=== PATIENT | male | born 2000 | race Caucasian/White ===

== ENCOUNTER 2024-02-12 12:38 | Inpatient (IN) ==
[2024-02-12 13:32] LABS: Basophils # (auto) 0.02 K/uL (0.00-0.20); Basophils % (auto) 0.2 %; Eosinophils # (auto) 0.02 K/uL (0.00-0.50); Eosinophils % (auto) 0.2 %; Hematocrit (blood only) 44.1 % (42.0-52.0); Hemoglobin 15.4 g/dl (14.0-18.0); Immature Granulocytes # (auto) 0.03 K/uL (0.01-0.20); Immature Granulocytes % (auto) 0.4 %; Lymphocytes # (auto) 1.32 K/uL (1.20-3.40); Lymphocytes % (auto) 15.9 %; Mean Corpuscular Hemoglobin 31.2 pg (25.0-34.0); Mean Corpuscular Hgb Conc 34.9 g/dL (32.0-36.0); Mean Corpuscular Volume 89.5 fL (80.0-100.0); Mean Platelet Volume 9.8 fL (9.4-12.4); Monocytes # (auto) 0.62 K/uL (0.11-0.59); Monocytes % (auto) 7.5 %; Neutrophils # (auto) 6.28 K/uL (1.40-6.50); Neutrophils % (auto) 75.8 %; Platelet Count 265 K/uL (130-400); RDW Coefficient of Variation 12.4 % (11.5-14.5); RDW Standard Deviation 40.6 fL (36.4-46.3); Red Blood Count 4.93 M/uL (4.70-6.10); White Blood Count 8.29 K/ul (4.8-10.8)
[2024-02-12 13:36] LABS: Appearance Urine Turbid (Clear); Bacteria Urine Automated None Seen (None Seen); Bilirubin Urine Negative (Negative); Blood Urine Negative (Negative); Cast Urine Automated 0-2 /lpf (0-2); Color Urine Yellow; Epithelial Cell Urine Auto 0-2 /hpf (0-2); Glucose Urine UA Negative (Negative); Ketones Urine Negative (Negative); Leukocyte Esterase Urine Negative (Negative); Nitrite Urine Negative (Negative); Protein Urine Negative (Negative); RBC Urine Automated 0-2 /hpf (0-2); Specific Gravity Urine 1.022 (1.000-1.030); Urobilinogen Urine Negative (Negative); WBC Urine Automated 0-5 /hpf (0-5); pH Urine 8.5 (4.5-7.5)
[2024-02-12 13:54] LABS: Acetaminophen < 3 ug/ml (10-30); Salicylate < 3.0 mg/dl (3.0-30)
[2024-02-12 13:57] LABS: Amphetamines+Metham, Urine Neg (Neg); Barbiturates, Urine Neg (Neg); Benzodiazepine, Urine Neg (Neg); Cocaine, Urine Neg (Neg); MDMA (Ecstacy), Urine Neg (Neg); Marijuana, Urine Neg (Neg); Methadone, Urine Neg (Neg); Opiate, Urine Neg (Neg); Phencyclidine, Urine Neg (Neg)
--- NOTE | 2024-02-12 13:58 | Emergency Department Note ---
Impression & Plan Suicidal ideations, Hyperglycemia ED Provider Note NAME: SAMIRA ROOT AGE: 23 SEX: M : 2000 ARRIVES VIA: Walk-In INFORMANT: Patient ED PROVIDER(S): Gabino Perez DO CHIEF COMPLAINT: SI HPI: Patient is a 23-year-old male with a past medical history of depression, anxiety who presents to the ER for suicidal ideations with a plan to hang himself. He notes suicidal thoughts started about 2 weeks ago and have been progressively worse. Does not feel safe anymore and consequently want to come in to get admitted. He denies any auditory or visual hallucinations. He mitts to feeling highs and lows over the past month which are new. He does not want to be social. He feels out of touch. He denies any headache or change in vision. No chest pain or shortness of breath. No nausea, vomiting, or diarrhea. Additional history obtained from father who notes he has noticed no pressured speech. ADDITIONAL HISTORY OBTAINED: Additional history obtained from father who notes he has noticed no pressured speech. Chronic Medical/Social Conditions Affecting Care: Per HPI PAST MEDICAL HISTORY:See Below PAST SURGICAL HISTORY:See Below FAMILY HISTORY:See Below SOCIAL HISTORY:See Below HOME MEDICATIONS:See Below ALLERGIES:See Below VITALS:See Below PHYSICAL EXAMINATION: GENERAL: Sitting up in bed, alert, well appearing, well nourished, no distress, non-toxic EYE EXAM: normal conjunctiva. PERRL and EOM's grossly intact. OROPHARYNX: no exudate, no erythema, lips, buccal mucosa, and tongue normal and mucous membranes are moist NECK: supple, no nuchal rigidity, no adenopathy, non-tender LUNGS: Clear to auscultation. Normal chest wall mechanics HEART: no murmurs, S1 normal and S2 normal ABDOMEN: abdomen soft, non-tender, normo-active bowel sounds, no masses, no rebound or guarding. UPPER EXTREMITIES: upper extremities are grossly normal. LOWER EXTREMITIES: No pitting edema. NEURO EXAM: Normal sensorium, cranial nerves II-XII grossly intact, normal speech, no gross weakness of arms, no gross weakness of legs. PSYCH: Admits to suicidal ideations with a plan to hang himself MEDICAL DECISION MAKING: Patient is a 23-year-old male who presents ER for above-stated complaint. IV was established blood work was obtained. Labs show no significant leukocytosis or anemia. BMP on LFTs bilirubin and TSH is unremarkable. UA was negative. Always a tox was negative. Alcohol was negative. COVID was negative. Case was discussed with our psychiatric lawn care worker who evaluated the patient remained referral to 3 S. [facility] S[facility] accepted the patient patient was transferred upstairs on a 201 for suicidal ideations with a plan to kill himself. Consults/Care Managements Discussions: Per MDM Triage Nursing notes reviewed. Limited review of prior medical records performed Vital Signs: reviewed and remarkable for no significant abnormalities Differential diagnosis: Mood disorder, infection, hypoglycemia, electrolyte abnormalities, cardiac sources, intracerebral event, toxicologic, trauma, neurologic, as well as other pathologies. ER treatment provided: See below Diagnostics interpreted by me include EKG and cardiac monitoring as listed below: -ECG: none -Laboratory studies:Interpreted by me as stated above in MDM and shown below. Imaging studies: Xrays: As interpreted by me:none CTs show: none Procedures:none Critical Care: None Past Med/Surg History Problem List (Updated 02/12/24 @ 18:31 by Gabino Perez DO) Hyperglycemia (Acute) Suicidal ideations (Acute) Social History Smoking Status: Never smoker Preferred Language: Maori Communication Ability: Effective Film Librarian Required: Video and No Beliefs That Will Affect Care: None Feels Safe at Home: Yes Gender Identity: Male Home Meds Home Medications Medication Instructions Recorded Confirmed cholecalciferol (vitamin D3) 1,250 50,000 unit PO WK 02/12/24 02/12/24 mcg (50,000 unit) capsule lamotrigine 25 mg tablet 25 mg PO DAILY 02/12/24 02/12/24 Results & Data (ED) Vital Signs Vital Signs - 24 hr 02/12/24 12:49 02/12/24 13:00 02/12/24 13:00 Temperature 36.5 C 36.6 C Temperature Source Temporal Artery Scan Oral Pulse Rate 82 Pulse Rate [Radial] 70 Respiratory Rate 20 18 Respiratory Effort / Characteristics Non-Labored Spontaneous Non-Labored Non-Labored Spontaneous Respiratory Depth Normal Normal Normal Respiratory Pattern Regular Blood Pressure 132/89 Blood Pressure [Left Arm] 135/73 Blood Pressure Mean 103 Blood Pressure Mean [Left Arm] 93 Pulse Oximetry 97 100 Oxygen Delivery Method Room Air Sepsis Recent Fever Within 48 Hours No Sepsis New/Unexplained Change in Mental Status No Sepsis Action Taken by Nursing No Action Required 02/12/24 15:13 02/12/24 16:32 Temperature Temperature Source Pulse Rate Pulse Rate [Radial] 77 Respiratory Rate 18 Respiratory Effort / Characteristics Respiratory Depth Respiratory Pattern Blood Pressure Blood Pressure [Left Arm] 133/82 Blood Pressure Mean Blood Pressure Mean [Left Arm] 99 Pulse Oximetry 99 Oxygen Delivery Method Room Air Sepsis Recent Fever Within 48 Hours Sepsis New/Unexplained Change in Mental Status Sepsis Action Taken by Nursing Laboratory Data 02/12/24 13:04 02/12/24 13:04 Lab Results 02/12/24 02/12/24 02/12/24 Range/Units 13:00 13:04 13:07 WBC 8.29 (4.8-10.8) K/ul RBC 4.93 (4.70-6.10) M/uL Hgb 15.4 (14.0-18.0) g/dl Hct 44.1 (42.0-52.0) % MCV 89.5 (80.0-100.0) fL MCH 31.2 (25.0-34.0) pg MCHC 34.9 (32.0-36.0) g/dL RDW Std Deviation 40.6 (36.4-46.3) fL RDW Coeff of Adryan 12.4 (11.5-14.5) % Plt Count 265 (130-400) K/uL MPV 9.8 (9.4-12.4) fL Immature Gran % (Auto) 0.4 % Neut % (Auto) 75.8 % Lymph % (Auto) 15.9 % [place] % (Auto) 7.5 % Eos % (Auto) 0.2 % Baso % (Auto) 0.2 % Neut # (Auto) 6.28 (1.40-6.50) K/uL Lymph # (Auto) 1.32 (1.20-3.40) K/uL [place] # (Auto) 0.62 H (0.11-0.59) K/uL Eos # (Auto) 0.02 (0.00-0.50) K/uL Baso # (Auto) 0.02 (0.00-0.20) K/uL Immature Gran # (Auto) 0.03 (0.01-0.20) K/uL Sodium 141 (136-145) mmol/L Potassium 4.1 (3.5-5.1) mmol/L Chloride 102 (98-107) mmol/L Carbon Dioxide 29 (21-32) mmol/L Anion Gap 10 (3-11) BUN 15 (6-23) mg/dl Creatinine 0.87 (0.6-1.4) mg/dl Est Cr Clr Drug Dosing 137.9 ml/min Est GFR ( Amer) 142.0 ml/min Est GFR (Non-Af Amer) 122.5 ml/min BUN/Creatinine Ratio 17.2 (10-20) Glucose 115 H (70-99(Fasting)) mg/dl Calcium 10.0 (8.6-10.3) mg/dl Total Bilirubin 0.5 (0.2-1.0) mg/dl AST 16 (13-39) U/L ALT 14 (7-52) U/L Alkaline Phosphatase 52 (34-104) U/L Total Protein 8.2 (6.0-8.3) gm/dl Albumin 5.2 H (3.4-5.0) gm/dl Globulin 3.0 (2.5-4.0) gm/dl Albumin/Globulin Ratio 1.7 (0.9-2) TSH 1.804 (0.300-4.500) uIu/ml Urine Color Yellow Urine Appearance Turbid A (Clear) Urine pH 8.5 H (4.5-7.5) Ur Specific [place] 1.022 (1.000-1.030) Urine Protein Negative (Negative) Urine Glucose (UA) Negative (Negative) Urine Ketones Negative (Negative) Urine Blood Negative (Negative) Urine Nitrite Negative (Negative) Urine Bilirubin Negative (Negative) Urine Urobilinogen Negative (Negative) Ur Leukocyte Esterase Negative (Negative) Urine WBC (Auto) 0-5 (0-5) /hpf Urine RBC (Auto) 0-2 (0-2) /hpf U Hyaline Cast (Auto) 0-2 (0-2) /lpf U Epithel Cells (Auto) 0-2 (0-2) /hpf Urine Bacteria (Auto) None Seen (None Seen) Salicylates < 3.0 L (3.0-30) mg/dl Urine Opiates Screen Neg (Neg) Ur Methadone, Qual Neg (Neg) Acetaminophen < 3 L (10-30) ug/ml Urine Barbiturates Neg (Neg) Ur Phencyclidine (PCP) Neg (Neg) U Amphetamin/Meth Scrn Neg (Neg) MDMA (Ecstasy) Screen Neg (Neg) U Benzodiazepines Scrn Neg (Neg) Ur Cocaine Metabolite Neg (Neg) U Marijuana (THC) Screen Neg (Neg) Ethyl Alcohol mg/dL < 10.0 (<10.0) mg/dl SARS-CoV-2, RNA, NAAT NEGATIVE (NEGATIVE) Administered Medications Olanzapine (Olanzapine 5 Mg Tablet) 5 mg PO BID PRN PRN Reason: Anxiety/Agitation Stop: 03/13/24 20:59 Last Admin: 02/12/24 17:39 Dose: 5 mg Documented By: VDS Discharge Plan Visit Data Chief Complaint: Mental Health Evaluation Stated Complaint: THOUGHTS OF SUICIDE/DON'T WANT TO HURT OTHERS ED Provider: Gabino Perez Discharge Problem: Suicidal ideations, Hyperglycemia Patient Disposition: Admitted As Inpatient Discharge Instructions Interventions: ED Discharge Assessment Last Done: 02/12/24 16:32
[2024-02-12 14:16] LABS: Albumin Globulin Ratio 1.7 (0.9-2); Albumin Level 5.2 gm/dl (3.4-5.0); BUN Creatinine Ratio 17.2 (10-20); Bilirubin,Total 0.5 mg/dl (0.2-1.0); Creatinine Clr Calc Pharmacy 137.9 ml/min; Est GFR (Non-African American) 122.5 ml/min; Potassium 4.1 mmol/L (3.5-5.1); Total Protein 8.2 gm/dl (6.0-8.3)
[2024-02-12 14:29] LABS: Thyroid Stimulating Hormone 1.804 uIu/ml (0.300-4.500)
[2024-02-12] MEDS ORDERED: MAGNESIUM HYDROXIDE SUSP 30 ML UDC PO PRN (16:45)
[2024-02-12] MEDS ORDERED: ALUMINUM/MAGNESIUM SUSP 30 ML UDC PO PRN (16:45)
[2024-02-12] MEDS ORDERED: SODIUM CHLORIDE 0.65% NA SOLN 45 ML (OCEAN) PRN (16:45)
[2024-02-12] MEDS ORDERED: BISMUTH SUBSALICYLATE LIQD 236 ML PO PRN (16:45)
[2024-02-12] MEDS ORDERED: hydrOXYzine HCl 25 MG TAB PO PRN (16:45)
[2024-02-12] MEDS: OLANZapine 5 MG TABLET PO PRN (17:39)
[2024-02-12] MEDS: haloperidoL 5 MG TAB PO PRN (19:34)
[2024-02-12] MEDS: LORazepam 1 MG TAB PO PRN (19:34)
[2024-02-12] MEDS: Patient's ALLERGY Info needs ENTERED STA (19:56)
[2024-02-12] MEDS ORDERED: OLANZapine 5 MG TABLET PO SCH (21:00)
[2024-02-12] MEDS: lamoTRIgine 25 MG TAB PO SCH (22:24)
--- NOTE | 2024-02-13 09:26 | History & Physical ---
Date of Service February 13, 2024 Impression / Recommendations Impression 23 yo man with no formal psychiatric history admitted on a 201 voluntary commitment for psychosis, sense that he may hurt someone and SI with plan of hanging himself using rope. Diagnostically consistent with unspecified psychosis with differential including schizophrenia (seems most likely given his age, gradual onset with increased negative symptoms, ideas of reference, increased yarsanism fixation, and now thought insertion to harm others) vs OCD vs MDD with psychotic features vs BPAD (less likely given no hx of monica) vs delusional disorder vs 2/2 medical cause (unlikely given negative head CT two months ago and no current neurological deficits or autonomic dysfunction, TSH normal, ?past Lyme panel). Discussed medication treatment options. Discussed risks, benefits and alternatives. He consented to continue haldol and ativan for psychosis and acute SI and ego-dystonic HI. Reviewed side effects including but not limited to: movement (TD, NMS), cardiac (QTc prolongation), and metabolic (stroke, insulin resistance) and necessity for fasting lipid and glucose labwork and AIMS done with score of 0. Overall I spent a total of 90 minutes for this admission including review of chart records, review of labwork, direct evaluation of the patient, counseling the patient, ordering medication, risk assessment, discussion with the psychiatric liason RN and documentation in the electronic health record. MNPR due to psychosis and HI (1) Unspecified psychosis not due to a substance or known physiological condition: (2) Suicidal ideations: (3) Homicidal thoughts: Plan 02/13/2024:The patient was admitted to the [facility] ([facility] mental [facility]) on q15 min checks (behavioral with suicide precautions) for safety. The patient will participate in group, recreational, and milieu therapies and will be offered additional individual and family sessions as clinically appropriate. -Continue haldol 2.5mg qAM and 5mg HS for psychosis -Ativan 1mg qAM and 2mg HS for psychosis given high acuity of current distress and symptoms -Discontinue lamictal -Fasting lipid panel and HbA1c in 1-2 days as he can better tolerate -Suicide protocol with safe tray, safe linens, safety precautions -Homicide precautions -Elopement precautions Inventory Assets Strengths: supportive family, willing for treatment Needs: safety and stabilization, increased coping skills, medication adjustment, increased outpatient support Suicide Risk Level Suicide Risk Level: High-Moderate (q15 min suicide checks) (SI with plan prior to admission and psychosis but denies SI currently and feels safe in the hospital, he feels comfortable telling staff if he feels unsafe and likes the ability to utilize the quiet room. Low threshold for 1-1 observation if SI re- emerges and/or he attempts to self-harm ) Risk Factors Assessment Male: Yes : Yes Do You Have Access To A Gun?: No Mental Health Diagnoses: Yes Substance Use Disorders: No Previous Attempt: No Family History of Suicide: No Previous Psychiatric Hospitalization: No Protective Factors Assessment Employed: No Stable Relationships: Yes Supportive Family: Yes Psychiatric History Identifying Data SAMIRA ROOT is a 23-year-old man who currently lives in [place] with his parents, has a history of depression, and was admitted on 02/12/24 17:07 on a 201 voluntary commitment for SI with plan of hanging himself and ego-dystonic HI. Chief Complaint "I feel like this is a test from God and that medication might not be able to fix it". History of Present Illness Samira presented to the emergency room with his father for worsening depression and SI with plan of hanging himself and could not identify any particular recent stressors. However, on admission to the behavioral health unit he revealed to the nurse that he was having the sense of getting a message that he needed to hurt others and due to this felt like he should kill himself before this could happen. Last evening he attempted to self-harm using an item on his sink and then agreed to utilize the quiet room and accepted medication and remained safe overnight. Today reports a significant improvement in some of his symptoms, denying current HI and SI, which he feels is due to the benefits from getting some sleep and possibly from the medication. He reports recent poor sleep, only 2-3 hours per night, for the two nights prior to admission and within the last three days developed a strong sense of needing to harm himself or others, which is a new and alarming development for him. He expresses a strong internal resistance against these thoughts and has no history of acting on them and is disturbed by the thought of hurting anyone but feels powerless at times when these thoughts seem to take over. He has been having thoughts of suicide with various plans but has thought most about hanging; he denies any rehearsal behaviors related to this. He describes a gradual decline in function with increased isolation and depression starting in 2021 and progressively worsening. In 2022, after his family moved to [place] his sense of isolation intensified, contributing to the onset of depression. He sought help through therapy, meditation, and exercise, which provided some relief. However, he was unable to continue his [employer] business and began to have an unintentional withdrawal from social interactions and a deepening interest in spirituality and self- reflection. He notes that he will sometimes spend hours a day meditating, writing and thinking about other religions and recently was going for long periods of time fasting which had significantly concerned his family. He now wonders if this period of time could be called "psychosis". Two months ago his parents took him to the ER at [facility] due to severe isolation and poor communication, which was worrying to his family. He recalls having a head CT and labwork for medical evaluation to explore potential physical health contributions to his symptoms, including chronic issues like psoriasis, seborrheic dermatitis, nasal problems, and fatigue which was non-remarkable and he was discharged from the ED. Within the last two weeks he started to develop thoughts of suicide and only within the last few days did he start to have a sense of harming others. He denies any auditory hallucinations but does have the sense that his mind is being controlled at times and confirms multipe incidents of ideas of reference over the last year including feeling that movies are dir ectly speaking to him, getting fixated on certain numbers appearing in books or online or the clock such as "11:11 and 333" and on arrival to the [facility] found a passage in a book very distressing as he felt it directly applied to him. He denies any history of monica nor hypomania except poor sleep over the two days prior to admission. Denies any history of self-harm nor eating disorder. Was started on lamictal 3 weeks ago but feels this is making his symptoms worse. Past Psychiatric History Previous Psych History: history of social anxiety in high school Current Psychiatric Diagnosis: Depression, Anxiety Outpatient Services: started seeing ALEJANDRO Jean at [facility] for psychiatric care Previous Psych Admissions: none Do You Have Access To A Gun?: No History of Previous Suicide Attempt: No Past Medication Trials: none Past Head Trauma/Neuro History History of Concussion/Seizure: No Allergies Allergy/AdvReac Type Severity Reaction Status Date / Time chloroquine Allergy Unverified 02/12/24 19:55 Home Medications Medication Instructions Recorded Confirmed Type cholecalciferol (vitamin D3) 1,250 50,000 unit PO WK 02/12/24 02/12/24 History mcg (50,000 unit) capsule lamotrigine 25 mg tablet 25 mg PO DAILY 02/12/24 02/12/24 History Family History Family History of: Depression Family Mental Health History Comment: Dad mild depression Alcohol History Hx of Alcohol Use Over the Past 12 Months: No AUDIT Total Score: 0 denies any alcohol use in last year, in high school would drink socially at times Smoking Use Have You Smoked or Used Tobacco Products in the Last 30 Days: No Smoking Status: Never smoker Substance History Hx of Prescription Med Misuse Over the Past 12 Months: No Hx of Over the Counter Med Misuse Over the Past 12 Months: No Hx of Inhalent Misuse Over the Past 12 Months: No Hx of Organic Substance Use Over the Past 12 Months: No Hx of Illegal Substances/Street Drug Use Over Past 12 Months: No Problems as a Result of Past Substance Use: None Identified Denies any use of recreational substances within the last year. About 1.5 years ago used cannabis via vaping and smoking. Tried LSD once about 2 years ago. Personal History Living Arrangements: Home Childhood: Grew up near [facility], family relocated to [place] in 2022 Highest Grade Completed: Some College (did [employer] courses) Employment Status: Unemployed Marital Status: Single Number Of Children: 0 Beliefs That Will Affect Care: None Current Legal Problems: No Hx Legal Problems: No Patient History Social History Smoking Status: Never smoker Preferred Language: Faroese Communication Ability: Effective Flight Test Engineer Required: Video and No Beliefs That Will Affect Care: None Feels Safe at Home: Yes Gender Identity: Male Review of Systems Review of Systems: All systems reviewed & are unremarkable except as noted in HPI & below (fatigue) Physical Exam Psychiatric: Orientation: alert and oriented x 3 Apperance: appropriately dressed Eye Contact: + fair eye contact Motor Behavior: no abnormal motor movements Speech: normal rate/rhythm/volume of speech Affect: + flat affect Mood: + depressed mood and + anxious mood Thought Process: + circumstantial thought process Thought Content: + ideas of reference and + thought insertion Suicidal Thoughts: + reports suicidal thoughts (intermittent) and + reports suicidal plan (none for hospital, prior to admission to hang himself) Homicidal Thoughts: denies homicidal plan; + reports homicidal thoughts (no target but having ego-dystonic fear that he may hurt or cause harm) Hallucinations: + auditory hallucinations; no visual hallucinations Cognition: recent memory grossly intact, remote memory grossly intact, attention grossly intact and language grossly intact Insight: + fair insight Judgment: + limited judgement Vital Signs (Past 24 Hours): Last Vital Signs Temp 36.0 C L 02/13/24 06:00 Pulse 78 02/13/24 06:00 Resp 16 02/13/24 06:00 BP 121/73 02/13/24 06:00 Pulse Ox 99 02/12/24 15:13 O2 Del Method Room Air 02/12/24 16:32 Exam Statement: A physical exam was performed in the ED by Dr. Perez for the purposes of medical clearance. I accept that physical as correct and adequate for the purposes of the inpatient physical exam. Results & Data ([facility]) Laboratory Results Laboratory Results - last 24 hr 02/12/24 02/12/24 02/12/24 13:00 13:04 13:07 WBC 8.29 RBC 4.93 Hgb 15.4 Hct 44.1 MCV 89.5 MCH 31.2 MCHC 34.9 RDW Std Deviation 40.6 RDW Coeff of Adryan 12.4 Plt Count 265 MPV 9.8 Immature Gran % (Auto) 0.4 Neut % (Auto) 75.8 Lymph % (Auto) 15.9 [place] % (Auto) 7.5 Eos % (Auto) 0.2 Baso % (Auto) 0.2 Neut # (Auto) 6.28 Lymph # (Auto) 1.32 [place] # (Auto) 0.62 H Eos # (Auto) 0.02 Baso # (Auto) 0.02 Immature Gran # (Auto) 0.03 Sodium 141 Potassium 4.1 Chloride 102 Carbon Dioxide 29 Anion Gap 10 BUN 15 Creatinine 0.87 Est Cr Clr Drug Dosing 137.9 Est GFR ( Amer) 142.0 Est GFR (Non-Af Amer) 122.5 BUN/Creatinine Ratio 17.2 Glucose 115 H Calcium 10.0 Total Bilirubin 0.5 AST 16 ALT 14 Alkaline Phosphatase 52 Total Protein 8.2 Albumin 5.2 H Globulin 3.0 Albumin/Globulin Ratio 1.7 TSH 1.804 Urine Color Yellow Urine Appearance Turbid A Urine pH 8.5 H Ur Specific [place] 1.022 Urine Protein Negative Urine Glucose (UA) Negative Urine Ketones Negative Urine Blood Negative Urine Nitrite Negative Urine Bilirubin Negative Urine Urobilinogen Negative Ur Leukocyte Esterase Negative Urine WBC (Auto) 0-5 Urine RBC (Auto) 0-2 U Hyaline Cast (Auto) 0-2 U Epithel Cells (Auto) 0-2 Urine Bacteria (Auto) None Seen Salicylates < 3.0 L Urine Opiates Screen Neg Ur Methadone, Qual Neg Acetaminophen < 3 L Urine Barbiturates Neg Ur Phencyclidine (PCP) Neg U Amphetamin/Meth Scrn Neg MDMA (Ecstasy) Screen Neg U Benzodiazepines Scrn Neg Ur Cocaine Metabolite Neg U Marijuana (THC) Screen Neg Ethyl Alcohol mg/dL < 10.0 SARS-CoV-2, RNA, NAAT NEGATIVE Current Inpatient Medications Current Inpatient Medications: Current Inpatient Medications Acetaminophen (Acetaminophen 325 Mg Tab) 650 mg PO Q4H PRN PRN Reason: Headache or Minor Fever Stop: 03/13/24 16:44 Al Hydrox/Mg Hydrox/Simethicone (Aluminum/Magnesium Susp 30 Ml Udc) 30 ml PO Q4H PRN PRN Reason: GI Upset Stop: 03/13/24 16:44 Bismuth Subsalicylate (Bismuth Subsalicylate Liqd 236 Ml) 15 ml PO PRN PRN PRN Reason: Loose Stool Stop: 03/13/24 16:44 Haloperidol (Haloperidol 5 Mg Tab) 5 mg PO BID PRN PRN Reason: agitation/paranoia Stop: 03/13/24 19:17 Last Admin: 02/12/24 19:34 Dose: 5 mg Hydroxyzine HCl (Hydroxyzine Hcl 25 Mg Tab) 50 mg PO HSZ PRN PRN Reason: Insomnia Stop: 03/13/24 16:44 Hydroxyzine HCl (Hydroxyzine Hcl 25 Mg Tab) 25 mg PO Q4H PRN PRN Reason: Anxiety Stop: 03/13/24 16:44 Lamotrigine (Lamotrigine 25 Mg Tab) 25 mg PO HS TAY; Protocol Stop: 03/13/24 21:59 Last Admin: 02/12/24 22:24 Dose: Not Given Lorazepam (Lorazepam 1 Mg Tab) 2 mg PO BID PRN PRN Reason: Agitation Stop: 03/13/24 19:17 Last Admin: 02/12/24 19:34 Dose: 2 mg Magnesium Hydroxide (Magnesium Hydroxide Susp 30 Ml Udc) 30 ml PO DAILY PRN PRN Reason: Constipation Stop: 03/13/24 16:44 Sodium Chloride (Sodium Chloride 0.65% Na Soln 45 Ml ([place])) 1 - 2 sprays NA PRN PRN PRN Reason: Nasal Dryness/Congestion Stop: 03/13/24 16:44
--- OUTSIDE RECORDS SUMMARY | 2024-02-13 10:28 | External Medical Summary | Continuity of Care Document ---
Author Name Unknown Organization [address] Address [address] [place] [address] DR SAMANIEGO [facility] [phone] Care Team Providers Care Second Cook And Baker Name Role Phone Néstor Miles Primary Care Physician [phone] Encounter [facility] [id number] Date(s): 11/23/23 - 11/23/[address] [place] [id number] [facility], [address] [place] [address] [phone] Encounter Diagnosis Body mass index [BMI] 21.0-21.9, adult(Discharge Diagnosis) - 11/23/23 Fatigue(Discharge Diagnosis) - 11/23/23 Perianal itch(Discharge Diagnosis) - 11/23/23 Discharge Disposition: Home or Self Care Attending Physician: MD Miles Ravishankar E Referring Physician: MD Miles Ravishankar E Allergies, Adverse Reactions, Alerts Substance Reaction Severity Status chloroquine Active Assessment and Plan Extracted from: Title:Office Visit Note Author:MD Miles Ravishan kar E Date:11/23/23 1.Perianal itch - Suspect yeast infection of gluteal fold - Lotrisone recommended for topical treatment x 5-7 days as needed - Keep area clean/dry - Avoid high friction rubbing, moistened wipes encouraged temporarily - Fiber to encouraged soft/regular BM 2.Fatigue - Reviewed records extensively with pt - Next step in evaluation is sleep study currently scheduled on Sunday but pending authorization. Encouraged pt to call and expedite review given appt is hard to reschedule if not approved in a timely manner, pt agreeable to do so. f/u pending sleep study. Time: 40mins 5- pre-visit chart review 30- visit, inclusive of history, exam, and discussion of assessment/plan 5- post-visit documentation/orders/coordination of care Immunizations Given and Recorded Vaccine Date Status Refusal Reason meningococcal conjugate vaccine 08/08/18 Given meningococcal conjugate vaccine 03/10/13 Given human papillomavirus vaccine 01/30/18 Given human papillomavirus vaccine 10/03/17 Given human papillomavirus vaccine 07/26/17 Given influenza virus vaccine, inactivated 06/30/17 Give n hepatitis A pediatric vaccine 10/13/13 Given hepatitis A pediatric vaccine 04/11/13 Given tetanus/diphtheria/pertuss, acel (Tdap) 03/10/13 G iven measles/mumps/rubella virus vaccine 01/21/13 Recor ded measles/mumps/rubella virus vaccine 12/28/05 Recor ded varicella virus vaccine 05/14/07 Recorded varicella virus vaccine 01/21/03 Recorded poliovirus vaccine, inactivated 12/28/05 Recorded poliovirus vaccine, inactivated 05/04/03 Recorded poliovirus vaccine, inactivated 02/07/02 Recorded poliovirus vaccine, inactivated 01 Recorded diphtheria/tetanus/pertuss, acel (DTaP) 12/28/05 R ecorded diphtheria/tetanus/pertuss, acel (DTaP) 04/16/02 R ecorded diphtheria/tetanus/pertuss, acel (DTaP) 02/07/02 R ecorded diphtheria/tetanus/pertuss, acel (DTaP) 01 R ecorded pneumococcal 13-valent vaccine 05/04/03 Recorded pneumococcal 13-valent vaccine 04/16/02 Recorded pneumococcal 13-valent vaccine 02/07/02 Recorded pneumococcal 13-valent vaccine 01 Recorded haemophilus b conj (PRP-OMP) vaccine 05/04/03 Rian rded haemophilus b conj (PRP-OMP) vaccine 04/16/02 Rian rded haemophilus b conj (PRP-OMP) vaccine 02/07/02 Rian rded haemophilus b conj (PRP-OMP) vaccine 01 Rian rded hepatitis B pediatric vaccine 06/12/02 Recorded hepatitis B pediatric vaccine 01/13/02 Recorded hepatitis B pediatric vaccine 01 Recorded Medications Lotrisone 1%-0.05% topical cream Start: 11/23/23 10:56:00 EST, 1 appl, topical, bid, Disp# 45 g, Refills: 0, Pharmacy: [facility]/pharmacy #[id number] Start Date: 11/23/23 Stop Date: 11/30/23 Status: Ordered mupirocin 2% topical ointment APPLY TO AFFECTED AREA 2 TO 3 TIMES A DAY Start Date: 05/28/23 Status: Ordered Mental Status 11/23/23 Barriers to Learning one year None evide nt Mandatory Health Literacy Documentation Yes Health Literacy Communication Barriers N ever Primary Language Chinese Problem List Condition Confirmation Course Effective Dates Status Health St atus Informant Right ankle pain Confirmed Active Ulna styloid fracture, closed Confirmed Active Left knee injury Confirmed Active Distal radius fracture Confirmed Active Fx clavicle Confirmed Active History of anemia Confirmed Active Seasonal allergic rhinitis Confirmed Active Seborrheic dermatitis Confirmed Active Diagnosis Diagnosis Type Effective Dates Health Status Cl inical Service Informant Body mass index [BMI] 21.0-21.9, adult Discharge Diagnosis 11/23/23 Non-Specified Fatigue Discharge Diagnosis 11/23/23 Perianal itch Discharge Diagnosis 11/23/23 Procedures Procedure Date Related Diagnosis Body Site Status Shave biopsy and cauterization of skin 1 11/07/22 Completed Circumcision Completed Umbilical Hernia Repair 2 Completed 1Crown Scalp Left Axilla 91098 Vital Signs Most recent to oldest [Reference Range]: 1 Height 184.2 cm (11/23/23 10:39 AM) Patient Weight 73.1 kg (11/23/23 10:39 AM) Body Mass Index 21.54 kg/m2 (11/23/23 10:39 AM) Temperature [36.5-37.9 DegC] 36.4 DegC *LOW* (11/23/23 10:39 AM) Heart Rate 57 bpm (11/23/23 10:39 AM) Blood Pressure 108/70mmHg (11/23/23 10:39 AM) Cuff Pulse Pressure 38 mmHg (11/23/23 10:39 AM) Social History Social History Type Response Smoking Status Never smoked cigaret magui Sex Male FCM Outpt Note * MD Jd, Néstor Fragoso: PERFORM Event Display: FCM Outpt Note Authored Date: Chief Complaint Itchiness around anus. Started about5-7 days ago. Noticeable more in the morning and after wiping and at night. History of Present Illness Samira is a 23yoM here today with itching around his anus that started 5-7 days ago. He notes it's worse in the AM and after wiping at night. He notes he woke up one day with itching in the perianal area that he didn't think much of. It's persisted ever since so thought he should get checkedout. He's noting it worst when he wakes up and after wiping. No recent diarrhea/constipation.No blood when he wipes. No recent travel. He otherwise continues to struggle with low energy/fatigue. Extensive work-up performed and unremarkable to date. He did see an ENT in [place] who recommended sleep study. This was ordered and is scheduled next week but still has not obtained insurance authorization after initial denial and resubmission. Initial denial was for "inpatient hospitalization" which I think was an error so resubmitted for sleep study itself on 11/16 and awaiting response from insurance. He feels symptoms are stagnant since May - not worse or better really. He struggles with daily fatigue/low energy that he thinks is due to poor sleep quality. He stays asleep throughout he night but doesn't feel rested after his sleep. Review of Systems 07/14pt ROS reviewed/negative except as noted in HPI. Physical Exam Vitals & Measurements T:36.4C HR:57(Monitored) BP:108/70 SpO2:98% HT:184.2cm WT:73.100kg(Dosing) WT:73.1kg BMI:21.54 PHQ2 Data(Data Documented on:11/23/2023 10:36) Emotional health assessment NEGATIVE GENERAL APPEARANCE: The patient is alert, oriented and in no acute distress. VITALS: As above. HEENT: Head is normocephalic/atraumatic. CARDIOVASCULAR: +2 radial pulses. LUNGS: Respirations even and unlabored. EXTREMITIES: No cyanosis, clubbing or edema. RECTAL: No prolapsed internal or external hemorrhoids of note. Erythematous moody-rectal region with satellite lesions noted. NEUROLOGICAL: Grossly non-focal exam. SKIN: Warm and dry without any rash. Assessment/Plan 1.Perianal itch - Suspect yeast infection of gluteal fold - Lotrisone recommended for topical treatment x 5-7 days as needed - Keep area clean/dry - Avoid high friction rubbing, moistened wipes encouraged temporarily - Fiber to encouraged soft/regular BM 2.Fatigue - Reviewed records extensively with pt - Next step in evaluation is sleep study currently scheduled on Sunday but pending authorization.Encouraged pt to call and expedite review given appt is hard to reschedule if not approved in a timely manner, pt agreeable to do so. f/u pending sleep study. Time: 40mins 5- pre-visit chart review 30- visit, inclusive of history, exam, and discussion of assessment/plan 5- post-visit documentation/orders/coordination of care Problem List/Past Medical History Ongoing Distal radius fracture Fx clavicle History of anemia Left knee injury Right ankle pain Seasonal allergic rhinitis Seborrheic dermatitis Ulna styloid fracture, closed Procedure/Surgical History Shave biopsy and cauterization of skin (11/07/2022)CircumcisionUmbilical Hernia Repair Medications betamethasone-clotrimazole topical(Lotrisone 1%-0.05% topical cream), 1 appl, topical, bid mupirocin topical(mupirocin 2% topical ointment) Allergies chloroquine Social History Smoking Status Never smoked cigarettes Alcohol - Denies Alcohol Use Employment/School Status:Student Exercise - Regular exercise Times per week:5-6 times/week Home/Environment Lives with:Father, Mother, Siblings Sexual - No Sexual Activity Self described orientation:Straight or heterosexual Substance Abuse - Denies Substance Abuse Tobacco - Denies Tobacco Use Family History Arthritis: Unknown. Diabetes: Unknown. Heart disease: MGF and Unknown. Hyperlipidemia..: Unknown and Unknown. Health Status Family Member(s) Immunizations Vaccine Date Status meningococcal conjugate vaccine 08/08/2018 Given human papillomavirus vaccine 01/30/2018 Given human papillomavirus vaccine 10/03/2017 Given human papillomavirus vaccine 07/26/2017 Given influenza virus vaccine, inactivated 06/30/2017 Given hepatitis A pediatric vaccine 10/13/2013 Given hepatitis A pediatric vaccine 04/11/2013 Given meningococcal conjugate vaccine 03/10/2013 Given tetanus/diphtheria/pertuss, acel (Tdap) 03/10/2013 Given measles/mumps/rubella virus vaccine 01/21/2013 Recorded varicella virus vaccine 05/14/2007 Recorded measles/mumps/rubella virus vaccine 12/28/2005 Recorded poliovirus vaccine, inactivated 12/28/2005 Recorded diphtheria/tetanus/pertuss, acel (DTaP) 12/28/2005 Recorded pneumococcal 13-valent vaccine 05/04/2003 Recorded haemophilus b conj (PRP-OMP) vaccine 05/04/2003 Recorded poliovirus vaccine, inactivated 05/04/2003 Recorded varicella virus vaccine 01/21/2003 Recorded hepatitis B pediatric vaccine 06/12/2002 Recorded pneumococcal 13-valent vaccine 04/16/2002 Recorded haemophilus b conj (PRP-OMP) vaccine 04/16/2002 Recorded diphtheria/tetanus/pertuss, acel (DTaP) 04/16/2002 Recorded pneumococcal 13-valent vaccine 02/07/2002 Recorded haemophilus b conj (PRP-OMP) vaccine 02/07/2002 Recorded poliovirus vaccine, inactivated 02/07/2002 Recorded diphtheria/tetanus/pertuss, acel (DTaP) 02/07/2002 Recorded hepatitis B pediatric vaccine 01/13/2002 Recorded pneumococcal 13-valent vaccine 2001 Recorded hepatitis B pediatric vaccine 2001 Recorded haemophilus b conj (PRP-OMP) vaccine 2001 Recorded poliovirus vaccine, inactivated 2001 Recorded diphtheria/tetanus/pertuss, acel (DTaP) 2001 Recorded Recommendations Health Maintenance Pending(in the next year) OverDue Adult Influenza Vaccine due03/30/23and every 1year Due Adult COVID-19 Vaccination due11/23/23Unknown Frequency Adult Social Determinants of Health Screening due11/23/23Unknown Frequency Adult Tdap/Td Vaccine due11/23/23Unknown Frequency Hepatitis C Screening due11/23/23One-time only Lipid Screening due11/23/23Unknown Frequency Satisfied(in the past 1 year) Satisfied Body Mass Index on11/23/23.Satisfied by JAM Thurston Angela Electronic Signature on File Electronically Reviewed/Signed by: Néstor Miles MD Author Signature Dt/Tm:11/23/2023 11:03 AM Department of Family Medicine [facility] Patient Care team information Care Team Personnel Name: MD Scottie, Mode Decker Position: Physician - Orthopaedic Surg Member Role: Lifetime Relationship Address: Address: [address] [place] [address] [address] [place] [address] Name: MD Miles Ravishankar E Position: Physician Member Role: Primary Care Provider Address: Address: [address] [place] [address] [place] Care Team Related Persons Name: IVETT ANISHA M Address: home [address], [place] [phone] Name: ANISHA ROOT Address: home [address] [facility], [place] [phone] Name: ANISHA ROOT Address: [place] Address: [address], [place] [phone] Name: KELYL ROOT Address: home [address] [facility], [phone] Name: DONELL ROOT Address: [place] Address: home [address] [place] [address], [place] [phone]
--- OUTSIDE RECORDS SUMMARY | 2024-02-13 10:28 | External Medical Summary | Continuity of Care Document ---
Author Name Unknown Organization [address] Address [address] [place] [address] DR SAMANIEGO [place]OCO [id number] Care Team Providers Care Materials Recycler Name Role Phone Néstor Miles Primary Care Physician [phone] Encounter [facility] [id number] Date(s): 01/18/24 - 01/18/[address] [place] [address] [facility], [address] [place] [phone] Encounter Diagnosis Need for Tdap vaccination(Discharge Diagnosis) - 01/18/24 Daytime sleepiness(Discharge Diagnosis) - 01/18/24 Sleep-disordered breathing(Discharge Diagnosis) - 01/18/24 Discharge Disposition: Home or Self Care Attending Physician: MD Miles Ravishankar E Referring Physician: MD Miles Ravishankar E Allergies, Adverse Reactions, Alerts Substance Reaction Severity Status chloroquine Active Assessment and Plan Extracted from: Title:Office Visit Note Author:MD Miles Ravishan kar E Date:01/18/24 1.Daytime sleepiness - Given inability to obtain outpatient home sleep study due to insurance will consult with sleep medicine for ongoing daytime sleepiness despite excessive hours of sleep - Sleep hygeine practices are good, well versed in thsi - No alternative medical etiology for his symptoms exists but does endorse waking up short of breath at times, unsure if he snores 2.Sleep-disordered breathing - As above 3.Need for Tdap vaccination - 10yrs from last dose, given today, VIS provided f/u PRN pending sleep consult. Time: 30mins 5- pre-visit chart review 20- visit, inclusive of history, exam, and discussion of assessment/plan 5- post-visit documentation/orders/coordination of care Immunizations Given and Recorded Vaccine Date Status Refusal Reason tetanus/diphtheria/pertuss, acel (Tdap) 01/18/24 G iven tetanus/diphtheria/pertuss, acel (Tdap) 03/10/13 G iven meningococcal conjugate vaccine 08/08/18 Given meningococcal conjugate vaccine 03/10/13 Given human papillomavirus vaccine 01/30/18 Given human papillomavirus vaccine 10/03/17 Given human papillomavirus vaccine 07/26/17 Given influenza virus vaccine, inactivated 06/30/17 Give n hepatitis A pediatric vaccine 10/13/13 Given hepatitis A pediatric vaccine 04/11/13 Given measles/mumps/rubella virus vaccine 01/21/13 Recor ded measles/mumps/rubella [...] bid, Disp# 45 g, Refills: 0, Pharmacy: [facility]/pharmacy #[id number] Start Date: 11/23/23 Stop Date: 11/30/23 Status: Ordered mupirocin 2% topical ointment APPLY TO AFFECTED AREA 2 TO 3 TIMES A DAY Start Date: 05/28/23 Status: Ordered Mental Status 01/18/24 Barriers to Learning one year None evide nt Mandatory Health Literacy Documentation Yes Health Literacy Communication Barriers N ever Primary Language Northern Irish Problem List Condition Confirmation Course Effective Dates Status Health St atus Informant Right ankle pain Confirmed Active Ulna styloid fracture, closed Confirmed Active Left knee injury Confirmed Active Distal radius fracture Confirmed Active Fx clavicle Confirmed Active History of anemia Confirmed Active Seasonal allergic rhinitis Confirmed Active Seborrheic dermatitis Confirmed Active Diagnosis Diagnosis Type Effective Dates Health Status Clinical Service Informant Sleep-disordered breathing Discharge Diagnosis 01/18/24 Need for Tdap vaccination Discharge Diagnosis 01/18/24 Daytime sleepiness Discharge Diagnosis 01/18/24 Procedures Procedure Date Related Diagnosis Body Site Status Shave biopsy and cauterization of skin 1 11/07/22 Completed Circumcision Completed Umbilical Hernia Repair 2 Completed 1Crown Scalp Left Axilla [address] Vital Signs Most recent to oldest [Reference Range]: 1 Patient Weight 74 kg (01/18/24 11:18 AM) Heart Rate 65 bpm (01/18/24 11:18 AM) Respiratory Rate 20 br/min (01/18/24 11:18 AM) Blood Pressure 102/75mmHg (01/18/24 11:18 AM) Social History Social History Type Response Smoking Status Never smoked cigaret magui Sex Male FCM Outpt Note * MD Jd, Néstor E: PERFORM Event Display: FCM Outpt Note Authored Date: Chief Complaint f/u sleep - sleeping 10 hours and still waking up tired, having some snoring History of Present Illness Samira is a 23yoM here today to f/u on ongoing fatigue/sleep issues. He is sleeping roughly 10hrs a night and is still tired all the time. At last visit we were pending sleep study but he's struggled with getting insurance coverage of this. Also having new babies join the family soon so wanted to update Tdap if needed. Last was 2012 so now past due. Review of Systems 07/14pt ROS reviewed/negative except as noted in HPI. Physical Exam Vitals & Measurements HR:65(Monitored) RR:20 BP:102/75 SpO2:98% WT:74.000kg(Dosing) WT:74kg PHQ2 Data(Data Documented on:01/18/2024 11:16) Emotional health assessment POSITIVE PHQ-9 modified for adolescents not completed GENERAL APPEARANCE: The patient is alert, oriented and in no acute distress. VITALS: As above. HEENT: Head is normocephalic/atraumatic. CARDIOVASCULAR: +2 radial pulses. LUNGS: Respirations even and unlabored. EXTREMITIES: No cyanosis, clubbing or edema. NEUROLOGICAL: Grossly non-focal exam. SKIN: Warm and dry without any rash. Assessment/Plan 1.Daytime sleepiness - Given inability to obtain outpatient home sleep study due to insurance will consult with sleep medicine for ongoing daytime sleepiness despite excessive hours of sleep - Sleep hygeine practices are good, well versed in thsi - No alternative medical etiology for his symptoms exists but does endorse waking up short of breath at times, unsure if he snores 2.Sleep-disordered breathing - As above 3.Need for Tdap vaccination - 10yrs from last dose, given today, VIS provided f/u PRN pending sleep consult. Time: 30mins 5- pre-visit chart review 20- visit, inclusive of history, exam, and discussion of assessment/plan 5- post-visit documentation/orders/coordination of care Problem List/Past Medical History Ongoing Distal radius fracture Fx clavicle History of anemia Left knee injury Right ankle pain Seasonal allergic rhinitis Seborrheic dermatitis Ulna styloid fracture, closed Procedure/Surgical History Shave biopsy and cauterization of skin| Service Date: 3CircumcisionUmbilical Hernia Repair Medications betamethasone-clotrimazole topical(Lotrisone 1%-0.05% topical cream), 1 appl, topical, bid mupirocin topical(mupirocin 2% topical ointment) tetanus/diphth/pertuss (Tdap) adult/adol(Tdap vaccine), 0.5 mL, IM, ONCE Allergies chloroquine Social History Smoking Status Never [...] due03/30/23and every 1year Due Adult COVID-19 Vaccination due01/18/24Unknown Frequency Adult Social Determinants of Health Screening due01/18/24Unknown Frequency Adult Tdap/Td Vaccine due01/18/24Unknown Frequency Depression Follow Up Plan due01/18/24Unknown Frequency Hepatitis C Screening due01/18/24One-time only Lipid Screening due01/18/24Unknown Frequency Satisfied(in the past 1 year) Satisfied Body Mass Index on11/23/23.Satisfied by JAM Thurston Angela Electronic Signature on File Electronically Reviewed/Signed by: Néstor Miles MD Author Signature Dt/Tm:01/18/2024 11:40 AM Department of Family Medicine [facility] Patient Care team information Care Team Personnel Name: MD Scottie, Mode Decker Position: Physician - Orthopaedic Surg Member Role: Lifetime Relationship Address: Address: [address] [place] [address] Name: MD Jd, Néstor Fragoso Position: Physician Member Role: Primary Care Provider Address: Address: [address] [place] [address] Care Team Related Persons Name: ANISHA ROOT Address: [facility] [place] Address: home [address] [place] [phone] Name: ANISHA ROOT Address: home [address] [place], [place] [phone] Name: ANISHA ROOT Address: home [address], [place] [phone] Name: KELLY ROOT Address: home [address] [facility] [phone] Name: DONELL ROOT Address[facility] Address: home [address] [place] [phone]"
[2024-02-13] MEDS ORDERED: haloperidoL 0.5 MG TAB PO PRN (12:27)
[2024-02-13] MEDS: ERGOCALCIFEROL 1250 MCG (50,000 UNITS) CAP PO SCH (17:09)
[2024-02-13] MEDS ORDERED: Nursing to Pharmacy Communication SCH (17:30)
[2024-02-13] MEDS: haloperidoL 5 MG TAB PO SCH (21:44)
[2024-02-13] MEDS: LORazepam 0.5 MG TAB PO PRN (21:44)
[2024-02-13] MEDS: LORazepam 1 MG TAB PO SCH (22:06)
--- NOTE | 2024-02-14 09:10 | Psychiatric Progress Note ---
Date of Service February 14, 2024 Impression / Recommendations Impression 23 yo man with no formal psychiatric history admitted on a 201 voluntary commitment for psychosis, sense that he may hurt someone and SI with plan of hanging himself using rope. Diagnostically consistent with unspecified psychosis with differential including schizophrenia (seems most likely given his age, gradual onset with increased negative symptoms, ideas of reference, increased islam fixation, and now thought insertion to harm others) vs OCD vs MDD with psychotic features vs BPAD (less likely given no hx of monica) vs delusional disorder vs 2/2 medical cause (unlikely given negative head CT two months ago and no current neurological deficits or autonomic dysfunction, TSH normal, ?past Lyme panel). 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 But having difficulty concentrating and thinking as clearly so he's interested in an alternative antipsychotic medication trial of risperidone. Discussed risks, benefits and alternatives. He consented to start risperidone tomorrow for psychosis. Reviewed side effects including but not limited to: movement (TD, NMS), cardiac (QTc prolongation), and metabolic (stroke, insulin resistance) and necessity for fasting lipid and glucose labwork and AIMS done with score of 0. Overall, I spent a total of 35 minutes on this case including meeting with the patient, reviewing the chart, nursing report, multidisciplinary team meeting, orders, and documentation. (1) Unspecified psychosis not due to a substance or known physiological condition: (2) Suicidal ideations: (3) Homicidal thoughts: Plan 02/14/2024: -Haldol 5mg po and ativan 2mg po at HS -Tomorow start risperidone 0.5mg BID -Fasting lipid panel, glucose and HbA1c in the morning 02/13/2024:[facility] ([facility] inpatient mental health unit) on q15 min checks (behavioral with suicide precautions) for safety. The patient will participate in group, recreational, and milieu therapies and will be offered additional individual and family sessions as clinically appropriate. -Continue haldol 2.5mg qAM and 5mg HS for psychosis -Ativan 1mg qAM and 2mg HS for psychosis given high acuity of current distress and symptoms -Discontinue lamictal -Fasting lipid panel and HbA1c in 1-2 days as he can better tolerate -Suicide protocol with safe tray, safe linens, safety precautions -Homicide precautions -Elopement precautions Inventory Assets Strengths: supportive family, willing for treatment Needs: safety and stabilization, increased coping skills, medication adjustment, increased outpatient support Suicide Risk Level Suicide Risk Level: High-Moderate (q15 min suicide checks) (SI with plan prior to admission and psychosis but denies SI currently and feels safe in the hospital, he feels comfortable telling staff if he feels unsafe and likes the ability to utilize the quiet room. Low threshold for 1-1 observation if SI re- emerges and/or he attempts to self-harm ) Risk Factors Assessment Male: Yes : Yes Do You Have Access To A Gun?: No Mental Health Diagnoses: Yes Substance Use Disorders: No Previous Attempt: No Family History of Suicide: No Previous Psychiatric Hospitalization: No Protective Factors Assessment Employed: No Stable Relationships: Yes Supportive Family: Yes Interval History Identifying Information SAMIRA ROOT is a 23-year-old man who currently lives in [place] with his parents, has a history of depression, and was admitted on 02/12/24 17:07 on a 201 voluntary commitment for SI with plan of hanging himself and ego-dystonic HI. Chief Complaint "None of those thoughts today". Review of Systems Sleep Information Total Hours of Sleep: 6.5 Sleep Comments: SRAVAN Hankins at 1934 Meal Information Percent Meal Consumed - Breakfast: 100 Percent Meal Consumed - Lunch: 50 Percent Meal Consumed - Dinner: 100 Subjective Subjective Patient was seen & assessed and interval progress reviewed with treatment team nursing and social work. He got prn ativan last night per his request for insomnia. Isolative to his room but was reading and playing cards. Today has participated in almost all the unit groups and been reality-based and engaging well with peers. He denies any current SI or HI and credits the medication with helping this. He is in agreement that psychosis is an accurate diagnosis at this time. He does feel like his thoughts are "mush" and it's hard to think or concentrate and continues to have fatigue even after sleeping but he notes this is consistent with the fatigue he's had over the past 1-2 years. He wonders about a medication to help his thoughts that might not be as sedating. Physical Exam Psychiatric Orientation: alert and oriented x 3 Apperance: appropriately dressed Eye Contact: + fair eye contact Motor Behavior: no abnormal motor movements Speech: normal rate/rhythm/volume of speech Affect: + flat affect Mood: + depressed mood and + anxious mood Thought Process: + circumstantial thought process Thought Content: reality based without delusions and + ideas of reference Suicidal Thoughts: + reports suicidal thoughts (intermittent, but none today) and + reports suicidal plan (none for hospital, prior to admission to hang himself) Homicidal Thoughts: denies homicidal plan; + reports homicidal thoughts (recent ego-dystonic fear that he may hurt or cause harm, none today) Hallucinations: no auditory hallucinations and no visual hallucinations Cognition: recent memory grossly intact, remote memory grossly intact, attention grossly intact and language grossly intact Insight: + fair insight Judgment: + limited judgement Vital Signs (Past 24 Hours) Last Vital Signs Temp 36.6 C 02/14/24 06:00 Pulse 53 L 02/14/24 06:18 Resp 16 02/14/24 06:00 BP 122/65 02/14/24 06:18 Pulse Ox 99 02/12/24 15:13 O2 Del Method Room Air 02/12/24 16:32 [facility] Current Inpatient Medications Current Inpatient Medications: Current Inpatient Medications Acetaminophen (Acetaminophen 325 Mg Tab) 650 mg PO Q4H PRN PRN Reason: Headache or Minor Fever Stop: 03/13/24 16:44 Al Hydrox/Mg Hydrox/Simethicone (Aluminum/Magnesium Susp 30 Ml Udc) 30 ml PO Q4H PRN PRN Reason: GI Upset Stop: 03/13/24 16:44 Benztropine Mesylate (Benztropine Mesylate 1 Mg Tab) 1 mg PO BID PRN PRN Reason: muscle stiffness Stop: 03/14/24 12:27 Bismuth Subsalicylate (Bismuth Subsalicylate Liqd 236 Ml) 15 ml PO PRN PRN PRN Reason: Loose Stool Stop: 03/13/24 16:44 Ergocalciferol (Ergocalciferol 1250 Mcg (50,000 Units) Cap) 1,250 mcg PO Ly@0900 TAY Stop: 03/18/24 08:59 Haloperidol (Haloperidol 5 Mg Tab) 5 mg PO HS TAY Stop: 03/14/24 21:59 Last Admin: 02/13/24 21:44 Dose: 5 mg Haloperidol (Haloperidol 0.5 Mg Tab) 2.5 mg PO QAM TAY Stop: 03/15/24 08:59 Haloperidol (Haloperidol 0.5 Mg Tab) 2.5 mg PO DAILY PRN PRN Reason: Agitation Stop: 03/14/24 12:26 Hydroxyzine HCl (Hydroxyzine Hcl 25 Mg Tab) 50 mg PO HSZ PRN PRN Reason: Insomnia Stop: 03/13/24 16:44 Hydroxyzine HCl (Hydroxyzine Hcl 25 Mg Tab) 25 mg PO Q4H PRN PRN Reason: Anxiety Stop: 03/13/24 16:44 Lorazepam (Lorazepam 1 Mg Tab) 2 mg PO HS TAY Stop: 03/14/24 21:59 Last Admin: 02/13/24 22:06 Dose: 2 mg Lorazepam (Lorazepam 1 Mg Tab) 1 mg PO QAM TAY Stop: 03/15/24 08:59 Lorazepam (Lorazepam 0.5 Mg Tab) 0.5 mg PO BID PRN PRN Reason: Agitation Stop: 03/14/24 12:26 Last Admin: 02/13/24 21:44 Dose: 0.5 mg Magnesium Hydroxide (Magnesium Hydroxide Susp 30 Ml Udc) 30 ml PO DAILY PRN PRN Reason: Constipation Stop: 03/13/24 16:44 Sodium Chloride (Sodium Chloride 0.65% Na Soln 45 Ml ([place])) 1 - 2 sprays NA PRN PRN PRN Reason: Nasal Dryness/Congestion Stop: 03/13/24 16:44 Mental Health & Subst Abuse Tx Therapist Name of Therapist: None Fire Management Officer Name of Fire Management Officer: None Post Discharge Appointments Primary Care Physician Name Of Family Doctor/PCP: Dr Miles
[2024-02-14] MEDS: haloperidoL 5 MG TAB PO SCH (10:19)
[2024-02-14] MEDS: LORazepam 1 MG TAB PO SCH (10:19)
[2024-02-14] MEDS: haloperidoL 0.5 MG TAB PO SCH (15:22)
[2024-02-14] MEDS ORDERED: risperiDONE 0.5 MG TABLET PO SCH (21:00)
[2024-02-14] MEDS: BENZTROPINE MESYLATE 1 MG TAB PO PRN (21:31)
[2024-02-15 08:25] LABS: Chol HDL Ratio 2.4 (0-5)
[2024-02-15 08:27] LABS: Estimated Average Glucose 100 mg/dl; Hemoglobin A1C 5.1 % (4.5-5.6)
--- NOTE | 2024-02-15 08:55 | Psychiatric Progress Note ---
Date of Service February 15, 2024 Impression / Recommendations Impression 23 yo man with no formal psychiatric history admitted on a 201 voluntary commitment for psychosis, sense that he may hurt someone and SI with plan of hanging himself using rope. Diagnostically consistent with unspecified psychosis with differential including schizophrenia (seems most likely given his age, gradual onset with increased negative symptoms, ideas of reference, increased rastafari fixation, and now thought insertion to harm others) vs OCD vs MDD with psychotic features vs BPAD (less likely given no hx of monica) vs delusional disorder vs 2/2 medical cause (unlikely given negative head CT two months ago and no current neurological deficits or autonomic dysfunction, TSH normal, ?past Lyme panel). 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 Worsened symptoms today after haldol dose last night held due to concern for acute dystonic reaction. Dystonia responded quickly to cogentin and no re-emergence of symptoms today even with prn dose of haldol due to high level of distress. Goal of transitioning to risperidone monotherapy so will increase dose given he tolerated this and co ntinues to have target symptoms of psychosis. Fasting lipid, glucose, and HbA1c reviewed and normal. Overall, I spent a total of 50 minutes on this case including meeting with the patient, reviewing the chart, nursing report, multidisciplinary team meeting, orders, and documentation. (1) Unspecified psychosis not due to a substance or known physiological condition: (2) Suicidal ideations: (3) Homicidal thoughts: Plan 02/15/2024: -Increase risperidone to 1mg BID -haldol 2.5mg BID prn for agitation/paranoia/psychosis and ativan 0.5mg BID prn for agitation -discontinue ativan HS 02/14/2024: -Haldol 5mg po and ativan 2mg po at HS -Tomorow start risperidone 0.5mg BID -Fasting lipid panel, glucose and HbA1c in the morning 02/13/2024:The patient was admitted to the [facility] ([facility] mental health unit) on q15 min checks (behavioral with suicide precautions) for safety. The patient will participate in group, recreational, and milieu therapies and will be offered additional individual and family sessions as clinically appropriate. -Continue haldol 2.5mg qAM and 5mg HS for psychosis -Ativan 1mg qAM and 2mg HS for psychosis given high acuity of current distress and symptoms -Discontinue lamictal -Fasting lipid panel and HbA1c in 1-2 days as he can better tolerate -Suicide protocol with safe tray, safe linens, safety precautions -Homicide precautions -Elopement precautions Inventory Assets Strengths: supportive family, willing for treatment Needs: safety and stabilization, increased coping skills, medication adjustment, increased outpatient support Suicide Risk Level Suicide Risk Level: High-Moderate (q15 min suicide checks) (SI with plan prior to admission and psychosis but denies SI currently and feels safe in the hospital, he feels comfortable telling staff if he feels unsafe and likes the ability to utilize the quiet room. Low threshold for 1-1 observation if SI re- emerges and/or he attempts to self-harm ) Risk Factors Assessment Male: Yes : Yes Do You Have Access To A Gun?: No Mental Health Diagnoses: Yes Substance Use Disorders: No Previous Attempt: No Family History of Suicide: No Previous Psychiatric Hospitalization: No Protective Factors Assessment Employed: No Stable Relationships: Yes Supportive Family: Yes Interval History Identifying Information SAMIRA ROOT is a 23-year-old man who currently lives in [place] with his parents, has a history of depression, and was admitted on 02/12/24 17:07 on a 201 voluntary commitment for SI with plan of hanging himself and ego-dystonic HI. Chief Complaint "I know it sounds crazy but I think I'm possessed". Review of Systems Sleep Information Total Hours of Sleep: 6.5 Sleep Comments: PRN Haldol and Ativan at 1934 Meal Information Percent Meal Consumed - Breakfast: 100 Percent Meal Consumed - Lunch: 100 Percent Meal Consumed - Dinner: 100 Subjective Subjective Patient was seen & assessed and interval progress reviewed with treatment team nursing and social work. Good visit with his father. Spoke with counselor about possible history of monica. Some muscle stiffness last night which responded well to cogentin. Evening haldol dose held due to this. More difficult day today, describes some thoughts of suicide earlier today, wh ich he told nursing and got support and accepted prn medication, which he related to having more intrusive thoughts. Tells me he worries he has been possessed and that previously, about 6 months ago, while meditating and writing a lot he had felt "like I was a Saint, like I had all the wisdom and knowledge". He notes he continues to have difficulty forming clear thoughts and that for the last few months it's been hard for him to organize his thoughts and make sure he says what he wants to. Reviewed possibility of schizophrenia and feels that many of the symptoms match his recent experiences. He describes it is hard sometimes to tell what is real because the thoughts take over and he doesn't know who to trust. Describes struggling to trust his parents recently due to this, even though he knows they love and support him. He didn't find the risperidone as helpful as the haldol. Finds prn haldol and ativan most helpful. Denies any further symptoms of EPS today. Physical Exam Psychiatric Orientation: alert and oriented x 3 Apperance: appropriately dressed Eye Contact: + fair eye contact Motor Behavior: no abnormal motor movements; n EPS and n akathisia Speech: normal rate/rhythm/volume of speech Affect: + anxious affect and + constricted affect Mood: + depressed mood and + anxious mood Thought Process: + circumstantial thought process Thought Content: + paranoid, + delusions and + ideas of reference Suicidal Thoughts: + reports suicidal thoughts (intermittent) and + reports suicidal plan (none for hospital, prior to admission to hang himself) Homicidal Thoughts: denies homicidal plan; + reports homicidal thoughts (recent ego-dystonic fear that he may hurt or cause harm, intermittent today) Hallucinations: no auditory hallucinations and no visual hallucinations Cognition: recent memory grossly intact, remote memory grossly intact, attention grossly intact and language grossly intact Insight: + fair insight Judgment: + limited judgement Vital Signs (Past 24 Hours) Last Vital Signs Temp 36.7 C 02/15/24 06:41 Pulse 118 H 02/15/24 06:41 Resp 16 02/15/24 06:41 BP 110/76 02/15/24 06:41 Pulse Ox 99 02/12/24 15:13 O2 Del Method Room Air 02/12/24 16:32 Results & Data ([facility]) Laboratory Results Laboratory Results - last 24 hr 02/15/24 07:52 Fasting Glucose 102 H Estimat Average Glucose 100 Hemoglobin A1c 5.1 Triglycerides 56 Cholesterol 117 LDL Cholesterol, Calc 58 VLDL Cholesterol, Calc 11 HDL Cholesterol 48 Cholesterol/HDL Ratio 2.4 Current Inpatient Medications Current Inpatient Medications: Current Inpatient Medications Acetaminophen (Acetaminophen 325 Mg Tab) 650 mg PO Q4H PRN PRN Reason: Headache or Minor Fever Stop: 03/13/24 16:44 Al Hydrox/Mg Hydrox/Simethicone (Aluminum/Magnesium Susp 30 Ml Udc) 30 ml PO Q4H PRN PRN Reason: GI Upset Stop: 03/13/24 16:44 Benztropine Mesylate (Benztropine Mesylate 1 Mg Tab) 1 mg PO BID PRN PRN Reason: muscle stiffness Stop: 03/14/24 12:27 Last Admin: 02/14/24 21:31 Dose: 1 mg Bismuth Subsalicylate (Bismuth Subsalicylate Liqd 236 Ml) 15 ml PO PRN PRN PRN Reason: Loose Stool Stop: 03/13/24 16:44 Ergocalciferol (Ergocalciferol 1250 Mcg (50,000 Units) Cap) 1,250 mcg PO Ly@0900 TAY Stop: 03/18/24 08:59 Haloperidol (Haloperidol 5 Mg Tab) 5 mg PO HS TAY Stop: 03/14/24 21:59 Last Admin: 02/14/24 21:35 Dose: Not Given Haloperidol (Haloperidol 0.5 Mg Tab) 2.5 mg PO DAILY PRN PRN Reason: Agitation Stop: 03/14/24 12:26 Hydroxyzine HCl (Hydroxyzine Hcl 25 Mg Tab) 50 mg PO HSZ PRN PRN Reason: Insomnia Stop: 03/13/24 16:44 Hydroxyzine HCl (Hydroxyzine Hcl 25 Mg Tab) 25 mg PO Q4H PRN PRN Reason: Anxiety Stop: 03/13/24 16:44 Lorazepam (Lorazepam 1 Mg Tab) 2 mg PO HS TAY Stop: 03/14/24 21:59 Last Admin: 02/14/24 22:34 Dose: 2 mg Lorazepam (Lorazepam 0.5 Mg Tab) 0.5 mg PO BID PRN PRN Reason: Agitation Stop: 03/14/24 12:26 Last Admin: 02/13/24 21:44 Dose: 0.5 mg Magnesium Hydroxide (Magnesium Hydroxide Susp 30 Ml Udc) 30 ml PO DAILY PRN PRN Reason: Constipation Stop: 03/13/24 16:44 Risperidone (Risperidone 0.5 Mg Tablet) 0.5 mg PO BID TAY Stop: 03/16/24 08:59 Sodium Chloride (Sodium Chloride 0.65% Na Soln 45 Ml ([place])) 1 - 2 sprays NA PRN PRN PRN Reason: Nasal Dryness/Congestion Stop: 03/13/24 16:44 Mental Health & Subst Abuse Tx Therapist Name of Therapist: None Certified Ophthalmic Technologist Name of Certified Ophthalmic Technologist: None Post Discharge Appointments Primary Care Physician Name Of Family Doctor/PCP: Dr Miles
[2024-02-15] MEDS: risperiDONE 0.5 MG TABLET PO SCH (08:58)
[2024-02-15] MEDS: haloperidoL 5 MG TAB PO PRN (12:33)
[2024-02-15] MEDS: risperiDONE 1 MG TABLET PO SCH (20:38)
[2024-02-16] MEDS: OLANZapine ZYDIS 5 MG ORALLY DIS. TAB PO STA (13:44)
--- NOTE | 2024-02-16 16:51 | Psychiatric Progress Note ---
Date of Service February 16, 2024 Impression / Recommendations Impression 23 yo man with no formal psychiatric history admitted on a 201 voluntary commitment for psychosis, sense that he may hurt someone and SI with plan of hanging himself using rope. Diagnostically consistent with unspecified psychosis with differential including schizophrenia (seems most likely given his age, gradual onset with increased negative symptoms, ideas of reference, increased sikh fixation, and now thought insertion to harm others) vs OCD vs MDD with psychotic features vs BPAD (less likely given no hx of monica) vs delusional disorder vs 2/2 medical cause (unlikely given negative head CT two months ago and no current neurological deficits or autonomic dysfunction, TSH normal, ?past Lyme panel). 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 Worsened symptoms today after haldol dose last night held due to concern for acute dystonic reaction. Dystonia responded quickly to cogentin and no re-emergence of symptoms today even with prn dose of haldol due to high level of distress. Goal of transitioning to risperidone monotherapy so will increase dose given he tolerated this and co ntinues to have target symptoms of psychosis. Fasting lipid, glucose, and HbA1c reviewed and normal. 02/16/2024 Zyprexa 5 mg was administered to the patient and he tolerated this well. (1) Unspecified psychosis not due to a substance or known physiological condition: Zyprexa 5 mg at bedtime. (2) Suicidal ideations: Zyprexa 5 mg at bedtime. (3) Homicidal thoughts: Zyprexa 5 mg at bedtime. Plan 02/16/2024 Zyprexa 5 mg BID. 02/15/2024: -Increase risperidone to 1mg BID -haldol 2.5mg BID prn for agitation/paranoia/psychosis and ativan 0.5mg BID prn for agitation -discontinue ativan HS 02/14/2024: -Haldol 5mg po and ativan 2mg po at HS -Tomorow start risperidone 0.5mg BID -Fasting lipid panel, glucose and HbA1c in the morning 02/13/2024:The patient was admitted to the [facility] ([facility]) on q15 min checks (behavioral with suicide precautions) for safety. The patient will participate in group, recreational, and milieu therapies and will be offered additional individual and family sessions as clinically appropriate. -Continue haldol 2.5mg qAM and 5mg HS for psychosis -Ativan 1mg qAM and 2mg HS for psychosis given high acuity of current distress and symptoms -Discontinue lamictal -Fasting lipid panel and HbA1c in 1-2 days as he can better tolerate -Suicide protocol with safe tray, safe linens, safety precautions -Homicide precautions -Elopement precautions Inventory Assets Strengths: supportive family, willing for treatment Needs: safety and stabilization, increased coping skills, medication adjustment, increased outpatient support Suicide Risk Level Suicide Risk Level: High-Moderate (q15 min suicide checks) (SI with plan prior to admission and psychosis but denies SI currently and feels safe in the hospital, he feels comfortable telling staff if he feels unsafe and likes the ability to utilize the quiet room. Low threshold for 1-1 observation if SI re- emerges and/or he attempts to self-harm ) Risk Factors Assessment Male: Yes : Yes Do You Have Access To A Gun?: No Mental Health Diagnoses: Yes Substance Use Disorders: No Previous Attempt: No Family History of Suicide: No Previous Psychiatric Hospitalization: No Protective Factors Assessment Employed: No Stable Relationships: Yes Supportive Family: Yes Interval History Identifying Information SAMIRA ROOT is a 23-year-old man who currently lives in [place] with his parents, has a history of depression, and was admitted on 02/12/24 17:07 on a 201 voluntary commitment for SI with plan of hanging himself and ego-dystonic HI. Chief Complaint "I feel like I want to jump out of my skin". Review of Systems Sleep Information Total Hours of Sleep: 6.5 Sleep Comments: PRN Haldol and Ativan at 1934 Meal Information Percent Meal Consumed - Breakfast: 100 Percent Meal Consumed - Lunch: 100 Percent Meal Consumed - Dinner: 100 Subjective Subjective Patient was seen & assessed and interval progress reviewed with treatment team, nursing and social work. He says that he is not doing well on the Risperidone. At one point today he started banging his head against the wall. He was given 5 mg of Zyprexa which made him sleep for a while. When he woke up he said that he was feeling a bit better. We discussed that we can continue with this medication in the evenings. The patient was agreeable to this. He continues to remain pleasant and cooperative with everyone. Physical Exam Mental Examination Appearance: Well Groomed Eye Contact: Maintains Eye Contact Motor Behavior: Unremarkable Speech: Normal Mood: Depressed and Sad Affect: Sad Thought Process: Intact Hallucinations: None Insight: Fair Judgement: Fair Psychiatric Orientation: alert and oriented x 3 Apperance: appropriately dressed Eye Contact: + fair eye contact Motor Behavior: no abnormal motor movements; n EPS and n akathisia Speech: normal rate/rhythm/volume of speech Affect: + anxious affect, + flat affect and + constricted affect Mood: + depressed mood and + anxious mood Thought Process: + circumstantial thought process Thought Content: + paranoid, reality based without delusions, + delusions, + ideas of reference and + thought insertion Suicidal Thoughts: + reports suicidal thoughts (intermittent) and + reports suicidal plan (none for hospital, prior to admission to hang himself) Homicidal Thoughts: denies homicidal plan; + reports homicidal thoughts (recent ego-dystonic fear that he may hurt or cause harm, intermittent today) Hallucinations: no auditory hallucinations and no visual hallucinations Cognition: recent memory grossly intact, remote memory grossly intact, attention grossly intact and language grossly intact Insight: + fair insight Judgment: + limited judgement Vital Signs (Past 24 Hours) Last Vital Signs Temp 36.7 C 02/16/24 06:45 Pulse 71 02/16/24 06:45 Resp 16 02/16/24 06:45 BP 121/81 02/16/24 06:45 Pulse Ox 99 02/12/24 15:13 O2 Del Method Room Air 02/12/24 16:32 Results & Data ([facility]) Current Inpatient Medications Current Inpatient Medications: Current Inpatient Medications Acetaminophen (Acetaminophen 325 Mg Tab) 650 mg PO Q4H PRN PRN Reason: Headache or Minor Fever Stop: 03/13/24 16:44 Al Hydrox/Mg Hydrox/Simethicone (Aluminum/Magnesium Susp 30 Ml Udc) 30 ml PO Q4H PRN PRN Reason: GI Upset Stop: 03/13/24 16:44 Benztropine Mesylate (Benztropine Mesylate 1 Mg Tab) 1 mg PO BID PRN PRN Reason: muscle stiffness Stop: 03/14/24 12:27 Last Admin: 02/14/24 21:31 Dose: 1 mg Bismuth Subsalicylate (Bismuth Subsalicylate Liqd 236 Ml) 15 ml PO PRN PRN PRN Reason: Loose Stool Stop: 03/13/24 16:44 Ergocalciferol (Ergocalciferol 1250 Mcg (50,000 Units) Cap) 1,250 mcg PO Ly@0900 TAY Stop: 03/18/24 08:59 Haloperidol (Haloperidol 5 Mg Tab) 2.5 mg PO DAILY PRN; Protocol PRN Reason: Agitation Stop: 03/16/24 12:29 Last Admin: 02/15/24 12:33 Dose: 2.5 mg Hydroxyzine HCl (Hydroxyzine Hcl 25 Mg Tab) 50 mg PO HSZ PRN PRN Reason: Insomnia Stop: 03/13/24 16:44 Hydroxyzine HCl (Hydroxyzine Hcl 25 Mg Tab) 25 mg PO Q4H PRN PRN Reason: Anxiety Stop: 03/13/24 16:44 Lorazepam (Lorazepam 0.5 Mg Tab) 0.5 mg PO BID PRN PRN Reason: Agitation Stop: 03/14/24 12:26 Last Admin: 02/15/24 13:53 Dose: 0.5 mg Magnesium Hydroxide (Magnesium Hydroxide Susp 30 Ml Udc) 30 ml PO DAILY PRN PRN Reason: Constipation Stop: 03/13/24 16:44 Risperidone (Risperidone 1 Mg Tablet) 1 mg PO BID TAY Stop: 03/16/24 20:59 Last Admin: 02/16/24 09:12 Dose: 1 mg Sodium Chloride (Sodium Chloride 0.65% Na Soln 45 Ml ([place])) 1 - 2 sprays NA PRN PRN PRN Reason: Nasal Dryness/Congestion Stop: 03/13/24 16:44 Mental Health & Subst Abuse Tx Therapist Name of Therapist: None Mining Machinery Assembler Name of Mining Machinery Assembler: None Post Discharge Appointments Primary Care Physician Name Of Family Doctor/PCP: Dr Miles
[2024-02-16] MEDS: ACETAMINOPHEN 325 MG TAB PO PRN (20:15)
[2024-02-16] MEDS: OLANZapine ZYDIS 5 MG ORALLY DIS. TAB PO SCH (20:17)
[2024-02-17] MEDS: ERGOCALCIFEROL 1250 MCG (50,000 UNITS) CAP PO SCH (09:35)
--- NOTE | 2024-02-17 13:59 | Psychiatric Progress Note ---
Date of Service February 17, 2024 Impression / Recommendations Impression 23 yo man with no formal psychiatric history admitted on a 201 voluntary commitment for psychosis, sense that he may hurt someone and SI with plan of hanging himself using rope. Diagnostically consistent with unspecified psychosis with differential including schizophrenia (seems most likely given his age, gradual onset with increased negative symptoms, ideas of reference, increased caodaism fixation, and now thought insertion to harm others) vs OCD vs MDD with psychotic features vs BPAD (less likely given no hx of monica) vs delusional disorder vs 2/2 medical cause (unlikely given negative head CT two months ago and no current neurological deficits or autonomic dysfunction, TSH normal, ?past Lyme panel). 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 Worsened symptoms today after haldol dose last night held due to concern for acute dystonic reaction. Dystonia responded quickly to cogentin and no re-emergence of symptoms today even with prn dose of haldol due to high level of distress. Goal of transitioning to risperidone monotherapy so will increase dose given he tolerated this and co ntinues to have target symptoms of psychosis. Fasting lipid, glucose, and HbA1c reviewed and normal. 02/16/2024 Zyprexa 5 mg was administered to the patient and he tolerated this well. 02/17 2024: His night time zyprexa was increased to 7.5 mg. (1) Unspecified psychosis not due to a substance or known physiological condition: Zyprexa 7.5 mg at bedtime. (2) Suicidal ideations: Zyprexa 7.5 mg at bedtime. (3) Homicidal thoughts: Zyprexa 7.5 mg at bedtime. Plan 02/17/2024 Zyprexa at bedtime was increased to 7.5 mg, continue 5 mg daily 02/16/2024 Zyprexa 5 mg BID. 02/15/2024: -Increase risperidone to 1mg BID -haldol 2.5mg BID prn for agitation/paranoia/psychosis and ativan 0.5mg BID prn for agitation -discontinue ativan HS 02/14/2024: -Haldol 5mg po and ativan 2mg po at HS -Tomorow start risperidone 0.5mg BID -Fasting lipid panel, glucose and HbA1c in the morning 02/13/2024:The patient was admitted to the [facility] ([facility] unit) on q15 min checks (behavioral with suicide precautions) for safety. The patient will participate in group, recreational, and milieu therapies and will be offered additional individual and family sessions as clinically appropriate. -Continue haldol 2.5mg qAM and 5mg HS for psychosis -Ativan 1mg qAM and 2mg HS for psychosis given high acuity of current distress and symptoms -Discontinue lamictal -Fasting lipid panel and HbA1c in 1-2 days as he can better tolerate -Suicide protocol with safe tray, safe linens, safety precautions -Homicide precautions -Elopement precautions Inventory Assets Strengths: supportive family, willing for treatment Needs: safety and stabilization, increased coping skills, medication adjustment, increased outpatient support Suicide Risk Level Suicide Risk Level: High-Moderate (q15 min suicide checks) (SI with plan prior to admission and psychosis but denies SI currently and feels safe in the hospital, he feels comfortable telling staff if he feels unsafe and likes the ability to utilize the quiet room. Low threshold for 1-1 observation if SI re- emerges and/or he attempts to self-harm ) Risk Factors Assessment Male: Yes : Yes Do You Have Access To A Gun?: No Mental Health Diagnoses: Yes Substance Use Disorders: No Previous Attempt: No Family History of Suicide: No Previous Psychiatric Hospitalization: No Protective Factors Assessment Employed: No Stable Relationships: Yes Supportive Family: Yes Interval History Identifying Information SAMIRA ROOT is a 23-year-old man who currently lives in [place] with his parents, has a history of depression, and was admitted on 02/12/24 17:07 on a 201 voluntary commitment for SI with plan of hanging himself and ego-dystonic HI. Chief Complaint "I don't think I am possessed today but I might later". Review of Systems Sleep Information Total Hours of Sleep: 7.25 Sleep Comments: SRAVAN Haliesha laboy Ativan at 1934 Meal Information Percent Meal Consumed - Breakfast: 100 Percent Meal Consumed - Lunch: 100 Percent Meal Consumed - Dinner: 100 Subjective Subjective Patient was seen & assessed and interval progress reviewed with the treatment team, nursing and social work. He says that he is feeling a bit better and no longer believes that he is possessed. However he says that he might feel that way again. He explained at length to me how he has been feeling and it would appear that he would benefit from therapy. He is somatically preoccupied by his breathing through his nose and has a sleep medicine appointment next week -- we will be having that re-scheduled. He does understand that he appears to be re sponding to the Zyprexa so I have increased the night time dose. Physical Exam Mental Examination Appearance: Well Groomed Eye Contact: Maintains Eye Contact Motor Behavior: Unremarkable Speech: Normal Mood: Depressed and Sad Affect: Sad Thought Process: Intact Hallucinations: None Insight: Fair Judgement: Fair Psychiatric Orientation: alert and oriented x 3 Apperance: appropriately dressed Eye Contact: + fair eye contact Motor Behavior: no abnormal motor movements; n EPS and n akathisia Speech: normal rate/rhythm/volume of speech Affect: euthymic affect and + anxious affect Mood: + anxious mood Thought Process: + circumstantial thought process Thought Content: + delusions and + ideas of reference Suicidal Thoughts: denies suicidal thoughts (intermittent) and denies suicidal plan (none for hospital, prior to admission to hang himself) Homicidal Thoughts: denies homicidal thoughts (recent ego-dystonic fear that he may hurt or cause harm, intermittent today) and denies homicidal plan Hallucinations: no auditory hallucinations and no visual hallucinations Cognition: recent memory grossly intact, remote memory grossly intact, attention grossly intact and language grossly intact Insight: + fair insight Judgment: + limited judgement Vital Signs (Past 24 Hours) Last Vital Signs Temp 36.7 C 02/17/24 06:42 Pulse 77 02/17/24 06:43 Resp 16 02/17/24 06:42 BP 113/78 02/17/24 06:43 Pulse Ox 99 02/12/24 15:13 O2 Del Method Room Air 02/12/24 16:32 Results & Data ([facility]) Current Inpatient Medications Current Inpatient Medications: Current Inpatient Medications Acetaminophen (Acetaminophen 325 Mg Tab) 650 mg PO Q4H PRN PRN Reason: Headache or Minor Fever Stop: 03/13/24 16:44 Al Hydrox/Mg Hydrox/Simethicone (Aluminum/Magnesium Susp 30 Ml Udc) 30 ml PO Q4H PRN PRN Reason: GI Upset Stop: 03/13/24 16:44 Benztropine Mesylate (Benztropine Mesylate 1 Mg Tab) 1 mg PO BID PRN PRN Reason: muscle stiffness Stop: 03/14/24 12:27 Last Admin: 02/14/24 21:31 Dose: 1 mg Bismuth Subsalicylate (Bismuth Subsalicylate Liqd 236 Ml) 15 ml PO PRN PRN PRN Reason: Loose Stool Stop: 03/13/24 16:44 Ergocalciferol (Ergocalciferol 1250 Mcg (50,000 Units) Cap) 1,250 mcg PO Ly@0900 TAY Stop: 03/18/24 08:59 Last Admin: 02/17/24 09:35 Dose: 1,250 mcg Haloperidol (Haloperidol 5 Mg Tab) 2.5 mg PO DAILY PRN; Protocol PRN Reason: Agitation Stop: 03/16/24 12:29 Last Admin: 02/16/24 21:48 Dose: 2.5 mg Hydroxyzine HCl (Hydroxyzine Hcl 25 Mg Tab) 50 mg PO HSZ PRN PRN Reason: Insomnia Stop: 03/13/24 16:44 Hydroxyzine HCl (Hydroxyzine Hcl 25 Mg Tab) 25 mg PO Q4H PRN PRN Reason: Anxiety Stop: 03/13/24 16:44 Magnesium Hydroxide (Magnesium Hydroxide Susp 30 Ml Udc) 30 ml PO DAILY PRN PRN Reason: Constipation Stop: 03/13/24 16:44 Olanzapine (Olanzapine Zydis 5 Mg Orally Dis. Tab) 7.5 mg PO HS TAY Stop: 03/18/24 21:59 Olanzapine (Olanzapine Zydis 5 Mg Orally Dis. Tab) 5 mg PO DAILY TAY Stop: 03/19/24 08:59 Sodium Chloride (Sodium Chloride 0.65% Na Soln 45 Ml ([place])) 1 - 2 sprays NA PRN PRN PRN Reason: Nasal Dryness/Congestion Stop: 03/13/24 16:44 Mental Health & Subst Abuse Tx Therapist Name of Therapist: None Occupational Health Nurse Manager Name of Occupational Health Nurse Manager: None Post Discharge Appointments Primary Care Physician Name Of Family Doctor/PCP: Dr Miles
[2024-02-17] MEDS ORDERED: haloperidoL 5 MG TAB PO PRN (14:36)
[2024-02-17] MEDS: haloperidoL 5 MG TAB PO PRN (18:14)
[2024-02-17] MEDS: BENZTROPINE MESYLATE 1 MG TAB PO PRN (18:14)
[2024-02-17] MEDS: OLANZapine ZYDIS 5 MG ORALLY DIS. TAB PO SCH (20:32)
[2024-02-17] MEDS ORDERED: OLANZapine ZYDIS 5 MG ORALLY DIS. TAB PO SCH (22:00)
[2024-02-18] MEDS: OLANZapine ZYDIS 5 MG ORALLY DIS. TAB PO SCH (07:48)
--- NOTE | 2024-02-18 16:15 | Psychiatric Progress Note ---
Date of Service February 18, 2024 Impression / Recommendations Impression 23 yo man with no formal psychiatric history admitted on a 201 voluntary commitment for psychosis, sense that he may hurt someone and SI with plan of hanging himself using rope. Diagnostically consistent with unspecified psychosis with differential including schizophrenia (seems most likely given his age, gradual onset with increased negative symptoms, ideas of reference, increased advent fixation, and now thought insertion to harm others) vs OCD vs MDD with psychotic features vs BPAD (less likely given no hx of monica) vs delusional disorder vs 2/2 medical cause (unlikely given negative head CT two months ago and no current neurological deficits or autonomic dysfunction, TSH normal, ?past Lyme panel). 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 Worsened symptoms today after haldol dose last night held due to concern for acute dystonic reaction. Dystonia responded quickly to cogentin and no re-emergence of symptoms today even with prn dose of haldol due to high level of distress. Goal of transitioning to risperidone monotherapy so will increase dose given he tolerated this and co ntinues to have target symptoms of psychosis. Fasting lipid, glucose, and HbA1c reviewed and normal. 02/16/2024 Zyprexa 5 mg was administered to the patient and he tolerated this well. 02/17 2024: His night time zyprexa was increased to 7.5 mg. 02/18/24: Patient appears to be adjusting to the medications. We discussed adding Gabapentin in the future to see if it would help with his feelings of anxiety about his breathing. (1) Unspecified psychosis not due to a substance or known physiological condition: Zyprexa 7.5 mg at bedtime. (2) Suicidal ideations: Zyprexa 7.5 mg at bedtime. (3) Homicidal thoughts: Zyprexa 7.5 mg at bedtime. Plan : Continue with current medications at this time. We will consider adding Gabapentin for his anxiety about his breathing. 02/17/2024 Zyprexa at bedtime was increased to 7.5 mg, continue 5 mg daily 02/16/2024 Zyprexa 5 mg BID. 02/15/2024: -Increase risperidone to 1mg BID -haldol 2.5mg BID prn for agitation/paranoia/psychosis and ativan 0.5mg BID prn for agitation -discontinue ativan HS 02/14/2024: -Haldol 5mg po and ativan 2mg po at HS -Tomorow start risperidone 0.5mg BID -Fasting lipid panel, glucose and HbA1c in the morning 02/13/2024:The patient was admitted to the [facility] ([facility] health unit) on q15 min checks (behavioral with suicide precautions) for safety. The patient will participate in group, recreational, and milieu therapies and will be offered additional individual and family sessions as clinically appropriate. -Continue haldol 2.5mg qAM and 5mg HS for psychosis -Ativan 1mg qAM and 2mg HS for psychosis given high acuity of current distress and symptoms -Discontinue lamictal -Fasting lipid panel and HbA1c in 1-2 days as he can better tolerate -Suicide protocol with safe tray, safe linens, safety precautions -Homicide precautions -Elopement precautions Inventory Assets Strengths: supportive family, willing for treatment Needs: safety and stabilization, increased coping skills, medication adjustment, increased outpatient support Suicide Risk Level Suicide Risk Level: High-Moderate (q15 min suicide checks) (SI with plan prior to admission and psychosis but denies SI currently and feels safe in the hospital, he feels comfortable telling staff if he feels unsafe and likes the ability to utilize the quiet room. Low threshold for 1-1 observation if SI re- emerges and/or he attempts to self-harm ) Risk Factors Assessment Male: Yes : Yes Do You Have Access To A Gun?: No Mental Health Diagnoses: Yes Substance Use Disorders: No Previous Attempt: No Family History of Suicide: No Previous Psychiatric Hospitalization: No Protective Factors Assessment Employed: No Stable Relationships: Yes Supportive Family: Yes Interval History Identifying Information SAMIRA ROOT is a 23-year-old man who currently lives in [place] with his parents, has a history of depression, and was admitted on 02/12/24 17:07 on a 201 voluntary commitment for SI with plan of hanging himself and ego-dystonic HI. Chief Complaint "I'm doing a bit better". Review of Systems Sleep Information Total Hours of Sleep: 7 Sleep Comments: PRN Haldol and Ativan at 1934 Meal Information Percent Meal Consumed - Breakfast: 100 Percent Meal Consumed - Lunch: 100 Percent Meal Consumed - Dinner: 100 Subjective Subjective Patient was seen & assessed and interval progress reviewed with treatment team, nursing and social work. He seems to be improving slowly with the combination of Zyprexa scheduled BID and PRN Haldol. He is getting Cogentin every time with Haldol and has no longer experienced any side effects as he did the first time he tried that medication. He has continued to be pleasant and cooperative with all the staff, even when he is in distress. He does continue to be somatically preoccupied with his perceived inability to feel his breath through his nose. Physical Exam Mental Examination Appearance: Well Groomed Eye Contact: Maintains Eye Contact Motor Behavior: Unremarkable Speech: Normal Mood: Euthymic Affect: Anxious Thought Process: Intact Hallucinations: None Insight: Fair Judgement: Fair Psychiatric Orientation: alert and oriented x 3 Apperance: appropriately dressed Eye Contact: good eye contact Motor Behavior: no abnormal motor movements; n EPS and n akathisia Speech: normal rate/rhythm/volume of speech Affect: + anxious affect Mood: + anxious mood; no depressed mood Thought Process: + circumstantial thought process Thought Content: + delusions, + ideas of reference and + thought insertion Suicidal Thoughts: denies suicidal thoughts (intermittent) and denies suicidal plan (none for hospital, prior to admission to hang himself) Homicidal Thoughts: denies homicidal thoughts (recent ego-dystonic fear that he may hurt or cause harm, intermittent today) and denies homicidal plan Hallucinations: no auditory hallucinations and no visual hallucinations Cognition: recent memory grossly intact, remote memory grossly intact, attention grossly intact and language grossly intact Insight: + fair insight Judgment: + limited judgement Vital Signs (Past 24 Hours) Last Vital Signs Temp 36.9 C 02/18/24 06:43 Pulse 67 02/18/24 06:44 Resp 16 02/18/24 06:43 BP 114/74 02/18/24 06:44 Pulse Ox 99 02/12/24 15:13 O2 Del Method Room Air 02/12/24 16:32 Results & Data ([facility]) Current Inpatient Medications Current Inpatient Medications: Current Inpatient Medications Acetaminophen (Acetaminophen 325 Mg Tab) 650 mg PO Q4H PRN PRN Reason: Headache or Minor Fever Stop: 03/13/24 16:44 Al Hydrox/Mg Hydrox/Simethicone (Aluminum/Magnesium Susp 30 Ml Udc) 30 ml PO Q4H PRN PRN Reason: GI Upset Stop: 03/13/24 16:44 Benztropine Mesylate (Benztropine Mesylate 1 Mg Tab) 1 mg PO QID PRN PRN Reason: muscle stiffness Stop: 03/14/24 12:27 Last Admin: 02/18/24 15:09 Dose: 1 mg Bismuth Subsalicylate (Bismuth Subsalicylate Liqd 236 Ml) 15 ml PO PRN PRN PRN Reason: Loose Stool Stop: 03/13/24 16:44 Ergocalciferol (Ergocalciferol 1250 Mcg (50,000 Units) Cap) 1,250 mcg PO Ly@0900 TAY Stop: 03/18/24 08:59 Last Admin: 02/17/24 09:35 Dose: 1,250 mcg Haloperidol (Haloperidol 5 Mg Tab) 5 mg PO QID PRN; Protocol PRN Reason: Agitation Stop: 03/18/24 14:35 Last Admin: 02/18/24 15:04 Dose: 5 mg Hydroxyzine HCl (Hydroxyzine Hcl 25 Mg Tab) 50 mg PO HSZ PRN PRN Reason: Insomnia Stop: 03/13/24 16:44 Hydroxyzine HCl (Hydroxyzine Hcl 25 Mg Tab) 25 mg PO Q4H PRN PRN Reason: Anxiety Stop: 03/13/24 16:44 Magnesium Hydroxide (Magnesium Hydroxide Susp 30 Ml Udc) 30 ml PO DAILY PRN PRN Reason: Constipation Stop: 03/13/24 16:44 Olanzapine (Olanzapine Zydis 5 Mg Orally Dis. Tab) 7.5 mg PO HS TAY Stop: 03/18/24 21:59 Last Admin: 02/17/24 20:32 Dose: 7.5 mg Olanzapine (Olanzapine Zydis 5 Mg Orally Dis. Tab) 5 mg PO DAILY TAY Stop: 03/19/24 08:59 Last Admin: 02/18/24 07:48 Dose: 5 mg Sodium Chloride (Sodium Chloride 0.65% Na Soln 45 Ml ([place])) 1 - 2 sprays NA PRN PRN PRN Reason: Nasal Dryness/Congestion Stop: 03/13/24 16:44 Mental Health & Subst Abuse Tx Therapist Name of Therapist: None Plug Grower Name of Plug Grower: None Post Discharge Appointments Primary Care Physician Name Of Family Doctor/PCP: Dr Miles
[2024-02-18] MEDS: hydrOXYzine HCl 25 MG TAB PO PRN (17:13)
[2024-02-19] MEDS: GABAPENTIN 100 MG CAP PO SCH (12:48)
--- NOTE | 2024-02-19 16:14 | Psychiatric Progress Note ---
Date of Service February 19, 2024 Impression / Recommendations Impression 23 yo man with no formal psychiatric history admitted on a 201 voluntary commitment for psychosis, sense that he may hurt someone and SI with plan of hanging himself using rope. Diagnostically consistent with unspecified psychosis with differential including schizophrenia (seems most likely given his age, gradual onset with increased negative symptoms, ideas of reference, increased yarsani fixation, and now thought insertion to harm others) vs OCD vs MDD with psychotic features vs BPAD (less likely given no hx of monica) vs delusional disorder vs 2/2 medical cause (unlikely given negative head CT two months ago and no current neurological deficits or autonomic dysfunction, TSH normal, ?past Lyme panel). 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 Worsened symptoms today after haldol dose last night held due to concern for acute dystonic reaction. Dystonia responded quickly to cogentin and no re-emergence of symptoms today even with prn dose of haldol due to high level of distress. Goal of transitioning to risperidone monotherapy so will increase dose given he tolerated this and co ntinues to have target symptoms of psychosis. Fasting lipid, glucose, and HbA1c reviewed and normal. 02/16/2024 Zyprexa 5 mg was administered to the patient and he tolerated this well. 02/17 2024: His night time zyprexa was increased to 7.5 mg. 02/18/24: Patient appears to be adjusting to the medications. We discussed adding Gabapentin in the future to see if it would help with his feelings of anxiety about his breathing. 02/19/24 Patient is intermittently responding well to the medications but also has episodes where he again feels like (1) Unspecified psychosis not due to a substance or known physiological condition: Zyprexa 7.5 mg at bedtime. (2) Suicidal ideations: Zyprexa 7.5 mg at bedtime. (3) Homicidal thoughts: Zyprexa 7.5 mg at bedtime. Plan 02/19/2024 We have added Gabapentin to the patient's regimen at his request. We will continue to monitor. We will also try changing the larger Zyprexa dose to the morning. : Continue with current medications at this time. We will consider adding Gabapentin for his anxiety about his breathing. 02/17/2024 Zyprexa at bedtime was increased to 7.5 mg, continue 5 mg daily 02/16/2024 Zyprexa 5 mg BID. 02/15/2024: -Increase risperidone to 1mg BID -haldol 2.5mg BID prn for agitation/paranoia/psychosis and ativan 0.5mg BID prn for agitation -discontinue ativan HS 02/14/2024: -Haldol 5mg po and ativan 2mg po at HS -Tomorow start risperidone 0.5mg BID -Fasting lipid panel, glucose and HbA1c in the morning 02/13/2024:The patient was admitted to the [facility] ([facility] unit) on q15 min checks (behavioral with suicide precautions) for safety. The patient will participate in group, recreational, and milieu therapies and will be offered additional individual and family sessions as clinically appropriate. -Continue haldol 2.5mg qAM and 5mg HS for psychosis -Ativan 1mg qAM and 2mg HS for psychosis given high acuity of current distress and symptoms -Discontinue lamictal -Fasting lipid panel and HbA1c in 1-2 days as he can better tolerate -Suicide protocol with safe tray, safe linens, safety precautions -Homicide precautions -Elopement precautions Inventory Assets Strengths: supportive family, willing for treatment Needs: safety and stabilization, increased coping skills, medication adjustment, increased outpatient support Suicide Risk Level Suicide Risk Level: High-Moderate (q15 min suicide checks) (SI with plan prior to admission and psychosis but denies SI currently and feels safe in the hospital, he feels comfortable telling staff if he feels unsafe and likes the ability to utilize the quiet room. Low threshold for 1-1 observation if SI re- emerges and/or he attempts to self-harm ) Risk Factors Assessment Male: Yes : Yes Do You Have Access To A Gun?: No Mental Health Diagnoses: Yes Substance Use Disorders: No Previous Attempt: No Family History of Suicide: No Previous Psychiatric Hospitalization: No Protective Factors Assessment Employed: No Stable Relationships: Yes Supportive Family: Yes Interval History Identifying Information SAMIRA ROOT is a 23-year-old man who currently lives in [place] with his parents, has a history of depression, and was admitted on 02/12/24 17:07 on a 201 voluntary commitment for SI with plan of hanging himself and ego-dystonic HI. Chief Complaint "I don't think that the medications are working for me". Review of Systems Sleep Information Total Hours of Sleep: 6.30 Sleep Comments: CAMILA Figueroa Meal Information Percent Meal Consumed - Breakfast: 100 Percent Meal Consumed - Lunch: 100 Percent Meal Consumed - Dinner: 100 Subjective Subjective Patient was seen & assessed and interval progress reviewed with treatment team, nursing and social work. He seems to be responding to the medications after he takes them but later when they seemed to wear off, he would say that he again felt possessed. He has been responding to the Haldol and Cogentin. He says that he sleeps well at night and that is the time that he can truly rest. We had spoken about trying Gabapentin for his anxiety. The patient says that he read on his online forums that Gabapentin can help for his "empty nose syndrome". Today we tried this medication to see if it would help. He was feeling quite hopeless so we discussed that there are many more medication options that he could try but also other procedures such as ECT. Physical Exam Mental Examination Appearance: Well Groomed Eye Contact: Maintains Eye Contact Motor Behavior: Unremarkable Speech: Normal Mood: Euthymic Affect: Anxious Thought Process: Intact Hallucinations: None Insight: Fair Judgement: Fair Psychiatric Orientation: alert and oriented x 3 Apperance: appropriately dressed Eye Contact: good eye contact and + fair eye contact Motor Behavior: no abnormal motor movements; n EPS and n akathisia Speech: normal rate/rhythm/volume of speech Affect: euthymic affect, + anxious affect, + flat affect and + constricted affect Mood: + anxious mood; no depressed mood Thought Process: + circumstantial thought process Thought Content: + paranoid, reality based without delusions, + delusions, + ideas of reference and + thought insertion Suicidal Thoughts: denies suicidal thoughts (intermittent) and denies suicidal plan (none for hospital, prior to admission to hang himself) Homicidal Thoughts: denies homicidal thoughts (recent ego-dystonic fear that he may hurt or cause harm, intermittent today) and denies homicidal plan Hallucinations: no auditory hallucinations and no visual hallucinations Cognition: recent memory grossly intact, remote memory grossly intact, attention grossly intact and language grossly intact Insight: + fair insight Judgment: + limited judgement Vital Signs (Past 24 Hours) Last Vital Signs Temp 36.5 C 02/19/24 06:40 Pulse 78 02/19/24 06:40 Resp 16 02/19/24 06:40 BP 134/79 02/19/24 06:40 Pulse Ox 99 02/12/24 15:13 O2 Del Method Room Air 02/12/24 16:32 Results & Data ([facility]) Current Inpatient Medications Current Inpatient Medications: Current Inpatient Medications Acetaminophen (Acetaminophen 325 Mg Tab) 650 mg PO Q4H PRN PRN Reason: Headache or Minor Fever Stop: 03/13/24 16:44 Al Hydrox/Mg Hydrox/Simethicone (Aluminum/Magnesium Susp 30 Ml Udc) 30 ml PO Q4H PRN PRN Reason: GI Upset Stop: 03/13/24 16:44 Benztropine Mesylate (Benztropine Mesylate 1 Mg Tab) 1 mg PO QID PRN PRN Reason: muscle stiffness Stop: 03/14/24 12:27 Last Admin: 02/19/24 13:16 Dose: 1 mg Bismuth Subsalicylate (Bismuth Subsalicylate Liqd 236 Ml) 15 ml PO PRN PRN PRN Reason: Loose Stool Stop: 03/13/24 16:44 Ergocalciferol (Ergocalciferol 1250 Mcg (50,000 Units) Cap) 1,250 mcg PO Ly@0900 [facility] Stop: 03/18/24 08:59 Last Admin: 02/17/24 09:35 Dose: 1,250 mcg Gabapentin (Gabapentin 100 Mg Cap) 100 mg PO TID [facility] Stop: 03/20/24 13:59 Last Admin: 02/19/24 12:48 Dose: 100 mg Haloperidol (Haloperidol 5 Mg Tab) 5 mg PO QID PRN; Protocol PRN Reason: Agitation Stop: 03/18/24 14:35 Last Admin: 02/19/24 13:16 Dose: 5 mg Hydroxyzine HCl (Hydroxyzine Hcl 25 Mg Tab) 50 mg PO HSZ PRN PRN Reason: Insomnia Stop: 03/13/24 16:44 Hydroxyzine HCl (Hydroxyzine Hcl 25 Mg Tab) 25 mg PO Q4H PRN PRN Reason: Anxiety Stop: 03/13/24 16:44 Last Admin: 02/18/24 17:13 Dose: 25 mg Magnesium Hydroxide (Magnesium Hydroxide Susp 30 Ml Udc) 30 ml PO DAILY PRN PRN Reason: Constipation Stop: 03/13/24 16:44 Olanzapine (Olanzapine Zydis 5 Mg Orally Dis. Tab) 7.5 mg PO HS TAY Stop: 03/18/24 21:59 Last Admin: 02/18/24 20:42 Dose: 7.5 mg Olanzapine (Olanzapine Zydis 5 Mg Orally Dis. Tab) 5 mg PO DAILY TAY Stop: 03/19/24 08:59 Last Admin: 02/19/24 08:46 Dose: 5 mg Sodium Chloride (Sodium Chloride 0.65% Na Soln 45 Ml ([place])) 1 - 2 sprays NA PRN PRN PRN Reason: Nasal Dryness/Congestion Stop: 03/13/24 16:44 Mental Health & Subst Abuse Tx Therapist Name of Therapist: None Manager Center Name of Manager Center: None Post Discharge Appointments Primary Care Physician Name Of Family Doctor/PCP: Dr Miles
--- NOTE | 2024-02-20 10:44 | Psychiatric Progress Note ---
Date of Service February 20, 2024 Impression / Recommendations Impression 23 yo man with no formal psychiatric history admitted on a 201 voluntary commitment for psychosis, sense that he may hurt someone and SI with plan of hanging himself using rope. Diagnostically consistent with unspecified psychosis with differential including schizophrenia (seems most likely given his age, gradual onset with increased negative symptoms, ideas of reference, increased mandaen fixation, and now thought insertion to harm others) vs OCD vs MDD with psychotic features vs BPAD (less likely given no hx of monica) vs delusional disorder vs 2/2 medical cause (unlikely given negative head CT two months ago and no current neurological deficits or autonomic dysfunction, TSH normal, ?past Lyme panel). 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 Worsened symptoms today after haldol dose last night held due to concern for acute dystonic reaction. Dystonia responded quickly to cogentin and no re-emergence of symptoms today even with prn dose of haldol due to high level of distress. Goal of transitioning to risperidone monotherapy so will increase dose given he tolerated this and co ntinues to have target symptoms of psychosis. Fasting lipid, glucose, and HbA1c reviewed and normal. 02/16/2024 Zyprexa 5 mg was administered to the patient and he tolerated this well. 02/17 2024: His night time zyprexa was increased to 7.5 mg. 02/18/24: Patient appears to be adjusting to the medications. We discussed adding Gabapentin in the future to see if it would help with his feelings of anxiety about his breathing. 02/19/24 Patient is intermittently responding well to the medications but also has episodes where he again feels like he is crawling out of his skin. 02/20/24 Patient's medications were adjusted to Scheduled Haldol. Zyprexa was decreased. Prozac was added. Gabapentin was stopped. PRN ativan was added temporarily for severe agitation. (1) Unspecified psychosis not due to a substance or known physiological condition: Zyprexa 5 mg at bedtime. Haldol 5 mg scheduled (2) Suicidal ideations: (3) Homicidal thoughts: Plan 02/20/24 We stopped Gabapentin, added Prozac, PRN ativan, and Zyprexa was decreased with the hope that he can only be on Haldol as it has seemed to be the most effective. 02/19/2024 We have added Gabapentin to the patient's regimen at his request. We will continue to monitor. We will also try changing the larger Zyprexa dose to the morning. : Continue with current medications at this time. We will consider adding Gabapentin for his anxiety about his breathing. 02/17/2024 Zyprexa at bedtime was increased to 7.5 mg, continue 5 mg daily 02/16/2024 Zyprexa 5 mg BID. 02/15/2024: -Increase risperidone to 1mg BID -haldol 2.5mg BID prn for agitation/paranoia/psychosis and ativan 0.5mg BID prn for agitation -discontinue ativan HS 02/14/2024: -Haldol 5mg po and ativan 2mg po at HS -Tomorow start risperidone 0.5mg BID -Fasting lipid panel, glucose and HbA1c in the morning 02/13/2024:The patient was admitted to the [facility] ([facility] mental [facility] unit) on q15 min checks (behavioral with suicide precautions) for safety. The patient will participate in group, recreational, and milieu therapies and will be offered additional individual and family sessions as clinically appropriate. -Continue haldol 2.5mg qAM and 5mg HS for psychosis -Ativan 1mg qAM and 2mg HS for psychosis given high acuity of current distress and symptoms -Discontinue lamictal -Fasting lipid panel and HbA1c in 1-2 days as he can better tolerate -Suicide protocol with safe tray, safe linens, safety precautions -Homicide precautions -Elopement precautions Inventory Assets Strengths: supportive family, willing for treatment Needs: safety and stabilization, increased coping skills, medication adjustment, increased outpatient support Suicide Risk Level Suicide Risk Level: High-Moderate (q15 min suicide checks) (SI with plan prior to admission and psychosis but denies SI currently and feels safe in the hospital, he feels comfortable telling staff if he feels unsafe and likes the ability to utilize the quiet room. Low threshold for 1-1 observation if SI re- emerges and/or he attempts to self-harm ) Risk Factors Assessment Male: Yes : Yes Do You Have Access To A Gun?: No Mental Health Diagnoses: Yes Substance Use Disorders: No Previous Attempt: No Family History of Suicide: No Previous Psychiatric Hospitalization: No Protective Factors Assessment Employed: No Stable Relationships: Yes Supportive Family: Yes Interval History Identifying Information SAMIRA ROOT is a 23-year-old man who currently lives in [place] with his parents, has a history of depression, and was admitted on 02/12/24 17:07 on a 201 voluntary commitment for SI with plan of hanging himself and ego-dystonic HI. Chief Complaint "I don't think the medications are working". Review of Systems Sleep Information Total Hours of Sleep: 6.5 Sleep Comments: HS Zyprexa Meal Information Percent Meal Consumed - Breakfast: 100 Percent Meal Consumed - Lunch: 100 Percent Meal Consumed - Dinner: 100 Subjective Subjective Patient was seen & assessed and interval progress reviewed with treatment team, nursing and social work. He was doing well first thing in the morning but later he regressed and started getting upset and stating that the medications weren't working and holding himself back. The Haldol seems to be helping most so I have made it a scheduled medication along with the Cogentin. I have also started Prozac 20 mg for symptoms of anxiety and intrusive thoughts. I have reduced the Zyprexa in the hopes that he can be on one anti-psychotic only. He might be a candidate for a GREGORY if it is the appropriate treatment. I also have prescribed PRN Ativan for use when his agitation gets acute and doesn't respond to other interventions. This is not intended to be an ongoing medication but only until the other medications begin to be more effective. Physical Exam Mental Examination Appearance: Well Groomed Eye Contact: Maintains Eye Contact Motor Behavior: Unremarkable Speech: Normal Mood: Euthymic Affect: Anxious Thought Process: Intact Hallucinations: None Insight: Fair Judgement: Fair Psychiatric Orientation: alert and oriented x 3 Apperance: appropriately dressed Eye Contact: good eye contact and + fair eye contact Motor Behavior: no abnormal motor movements; n EPS and n akathisia Speech: normal rate/rhythm/volume of speech Affect: euthymic affect, + anxious affect, + flat affect and + constricted affect Mood: + anxious mood; no depressed mood Thought Process: + circumstantial thought process Thought Content: + paranoid, + ideas of reference and + thought insertion Suicidal Thoughts: denies suicidal thoughts (intermittent) and denies suicidal plan (none for hospital, prior to admission to hang himself) Homicidal Thoughts: denies homicidal thoughts (recent ego-dystonic fear that he may hurt or cause harm, intermittent today) and denies homicidal plan Hallucinations: no auditory hallucinations and no visual hallucinations Cognition: recent memory grossly intact, remote memory grossly intact, attention grossly intact and language grossly intact Insight: + fair insight Judgment: + limited judgement Vital Signs (Past 24 Hours) Last Vital Signs Temp 37 C 02/20/24 06:34 Pulse 71 02/20/24 06:34 Resp 16 02/20/24 06:34 BP 123/82 02/20/24 06:34 Pulse Ox 99 02/12/24 15:13 O2 Del Method Room Air 02/12/24 16:32 Results & Data ([facility]) Current Inpatient Medications Current Inpatient Medications: Current Inpatient Medications Acetaminophen (Acetaminophen 325 Mg Tab) 650 mg PO Q4H PRN PRN Reason: Headache or Minor Fever Stop: 03/13/24 16:44 Al Hydrox/Mg Hydrox/Simethicone (Aluminum/Magnesium Susp 30 Ml Udc) 30 ml PO Q4H PRN PRN Reason: GI Upset Stop: 03/13/24 16:44 Benztropine Mesylate (Benztropine Mesylate 1 Mg Tab) 1 mg PO QID [facility] Stop: 03/21/24 12:59 Bismuth Subsalicylate (Bismuth Subsalicylate Liqd 236 Ml) 15 ml PO PRN PRN PRN Reason: Loose Stool Stop: 03/13/24 16:44 Ergocalciferol (Ergocalciferol 1250 Mcg (50,000 Units) Cap) 1,250 mcg PO Ly@0900 [facility] Stop: 03/18/24 08:59 Last Admin: 02/17/24 09:35 Dose: 1,250 mcg Fluoxetine HCl (Fluoxetine Hcl 20 Mg Cap) 20 mg PO NOW ONE Stop: 02/20/24 10:46 Fluoxetine HCl (Fluoxetine Hcl 20 Mg Cap) 20 mg PO QAM [facility] Stop: 03/22/24 08:59 Haloperidol (Haloperidol 5 Mg Tab) 5 mg PO QID [facility]; Protocol Stop: 03/21/24 12:59 Hydroxyzine HCl (Hydroxyzine Hcl 25 Mg Tab) 50 mg PO HSZ PRN PRN Reason: Insomnia Stop: 03/13/24 16:44 Hydroxyzine HCl (Hydroxyzine Hcl 25 Mg Tab) 25 mg PO Q4H PRN PRN Reason: Anxiety Stop: 03/13/24 16:44 Last Admin: 02/18/24 17:13 Dose: 25 mg Lorazepam (Lorazepam 1 Mg Tab) 1 mg PO TID PRN PRN Reason: Agitation Stop: 03/21/24 10:29 Magnesium Hydroxide (Magnesium Hydroxide Susp 30 Ml Udc) 30 ml PO DAILY PRN PRN Reason: Constipation Stop: 03/13/24 16:44 Mupirocin (Mupirocin 2% Oint 22 Gm Tube) 1 appln EXT BID [facility] Stop: 03/21/24 08:59 Olanzapine (Olanzapine Zydis 5 Mg Orally Dis. Tab) 5 mg PO HS [facility] Stop: 03/21/24 21:59 Olanzapine (Olanzapine Zydis 5 Mg Orally Dis. Tab) 2.5 mg PO DAILY [facility] Stop: 03/22/24 08:59 Sodium Chloride (Sodium Chloride 0.65% Na Soln 45 Ml ([place])) 1 - 2 sprays NA PRN PRN PRN Reason: Nasal Dryness/Congestion Stop: 03/13/24 16:44 Mental Health & Subst Abuse Tx Therapist Name of Therapist: None Concrete Mason Name of Concrete Mason: None Post Discharge Appointments Primary Care Physician Name Of Family Doctor/PCP: Dr Miles
[2024-02-20] MEDS: LORazepam 1 MG TAB PO PRN (10:49)
[2024-02-20] MEDS: MUPIROCIN 2% OINT 22 GM TUBE EXT SCH (10:51)
[2024-02-20] MEDS: FLUoxetine HCL 20 MG CAP PO ONE (12:54)
[2024-02-20] MEDS: haloperidoL 5 MG TAB PO SCH (12:54)
[2024-02-20] MEDS: BENZTROPINE MESYLATE 1 MG TAB PO SCH (12:55)
[2024-02-20] MEDS: OLANZapine ZYDIS 5 MG ORALLY DIS. TAB PO SCH (21:07)
[2024-02-21] MEDS: FLUoxetine HCL 20 MG CAP PO SCH (08:58)
[2024-02-21] MEDS: OLANZapine ZYDIS 5 MG ORALLY DIS. TAB PO SCH ×2 (08:58→20:53)
[2024-02-21] MEDS ORDERED: OLANZapine ZYDIS 5 MG ORALLY DIS. TAB PO SCH (09:00)
--- NOTE | 2024-02-21 10:34 | Psychiatric Progress Note ---
Date of Service February 21, 2024 Impression / Recommendations Impression 23 yo man with no formal psychiatric history admitted on a 201 voluntary commitment for psychosis, sense that he may hurt someone and SI with plan of hanging himself using rope. Diagnostically consistent with unspecified psychosis with differential including schizophrenia (seems most likely given his age, gradual onset with increased negative symptoms, ideas of reference, increased caodaism fixation, and now thought insertion to harm others) vs OCD vs MDD with psychotic features vs BPAD (less likely given no hx of monica) vs delusional disorder vs 2/2 medical cause (unlikely given negative head CT two months ago and no current neurological deficits or autonomic dysfunction, TSH normal, ?past Lyme panel). 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 Worsened symptoms today after haldol dose last night held due to concern for acute dystonic reaction. Dystonia responded quickly to cogentin and no re-emergence of symptoms today even with prn dose of haldol due to high level of distress. Goal of transitioning to risperidone monotherapy so will increase dose given he tolerated this and co ntinues to have target symptoms of psychosis. Fasting lipid, glucose, and HbA1c reviewed and normal. 02/16/2024 Zyprexa 5 mg was administered to the patient and he tolerated this well. 02/17 2024: His night time zyprexa was increased to 7.5 mg. 02/18/24: Patient appears to be adjusting to the medications. We discussed adding Gabapentin in the future to see if it would help with his feelings of anxiety about his breathing. 02/19/24 Patient is intermittently responding well to the medications but also has episodes where he again feels like he is crawling out of his skin. 02/20/24 Patient's medications were adjusted to Scheduled Haldol. Zyprexa was decreased. Prozac was added. Gabapentin was stopped. PRN ativan was added temporarily for severe agitation. 02/21/2024 Patient's larger dose of Zyprexa was switched to the morning because he says mornings are more difficult. The plan is to decrease the Zyprexa to only have him on Haldol. Continue the Prozac. PRN Ativan should be used sparingly. The fact that he has responded to the ativan makes me think this is more obsessional and intrusive thoughts than truce psychosis. Prozac was started for anxiety and should be titrated as quickly as safe for efficacy. (1) Unspecified psychosis not due to a substance or known physiological condition: Zyprexa 5 mg in the morning.. Haldol 5 mg scheduled (2) Suicidal ideations: (3) Homicidal thoughts: Plan 02/21/2024 Patient's larger dose of Zyprexa was switched to the morning because he says mornings are more difficult. The plan is to decrease the Zyprexa to only have him on Haldol. Continue the Prozac. PRN Ativan should be used sparingly. The fact that he has responded to the ativan makes me think this is more obsessional and intrusive thoughts than truce psychosis. Prozac was started for anxiety and should be titrated as quickly as safe for efficacy. 02/20/24 We stopped Gabapentin, added Prozac, PRN ativan, and Zyprexa was decreased with the hope that he can only be on Haldol as it has seemed to be the most effective. 02/19/2024 We have added Gabapentin to the patient's regimen at his request. We will continue to monitor. We will also try changing the larger Zyprexa dose to the morning. : Continue with current medications at this time. We will consider adding Gabapentin for his anxiety about his breathing. 02/17/2024 Zyprexa at bedtime was increased to 7.5 mg, continue 5 mg daily 02/16/2024 Zyprexa 5 mg BID. 02/15/2024: -Increase risperidone to 1mg BID -haldol 2.5mg BID prn for agitation/paranoia/psychosis and ativan 0.5mg BID prn for agitation -discontinue ativan HS 02/14/2024: -Haldol 5mg po and ativan 2mg po at HS -Tomorow start risperidone 0.5mg BID -Fasting lipid panel, glucose and HbA1c in the morning 02/13/2024:The patient was admitted to the [facility] ([facility] mental health unit) on q15 min checks (behavioral with suicide precautions) for safety. The patient will participate in group, recreational, and milieu therapies and will be offered additional individual and family sessions as clinically appropriate. -Continue haldol 2.5mg qAM and 5mg HS for psychosis -Ativan 1mg qAM and 2mg HS for psychosis given high acuity of current distress and symptoms -Discontinue lamictal -Fasting lipid panel and HbA1c in 1-2 days as he can better tolerate -Suicide protocol with safe tray, safe linens, safety precautions -Homicide precautions -Elopement precautions Inventory Assets Strengths: supportive family, willing for treatment Needs: safety and stabilization, increased coping skills, medication adjustment, in creased outpatient support Suicide Risk Level Suicide Risk Level: High-Moderate (q15 min suicide checks) (SI with plan prior to admission and psychosis but denies SI currently and feels safe in the hospital, he feels comfortable telling staff if he feels unsafe and likes the ability to utilize the quiet room. Low threshold for 1-1 observation if SI re- emerges and/or he attempts to self-harm ) Risk Factors Assessment Male: Yes : Yes Do You Have Access To A Gun?: No Mental Health Diagnoses: Yes Substance Use Disorders: No Previous Attempt: No Family History of Suicide: No Previous Psychiatric Hospitalization: No Protective Factors Assessment Employed: No Stable Relationships: Yes Supportive Family: Yes Interval History Identifying Information SAMIRA ROOT is a 23-year-old man who currently lives in [place] with his parents, has a history of depression, and was admitted on 02/12/24 17:07 on a 201 voluntary commitment for SI with plan of hanging himself and ego-dystonic HI. Chief Complaint "". Review of Systems Sleep Information Total Hours of Sleep: 7.25 Sleep Comments: HS [place] Meal Information Percent Meal Consumed - Breakfast: 0 Percent Meal Consumed - Lunch: 100 Percent Meal Consumed - Dinner: 100 Subjective Subjective Patient was seen & assessed and interval progress reviewed with treatment team, nursing and social work. He stated that he is doing better but still feels awful. When the patient is at his worst, he says that he never feels any better. However, when he actually is feeling better, subjectively and objectively he is responding well to the haldol. Yesterday I added PRN Ativan for severe agitation and anxiety. He has responded well to that which makes me suspect that this might be obsessive thoughts rather than psychosis. I have also started him on Prozac for his symptoms of anxiety. The patient has been participating in the milieu and has been holding it together. I have not witnessed any compulsions. He has hit his head against the floor or the wall in the past, but these are not consistent with compulsions (which are to relieve anxiety and are to patel off the consequences of thoughts) rather than be a way to overpower the pain that is going on in his brain. He has described it like a "Cat scratching to get out of his head." We will continue to monitor his response to the medication changes. Physical Exam Mental Examination Appearance: Well Groomed Eye Contact: Maintains Eye Contact Motor Behavior: Unremarkable Speech: Normal Mood: Euthymic Affect: Anxious Thought Process: Intact Hallucinations: None Insight: Fair Judgement: Fair Psychiatric Orientation: alert and oriented x 3 Apperance: appropriately dressed Eye Contact: good eye contact and + fair eye contact Motor Behavior: no abnormal motor movements; n EPS and n akathisia Speech: normal rate/rhythm/volume of speech Affect: euthymic affect, + anxious affect, + flat affect and + constricted affect Mood: + anxious mood; no depressed mood Thought Process: + circumstantial thought process Thought Content: + paranoid, reality based without delusions, + delusions, + ideas of reference and + thought insertion Suicidal Thoughts: denies suicidal thoughts (intermittent) and denies suicidal plan (none for hospital, prior to admission to hang himself) Homicidal Thoughts: denies homicidal thoughts (recent ego-dystonic fear that he may hurt or cause harm, intermittent today) and denies homicidal plan Hallucinations: no auditory hallucinations and no visual hallucinations Cognition: recent memory grossly intact, remote memory grossly intact, attention grossly intact and language grossly intact Insight: + fair insight Judgment: + limited judgement Vital Signs (Past 24 Hours) Last Vital Signs Temp 37.1 C 02/21/24 06:36 Pulse 76 02/21/24 06:36 Resp 16 02/21/24 06:36 BP 128/82 02/21/24 06:36 Pulse Ox 99 02/12/24 15:13 O2 Del Method Room Air 02/12/24 16:32 Results & Data ([facility]) Current Inpatient Medications Current Inpatient Medications: Current Inpatient Medications Acetaminophen (Acetaminophen 325 Mg Tab) 650 mg PO Q4H PRN PRN Reason: Headache or Minor Fever Stop: 03/13/24 16:44 Al Hydrox/Mg Hydrox/Simethicone (Aluminum/Magnesium Susp 30 Ml Udc) 30 ml PO Q4H PRN PRN Reason: GI Upset Stop: 03/13/24 16:44 Benztropine Mesylate (Benztropine Mesylate 1 Mg Tab) 1 mg PO QID [facility] Stop: 03/21/24 12:59 Last Admin: 02/21/24 08:58 Dose: 1 mg Bismuth Subsalicylate (Bismuth Subsalicylate Liqd 236 Ml) 15 ml PO PRN PRN PRN Reason: Loose Stool Stop: 03/13/24 16:44 Ergocalciferol (Ergocalciferol 1250 Mcg (50,000 Units) Cap) 1,250 mcg PO Ly@0900 [facility] Stop: 03/18/24 08:59 Last Admin: 02/17/24 09:35 Dose: 1,250 mcg Fluoxetine HCl (Fluoxetine Hcl 20 Mg Cap) 20 mg PO QAM [facility] Stop: 03/22/24 08:59 Last Admin: 02/21/24 08:58 Dose: 20 mg Haloperidol (Haloperidol 5 Mg Tab) 5 mg PO QID [facility]; Protocol Stop: 03/21/24 12:59 Last Admin: 02/21/24 08:58 Dose: 5 mg Hydroxyzine HCl (Hydroxyzine Hcl 25 Mg Tab) 50 mg PO HSZ PRN PRN Reason: Insomnia Stop: 03/13/24 16:44 Hydroxyzine HCl (Hydroxyzine Hcl 25 Mg Tab) 25 mg PO Q4H PRN PRN Reason: Anxiety Stop: 03/13/24 16:44 Last Admin: 02/18/24 17:13 Dose: 25 mg Lorazepam (Lorazepam 1 Mg Tab) 1 mg PO BID PRN PRN Reason: Agitation Stop: 03/21/24 10:29 Magnesium Hydroxide (Magnesium Hydroxide Susp 30 Ml Udc) 30 ml PO DAILY PRN PRN Reason: Constipation Stop: 03/13/24 16:44 Mupirocin (Mupirocin 2% Oint 22 Gm Tube) 1 appln EXT BID [facility] Stop: 03/21/24 08:59 Last Admin: 02/21/24 09:00 Dose: 1 appln Olanzapine (Olanzapine Zydis 5 Mg Orally Dis. Tab) 5 mg PO DAILY [facility] Stop: 03/22/24 08:59 Last Admin: 02/21/24 08:58 Dose: 5 mg Olanzapine (Olanzapine Zydis 5 Mg Orally Dis. Tab) 2.5 mg PO HS [facility] Stop: 03/22/24 21:59 Sodium Chloride (Sodium Chloride 0.65% Na Soln 45 Ml ([place])) 1 - 2 sprays NA PRN PRN PRN Reason: Nasal Dryness/Congestion Stop: 03/13/24 16:44 Mental Health & Subst Abuse Tx Therapist Name of Therapist: None Data Entry Technician Name of Data Entry Technician: None Post Discharge Appointments Primary Care Physician Name Of Family Doctor/PCP: Dr Miles
[2024-02-21] MEDS: LORazepam 1 MG TAB PO PRN (12:36)
--- NOTE | 2024-02-22 12:58 | Psychiatric Progress Note ---
Date of Service February 22, 2024 Impression / Recommendations Impression 23 yo man with no formal psychiatric history admitted on a 201 voluntary commitment for psychosis, sense that he may hurt someone and SI with plan of hanging himself using rope. Diagnostically consistent with unspecified psychosis with differential including schizophrenia (seems most likely given his age, gradual onset with increased negative symptoms, ideas of reference, increased christianity fixation, and now thought insertion to harm others) vs OCD vs MDD with psychotic features vs BPAD (less likely given no hx of monica) vs delusional disorder vs 2/2 medical cause (unlikely given negative head CT two months ago and no current neurological deficits or autonomic dysfunction, TSH normal, ?past Lyme panel). 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 Worsened symptoms today after haldol dose last night held due to concern for acute dystonic reaction. Dystonia responded quickly to cogentin and no re-emergence of symptoms today even with prn dose of haldol due to high level of distress. Goal of transitioning to risperidone monotherapy so will increase dose given he tolerated this and co ntinues to have target symptoms of psychosis. Fasting lipid, glucose, and HbA1c reviewed and normal. 02/16/2024 Zyprexa 5 mg was administered to the patient and he tolerated this well. 02/17 2024: His night time zyprexa was increased to 7.5 mg. 02/18/24: Patient appears to be adjusting to the medications. We discussed adding Gabapentin in the future to see if it would help with his feelings of anxiety about his breathing. 02/19/24 Patient is intermittently responding well to the medications but also has episodes where he again feels like he is crawling out of his skin. 02/20/24 Patient's medications were adjusted to Scheduled Haldol. Zyprexa was decreased. Prozac was added. Gabapentin was stopped. PRN ativan was added temporarily for severe agitation. 02/21/2024 Patient's larger dose of Zyprexa was switched to the morning because he says mornings are more difficult. The plan is to decrease the Zyprexa to only have him on Haldol. Continue the Prozac. PRN Ativan should be used sparingly. The fact that he has responded to the ativan makes me think this is more obsessional and intrusive thoughts than truce psychosis. Prozac was started for anxiety and should be titrated as quickly as safe for efficacy. 02/22/24 The patient continues to have good and bad times throughout the day. The patient's Prozac will be increased to 30 mg daily tomorrow. (1) Unspecified psychosis not due to a substance or known physiological condition: Zyprexa 5 mg in the morning.. Haldol 5 mg scheduled (2) Suicidal ideations: (3) Homicidal thoughts: Plan 02/22/24: Prozac was increased to 30 mg daily starting tomorrow. 02/21/2024 Patient's larger dose of Zyprexa was switched to the morning because he says mornings are more difficult. The plan is to decrease the Zyprexa to only have him on Haldol. Continue the Prozac. PRN Ativan should be used sparingly. The fact that he has responded to the ativan makes me think this is more obsessional and intrusive thoughts than truce psychosis. Prozac was started for anxiety and should be titrated as quickly as safe for efficacy. 02/20/24 We stopped Gabapentin, added Prozac, PRN ativan, and Zyprexa was decreased with the hope that he can only be on Haldol as it has seemed to be the most effective. 02/19/2024 We have added Gabapentin to the patient's regimen at his request. We will continue to monitor. We will also try changing the larger Zyprexa dose to the morning. : Continue with current medications at this time. We will consider adding Gabapentin for his anxiety about his breathing. 02/17/2024 Zyprexa at bedtime was increased to 7.5 mg, continue 5 mg daily 02/16/2024 Zyprexa 5 mg BID. 02/15/2024: -Increase risperidone to 1mg BID -haldol 2.5mg BID prn for agitation/paranoia/psychosis and ativan 0.5mg BID prn for agitation -discontinue ativan HS 02/14/2024: -Haldol 5mg po and ativan 2mg po at HS -Tomorow start risperidone 0.5mg BID -Fasting lipid panel, glucose and HbA1c in the morning 02/13/2024:The patient was [facility] on q15 min checks (behavioral with suicide precautions) for safety. The patient will participate in group, recreational, and milieu therapies and will be offered additional individual and family sessions as clinically appropriate. -Continue haldol 2.5mg qAM and 5mg HS for psychosis -Ativan 1mg qAM and 2mg HS for psychosis given high acuity of current distress and symptoms -Discontinue lamictal -Fasting lipid panel and HbA1c in 1-2 days as he can better tolerate -Suicide protocol with safe tray, safe linens, safety precautions -Homicide precautions -Elopement precautions Inventory Assets Strengths: supportive family, willing for treatment Needs: safety and stabilization, increased coping skills, medication adjustment, increased outpatient support Suicide Risk Level Suicide Risk Level: High-Moderate (q15 min suicide checks) (SI with plan prior to admission and psychosis but denies SI currently and feels safe in the hospital, he feels comfortable telling staff if he feels unsafe and likes the ability to utilize the quiet room. Low threshold for 1-1 observation if SI re- emerges and/or he attempts to self-harm ) Risk Factors Assessment Male: Yes : Yes Do You Have Access To A Gun?: No Mental Health Diagnoses: Yes Substance Use Disorders: No Previous Attempt: No Family History of Suicide: No Previous Psychiatric Hospitalization: No Protective Factors Assessment Employed: No Stable Relationships: Yes Supportive Family: Yes Interval History Identifying Information SAMIRA ROOT is a 23-year-old man who currently lives in [place] with his parents, has a history of depression, and was admitted on 02/12/24 17:07 on a 201 voluntary commitment for SI with plan of hanging himself and ego-dystonic HI. Chief Complaint "I'm doing ok but I'm feeling anxious ". Review of Systems Sleep Information Total Hours of Sleep: 8 Sleep Comments: Scheduled Haldol and Zyprexa at HS Meal Information Percent Meal Consumed - Breakfast: 100 Percent Meal Consumed - Lunch: 100 Percent Meal Consumed - Dinner: 100 Subjective Subjective Patient was seen & assessed and interval progress reviewed with treatment team, nursing and social work. The patient continues to have good and bad times during the day. When he has a good time, he is able to function well and is relaxing and interacting with the other patients and otherwise participating in the milieu. When the patient is in his bad spells, he says that he is feeling awful, says that he never feels ok, the medications aren't working, and he thinks he will never get better. It was discussed today that we might have the patient record in a journal when he is feeling better so he can look at it when he is catastrophizing to see that he does actually feel better at times. Physical Exam Mental Examination Appearance: Well Groomed Eye Contact: Maintains Eye Contact Motor Behavior: Unremarkable Speech: Normal Mood: Euthymic Affect: Anxious Thought Process: Intact Hallucinations: None Insight: Fair Judgement: Fair Psychiatric Orientation: alert and oriented x 3 Apperance: appropriately dressed Eye Contact: good eye contact and + fair eye contact Motor Behavior: no abnormal motor movements; n EPS and n akathisia Speech: normal rate/rhythm/volume of speech Affect: euthymic affect, + anxious affect, + flat affect and + constricted affect Mood: + anxious mood; no depressed mood Thought Process: + circumstantial thought process Thought Content: + paranoid, reality based without delusions, + delusions, + ideas of reference and + thought insertion Suicidal Thoughts: denies suicidal thoughts (intermittent) and denies suicidal plan (none for hospital, prior to admission to hang himself) Homicidal Thoughts: denies homicidal thoughts (recent ego-dystonic fear that he may hurt or cause harm, intermittent today) and denies homicidal plan Hallucinations: no auditory hallucinations and no visual hallucinations Cognition: recent memory grossly intact, remote memory grossly intact, attention grossly intact and language grossly intact Insight: + fair insight Judgment: + limited judgement Vital Signs (Past 24 Hours) Last Vital Signs Temp 37 C 02/22/24 06:48 Pulse 91 H 02/22/24 06:48 Resp 16 02/22/24 06:48 BP 120/81 02/22/24 06:48 Pulse Ox 99 02/12/24 15:13 O2 Del Method Room Air 02/12/24 16:32 Results & Data ([facility]) Current Inpatient Medications Current Inpatient Medications: Current Inpatient Medications Acetaminophen (Acetaminophen 325 Mg Tab) 650 mg PO Q4H PRN PRN Reason: Headache or Minor Fever Stop: 03/13/24 16:44 Al Hydrox/Mg Hydrox/Simethicone (Aluminum/Magnesium Susp 30 Ml Udc) 30 ml PO Q4H PRN PRN Reason: GI Upset Stop: 03/13/24 16:44 Benztropine Mesylate (Benztropine Mesylate 1 Mg Tab) 1 mg PO QID [facility] Stop: 03/21/24 12:59 Last Admin: 02/22/24 08:59 Dose: 1 mg Bismuth Subsalicylate (Bismuth Subsalicylate Liqd 236 Ml) 15 ml PO PRN PRN PRN Reason: Loose Stool Stop: 03/13/24 16:44 Ergocalciferol (Ergocalciferol 1250 Mcg (50,000 Units) Cap) 1,250 mcg PO Ly@0900 [facility] Stop: 03/18/24 08:59 Last Admin: 02/17/24 09:35 Dose: 1,250 mcg Fluoxetine HCl (Fluoxetine Hcl 10 Mg Cap) 30 mg PO QAM [facility] Stop: 03/24/24 08:59 Haloperidol (Haloperidol 5 Mg Tab) 5 mg PO QID [facility]; Protocol Stop: 03/21/24 12:59 Last Admin: 02/22/24 08:59 Dose: 5 mg Hydroxyzine HCl (Hydroxyzine Hcl 25 Mg Tab) 50 mg PO HSZ PRN PRN Reason: Insomnia Stop: 03/13/24 16:44 Hydroxyzine HCl (Hydroxyzine Hcl 25 Mg Tab) 25 mg PO Q4H PRN PRN Reason: Anxiety Stop: 03/13/24 16:44 Last Admin: 02/18/24 17:13 Dose: 25 mg Lorazepam (Lorazepam 1 Mg Tab) 1 mg PO BID PRN PRN Reason: Agitation Stop: 03/21/24 10:29 Last Admin: 02/21/24 12:36 Dose: 1 mg Magnesium Hydroxide (Magnesium Hydroxide Susp 30 Ml Udc) 30 ml PO DAILY PRN PRN Reason: Constipation Stop: 03/13/24 16:44 Mupirocin (Mupirocin 2% Oint 22 Gm Tube) 1 appln EXT BID [facility] Stop: 03/21/24 08:59 Last Admin: 02/22/24 09:03 Dose: Not Given Olanzapine (Olanzapine Zydis 5 Mg Orally Dis. Tab) 2.5 mg PO HS [facility] Stop: 03/22/24 21:59 Last Admin: 02/21/24 20:53 Dose: 2.5 mg Olanzapine (Olanzapine Zydis 5 Mg Orally Dis. Tab) 2.5 mg PO DAILY [facility] Stop: 03/24/24 08:59 Sodium Chloride (Sodium Chloride 0.65% Na Soln 45 Ml ([place])) 1 - 2 sprays NA PRN PRN PRN Reason: Nasal Dryness/Congestion Stop: 03/13/24 16:44 Mental Health & Subst Abuse Tx Therapist Name of Therapist: None Home Care Manager Name of Home Care Manager: None Post Discharge Appointments Primary Care Physician Name Of Family Doctor/PCP: Dr Miles
[2024-02-23] MEDS: OLANZapine ZYDIS 5 MG ORALLY DIS. TAB PO SCH (08:50)
[2024-02-23] MEDS: FLUoxetine HCL 10 MG CAP PO SCH (09:06)
--- NOTE | 2024-02-23 09:55 | Psychiatric Progress Note ---
Date of Service February 23, 2024 Impression / Recommendations Impression 23 yo man with no formal psychiatric history admitted on a 201 voluntary commitment for psychosis, sense that he may hurt someone and SI with plan of hanging himself using rope. Diagnostically consistent with unspecified psychosis with differential including schizophrenia (seems most likely given his age, gradual onset with increased negative symptoms, ideas of reference, increased mandaen fixation, and now thought insertion to harm others) vs OCD vs MDD with psychotic features vs BPAD (less likely given no hx of monica) vs delusional disorder vs 2/2 medical cause (unlikely given negative head CT two months ago and no current neurological deficits or autonomic dysfunction, TSH normal, ?past Lyme panel). 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 haldol helping somewhat, will attempt to consolidate doses. Tolerating higher dose of fluoxetine. Overall, I spent a total of 40 minutes on this case including meeting with the patient, reviewing the chart, nursing report, multidisciplinary team meeting, orders, and documentation. (1) Unspecified psychosis not due to a substance or known physiological condition: (2) Suicidal ideations: (3) Homicidal thoughts: Plan 02/23/2024: Discontinue olanzapine. Adjust haldol to 5mg qAM and 10mg HS. Adjust cogentin to BID prn. 02/22/24: Prozac was increased to 30 mg daily starting tomorrow. 02/21/2024 Patient's larger dose of Zyprexa was switched to the morning because he says mornings are more difficult. The plan is to decrease the Zyprexa to only have him on Haldol. Continue the Prozac. PRN Ativan should be used sparingly. The fact that he has responded to the ativan makes me think this is more obsessional and intrusive thoughts than truce psychosis. Prozac was started for anxiety and should be titrated as quickly as safe for efficacy. 02/20/24 We stopped Gabapentin, added Prozac, PRN ativan, and Zyprexa was decreased with the hope that he can only be on Haldol as it has seemed to be the most effective. 02/19/2024 We have added Gabapentin to the patient's regimen at his request. We will continue to monitor. We will also try changing the larger Zyprexa dose to the morning. : Continue with current medications at this time. We will consider adding Gabapentin for his anxiety about his breathing. 02/17/2024 Zyprexa at bedtime was increased to 7.5 mg, continue 5 mg daily 02/16/2024 Zyprexa 5 mg BID. 02/15/2024: -Increase risperidone to 1mg BID -haldol 2.5mg BID prn for agitation/paranoia/psychosis and ativan 0.5mg BID prn for agitation -discontinue ativan HS 02/14/2024: -Haldol 5mg po and ativan 2mg po at HS -Tomorow start risperidone 0.5mg BID -Fasting lipid panel, glucose and HbA1c in the morning 02/13/2024:The patient was admitted to the [facility] ([facility]) on q15 min checks (behavioral with suicide precautions) for safety. The patient will participate in group, recreational, and milieu therapies and will be offered additional individual and family sessions as clinically appropriate. -Continue haldol 2.5mg qAM and 5mg HS for psychosis -Ativan 1mg qAM and 2mg HS for psychosis given high acuity of current distress and symptoms -Discontinue lamictal -Fasting lipid panel and HbA1c in 1-2 days as he can better tolerate -Suicide protocol with safe tray, safe linens, safety precautions -Homicide precautions -Elopement precautions Inventory Assets Strengths: supportive family, willing for treatment Needs: safety and stabilization, increased coping skills, medication adjustment, increased outpatient support Suicide Risk Level Suicide Risk Level: High-Moderate (q15 min suicide checks) (SI with plan prior to admission and psychosis but denies SI currently and feels safe in the hospital, he feels comfortable telling staff if he feels unsafe and likes the ability to utilize the quiet room. Low threshold for 1-1 observation if SI re- emerges and/or he attempts to self-harm ) Risk Factors Assessment Male: Yes : Yes Do You Have Access To A Gun?: No Mental Health Diagnoses: Yes Substance Use Disorders: No Previous Attempt: No Family History of Suicide: No Previous Psychiatric Hospitalization: No Protective Factors Assessment Employed: No Stable Relationships: Yes Supportive Family: Yes Interval History Identifying Information SAMIRA ROOT is a 23-year-old man who currently lives in [place] with his parents, has a history of depression, and was admitted on 02/12/24 17:07 on a 201 voluntary commitment for SI with plan of hanging himself and ego-dystonic HI. Chief Complaint "This feels like a punishment from God". Review of Systems Sleep Information Total Hours of Sleep: 7 Sleep Comments: HS Haldol and Zyprexa Meal Information Percent Meal Consumed - Breakfast: 75 Percent Meal Consumed - Lunch: 100 Percent Meal Consumed - Dinner: 90 Subjective Subjective Patient was seen & assessed and interval progress reviewed with treatment team nursing and social work. No prn medication yesterday. Can get very hopeless at times when his symptoms of psychosis worsen. Mornings tend to be the most difficult. He reports experiencing fluctuating mental states, with some days feeling slightly better and others significantly worse. He mentions that olanzapine was ineffective for him, but Haldol has been moderately helpful in reducing his anxiety and delusions. He describes symptoms such as feeling like he's being punished by God as delusions and for which Haldol helps manage to some extent but not fully nor does it fully control his thought insertion at this point. He recalls a severe psychosis episode approximately 16 months ago, characterized by a sensation of omniscience and predominantly positive moods. However, in recent months, he feels his condition has deteriorated significantly, describing it as losing all his ground. He agrees that currently his mood is more of a depressive episode accompanied by psychosis and this could be contributing to his sense of hopelessness at times. Patient expresses a belief that his current state is a punishment from God and feels a profound disconnection from humanity. He also experiences physical symptoms, such as a sensation laxmi to a cat scratching his brain, which he notes the Haldol does not adequately address. Physical Exam Psychiatric Orientation: alert and oriented x 3 Apperance: appropriately dressed Eye Contact: + fair eye contact Motor Behavior: no abnormal motor movements; n EPS and n akathisia Speech: normal rate/rhythm/volume of speech Affect: + flat affect Mood: + depressed mood and + anxious mood Thought Process: + circumstantial thought process Thought Content: + paranoid, + delusions, + ideas of reference and + thought insertion Suicidal Thoughts: denies suicidal thoughts (intermittent) and denies suicidal plan (none for hospital, prior to admission to hang himself) Homicidal Thoughts: denies homicidal thoughts (recent ego-dystonic fear that he may hurt or cause harm, denies today) and denies homicidal plan Hallucinations: no auditory hallucinations and no visual hallucinations Cognition: recent memory grossly intact, remote memory grossly intact, attention grossly intact and language grossly intact Insight: + fair insight Judgment: + limited judgement Vital Signs (Past 24 Hours) Last Vital Signs Temp 37.2 C 02/23/24 06:45 Pulse 74 02/23/24 06:45 Resp 16 02/23/24 06:45 BP 117/55 L 02/23/24 06:51 Pulse Ox 96 02/23/24 06:45 O2 Del Method Room Air 02/23/24 06:45 Results & Data ([facility]) Current Inpatient Medications Current Inpatient Medications: Current Inpatient Medications Acetaminophen (Acetaminophen 325 Mg Tab) 650 mg PO Q4H PRN PRN Reason: Headache or Minor Fever Stop: 03/13/24 16:44 Al Hydrox/Mg Hydrox/Simethicone (Aluminum/Magnesium Susp 30 Ml Udc) 30 ml PO Q4H PRN PRN Reason: GI Upset Stop: 03/13/24 16:44 Benztropine Mesylate (Benztropine Mesylate 1 Mg Tab) 1 mg PO QID [facility] Stop: 03/21/24 12:59 Last Admin: 02/23/24 08:49 Dose: 1 mg Bismuth Subsalicylate (Bismuth Subsalicylate Liqd 236 Ml) 15 ml PO PRN PRN PRN Reason: Loose Stool Stop: 03/13/24 16:44 Ergocalciferol (Ergocalciferol 1250 Mcg (50,000 Units) Cap) 1,250 mcg PO Ly@0900 [facility] Stop: 03/18/24 08:59 Last Admin: 02/17/24 09:35 Dose: 1,250 mcg Fluoxetine HCl (Fluoxetine Hcl 10 Mg Cap) 30 mg PO QAM [facility] Stop: 03/24/24 08:59 Last Admin: 02/23/24 09:06 Dose: 30 mg Haloperidol (Haloperidol 5 Mg Tab) 5 mg PO QID [facility]; Protocol Stop: 03/21/24 12:59 Last Admin: 02/23/24 08:50 Dose: 5 mg Hydroxyzine HCl (Hydroxyzine Hcl 25 Mg Tab) 50 mg PO HSZ PRN PRN Reason: Insomnia Stop: 03/13/24 16:44 Hydroxyzine HCl (Hydroxyzine Hcl 25 Mg Tab) 25 mg PO Q4H PRN PRN Reason: Anxiety Stop: 03/13/24 16:44 Last Admin: 02/18/24 17:13 Dose: 25 mg Lorazepam (Lorazepam 1 Mg Tab) 1 mg PO BID PRN PRN Reason: Agitation Stop: 03/21/24 10:29 Last Admin: 02/21/24 12:36 Dose: 1 mg Magnesium Hydroxide (Magnesium Hydroxide Susp 30 Ml Udc) 30 ml PO DAILY PRN PRN Reason: Constipation Stop: 03/13/24 16:44 Mupirocin (Mupirocin 2% Oint 22 Gm Tube) 1 appln EXT BID [facility] Stop: 03/21/24 08:59 Last Admin: 02/23/24 08:53 Dose: 1 appln Olanzapine (Olanzapine Zydis 5 Mg Orally Dis. Tab) 2.5 mg PO HS [facility] Stop: 03/22/24 21:59 Last Admin: 02/22/24 20:58 Dose: 2.5 mg Olanzapine (Olanzapine Zydis 5 Mg Orally Dis. Tab) 2.5 mg PO DAILY [facility] Stop: 03/24/24 08:59 Last Admin: 02/23/24 08:50 Dose: 2.5 mg Sodium Chloride (Sodium Chloride 0.65% Na Soln 45 Ml ([place])) 1 - 2 sprays NA PRN PRN PRN Reason: Nasal Dryness/Congestion Stop: 03/13/24 16:44 Mental Health & Subst Abuse Tx Therapist Name of Therapist: None Field Producer Name of Field Producer: None Post Discharge Appointments Primary Care Physician Name Of Family Doctor/PCP: Dr Miles
[2024-02-23] MEDS: haloperidoL 5 MG TAB PO SCH (20:31)
[2024-02-24] MEDS: haloperidoL 5 MG TAB PO SCH (08:40)
--- NOTE | 2024-02-24 09:43 | Psychiatric Progress Note ---
Date of Service February 24, 2024 Impression / Recommendations Impression 23 yo man with no formal psychiatric history admitted on a 201 voluntary commitment for psychosis, sense that he may hurt someone and SI with plan of hanging himself using rope. Diagnostically consistent with unspecified psychosis with differential including schizophrenia (seems most likely given his age, gradual onset with increased negative symptoms, ideas of reference, increased congregational fixation, and now thought insertion to harm others) vs OCD vs MDD with psychotic features vs BPAD (less likely given no hx of monica) vs delusional disorder vs 2/2 medical cause (unlikely given negative head CT two months ago and no current neurological deficits or autonomic dysfunction, TSH normal, ?past Lyme panel). 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 Tolerating fluoxetine well. Spoke with his mother who provided collateral that recently he has been very focused on concerns about his nasal cartilage and they saw multiple ENT providers including a specialist in [place]. They have all observed some changes to lower mucosa due to suspected seborrheic dermatitis but all have stated his upper nasal passage is normal and healthy. Suspect fixation on nasal functioning may be aspect of obsessional component of suspected schizophrenia. Unclear what cat scratching sensation represents, will start propranolol prn as option to try in periods of distress in case this is some type of bizarre akathisia sensation. Brain consents to this and reviewed side effects including but not limited to low BP, syncope, dizziness. Overall, I spent a total of 65 minutes on this case including meeting with the patient, reviewing the chart, nursing report, multidisciplinary team meeting, orders, collateral from family and documentation. (1) Unspecified psychosis not due to a substance or known physiological condition: (2) Suicidal ideations: (3) Homicidal thoughts: Plan 02/24/2024: Addition of propranolol 10mg BID prn for akathisia 02/23/2024: Discontinue olanzapine. Adjust haldol to 5mg qAM and 10mg HS. Adjust cogentin to BID prn. 02/22/24: Prozac was increased to 30 mg daily starting tomorrow. 02/21/2024 Patient's larger dose of Zyprexa was switched to the morning because he says mornings are more difficult. The plan is to decrease the Zyprexa to only have him on Haldol. Continue the Prozac. PRN Ativan should be used sparingly. The fact that he has responded to the ativan makes me think this is more obsessional and intrusive thoughts than truce psychosis. Prozac was started for anxiety and should be titrated as quickly as safe for efficacy. 02/20/24 We stopped Gabapentin, added Prozac, PRN ativan, and Zyprexa was decreased with the hope that he can only be on Haldol as it has seemed to be the most effective. 02/19/2024 We have added Gabapentin to the patient's regimen at his request. We will continue to monitor. We will also try changing the larger Zyprexa dose to the morning. : Continue with current medications at this time. We will consider adding Gabapentin for his anxiety about his breathing. 02/17/2024 Zyprexa at bedtime was increased to 7.5 mg, continue 5 mg daily 02/16/2024 Zyprexa 5 mg BID. 02/15/2024: -Increase risperidone to 1mg BID -haldol 2.5mg BID prn for agitation/paranoia/psychosis and ativan 0.5mg BID prn for agitation -discontinue ativan HS 02/14/2024: -Haldol 5mg po and ativan 2mg po at HS -Tomorow start risperidone 0.5mg BID -Fasting lipid panel, glucose and HbA1c in the morning 02/13/2024:The patient was admitted to the [facility] ([facility]) on q15 min checks (behavioral with suicide precautions) for safety. The patient will participate in group, recreational, and milieu therapies and will be offered additional individual and family sessions as clinically appropriate. -Continue haldol 2.5mg qAM and 5mg HS for psychosis -Ativan 1mg qAM and 2mg HS for psychosis given high acuity of current distress and symptoms -Discontinue lamictal -Fasting lipid panel and HbA1c in 1-2 days as he can better tolerate -Suicide protocol with safe tray, safe linens, safety precautions -Homicide precautions -Elopement precautions Inventory Assets Strengths: supportive family, willing for treatment Needs: safety and stabilization, increased coping skills, medication adjustment, increased outpatient support Suicide Risk Level Suicide Risk Level: High-Moderate (q15 min suicide checks) (SI with plan prior to admission and psychosis but denies SI currently and feels safe in the hospital, he feels comfortable telling staff if he feels unsafe and likes the ability to utilize the quiet room. Low threshold for 1-1 observation if SI re- emerges and/or he attempts to self-harm ) Risk Factors Assessment Male: Yes : Yes Do You Have Access To A Gun?: No Mental Health Diagnoses: Yes Substance Use Disorders: No Previous Attempt: No Family History of Suicide: No Previous Psychiatric Hospitalization: No Protective Factors Assessment Employed: No Stable Relationships: Yes Supportive Family: Yes Interval History Identifying Information SAMIRA ROOT is a 23-year-old man who currently lives in [place] with his parents, has a history of depression, and was admitted on 02/12/24 17:07 on a 201 voluntary commitment for SI with plan of hanging himself and ego-dystonic HI. Chief Complaint "I feel better now than I did this morning". Review of Systems Sleep Information Total Hours of Sleep: 7.5 Sleep Comments: HS Haldol Meal Information Percent Meal Consumed - Breakfast: 100 Percent Meal Consumed - Lunch: 100 Percent Meal Consumed - Dinner: 100 Subjective Subjective Patient was seen & assessed and interval progress reviewed with treatment team nursing and social work. Still struggling this morning with sense of cat scratching in his brain. Yesterday was focused on thought that all of his issues are due to his sinus problems. He has been putting strips of makeup wipes soaked with water in his nose. Today had difficult morning with ongoing sense of cat scratching his brain, anxiety and sense that "I'm suffocating". Reviewed his belief he has empty nose syndrome with loss of cartilage that causes him to be unable to sense when he is breathing. Reviewed alternative ways of using breath to calm his anxiety that doesn't rely on sense of airflow through his nose. He feels the medications are helping in that he feels "more in control" but still struggling with constant sense of discomfort from cat scratching sense that "is always baseline there" but improves when he is actively engaged in groups or with peers. He visited with his mother which went well. Physical Exam Psychiatric Orientation: alert and oriented x 3 Apperance: appropriately dressed Eye Contact: + fair eye contact Motor Behavior: no abnormal motor movements; n EPS and n akathisia Speech: normal rate/rhythm/volume of speech Affect: + constricted affect Mood: + depressed mood and + anxious mood Thought Process: + circumstantial thought process Thought Content: + delusions, + ideas of reference and + thought insertion Suicidal Thoughts: denies suicidal thoughts (intermittent) and denies suicidal plan (none for hospital, prior to admission to hang himself) Homicidal Thoughts: denies homicidal thoughts and denies homicidal plan Hallucinations: no auditory hallucinations and no visual hallucinations Cognition: recent memory grossly intact, remote memory grossly intact, attention grossly intact and language grossly intact Insight: + fair insight Judgment: + fair judgement Vital Signs (Past 24 Hours) Last Vital Signs Temp 36.7 C 02/24/24 06:44 Pulse 63 02/24/24 06:44 Resp 16 02/24/24 06:44 BP 138/67 02/24/24 06:46 Pulse Ox 97 02/24/24 06:44 O2 Del Method Room Air 02/24/24 06:44 Results & Data ([facility]) Current Inpatient Medications Current Inpatient Medications: Current Inpatient Medications Acetaminophen (Acetaminophen 325 Mg Tab) 650 mg PO Q4H PRN PRN Reason: Headache or Minor Fever Stop: 03/13/24 16:44 Al Hydrox/Mg Hydrox/Simethicone (Aluminum/Magnesium Susp 30 Ml Udc) 30 ml PO Q4H PRN PRN Reason: GI Upset Stop: 03/13/24 16:44 Benztropine Mesylate (Benztropine Mesylate 1 Mg Tab) 1 mg PO BID PRN PRN Reason: muscle stiffness Stop: 03/24/24 09:54 Bismuth Subsalicylate (Bismuth Subsalicylate Liqd 236 Ml) 15 ml PO PRN PRN PRN Reason: Loose Stool Stop: 03/13/24 16:44 Ergocalciferol (Ergocalciferol 1250 Mcg (50,000 Units) Cap) 1,250 mcg PO Ly@0900 [facility] Stop: 03/18/24 08:59 Last Admin: 02/24/24 08:40 Dose: 1,250 mcg Fluoxetine HCl (Fluoxetine Hcl 10 Mg Cap) 30 mg PO QAM TAY Stop: 03/24/24 08:59 Last Admin: 02/24/24 08:40 Dose: 30 mg Haloperidol (Haloperidol 5 Mg Tab) 5 mg PO QAM TAY; Protocol Stop: 03/25/24 08:59 Last Admin: 02/24/24 08:40 Dose: 5 mg Haloperidol (Haloperidol 5 Mg Tab) 10 mg PO HS TAY Stop: 03/24/24 21:59 Last Admin: 02/23/24 20:31 Dose: 10 mg Hydroxyzine HCl (Hydroxyzine Hcl 25 Mg Tab) 50 mg PO HSZ PRN PRN Reason: Insomnia Stop: 03/13/24 16:44 Hydroxyzine HCl (Hydroxyzine Hcl 25 Mg Tab) 25 mg PO Q4H PRN PRN Reason: Anxiety Stop: 03/13/24 16:44 Last Admin: 02/18/24 17:13 Dose: 25 mg Lorazepam (Lorazepam 1 Mg Tab) 1 mg PO BID PRN PRN Reason: Agitation Stop: 03/21/24 10:29 Last Admin: 02/23/24 11:46 Dose: 1 mg Magnesium Hydroxide (Magnesium Hydroxide Susp 30 Ml Udc) 30 ml PO DAILY PRN PRN Reason: Constipation Stop: 03/13/24 16:44 Mupirocin (Mupirocin 2% Oint 22 Gm Tube) 1 appln EXT BID TAY Stop: 03/21/24 08:59 Last Admin: 02/24/24 08:41 Dose: 1 appln Sodium Chloride (Sodium Chloride 0.65% Na Soln 45 Ml ([place])) 1 - 2 sprays NA PRN PRN PRN Reason: Nasal Dryness/Congestion Stop: 03/13/24 16:44 Mental Health & Subst Abuse Tx Therapist Name of Therapist: None Converter Supervisor Name of Converter Supervisor: None Post Discharge Appointments Primary Care Physician Name Of Family Doctor/PCP: Dr Miles
--- NOTE | 2024-02-25 09:17 | Psychiatric Progress Note ---
Date of Service February 25, 2024 Impression / Recommendations Impression 23 yo man with no formal psychiatric history admitted on a 201 voluntary commitment for psychosis, sense that he may hurt someone and SI with plan of hanging himself using rope. Diagnostically consistent with unspecified psychosis with differential including schizophrenia (seems most likely given his age, gradual onset with increased negative symptoms, ideas of reference, increased episcopal fixation, and now thought insertion to harm others) vs OCD vs MDD with psychotic features vs BPAD (less likely given no hx of monica) vs delusional disorder vs 2/2 medical cause (unlikely given negative head CT two months ago and no current neurological deficits or autonomic dysfunction, TSH normal, ?past Lyme panel). 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 Mornings are more difficult, he consents to increasing haldol. Overall, I spent a total of 40 minutes on this case including meeting with the patient, reviewing the chart, nursing report, multidisciplinary team meeting, orders, collateral from family and documentation. (1) Unspecified psychosis not due to a substance or known physiological condition: (2) Suicidal ideations: (3) Homicidal thoughts: Plan 02/25/2024: Increase haldol 10mg BID 02/24/2024: Addition of propranolol 10mg BID prn for akathisia 02/23/2024: Discontinue olanzapine. Adjust haldol to 5mg qAM and 10mg HS. Adjust cogentin to BID prn. 02/22/24: Prozac was increased to 30 mg daily starting tomorrow. 02/21/2024 Patient's larger dose of Zyprexa was switched to the morning because he says mornings are more difficult. The plan is to decrease the Zyprexa to only have him on Haldol. Continue the Prozac. PRN Ativan should be used sparingly. The fact that he has responded to the ativan makes me think this is more obsessional and intrusive thoughts than truce psychosis. Prozac was s tarted for anxiety and should be titrated as quickly as safe for efficacy. 02/20/24 We stopped Gabapentin, added Prozac, PRN ativan, and Zyprexa was decreased with the hope that he can only be on Haldol as it has seemed to be the most effective. 02/19/2024 We have added Gabapentin to the patient's regimen at his request. We will continue to monitor. We will also try changing the larger Zyprexa dose to the morning. : Continue with current medications at this time. We will consider adding Gabapentin for his anxiety about his breathing. 02/17/2024 Zyprexa at bedtime was increased to 7.5 mg, continue 5 mg daily 02/16/2024 Zyprexa 5 mg BID. 02/15/2024: -Increase risperidone to 1mg BID -haldol 2.5mg BID prn for agitation/paranoia/psychosis and ativan 0.5mg BID prn for agitation -discontinue ativan HS 02/14/2024: -Haldol 5mg po and ativan 2mg po at HS -Tomorow start risperidone 0.5mg BID -Fasting lipid panel, glucose and HbA1c in the morning 02/13/2024:The patient was admitted to the [facility] ([facility] mental health unit) on q15 min checks (behavioral with suicide precautions) for safety. The patient will participate in group, recreational, and milieu therapies and will be offered additional individual and family sessions as clinically appropriate. -Continue haldol 2.5mg qAM and 5mg HS for psychosis -Ativan 1mg qAM and 2mg HS for psychosis given high acuity of current distress and symptoms -Discontinue lamictal -Fasting lipid panel and HbA1c in 1-2 days as he can better tolerate -Suicide protocol with safe tray, safe linens, safety precautions -Homicide precautions -Elopement precautions Inventory Assets Strengths: supportive family, willing for treatment Needs: safety and stabilization, increased coping skills, medication adjustment, increased outpatient support Suicide Risk Level Suicide Risk Level: High-Moderate (q15 min suicide checks) (SI with plan prior to admission and psychosis but denies SI currently and feels safe in the hospital, he feels comfortable telling staff if he feels unsafe and likes the ability to utilize the quiet room. Now denying SI but mood can change quickl) Risk Factors Assessment Male: Yes : Yes Do You Have Access To A Gun?: No Mental Health Diagnoses: Yes Substance Use Disorders: No Previous Attempt: No Family History of Suicide: No Previous Psychiatric Hospitalization: No Protective Factors Assessment Employed: No Stable Relationships: Yes Supportive Family: Yes Interval History Identifying Information SAMIRA ROOT is a 23-year-old man who currently lives in [place] with his parents, has a history of depression, and was admitted on 02/12/24 17:07 on a 201 voluntary commitment for SI with plan of hanging himself and ego-dystonic HI. Chief Complaint "ok it was a tough morning". Review of Systems Sleep Information Total Hours of Sleep: 6.5 Sleep Comments: HS Haldol Meal Information Percent Meal Consumed - Breakfast: 100 Percent Meal Consumed - Lunch: 100 Percent Meal Consumed - Dinner: 100 Subjective Subjective Patient was seen & assessed and interval progress reviewed with treatment team nursing and social work. Did well yesterday afternoon. This morning affect was more flat, but ate breakfast. Reported his restlessness has decreased and his appetite is improving. Reports a difficult morning but felt better after prn dose of lorazepam mid- morning. He feels mornings are most difficult because when he wakes up his nasal passage is very dry and feels there is nasal damage to his nerves which make it so he cannot sense breathing and this combination "makes it feel like I'm suffocating because I can't sense breathing". Continues to put cotton strips in his nose. Discussed my concern this could worsen his sense of being able to breath and introduce infection, he states ENT told him this is ok to do and can help retain moisture. Reports he read about doing this on a forum of others with nasal issues. He notes he also feels very tired every morning, as his sleep never feels restorative, and has a lot difficulty getting motivated to do anything. He's interested in increasing his morning haldol dose. Denies any EPS symptoms. Has not required cogentin or tried propranolol prn. Physical Exam Psychiatric Orientation: alert and oriented x 3 Apperance: appropriately dressed Eye Contact: + fair eye contact Motor Behavior: no abnormal motor movements; n EPS and n akathisia Speech: normal rate/rhythm/volume of speech Affect: + flat affect Mood: + depressed mood and + anxious mood Thought Process: + circumstantial thought process Thought Content: + preoccupation (somatic sensations with his nose), + delusions, + ideas of reference and + thought insertion Suicidal Thoughts: denies suicidal thoughts (intermittent) and denies suicidal plan (none for hospital, prior to admission to hang himself) Homicidal Thoughts: denies homicidal thoughts and denies homicidal plan Hallucinations: no auditory hallucinations and no visual hallucinations Cognition: recent memory grossly intact, remote memory grossly intact, attention grossly intact and language grossly intact Insight: + fair insight Judgment: + limited judgement Vital Signs (Past 24 Hours) Last Vital Signs Temp 36.8 C 02/25/24 06:40 Pulse 82 02/25/24 06:40 Resp 16 02/25/24 06:40 BP 113/74 02/25/24 06:40 Pulse Ox 97 02/24/24 06:44 O2 Del Method Room Air 02/24/24 06:44 Results & Data ([facility]) Current Inpatient Medications Current Inpatient Medications: Current Inpatient Medications Acetaminophen (Acetaminophen 325 Mg Tab) 650 mg PO Q4H PRN PRN Reason: Headache or Minor Fever Stop: 03/13/24 16:44 Al Hydrox/Mg Hydrox/Simethicone (Aluminum/Magnesium Susp 30 Ml Udc) 30 ml PO Q4H PRN PRN Reason: GI Upset Stop: 03/13/24 16:44 Benztropine Mesylate (Benztropine Mesylate 1 Mg Tab) 1 mg PO BID PRN PRN Reason: muscle stiffness Stop: 03/24/24 09:54 Bismuth Subsalicylate (Bismuth Subsalicylate Liqd 236 Ml) 15 ml PO PRN PRN PRN Reason: Loose Stool Stop: 03/13/24 16:44 Ergocalciferol (Ergocalciferol 1250 Mcg (50,000 Units) Cap) 1,250 mcg PO Ly@0900 [facility] Stop: 03/18/24 08:59 Last Admin: 02/24/24 08:40 Dose: 1,250 mcg Fluoxetine HCl (Fluoxetine Hcl 10 Mg Cap) 30 mg PO QAM [facility] Stop: 03/24/24 08:59 Last Admin: 02/25/24 08:54 Dose: 30 mg Haloperidol (Haloperidol 5 Mg Tab) 5 mg PO QAM [facility]; Protocol Stop: 03/25/24 08:59 Last Admin: 02/25/24 08:55 Dose: 5 mg Haloperidol (Haloperidol 5 Mg Tab) 10 mg PO HS [facility] Stop: 03/24/24 21:59 Last Admin: 02/24/24 21:09 Dose: 10 mg Hydroxyzine HCl (Hydroxyzine Hcl 25 Mg Tab) 50 mg PO HSZ PRN PRN Reason: Insomnia Stop: 03/13/24 16:44 Hydroxyzine HCl (Hydroxyzine Hcl 25 Mg Tab) 25 mg PO Q4H PRN PRN Reason: Anxiety Stop: 03/13/24 16:44 Last Admin: 02/18/24 17:13 Dose: 25 mg Lorazepam (Lorazepam 1 Mg Tab) 1 mg PO BID PRN PRN Reason: Agitation Stop: 03/21/24 10:29 Last Admin: 02/24/24 10:56 Dose: 1 mg Magnesium Hydroxide (Magnesium Hydroxide Susp 30 Ml Udc) 30 ml PO DAILY PRN PRN Reason: Constipation Stop: 03/13/24 16:44 Mupirocin (Mupirocin 2% Oint 22 Gm Tube) 1 appln EXT BID TAY Stop: 03/21/24 08:59 Last Admin: 02/25/24 08:56 Dose: Not Given Propranolol HCl (Propranolol Hcl 10 Mg Tab) 10 mg PO BID PRN PRN Reason: akathisia Stop: 03/25/24 20:59 Sodium Chloride (Sodium Chloride 0.65% Na Soln 45 Ml ([place])) 1 - 2 sprays NA PRN PRN PRN Reason: Nasal Dryness/Congestion Stop: 03/13/24 16:44 Mental Health & Subst Abuse Tx Therapist Name of Therapist: None Carbonation Equipment Tender Name of Carbonation Equipment Tender: None Post Discharge Appointments Primary Care Physician Name Of Family Doctor/PCP: Dr Miles
[2024-02-25] MEDS: SODIUM CHLORIDE 0.65% NA SOLN 45 ML (OCEAN) SCH (10:49)
[2024-02-25] MEDS ORDERED: SODIUM CHLORIDE 0.65% NA SOLN 45 ML (OCEAN) PRN (10:52)
[2024-02-25] MEDS: haloperidoL 5 MG TAB PO SCH (20:29)
--- NOTE | 2024-02-26 09:16 | Psychiatric Progress Note ---
Date of Service February 26, 2024 Impression / Recommendations Impression 23 yo man with no formal psychiatric history admitted on a 201 voluntary commitment for psychosis, sense that he may hurt someone and SI with plan of hanging himself using rope. Diagnostically consistent with unspecified psychosis with differential including schizophrenia (seems most likely given his age, gradual onset with increased negative symptoms, ideas of reference, increased restorationism fixation, and now thought insertion to harm others) vs OCD vs MDD with psychotic features vs BPAD (less likely given no hx of monica) vs delusional disorder vs 2/2 medical cause (unlikely given negative head CT two months ago and no current neurological deficits or autonomic dysfunction, TSH normal, ?past Lyme panel). 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 Increased SI today. He agrees to try propranolol in case restlessness is due to akathisia. Overall, I spent a total of 35 minutes on this case including meeting with the patient, reviewing the chart, nursing report, multidisciplinary team meeting, orders, collateral from family and documentation. (1) Unspecified psychosis not due to a substance or known physiological condition: (2) Suicidal ideations: (3) Homicidal thoughts: Plan 02/26/2024: Continue current medications and tx plan. 02/25/2024: Increase haldol 10mg BID 02/24/2024: Addition of propranolol 10mg BID prn for akathisia 02/23/2024: Discontinue olanzapine. Adjust haldol to 5mg qAM and 10mg HS. Adjust cogentin to BID prn. 02/22/24: Prozac was increased to 30 mg daily starting tomorrow. 02/21/2024 Patient's larger dose of Zyprexa was switched to the morning because he says mornings are more difficult. The plan is to decrease the Zyprexa to only have him on Haldol. Continue the Prozac. PRN Ativan should be used sparingly. The fact that he has responded to the ativan makes me think this is more obsessional and intrusive thoughts than truce psychosis. Prozac was s tarted for anxiety and should be titrated as quickly as safe for efficacy. 02/20/24 We stopped Gabapentin, added Prozac, PRN ativan, and Zyprexa was decreased with the hope that he can only be on Haldol as it has seemed to be the most effective. 02/19/2024 We have added Gabapentin to the patient's regimen at his request. We will continue to monitor. We will also try changing the larger Zyprexa dose to the morning. : Continue with current medications at this time. We will consider adding Gabapentin for his anxiety about his breathing. 02/17/2024 Zyprexa at bedtime was increased to 7.5 mg, continue 5 mg daily 02/16/2024 Zyprexa 5 mg BID. 02/15/2024: -Increase risperidone to 1mg BID -haldol 2.5mg BID prn for agitation/paranoia/psychosis and ativan 0.5mg BID prn for agitation -discontinue ativan HS 02/14/2024: -Haldol 5mg po and ativan 2mg po at HS -Tomorow start risperidone 0.5mg BID -Fasting lipid panel, glucose and HbA1c in the morning 02/13/2024:The patient was admitted to the [facility] ([facility] unit) on q15 min checks (behavioral with suicide precautions) for safety. The patient will participate in group, recreational, and milieu therapies and will be offered additional individual and family sessions as clinically appropriate. -Continue haldol 2.5mg qAM and 5mg HS for psychosis -Ativan 1mg qAM and 2mg HS for psychosis given high acuity of current distress and symptoms -Discontinue lamictal -Fasting lipid panel and HbA1c in 1-2 days as he can better tolerate -Suicide protocol with safe tray, safe linens, safety precautions -Homicide precautions -Elopement precautions Inventory Assets Strengths: supportive family, willing for treatment Needs: safety and stabilization, increased coping skills, medication adjustment, increased outpatient support Suicide Risk Level Suicide Risk Level: High-Moderate (q15 min suicide checks) (SI with plan prior to admission and psychosis but denies SI currently and feels safe in the hospital, he feels comfortable telling staff if he feels unsafe and likes the ability to utilize the quiet room. ) Risk Factors Assessment Male: Yes : Yes Do You Have Access To A Gun?: No Mental Health Diagnoses: Yes Substance Use Disorders: No Previous Attempt: No Family History of Suicide: No Previous Psychiatric Hospitalization: No Protective Factors Assessment Employed: No Stable Relationships: Yes Supportive Family: Yes Interval History Identifying Information SAMIRA ROOT is a 23-year-old man who currently lives in [place] with his parents, has a history of depression, and was admitted on 02/12/24 17:07 on a 201 voluntary commitment for SI with plan of hanging himself and ego-dystonic HI. Chief Complaint "Restless, agitated, anxious". Review of Systems Sleep Information Total Hours of Sleep: 9 Sleep Comments: HS Zyprexa Meal Information Percent Meal Consumed - Breakfast: 100 Percent Meal Consumed - Lunch: 100 Percent Meal Consumed - Dinner: 100 Subjective Subjective Patient was seen & assessed and interval progress reviewed with treatment team nursing and social work. Still requiring prn ativan at times. Did well yesterday afternoon and interacting with peers. Corry a little better this morning but still feels "restless, agitated and anxious" most of the day. He attributes this to his nose damage and sense that "I'm suffocating". Reports increased SI and self-harm thoughts today due to this. Finds ativan very helpful, used two prn doses and this has helped him feel more in control and safe. Feels ativan helps him "feel like I won't loss self- control". Continues to feel safe in the hospital, thinks he would not be able to be safe outside of the hospital. Physical Exam Psychiatric Orientation: alert and oriented x 3 Apperance: appropriately dressed Eye Contact: + fair eye contact Motor Behavior: no abnormal motor movements; n EPS and n akathisia Speech: normal rate/rhythm/volume of speech Affect: + flat affect Mood: + depressed mood and + anxious mood Thought Process: + circumstantial thought process Thought Content: + preoccupation (somatic sensations with his nose), + delusions, + ideas of reference and + thought insertion Suicidal Thoughts: denies suicidal plan (none for hospital, prior to admission to hang himself); + reports suicidal thoughts (intermittent) Homicidal Thoughts: denies homicidal thoughts and denies homicidal plan Hallucinations: no auditory hallucinations and no visual hallucinations Cognition: recent memory grossly intact, remote memory grossly intact, attention grossly intact and language grossly intact Insight: + fair insight Judgment: + limited judgement Vital Signs (Past 24 Hours) Last Vital Signs Temp 36.9 C 02/26/24 06:39 Pulse 86 02/26/24 06:39 Resp 16 02/26/24 06:39 BP 139/72 02/26/24 06:39 Pulse Ox 97 02/24/24 06:44 O2 Del Method Room Air 02/24/24 06:44 [facility] Current Inpatient Medications Current Inpatient Medications: Current Inpatient Medications Acetaminophen (Acetaminophen 325 Mg Tab) 650 mg PO Q4H PRN PRN Reason: Headache or Minor Fever Stop: 03/13/24 16:44 Al Hydrox/Mg Hydrox/Simethicone (Aluminum/Magnesium Susp 30 Ml Udc) 30 ml PO Q4H PRN PRN Reason: GI Upset Stop: 03/13/24 16:44 Benztropine Mesylate (Benztropine Mesylate 1 Mg Tab) 1 mg PO BID PRN PRN Reason: muscle stiffness Stop: 03/24/24 09:54 Bismuth Subsalicylate (Bismuth Subsalicylate Liqd 236 Ml) 15 ml PO PRN PRN PRN Reason: Loose Stool Stop: 03/13/24 16:44 Ergocalciferol (Ergocalciferol 1250 Mcg (50,000 Units) Cap) 1,250 mcg PO Ly@0900 [facility] Stop: 03/18/24 08:59 Last Admin: 02/24/24 08:40 Dose: 1,250 mcg Fluoxetine HCl (Fluoxetine Hcl 10 Mg Cap) 30 mg PO QAM [facility] Stop: 03/24/24 08:59 Last Admin: 02/26/24 09:03 Dose: 30 mg Haloperidol (Haloperidol 5 Mg Tab) 10 mg PO BID [facility] Stop: 03/26/24 20:59 Last Admin: 02/26/24 09:04 Dose: 10 mg Hydroxyzine HCl (Hydroxyzine Hcl 25 Mg Tab) 50 mg PO HSZ PRN PRN Reason: Insomnia Stop: 03/13/24 16:44 Hydroxyzine HCl (Hydroxyzine Hcl 25 Mg Tab) 25 mg PO Q4H PRN PRN Reason: Anxiety Stop: 03/13/24 16:44 Last Admin: 02/18/24 17:13 Dose: 25 mg Lorazepam (Lorazepam 1 Mg Tab) 1 mg PO BID PRN PRN Reason: Agitation Stop: 03/21/24 10:29 Last Admin: 02/26/24 09:04 Dose: 1 mg Magnesium Hydroxide (Magnesium Hydroxide Susp 30 Ml Udc) 30 ml PO DAILY PRN PRN Reason: Constipation Stop: 03/13/24 16:44 Mupirocin (Mupirocin 2% Oint 22 Gm Tube) 1 appln EXT BID [facility]AY Stop: 03/21/24 08:59 Last Admin: 02/26/24 09:05 Dose: Not Given Propranolol HCl (Propranolol Hcl 10 Mg Tab) 10 mg PO BID PRN PRN Reason: akathisia Stop: 03/25/24 20:59 Sodium Chloride (Sodium Chloride 0.65% Na Soln 45 Ml ([place])) 1 - 2 sprays NA PRN PRN PRN Reason: Nasal Dryness/Congestion Stop: 03/26/24 10:49 Mental Health & Subst Abuse Tx Therapist Name of Therapist: None Township Clerk Name of Township Clerk: None Post Discharge Appointments Primary Care Physician Name Of Family Doctor/PCP: Dr iMles
[2024-02-26] MEDS ORDERED: MUPIROCIN 2% OINT 22 GM TUBE EXT PRN (10:01)
[2024-02-26] MEDS: PROPRANOLOL HCL 10 MG TAB PO PRN (20:16)
--- NOTE | 2024-02-27 09:07 | Psychiatric Progress Note ---
Date of Service February 27, 2024 Impression / Recommendations Impression 23 yo man with no formal psychiatric history admitted on a 201 voluntary commitment for psychosis, sense that he may hurt someone and SI with plan of hanging himself using rope. Diagnostically consistent with unspecified psychosis with differential including schizophrenia (seems most likely given his age, gradual onset with increased negative symptoms, ideas of reference, increased yarsanism fixation, and now thought insertion to harm others) vs OCD vs MDD with psychotic features vs BPAD (less likely given no hx of monica) vs delusional disorder vs 2/2 medical cause (unlikely given negative head CT two months ago and no current neurological deficits or autonomic dysfunction, TSH normal, ?past Lyme panel). 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 Doesn't seem to be akathisia as he feels it was present before coming to the hospital or starting antipsychotic medication, no significant response to propranolol. Will start scheduled Klonopin in effort to reduce morning distress given he is needing prn ativan twice per day. [facility] consents to use of Klonopin for anxiety associated with delusions and psychosis. Reviewed side effects inc luding but not limited to: addictive potential, respiratory compromise, fatigue, cognitive impairment, possibility to impair driving/reaction time. Overall, I spent a total of 28 minutes on this case including meeting with the patient, reviewing the chart, nursing report, multidisciplinary team meeting, orders, collateral from family and documentation. (1) Unspecified psychosis not due to a substance or known physiological condition: (2) Suicidal ideations: (3) Homicidal thoughts: Plan 02/27/2024: Start Klonopin 0.5mg schedule. Plan to increase fluoxetine on 02/29/24 02/26/2024: Continue current medications and tx plan. 02/25/2024: Increase haldol 10mg BID 02/24/2024: Addition of propranolol 10mg BID prn for akathisia 02/23/2024: Discontinue olanzapine. Adjust haldol to 5mg qAM and 10mg HS. Adjust cogentin to BID prn. 02/22/24: Prozac was increased to 30 mg daily starting tomorrow. 02/21/2024 Patient's larger dose of Zyprexa was switched to the morning because he says mornings are more difficult. The plan is to decrease the Zyprexa to only have him on Haldol. Continue the Prozac. PRN Ativan should be used sparingly. The fact that he has responded to the ativan makes me think this is more obsessional and intrusive thoughts than truce psychosis. Prozac was started for anxiety and should be titrated as quickly as safe for efficacy. 02/20/24 We stopped Gabapentin, added Prozac, PRN ativan, and Zyprexa was decreased with the hope that he can only be on Haldol as it has seemed to be the most effective. 02/19/2024 We have added Gabapentin to the patient's regimen at his request. We will continue to monitor. We will also try changing the larger Zyprexa dose to the morning. : Continue with current medications at this time. We will consider adding Gabapentin for his anxiety about his breathing. 02/17/2024 Zyprexa at bedtime was increased to 7.5 mg, continue 5 mg daily 02/16/2024 Zyprexa 5 mg BID. 02/15/2024: -Increase risperidone to 1mg BID -haldol 2.5mg BID prn for agitation/paranoia/psychosis and ativan 0.5mg BID prn for agitation -discontinue ativan HS 02/14/2024: -Haldol 5mg po and ativan 2mg po at HS -Tomorow start risperidone 0.5mg BID -Fasting lipid panel, glucose and HbA1c in the morning 02/13/2024:The patient was admitted to the [facility] ([facility] mental health unit) on q15 min checks (behavioral with suicide precautions) for safety. The patient will participate in group, recreational, and milieu therapies and will be offered additional individual and family sessions as clinically appropriate. -Continue haldol 2.5mg qAM and 5mg HS for psychosis -Ativan 1mg qAM and 2mg HS for psychosis given high acuity of current distress and symptoms -Discontinue lamictal -Fasting lipid panel and HbA1c in 1-2 days as he can better tolerate -Suicide protocol with safe tray, safe linens, safety precautions -Homicide precautions -Elopement precautions Inventory Assets Strengths: supportive family, willing for treatment Needs: safety and stabilization, increased coping skills, medication adjustment, increased outpatient support Suicide Risk Level Suicide Risk Level: High-Moderate (q15 min suicide checks) (SI with plan prior to admission and psychosis but denies SI currently and feels safe in the hospital, he feels comfortable telling staff if he feels unsafe and likes the ability to utilize the quiet room. ) Risk Factors Assessment Male: Yes : Yes Do You Have Access To A Gun?: No Mental Health Diagnoses: Yes Substance Use Disorders: No Previous Attempt: No Family History of Suicide: No Previous Psychiatric Hospitalization: No Protective Factors Assessment Employed: No Stable Relationships: Yes Supportive Family: Yes Interval History Identifying Information SAMIRA ROOT is a 23-year-old man who currently lives in [place] with his parents, has a history of depression, and was admitted on 02/12/24 17:07 on a 201 voluntary commitment for SI with plan of hanging himself and ego-dystonic HI. Chief Complaint "pretty restless and anxious". Review of Systems Sleep Information Total Hours of Sleep: 9 Sleep Comments: HS Haldol with PRN Inderal at 2000 Meal Information Percent Meal Consumed - Breakfast: 100 Percent Meal Consumed - Lunch: 100 Percent Meal Consumed - Dinner: 100 Subjective Subjective Patient was seen & assessed and interval progress reviewed with treatment team nursing and social work. Took prn propranolol last night and found this helpful. Had a good visit with his father. Today reports feeling anxious and restless. He tried a prn dose of propranolol this morning but felt it didn't have much effect. Endorses some SI today. Physical Exam Psychiatric Orientation: alert and oriented x 3 Apperance: appropriately dressed Eye Contact: + fair eye contact Motor Behavior: no abnormal motor movements; n EPS and n akathisia Speech: normal rate/rhythm/volume of speech Affect: + flat affect Mood: + depressed mood and + anxious mood Thought Process: + circumstantial thought process Thought Content: + preoccupation (somatic sensations with his nose), + delusions, + ideas of reference and + thought insertion Suicidal Thoughts: denies suicidal plan (none for hospital, prior to admission to hang himself); + reports suicidal thoughts (intermittent) Homicidal Thoughts: denies homicidal thoughts and denies homicidal plan Hallucinations: no auditory hallucinations and no visual hallucinations Cognition: recent memory grossly intact, remote memory grossly intact, attention grossly intact and language grossly intact Insight: + fair insight Judgment: + limited judgement Vital Signs (Past 24 Hours) Last Vital Signs Temp 36.6 C 02/27/24 06:43 Pulse 84 02/27/24 06:43 Resp 16 02/27/24 06:43 BP 123/68 02/27/24 06:43 Pulse Ox 97 02/24/24 06:44 O2 Del Method Room Air 02/24/24 06:44 Results & Data ([facility]) Current Inpatient Medications Current Inpatient Medications: Current Inpatient Medications Acetaminophen (Acetaminophen 325 Mg Tab) 650 mg PO Q4H PRN PRN Reason: Headache or Minor Fever Stop: 03/13/24 16:44 Al Hydrox/Mg Hydrox/Simethicone (Aluminum/Magnesium Susp 30 Ml Udc) 30 ml PO Q4H PRN PRN Reason: GI Upset Stop: 03/13/24 16:44 Benztropine Mesylate (Benztropine Mesylate 1 Mg Tab) 1 mg PO BID PRN PRN Reason: muscle stiffness Stop: 03/24/24 09:54 Bismuth Subsalicylate (Bismuth Subsalicylate Liqd 236 Ml) 15 ml PO PRN PRN PRN Reason: Loose Stool Stop: 03/13/24 16:44 Ergocalciferol (Ergocalciferol 1250 Mcg (50,000 Units) Cap) 1,250 mcg PO Ly@0900 [facility] Stop: 03/18/24 08:59 Last Admin: 02/24/24 08:40 Dose: 1,250 mcg Fluoxetine HCl (Fluoxetine Hcl 10 Mg Cap) 30 mg PO QAM [facility] Stop: 03/24/24 08:59 Last Admin: 02/26/24 09:03 Dose: 30 mg Haloperidol (Haloperidol 5 Mg Tab) 10 mg PO BID [facility] Stop: 03/26/24 20:59 Last Admin: 02/26/24 20:48 Dose: 10 mg Hydroxyzine HCl (Hydroxyzine Hcl 25 Mg Tab) 50 mg PO HSZ PRN PRN Reason: Insomnia Stop: 03/13/24 16:44 Hydroxyzine HCl (Hydroxyzine Hcl 25 Mg Tab) 25 mg PO Q4H PRN PRN Reason: Anxiety Stop: 03/13/24 16:44 Last Admin: 02/18/24 17:13 Dose: 25 mg Lorazepam (Lorazepam 1 Mg Tab) 1 mg PO BID PRN PRN Reason: Agitation Stop: 03/21/24 10:29 Last Admin: 02/26/24 14:18 Dose: 1 mg Magnesium Hydroxide (Magnesium Hydroxide Susp 30 Ml Udc) 30 ml PO DAILY PRN PRN Reason: Constipation Stop: 03/13/24 16:44 Mupirocin (Mupirocin 2% Oint 22 Gm Tube) 1 appln EXT BID PRN PRN Reason: Nasal Dryness Stop: 03/21/24 08:59 Propranolol HCl (Propranolol Hcl 10 Mg Tab) 10 mg PO BID PRN PRN Reason: akathisia Stop: 03/25/24 20:59 Last Admin: 02/26/24 20:16 Dose: 10 mg Sodium Chloride (Sodium Chloride 0.65% Na Soln 45 Ml ([place])) 1 - 2 sprays NA PRN PRN PRN Reason: Nasal Dryness/Congestion Stop: 03/26/24 10:49 Mental Health & Subst Abuse Tx Therapist Name of Therapist: None Sectional Belt Mold Assembler Name of Sectional Belt Mold Assembler: None Post Discharge Appointments Primary Care Physician Name Of Family Doctor/PCP: Dr Miles
[2024-02-28] MEDS: clonazePAM 0.5 MG TAB PO SCH (08:34)
--- NOTE | 2024-02-28 09:13 | Psychiatric Progress Note ---
Date of Service February 28, 2024 Impression / Recommendations Impression 23 yo man with no formal psychiatric history admitted on a 201 voluntary commitment for psychosis, sense that he may hurt someone and SI with plan of hanging himself using rope. Diagnostically consistent with unspecified psychosis with differential including schizophrenia (seems most likely given his age, gradual onset with increased negative symptoms, ideas of reference, increased orthodoxy fixation, and now thought insertion to harm others) vs OCD vs MDD with psychotic features vs BPAD (less likely given no hx of monica) vs delusional disorder vs 2/2 medical cause (unlikely given negative head CT two months ago and no current neurological deficits or autonomic dysfunction, TSH normal, ?past Lyme panel). 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 Haldol optimized at still with ongoing symptoms. Poor response to prior trials of olanzapine (trialed 2x) and risperidone. Given this will add thorazine prn to see if this helps with somatic delusions and subsequent negative impact on his mood. Tolerating Klonopin but even scheduled dose not offering significant benefit for nose related symptoms. Overall, I spent a total of 40 minutes on this case including meeting with the patient, reviewing the chart, nursing report, multidisciplinary team meeting, orders, collateral from family and documentation. 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 02/27/2024: Start Klonopin 0.5mg schedule. Plan to increase fluoxetine on 02/29/24 02/26/2024: Continue current medications and tx plan. 02/25/2024: Increase haldol 10mg BID 02/24/2024: Addition of propranolol 10mg BID prn for akathisia 02/23/2024: Discontinue olanzapine. Adjust haldol to 5mg qAM and 10mg HS. Adjust cogentin to BID prn. 02/22/24: Prozac was increased to 30 mg daily starting tomorrow. 02/21/2024 Patient's larger dose of Zyprexa was switched to the morning because he says mornings are more difficult. The plan is to decrease the Zyprexa to only have him on Haldol. Continue the Prozac. PRN Ativan should be used sparingly. The fact that he has responded to the ativan makes me think this is more obsessional and intrusive thoughts than truce psychosis. Prozac was started for anxiety and should be titrated as quickly as safe for efficacy. 02/20/24 We stopped Gabapentin, added Prozac, PRN ativan, and Zyprexa was decreased with the hope that he can only be on Haldol as it has seemed to be the most effective. 02/19/2024 We have added Gabapentin to the patient's regimen at his request. We will continue to monitor. We will also try changing the larger Zyprexa dose to the morning. : Continue with current medications at this time. We will consider adding Gabapentin for his anxiety about his breathing. 02/17/2024 Zyprexa at bedtime was increased to 7.5 mg, continue 5 mg daily 02/16/2024 Zyprexa 5 mg BID. 02/15/2024: -Increase risperidone to 1mg BID -haldol 2.5mg BID prn for agitation/paranoia/psychosis and ativan 0.5mg BID prn for agitation -discontinue ativan HS 02/14/2024: -Haldol 5mg po and ativan 2mg po at HS -Tomorow start risperidone 0.5mg BID -Fasting lipid panel, glucose and HbA1c in the morning 02/13/2024:The patient was admitted to the [facility] ([facility] unit) on q15 min checks (behavioral with suicide precautions) for safety. The patient will participate in group, recreational, and milieu therapies and will be offered additional individual and family sessions as clinically appropriate. -Continue haldol 2.5mg qAM and 5mg HS for psychosis -Ativan 1mg qAM and 2mg HS for psychosis given high acuity of current distress and symptoms -Discontinue lamictal -Fasting lipid panel and HbA1c in 1-2 days as he can better tolerate -Suicide protocol with safe tray, safe linens, safety precautions -Homicide precautions -Elopement precautions Inventory Assets Strengths: supportive family, willing for treatment Needs: safety and stabilization, increased coping skills, medication adjustment, increased outpatient support Suicide Risk Level Suicide Risk Level: High-Moderate (q15 min suicide checks) (SI with plan prior to admission and psychosis but denies SI currently and feels safe in the hospital, he feels comfortable telling staff if he feels unsafe and likes the ability to utilize the quiet room. ) Risk Factors Assessment Male: Yes : Yes Do You Have Access To A Gun?: No Mental Health Diagnoses: Yes Substance Use Disorders: No Previous Attempt: No Family History of Suicide: No Previous Psychiatric Hospitalization: No Protective Factors Assessment Employed: No Stable Relationships: Yes Supportive Family: Yes Interval History Identifying Information SAMIRA ROOT is a 23-year-old man who currently lives in [place] with his parents, has a history of depression, and was admitted on 02/12/24 17:07 on a 201 voluntary commitment for SI with plan of hanging himself and ego-dystonic HI. Chief Complaint "Anxiety may not be the right word...it's suffocation". Review of Systems Sleep Information Total Hours of Sleep: 7.30 Sleep Comments: HS [place] Meal Information Percent Meal Consumed - Breakfast: 100 Percent Meal Consumed - Lunch: 100 Percent Meal Consumed - Dinner: 100 Subjective Subjective Patient was seen & assessed and interval progress reviewed with treatment team nursing and social work. No groups during the day yesterday, still with SI and very limited affect with no brightening. He did attend evening groups. Reports intense distress this morning due to sense of not "feeling air move into my nose" and describes this as suffocation. Clarifies he is not concerned that he is not getting air but distressed due to not feeling himself breath in air "like when I move into a different room or go outside and try to get a fresh breath". States he has tried flonase, afrin, seen multiple ENTs, humidifiers, allergy medications with no benefit. He does not feel this could be part of his psychosis, such as a delusion. Feels his lack of sensing his breathing is why he sleeps poorly. had to leave morning group as "thought I might explode"...asked he notes this would be "if I waited I would have left in a disorderly way" so he went to his room as he felt more overwhelmed. He is agreeable to addition of another antipsychotic to see if this will help with his symptoms due to concern for significant delusional component. Physical Exam Psychiatric Orientation: alert and oriented x 3 Apperance: appropriately dressed Eye Contact: + fair eye contact Motor Behavior: no abnormal motor movements; n EPS and n akathisia Speech: normal rate/rhythm/volume of speech Affect: + flat affect Mood: + depressed mood and + anxious mood Thought Process: + circumstantial thought process Thought Content: + preoccupation (somatic sensations with his nose) and + delusions Suicidal Thoughts: denies suicidal plan (none for hospital, prior to admission to hang himself); + reports suicidal thoughts (intermittent) Homicidal Thoughts: denies homicidal thoughts and denies homicidal plan Hallucinations: no auditory hallucinations and no visual hallucinations Cognition: recent memory grossly intact, remote memory grossly intact, attention grossly intact and language grossly intact Insight: + limited insight Judgment: + limited judgement Vital Signs (Past 24 Hours) Last Vital Signs Temp 36.3 C L 02/28/24 06:00 Pulse 76 02/28/24 06:01 Resp 16 02/28/24 06:00 BP 129/78 02/28/24 06:01 Pulse Ox 97 02/24/24 06:44 O2 Del Method Room Air 02/24/24 06:44 Results & Data ([facility]) Current Inpatient Medications Current Inpatient Medications: Current Inpatient Medications Acetaminophen (Acetaminophen 325 Mg Tab) 650 mg PO Q4H PRN PRN Reason: Headache or Minor Fever Stop: 03/13/24 16:44 Al Hydrox/Mg Hydrox/Simethicone (Aluminum/Magnesium Susp 30 Ml Udc) 30 ml PO Q4H PRN PRN Reason: GI Upset Stop: 03/13/24 16:44 Benztropine Mesylate (Benztropine Mesylate 1 Mg Tab) 1 mg PO BID PRN PRN Reason: muscle stiffness Stop: 03/24/24 09:54 Bismuth Subsalicylate (Bismuth Subsalicylate Liqd 236 Ml) 15 ml PO PRN PRN PRN Reason: Loose Stool Stop: 03/13/24 16:44 Clonazepam (Clonazepam 0.5 Mg Tab) 0.5 mg PO QAM TAY Stop: 03/29/24 08:59 Last Admin: 02/28/24 08:34 Dose: 0.5 mg Clonazepam (Clonazepam 0.5 Mg Tab) 0.25 mg PO DAILY PRN PRN Reason: agitation/anxiety Stop: 03/28/24 17:19 Ergocalciferol (Ergocalciferol 1250 Mcg (50,000 Units) Cap) 1,250 mcg PO Ly@0900 TAY Stop: 03/18/24 08:59 Last Admin: 02/24/24 08:40 Dose: 1,250 mcg Fluoxetine HCl (Fluoxetine Hcl 10 Mg Cap) 30 mg PO QAM TAY Stop: 03/24/24 08:59 Last Admin: 02/28/24 08:34 Dose: 30 mg Haloperidol (Haloperidol 5 Mg Tab) 10 mg PO BID TAY Stop: 03/26/24 20:59 Last Admin: 02/28/24 08:34 Dose: 10 mg Hydroxyzine HCl (Hydroxyzine Hcl 25 Mg Tab) 50 mg PO HSZ PRN PRN Reason: Insomnia Stop: 03/13/24 16:44 Hydroxyzine HCl (Hydroxyzine Hcl 25 Mg Tab) 25 mg PO Q4H PRN PRN Reason: Anxiety Stop: 03/13/24 16:44 Last Admin: 02/18/24 17:13 Dose: 25 mg Magnesium Hydroxide (Magnesium Hydroxide Susp 30 Ml Udc) 30 ml PO DAILY PRN PRN Reason: Constipation Stop: 03/13/24 16:44 Mupirocin (Mupirocin 2% Oint 22 Gm Tube) 1 appln EXT BID PRN PRN Reason: Nasal Dryness Stop: 03/21/24 08:59 Propranolol HCl (Propranolol Hcl 10 Mg Tab) 10 mg PO BID PRN PRN Reason: akathisia Stop: 03/25/24 20:59 Last Admin: 02/27/24 09:18 Dose: 10 mg Sodium Chloride (Sodium Chloride 0.65% Na Soln 45 Ml ([place])) 1 - 2 sprays NA PRN PRN PRN Reason: Nasal Dryness/Congestion Stop: 03/26/24 10:49 Mental Health & Subst Abuse Tx Therapist Name of Therapist: None Mva Still Operator Name of Mva Still Operator: None Post Discharge Appointments Primary Care Physician Name Of Family Doctor/PCP: Dr Miles
[2024-02-28] MEDS: clonazePAM 0.5 MG TAB PO PRN (10:39)
[2024-02-28] MEDS: chlorproMAZINE HCL 10 MG TAB PO PRN (17:05)
--- NOTE | 2024-02-29 09:14 | Psychiatric Progress Note ---
Date of Service February 29, 2024 Impression / Recommendations Impression 23 yo man with no formal psychiatric history admitted on a 201 voluntary commitment for psychosis, sense that he may hurt someone and SI with plan of hanging himself using rope. Diagnostically consistent with unspecified psychosis with differential including schizophrenia (seems most likely given his age, gradual onset with increased negative symptoms, ideas of reference, increased latter-day fixation, and now thought insertion to harm others) vs OCD vs MDD with psychotic features vs BPAD (less likely given no hx of monica) vs delusional disorder vs 2/2 medical cause (unlikely given negative head CT two months ago and no current neurological deficits or autonomic dysfunction, TSH normal, ?past Lyme panel). 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 He continues to require higher than typical doses of medication to see much benefit, suspect he may be a rapid metabolizer. Given limited benefit and no side effects from Thorazine will increase dose as prn for psychosis/and distress from somatic delusions. Will also increase Klonopin scheduled dose to help with difficulty in the mornings and continue prn as short-term aid for his distress and SI/self-harm thoughts until we can find an antipsychotic regimen that better controls his symptoms. Overall, I spent a total of 55 minutes on this case including meeting with the patient, reviewing the chart, nursing report, multidisciplinary team meeting, orders, collateral from family and documentation. (1) Unspecified psychosis not due to a substance or known physiological condition: (2) Suicidal ideations: (3) Homicidal thoughts: Plan 02/29/2024: Increase Klonopin to 1mg qAM and Klonopin prn. Increase Thorazine 50mg BID prn for somatic delusions/psychosis/agitation. 02/28/2024: Start Thorazine 10mg BID prn for somatic perseveration. 02/27/2024: Start Klonopin 0.5mg schedule. Plan to increase fluoxetine on 02/29/24 02/26/2024: Continue current medications and tx plan. 02/25/2024: Increase haldol 10mg BID 02/24/2024: Addition of propranolol 10mg BID prn for akathisia 02/23/2024: Discontinue olanzapine. Adjust haldol to 5mg qAM and 10mg HS. Adjust cogentin to BID prn. 02/22/24: Prozac was increased to 30 mg daily starting tomorrow. 02/21/2024 Patient's larger dose of Zyprexa was switched to the morning because he says mornings are more difficult. The plan is to decrease the Zyprexa to only have him on Haldol. Continue the Prozac. PRN Ativan should be used sparingly. The fact that he has responded to the ativan makes me think this is more obsessional and intrusive thoughts than truce psychosis. Prozac was started for anxiety and should be titrated as quickly as safe for efficacy. 02/20/24 We stopped Gabapentin, added Prozac, PRN ativan, and Zyprexa was decreased with the hope that he can only be on Haldol as it has seemed to be the most effective. 02/19/2024 We have added Gabapentin to the patient's regimen at his request. We will continue to monitor. We will also try changing the larger Zyprexa dose to the morning. : Continue with current medications at this time. We will consider adding Gabapentin for his anxiety about his breathing. 02/17/2024 Zyprexa at bedtime was increased to 7.5 mg, continue 5 mg daily 02/16/2024 Zyprexa 5 mg BID. 02/15/2024: -Increase risperidone to 1mg BID -haldol 2.5mg BID prn for agitation/paranoia/psychosis and ativan 0.5mg BID prn for agitation -discontinue ativan HS 02/14/2024: -Haldol 5mg po and ativan 2mg po at HS -Tomorow start risperidone 0.5mg BID -Fasting lipid panel, glucose and HbA1c in the morning 02/13/2024:The patient was admitted to the [facility] ([facility] unit) on q15 min checks (behavioral with suicide precautions) for safety. The patient will participate in group, recreational, and milieu therapies and will be offered additional individual and family sessions as clinically appropriate. -Continue haldol 2.5mg qAM and 5mg HS for psychosis -Ativan 1mg qAM and 2mg HS for psychosis given high acuity of current distress and symptoms -Discontinue lamictal -Fasting lipid panel and HbA1c in 1-2 days as he can better tolerate -Suicide protocol with safe tray, safe linens, safety precautions -Homicide precautions -Elopement precautions Inventory Assets Strengths: supportive family, willing for treatment Needs: safety and stabilization, increased coping skills, medication adjustment, increased outpatient support Suicide Risk Level Suicide Risk Level: High-Moderate (q15 min suicide checks) (SI with plan prior to admission and psychosis but denies SI currently and feels safe in the hospital, he feels comfortable telling staff if he feels unsafe and likes the ability to utilize the quiet room, using quiet room appropriately ) Risk Factors Assessment Male: Yes : Yes Do You Have Access To A Gun?: No Mental Health Diagnoses: Yes Substance Use Disorders: No Previous Attempt: No Family History of Suicide: No Previous Psychiatric Hospitalization: No Protective Factors Assessment Employed: No Stable Relationships: Yes Supportive Family: Yes Interval History Identifying Information SAMIRA ROOT is a 23-year-old man who currently lives in [place] with his parents, has a history of depression, and was admitted on 02/12/24 17:07 on a 201 voluntary commitment for SI with plan of hanging himself and ego-dystonic HI. Chief Complaint "It's a suffocating feeling". Review of Systems Sleep Information Total Hours of Sleep: 7.30 Sleep Comments: HS [place] Meal Information Percent Meal Consumed - Breakfast: 100 Percent Meal Consumed - Lunch: 100 Percent Meal Consumed - Dinner: 100 Subjective Subjective Patient was seen & assessed and interval progress reviewed with treatment team nursing and social work. Restless last evening, in and out of groups. This morning struggling with ongoing anxiety related to concerns about his nose. Told RN he felt an urge to self-harm by hitting his head and appropriately asked for support and was given use of the quiet room which he found somewhat helpful. Continues to have SI but states "can't do anything here". Feels very hopeless as his nose symptoms occupy all his thoughts stating "I just need something to mask it so it's not present all the time". Shows me that his nostrils open when his fingers are placed in his nares, feels this is due to loss of cartilage. Discussed that this was a normal physiological ability of the nares (to stretch outward with fingers inserted) but he feels this is abnormal and evidence of a problem. He does acknowledge it is possible his symptoms are from his brain rather than an issue with his nose but struggles to reality-test this. Feels his hopelessness about his nose is highest now because for years he has tried dietary changes, exercising, meditating, working more in an effort to fix it with no success and following his appointment with the ENT specialist for empty nose syndrome, who told him he did not have empty nose syndrome, he now feels hopeless anything will ever help. Discussed that many psychiatric medications we can still try and he expressed some hopefulness about this. He would like to try higher dose of Klonopin and higher dose of Thorazine prn to see if this helps. Physical Exam Psychiatric Orientation: alert and oriented x 3 Apperance: appropriately dressed Eye Contact: + fair eye contact Motor Behavior: no abnormal motor movements; n EPS and n akathisia Speech: normal rate/rhythm/volume of speech Affect: + flat affect Mood: + depressed mood and + anxious mood Thought Process: + circumstantial thought process Thought Content: + preoccupation (somatic sensations with his nose), + delusions and + hopelessness Suicidal Thoughts: denies suicidal plan (none for hospital, prior to admission to hang himself); + reports suicidal thoughts (increased today) Homicidal Thoughts: denies homicidal thoughts and denies homicidal plan Hallucinations: + tactile hallucinations (possibly due to nasal issues?); no auditory hallucinations and no visual hallucinations Cognition: recent memory grossly intact, remote memory grossly intact, attention grossly intact and language grossly intact Insight: + limited insight Judgment: + limited judgement Vital Signs (Past 24 Hours) Last Vital Signs Temp 37.0 C 02/29/24 06:00 Pulse 71 02/29/24 06:40 Resp 18 02/29/24 06:00 BP 124/78 02/29/24 06:40 Pulse Ox 97 02/24/24 06:44 O2 Del Method Room Air 02/24/24 06:44 Results & Data ([facility]) Current Inpatient Medications Current Inpatient Medications: Current Inpatient Medications Acetaminophen (Acetaminophen 325 Mg Tab) 650 mg PO Q4H PRN PRN Reason: Headache or Minor Fever Stop: 03/13/24 16:44 Al Hydrox/Mg Hydrox/Simethicone (Aluminum/Magnesium Susp 30 Ml Udc) 30 ml PO Q4H PRN PRN Reason: GI Upset Stop: 03/13/24 16:44 Benztropine Mesylate (Benztropine Mesylate 1 Mg Tab) 1 mg PO BID PRN PRN Reason: muscle stiffness Stop: 03/24/24 09:54 Bismuth Subsalicylate (Bismuth Subsalicylate Liqd 236 Ml) 15 ml PO PRN PRN PRN Reason: Loose Stool Stop: 03/13/24 16:44 Chlorpromazine HCl (Chlorpromazine Hcl 10 Mg Tab) 10 mg PO BID PRN PRN Reason: somatic preseveration Stop: 03/29/24 11:53 Last Admin: 02/28/24 17:05 Dose: 10 mg Clonazepam (Clonazepam 0.5 Mg Tab) 0.5 mg PO QAM [facility] Stop: 03/29/24 08:59 Last Admin: 02/29/24 09:02 Dose: 0.5 mg Clonazepam (Clonazepam 0.5 Mg Tab) 0.25 mg PO BID PRN PRN Reason: agitation/anxiety Stop: 03/28/24 17:19 Ergocalciferol (Ergocalciferol 1250 Mcg (50,000 Units) Cap) 1,250 mcg PO Ly@0900 [facility] Stop: 03/18/24 08:59 Last Admin: 02/24/24 08:40 Dose: 1,250 mcg Fluoxetine HCl (Fluoxetine Hcl 10 Mg Cap) 30 mg PO QAM TAY Stop: 03/24/24 08:59 Last Admin: 02/29/24 09:02 Dose: 30 mg Haloperidol (Haloperidol 5 Mg Tab) 10 mg PO BID [facility] Stop: 03/26/24 20:59 Last Admin: 02/29/24 09:02 Dose: 10 mg Magnesium Hydroxide (Magnesium Hydroxide Susp 30 Ml Udc) 30 ml PO DAILY PRN PRN Reason: Constipation Stop: 03/13/24 16:44 Mupirocin (Mupirocin 2% Oint 22 Gm Tube) 1 appln EXT BID PRN PRN Reason: Nasal Dryness Stop: 03/21/24 08:59 Propranolol HCl (Propranolol Hcl 10 Mg Tab) 10 mg PO BID PRN PRN Reason: akathisia Stop: 03/25/24 20:59 Last Admin: 02/27/24 09:18 Dose: 10 mg Sodium Chloride (Sodium Chloride 0.65% Na Soln 45 Ml ([place])) 1 - 2 sprays NA PRN PRN PRN Reason: Nasal Dryness/Congestion Stop: 03/26/24 10:49 Mental Health & Subst Abuse Tx Therapist Name of Therapist: None Right Of Way Clearer Name of Right Of Way Clearer: None Post Discharge Appointments Primary Care Physician Name Of Family Doctor/PCP: Dr Miles
[2024-02-29] MEDS: clonazePAM 0.5 MG TAB PO PRN (10:37)
[2024-02-29] MEDS: chlorproMAZINE HCL 10 MG TAB PO STA (11:20)
[2024-02-29] MEDS ORDERED: clonazePAM 1 MG TAB PO PRN (11:27)
[2024-02-29] MEDS: chlorproMAZINE HCL 25 MG TAB PO PRN (17:07)
[2024-03-01] MEDS: clonazePAM 1 MG TAB PO SCH (09:17)
[2024-03-01] MEDS: SODIUM CHLORIDE 0.65% NA SOLN 45 ML (OCEAN) SCH (13:13)
[2024-03-01] MEDS: CETIRIZINE HCL 10 MG TABLET PO SCH (13:13)
--- NOTE | 2024-03-01 14:52 | Psychiatric Progress Note ---
Date of Service March 01, 2024 Impression / Recommendations Impression 23 yo man with no formal psychiatric history admitted on a 201 voluntary commitment for psychosis, sense that he may hurt someone and SI with plan of hanging himself using rope. Diagnostically consistent with unspecified psychosis with differential including schizophrenia (seems most likely given his age, gradual onset with increased negative symptoms, ideas of reference, increased rastafari fixation, and now thought insertion to harm others) vs OCD vs MDD with psychotic features vs BPAD (less likely given no hx of monica) vs delusional disorder vs 2/2 medical cause (unlikely given negative head CT two months ago and no current neurological deficits or autonomic dysfunction, TSH normal, ?past Lyme panel). 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 Will address nasal inflammation and hydration in effort to alleviate stimulus. Pt appears sedated and c/o EPS will lower AP dose and move benzodiazepine to night and start short acting benzo PRN. History clarified and appears patient presented with depressive symptoms prior to excess spirituality and hyperfixation. Overall, I spent a total of 60 minutes with this case including review of chart records, nursing report, review of lab work, direct evaluation of the patient at bedside, counseling the patient, and documentation in the electronic health record. (1) Unspecified psychosis not due to a substance or known physiological condition: (2) Suicidal ideations: (3) Homicidal thoughts: Plan 03/01/24: Start daily cetirizine. Schedule nasal saline 4 times daily. Will work with social work to plan for outpatient sleep study. Concern for excess sedation on Klonopin and will reduce dose to 0.5 mg and scheduled at bedtime. Concern for ongoing EPS from haloperidol and Thorazine and will decrease haloperidol to to 5 mg twice daily. Discontinue as needed Klonopin and start lorazepam 1 mg twice daily as needed for anxiety. 02/29/2024: Increase Klonopin to 1mg qAM and Klonopin prn. Increase Thorazine 50mg BID prn for somatic delusions/psychosis/agitation. 02/28/2024: Start Thorazine 10mg BID prn for somatic perseveration. 02/27/2024: Start Klonopin 0.5mg schedule. Plan to increase fluoxetine on 02/29/24 02/26/2024: Continue current medications and tx plan. 02/25/2024: Increase haldol 10mg BID 02/24/2024: Addition of propranolol 10mg BID prn for akathisia 02/23/2024: Discontinue olanzapine. Adjust haldol to 5mg qAM and 10mg HS. Adjust cogentin to BID prn. 02/22/24: Prozac was increased to 30 mg daily starting tomorrow. 02/21/2024 Patient's larger dose of Zyprexa was switched to the morning because he says mornings are more difficult. The plan is to decrease the Zyprexa to only have him on Haldol. Continue the Prozac. PRN Ativan should be used sparingly. The fact that he has responded to the ativan makes me think this is more obsessional and intrusive thoughts than truce psychosis. Prozac was s tarted for anxiety and should be titrated as quickly as safe for efficacy. 02/20/24 We stopped Gabapentin, added Prozac, PRN ativan, and Zyprexa was decreased with the hope that he can only be on Haldol as it has seemed to be the most effective. 02/19/2024 We have added Gabapentin to the patient's regimen at his request. We will continue to monitor. We will also try changing the larger Zyprexa dose to the morning. : Continue with current medications at this time. We will consider adding Gabapentin for his anxiety about his breathing. 02/17/2024 Zyprexa at bedtime was increased to 7.5 mg, continue 5 mg daily 02/16/2024 Zyprexa 5 mg BID. 02/15/2024: -Increase risperidone to 1mg BID -haldol 2.5mg BID prn for agitation/paranoia/psychosis and ativan 0.5mg BID prn for agitation -discontinue ativan HS 02/14/2024: -Haldol 5mg po and ativan 2mg po at HS -Tomorow start risperidone 0.5mg BID -Fasting lipid panel, glucose and HbA1c in the morning 02/13/2024:The patient was admitted to the [facility] ([facility] mental health unit) on q15 min checks (behavioral with suicide precautions) for safety. The patient will participate in group, recreational, and milieu therapies and will be offered additional individual and family sessions as clinically appropriate. -Continue haldol 2.5mg qAM and 5mg HS for psychosis -Ativan 1mg qAM and 2mg HS for psychosis given high acuity of current distress and symptoms -Discontinue lamictal -Fasting lipid panel and HbA1c in 1-2 days as he can better tolerate -Suicide protocol with safe tray, safe linens, safety precautions -Homicide precautions -Elopement precautions Inventory Assets Strengths: supportive family, willing for treatment Needs: safety and stabilization, increased coping skills, medication adjustment, increased outpatient support Suicide Risk Level Suicide Risk Level: High-Moderate (q15 min suicide checks) (SI with plan prior to admission and psychosis but denies SI currently and feels safe in the hospital, he feels comfortable telling staff if he feels unsafe and likes the ability to utilize the quiet room, using quiet room appropriately ) Risk Factors Assessment Male: Yes : Yes Do You Have Access To A Gun?: No Mental Health Diagnoses: Yes Substance Use Disorders: No Previous Attempt: No Family History of Suicide: No Previous Psychiatric Hospitalization: No Protective Factors Assessment Employed: No Stable Relationships: Yes Supportive Family: Yes Interval History Identifying Information SAMIRA ROOT is a 23-year-old man who currently lives in [place] with his parents, has a history of depression, and was admitted on 02/12/24 17:07 on a 201 voluntary commitment for SI with plan of hanging himself and ego-dystonic HI. Chief Complaint "[]". Review of Systems Sleep Information Total Hours of Sleep: 10 Sleep Comments: HS Haldol Meal Information Percent Meal Consumed - Breakfast: 100 Percent Meal Consumed - Lunch: 100 Percent Meal Consumed - Dinner: 100 Subjective Subjective Patient was seen & assessed and interval progress reviewed with treatment team nursing and social work Patient complains of not being able to feel air through his nose and is constantly thinking about whether he is able to breathe. Complains of increased anxiety related to this. This has gotten worse over time and he feels overwhelmed to the point where he is he has thought about hurting himself or ending his life to eliminate anxiety. Reports over the past few years has had low sex drive excess nonrestorative sleep and increased anxiety. When he thinks about his breathing he notices at times his heart rate increases his chest tightens and he has racing thoughts. In the past has cut his wrist once to relieve anxiety. Superficial and did not require further care. He additionally complains of negative self derogatory thoughts. Reports in 2018 he was dealing with persistent nasal infections. 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 In 2022 after months of isolation and worsening mood he shut down his company and started to become more spiritual. He reports a family history of depression in his father's siblings and father's side of the family; he reports they are not taking medications. He denies a history of substance or alcohol dependence in his family. He reports past follow-up with an ENT doctor and they did not provide further recommendations. He reports recent onset of restlessness and pacing since his medications were started. He denies hearing voices or seeing visions. Complains of muscle twitching which is new. Reports he wanted to get a sleep study in the past but was unable to due to insurance problems. He denies snoring at night. He denies focusing on other parts of his body as a stimulus for anxiety. Physical Exam Mental Examination Appearance: Well Groomed Eye Contact: Maintains Eye Contact Motor Behavior: Unremarkable Speech: Normal Mood: Euthymic Affect: Anxious Thought Process: Intact Hallucinations: None Insight: Poor Judgement: Poor Vital Signs (Past 24 Hours) Last Vital Signs Temp 37 C 03/01/24 06:34 Pulse 99 H 03/01/24 06:35 Resp 16 03/01/24 06:34 BP 124/64 03/01/24 06:35 Pulse Ox 97 02/24/24 06:44 O2 Del Method Room Air 02/24/24 06:44 Results & Data ([facility]) Current Inpatient Medications Current Inpatient Medications: Current Inpatient Medications Acetaminophen (Acetaminophen 325 Mg Tab) 650 mg PO Q4H PRN PRN Reason: Headache or Minor Fever Stop: 03/13/24 16:44 Al Hydrox/Mg Hydrox/Simethicone (Aluminum/Magnesium Susp 30 Ml Udc) 30 ml PO Q4H PRN PRN Reason: GI Upset Stop: 03/13/24 16:44 Benztropine Mesylate (Benztropine Mesylate 1 Mg Tab) 1 mg PO BID PRN PRN Reason: muscle stiffness Stop: 03/24/24 09:54 Bismuth Subsalicylate (Bismuth Subsalicylate Liqd 236 Ml) 15 ml PO PRN PRN PRN Reason: Loose Stool Stop: 03/13/24 16:44 Cetirizine HCl (Cetirizine Hcl 10 Mg Tablet) 10 mg PO QAM [facility] Stop: 03/31/24 12:44 Last Admin: 03/01/24 13:13 Dose: 10 mg Chlorpromazine HCl (Chlorpromazine Hcl 25 Mg Tab) 50 mg PO BID PRN PRN Reason: Agitation Stop: 03/30/24 11:29 Last Admin: 02/29/24 17:07 Dose: 50 mg Clonazepam (Clonazepam 0.5 Mg Tab) 0.5 mg PO HSZ [facility] Stop: 03/31/24 21:59 Ergocalciferol (Ergocalciferol 1250 Mcg (50,000 Units) Cap) 1,250 mcg PO Ly@0900 [facility] Stop: 03/18/24 08:59 Last Admin: 02/24/24 08:40 Dose: 1,250 mcg Fluoxetine HCl (Fluoxetine Hcl 10 Mg Cap) 30 mg PO QAM [facility] Stop: 03/24/24 08:59 Last Admin: 03/01/24 09:13 Dose: 30 mg Haloperidol (Haloperidol 5 Mg Tab) 5 mg PO BID [facility] Stop: 03/31/24 20:59 Lorazepam (Lorazepam 1 Mg Tab) 1 mg PO BID PRN PRN Reason: Anxiety Stop: 03/31/24 12:36 Magnesium Hydroxide (Magnesium Hydroxide Susp 30 Ml Udc) 30 ml PO DAILY PRN PRN Reason: Constipation Stop: 03/13/24 16:44 Mupirocin (Mupirocin 2% Oint 22 Gm Tube) 1 appln EXT BID PRN PRN Reason: Nasal Dryness Stop: 03/21/24 08:59 Propranolol HCl (Propranolol Hcl 10 Mg Tab) 10 mg PO BID PRN PRN Reason: akathisia Stop: 03/25/24 20:59 Last Admin: 02/27/24 09:18 Dose: 10 mg Sodium Chloride (Sodium Chloride 0.65% Na Soln 45 Ml ([place])) 1 - 2 sprays NA QID [facility] Stop: 03/31/24 12:59 Last Admin: 03/01/24 13:13 Dose: 1 sprays Mental Health & Subst Abuse Tx Therapist Name of Therapist: None Bread Jockey Name of Bread Jockey: None Post Discharge Appointments Primary Care Physician Name Of Family Doctor/PCP: Dr Miles
[2024-03-01] MEDS: BENZTROPINE MESYLATE 1 MG TAB PO PRN (17:21)
[2024-03-01] MEDS: LORazepam 1 MG TAB PO PRN (17:21)
[2024-03-01] MEDS: clonazePAM 0.5 MG TAB PO SCH (21:30)
[2024-03-01] MEDS: haloperidoL 5 MG TAB PO SCH (21:30)
--- NOTE | 2024-03-02 15:17 | Psychiatric Progress Note ---
Date of Service March 02, 2024 Impression / Recommendations Impression 23 yo man with no formal psychiatric history admitted on a 201 voluntary commitment for psychosis, sense that he may hurt someone and SI with plan of hanging himself using rope. Diagnostically consistent with unspecified psychosis with differential including schizophrenia (seems most likely given his age, gradual onset with increased negative symptoms, ideas of reference, increased orthodox fixation, and now thought insertion to harm others) vs OCD vs MDD with psychotic features vs BPAD (less likely given no hx of monica) vs delusional disorder vs 2/2 medical cause (unlikely given negative head CT two months ago and no current neurological deficits or autonomic dysfunction, TSH normal, ?past Lyme panel). 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 Differential includes schizophrenia, psychosis due to medical condition, obsessive-compulsive disorder, depression. Given recent history of cognitive decline, new onset psychosis, and history of severe seborrheic dermatitis may benefit from MRI to rule out nonpsychiatric causes. Patient continues to feel sedated during the day and will discontinue nightly Klonopin and replaced with Ativan 1 mg at bedtime. Overall, I spent a total of 75 minutes with this case including review of chart records, nursing report, gathering collateral, direct evaluation of the patient at bedside, counseling the patient, and documentation in the electronic health record. (1) Unspecified psychosis not due to a substance or known physiological condition: (2) Suicidal ideations: (3) Homicidal thoughts: Plan 03/02/24: MRI w/wo contrast to rule out nonpsychiatric causes. Patient continues to feel sedated during the day and will discontinue nightly Clonazepam and re place with Lorazepam 1mg HS. Lorazepam PRN dec to 0.5mg BID PRN. 03/01/24: Start daily cetirizine. Schedule nasal saline 4 times daily. Will work with social work to plan for outpatient sleep study. Concern for excess sedation on Klonopin and will reduce dose to 0.5 mg and scheduled at bedtime. Concern for ongoing EPS from haloperidol and Thorazine and will decrease haloperidol to to 5 mg twice daily. Discontinue as needed Klonopin and start lorazepam 1 mg twice daily as needed for anxiety. 02/29/2024: Increase Klonopin to 1mg qAM and Klonopin prn. Increase Thorazine 50mg BID prn for somatic delusions/psychosis/agitation. 02/28/2024: Start Thorazine 10mg BID prn for somatic perseveration. 02/27/2024: Start Klonopin 0.5mg schedule. Plan to increase fluoxetine on 02/29/24 02/26/2024: Continue current medications and tx plan. 02/25/2024: Increase haldol 10mg BID 02/24/2024: Addition of propranolol 10mg BID prn for akathisia 02/23/2024: Discontinue olanzapine. Adjust haldol to 5mg qAM and 10mg HS. Adjust cogentin to BID prn. 02/22/24: Prozac was increased to 30 mg daily starting tomorrow. 02/21/2024 Patient's larger dose of Zyprexa was switched to the morning because he says mornings are more difficult. The plan is to decrease the Zyprexa to only have him on Haldol. Continue the Prozac. PRN Ativan should be used sparingly. The fact that he has responded to the ativan makes me think this is more obsessional and intrusive thoughts than truce psychosis. Prozac was started for anxiety and should be titrated as quickly as safe for efficacy. 02/20/24 We stopped Gabapentin, added Prozac, PRN ativan, and Zyprexa was decreased with the hope that he can only be on Haldol as it has seemed to be the most effective. 02/19/2024 We have added Gabapentin to the patient's regimen at his request. We will continue to monitor. We will also try changing the larger Zyprexa dose to the morning. : Continue with current medications at this time. We will consider adding Gabapentin for his anxiety about his breathing. 02/17/2024 Zyprexa at bedtime was increased to 7.5 mg, continue 5 mg daily 02/16/2024 Zyprexa 5 mg BID. 02/15/2024: -Increase risperidone to 1mg BID -haldol 2.5mg BID prn for agitation/paranoia/psychosis and ativan 0.5mg BID prn for agitation -discontinue ativan HS 02/14/2024: -Haldol 5mg po and ativan 2mg po at HS -Tomorow start risperidone 0.5mg BID -Fasting lipid panel, glucose and HbA1c in the morning 02/13/2024:The patient was admitted to the [facility] ([facility] mental health unit) on q15 min checks (behavioral with suicide precautions) for safety. The patient will participate in group, recreational, and milieu therapies and will be offered additional individual and family sessions as clinically appropriate. -Continue haldol 2.5mg qAM and 5mg HS for psychosis -Ativan 1mg qAM and 2mg HS for psychosis given high acuity of current distress and symptoms -Discontinue lamictal -Fasting lipid panel and HbA1c in 1-2 days as he can better tolerate -Suicide protocol with safe tray, safe linens, safety precautions -Homicide precautions -Elopement precautions Inventory Assets Strengths: supportive family, willing for treatment Needs: safety and stabilization, increased coping skills, medication adjustment, increased outpatient support Suicide Risk Level Suicide Risk Level: High-Moderate (q15 min suicide checks) (SI with plan prior to admission and psychosis but denies SI currently and feels safe in the hospital, he feels comfortable telling staff if he feels unsafe and likes the ability to utilize the quiet room, using quiet room appropriately ) Risk Factors Assessment Male: Yes : Yes Do You Have Access To A Gun?: No Mental Health Diagnoses: Yes Substance Use Disorders: No Previous Attempt: No Family History of Suicide: No Previous Psychiatric Hospitalization: No Protective Factors Assessment Employed: No Stable Relationships: Yes Supportive Family: Yes Interval History Identifying Information SAMIRA PANTOJA is a 23-year-old man who currently lives in [place] with his parents, has a history of depression, and was admitted on 02/12/24 17:07 on a 201 voluntary commitment for SI with plan of hanging himself and ego-dystonic HI. Chief Complaint "[]". Review of Systems Sleep Information Total Hours of Sleep: 6.5 Sleep Comments: HS Haldol Meal Information Percent Meal Consumed - Breakfast: 100 Percent Meal Consumed - Lunch: 100 Percent Meal Consumed - Dinner: 100 Subjective Subjective Patient was seen & assessed and interval progress reviewed with treatment team nursing and social work Patient complains of internal anxiety about whether he is breathing. Reports sleeping well. Interested in getting a sleep study. After introduction of nasal saline and antihistamine feels there is no change in nasal symptoms. Reports having anxiety about cartilage around his nose. Feels "suffocation". When trying to distract himself from the thoughts about his nose has difficulty. Feels his twitching symptoms are better. Complains of ongoing internal restlessness. Reports in 2019 initially having some memory issues and cognitive decline and isolating. Completed 1 year of community college was doing well in school however quit early to focus on his business. He feels safer now than he did on admission. He reports initially having a control over his body "internal force" that pushed him towards harming others and himself. Endorses this has improved since starting treatment. Discusses how he has gotten into spirituality trying to find the "truth above other people" he was doing this to cope with his depression and enjoyed the feeling of being enlightened. He felt that he was on a "Divine" course. Reports this all began 2 to 3 years ago. Danielle Pantoja [phone] Currently out of town to help with sick grandchild. Initially pt distressed, now more calm. In high school, serboheric dermatitis on head. Rashs in various parts of his body. In high school was [employer] society, athlete. Started noticing inc fatigue, woke up tired. 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 Pt noticed worsening energy to keep up with business. "Brain fog." Nervous habit of picking his nose. "Don't have energy because I can't feel myself breathing." Low T. No evidence of autoimmune. Went to ENT; c/o thickened mucus bc of past damage. ENT recommended sleep study, pending for Nov 2023. Samira stopped communicating as much with family Aug 2023. Started to not eat, cognitive decline. Went to a specialist about his nose, diagnosed sebboheric dermatitis in his nose. Took Samira to a crisis center for evaluation. Initially ok but later pt had thoughts of wanting to harm mother and told her with concern. Went to crisis center and told them he has had thoughts of killing himself and had various plans he considered. Got on Lamotrigine for mood stabilization by psychiatrist. Father side history of depression; unknown medications; no known history of psychosis. No MRI. No past rn perinatal. Physical Exam Mental Examination Appearance: Well Groomed Eye Contact: Maintains Eye Contact Motor Behavior: Unremarkable Speech: Normal Mood: Euthymic Affect: Anxious Thought Process: Intact Hallucinations: None Insight: Poor Judgement: Poor Vital Signs (Past 24 Hours) Last Vital Signs Temp 37 C 03/02/24 06:32 Pulse 72 03/02/24 06:33 Resp 16 03/02/24 06:32 BP 107/65 03/02/24 06:33 Pulse Ox 97 02/24/24 06:44 O2 Del Method Room Air 02/24/24 06:44 Results & Data ([facility]) Current Inpatient Medications Current Inpatient Medications: Current Inpatient Medications Acetaminophen (Acetaminophen 325 Mg Tab) 650 mg PO Q4H PRN PRN Reason: Headache or Minor Fever Stop: 03/13/24 16:44 Al Hydrox/Mg Hydrox/Simethicone (Aluminum/Magnesium Susp 30 Ml Udc) 30 ml PO Q4H PRN PRN Reason: GI Upset Stop: 03/13/24 16:44 Benztropine Mesylate (Benztropine Mesylate 1 Mg Tab) 1 mg PO BID PRN PRN Reason: muscle stiffness Stop: 03/24/24 09:54 Last Admin: 03/01/24 17:21 Dose: 1 mg Bismuth Subsalicylate (Bismuth Subsalicylate Liqd 236 Ml) 15 ml PO PRN PRN PRN Reason: Loose Stool Stop: 03/13/24 16:44 Cetirizine HCl (Cetirizine Hcl 10 Mg Tablet) 10 mg PO QAM [facility] Stop: 03/31/24 12:44 Last Admin: 03/02/24 09:32 Dose: 10 mg Chlorpromazine HCl (Chlorpromazine Hcl 25 Mg Tab) 50 mg PO BID PRN PRN Reason: Agitation Stop: 03/30/24 11:29 Last Admin: 02/29/24 17:07 Dose: 50 mg Ergocalciferol (Ergocalciferol 1250 Mcg (50,000 Units) Cap) 1,250 mcg PO Ly@0900 [facility] Stop: 03/18/24 08:59 Last Admin: 03/02/24 09:32 Dose: 1,250 mcg Fluoxetine HCl (Fluoxetine Hcl 10 Mg Cap) 30 mg PO QAM [facility] Stop: 03/24/24 08:59 Last Admin: 03/02/24 09:33 Dose: 30 mg Haloperidol (Haloperidol 5 Mg Tab) 5 mg PO BID [facility] Stop: 03/31/24 20:59 Last Admin: 03/02/24 09:33 Dose: 5 mg Lorazepam (Lorazepam 1 Mg Tab) 1 mg PO HS [facility] Stop: 04/01/24 21:59 Lorazepam (Lorazepam 0.5 Mg Tab) 0.5 mg PO BID PRN PRN Reason: Anxiety Stop: 03/31/24 12:36 Magnesium Hydroxide (Magnesium Hydroxide Susp 30 Ml Udc) 30 ml PO DAILY PRN PRN Reason: Constipation Stop: 03/13/24 16:44 Mupirocin (Mupirocin 2% Oint 22 Gm Tube) 1 appln EXT BID PRN PRN Reason: Nasal Dryness Stop: 03/21/24 08:59 Propranolol HCl (Propranolol Hcl 10 Mg Tab) 10 mg PO BID PRN PRN Reason: akathisia Stop: 03/25/24 20:59 Last Admin: 02/27/24 09:18 Dose: 10 mg Sodium Chloride (Sodium Chloride 0.65% Na Soln 45 Ml ([place])) 1 - 2 sprays NA QID [facility] Stop: 03/31/24 12:59 Last Admin: 03/02/24 14:20 Dose: 2 sprays Mental Health & Subst Abuse Tx Therapist Name of Therapist: None Talent Associate Name of Talent Associate: None Post Discharge Appointments Primary Care Physician Name Of Family Doctor/PCP: Dr Miles
[2024-03-02] MEDS: GADOBUTROL 65ML VIAL IV ONE (16:43)
--- NOTE | 2024-03-02 17:39 | Magnetic Resonance Report ---
MR brain wo/w con CLINICAL HISTORY: New onset psychosis, cognitive decline TECHNIQUE: Multiplanar and multisequence MR images of the brain were obtained prior to and following administration of gadolinium contrast. Comparison: None available at the time of this dictation. FINDINGS: No abnormal restricted diffusion is identified. The white matter is unremarkable. The ventricular sys tem is normal in appearance. No mass or abnormal enhancement is seen. There is no mass effect or midl ine shift. There is no evidence of acute intraparenchymal hemorrhage. No extra axial fluid collection s are seen. The corpus callosum, pituitary gland, and cerebellar tonsils appear grossly unremarkable. Flow voids of the major intracranial arterial vessels are identified. Sinus mucosal thickening is see n most prominent in the IMPRESSION: No acute abnormalities. ACT 112: Negative or not required by law. Electronically signed by: Jimmy Bright M.D. 03/02/2024 5:37 PM
[2024-03-02] MEDS: LORazepam 1 MG TAB PO SCH (21:05)
[2024-03-03] MEDS: LORazepam 0.5 MG TAB PO PRN (09:16)
--- NOTE | 2024-03-03 11:52 | Psychiatric Progress Note ---
Date of Service March 03, 2024 Impression / Recommendations Impression 23 yo man with no formal psychiatric history admitted on a 201 voluntary commitment for psychosis, sense that he may hurt someone and SI with plan of hanging himself using rope. Diagnostically consistent with unspecified psychosis with differential including schizophrenia (seems most likely given his age, gradual onset with increased negative symptoms, ideas of reference, increased taoism fixation, and now thought insertion to harm others) vs OCD vs MDD with psychotic features vs BPAD (less likely given no hx of monica) vs delusional disorder vs 2/2 medical cause (unlikely given negative head CT two months ago and no current neurological deficits or autonomic dysfunction, TSH normal, ?past Lyme panel). 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 Given pt complaint of inner restlessness; concern for akathisia despite being present on admission; will separate haldol doses throughout the day. Overall, I spent a total of 45 minutes with this case including review of chart records, nursing report, reviewing diagnostic reports, direct evaluation of the patient at bedside, counseling the patient, and documentation in the electronic health record. (1) Unspecified psychosis not due to a substance or known physiological condition: (2) Suicidal ideations: (3) Homicidal thoughts: Plan 03/03/24: Haldol 2.5mg QDBB, 2.5mg QDBL, 5mg HS 03/02/24: MRI w/wo contrast to rule out nonpsychiatric causes. Patient continues to feel sedated during the day and will discontinue nightly Clonazepam and replace with Lorazepam 1mg HS. Lorazepam PRN dec to 0.5mg BID PRN. 03/01/24: Start daily cetirizine. Schedule nasal saline 4 times daily. Will work with social work to plan for outpatient sleep study. Concern for excess sedation on Klonopin and will reduce dose to 0.5 mg and scheduled at bedtime. Concern for ongoing EPS from haloperidol and Thorazine and will decrease haloperidol to to 5 mg twice daily. Discontinue as needed Klonopin and start lorazepam 1 mg twice daily as needed for anxiety. 02/29/2024: Increase Klonopin to 1mg qAM and Klonopin prn. Increase Thorazine 50mg BID prn for somatic delusions/psychosis/agitation. 02/28/2024: Start Thorazine 10mg BID prn for somatic perseveration. 02/27/2024: Start Klonopin 0.5mg schedule. Plan to increase fluoxetine on 02/29/24 02/26/2024: Continue current medications and tx plan. 02/25/2024: Increase haldol 10mg BID 02/24/2024: Addition of propranolol 10mg BID prn for akathisia 02/23/2024: Discontinue olanzapine. Adjust haldol to 5mg qAM and 10mg HS. Adjust cogentin to BID prn. 02/22/24: Prozac was increased to 30 mg daily starting tomorrow. 02/21/2024 Patient's larger dose of Zyprexa was switched to the morning because he says mornings are more difficult. The plan is to decrease the Zyprexa to only have him on Haldol. Continue the Prozac. PRN Ativan should be used sparingly. The fact that he has responded to the ativan makes me think this is more obsessional and intrusive thoughts than truce psychosis. Prozac was started for anxiety and should be titrated as quickly as safe for efficacy. 02/20/24 We stopped Gabapentin, added Prozac, PRN ativan, and Zyprexa was decreased with the hope that he can only be on Haldol as it has seemed to be the most effective. 02/19/2024 We have added Gabapentin to the patient's regimen at his request. We will continue to monitor. We will also try changing the larger Zyprexa dose to the morning. : Continue with current medications at this time. We will consider adding Gabapentin for his anxiety about his breathing. 02/17/2024 Zyprexa at bedtime was increased to 7.5 mg, continue 5 mg daily 02/16/2024 Zyprexa 5 mg BID. 02/15/2024: -Increase risperidone to 1mg BID -haldol 2.5mg BID prn for agitation/paranoia/psychosis and ativan 0.5mg BID prn for agitation -discontinue ativan HS 02/14/2024: -Haldol 5mg po and ativan 2mg po at HS -Tomorow start risperidone 0.5mg BID -Fasting lipid panel, glucose and HbA1c in the morning 02/13/2024:The patient was admitted to the [facility] ([facility] mental health unit) on q15 min checks (behavioral with suicide precautions) for safety. The patient will participate in group, recreational, and milieu therapies and will be offered additional individual and family sessions as clinically appropriate. -Continue haldol 2.5mg qAM and 5mg HS for psychosis -Ativan 1mg qAM and 2mg HS for psychosis given high acuity of current distress and symptoms -Discontinue lamictal -Fasting lipid panel and HbA1c in 1-2 days as he can better tolerate -Suicide protocol with safe tray, safe linens, safety precautions -Homicide precautions -Elopement precautions Inventory Assets Strengths: supportive family, willing for treatment Needs: safety and stabilization, increased coping skills, medication adjustment, increased outpatient support Suicide Risk Level Suicide Risk Level: High-Moderate (q15 min suicide checks) (SI with plan prior to admission and psychosis but denies SI currently and feels safe in the hospital, he feels comfortable telling staff if he feels unsafe and likes the ability to utilize the quiet room, using quiet room appropriately ) Risk Factors Assessment Male: Yes : Yes Do You Have Access To A Gun?: No Mental Health Diagnoses: Yes Substance Use Disorders: No Previous Attempt: No Family History of Suicide: No Previous Psychiatric Hospitalization: No Protective Factors Assessment Employed: No Stable Relationships: Yes Supportive Family: Yes Interval History Identifying Information SAMIRA ROOT is a 23-year-old man who currently lives in [place] with his parents, has a history of depression, and was admitted on 02/12/24 17:07 on a 201 voluntary commitment for SI with plan of hanging himself and ego-dystonic HI. Chief Complaint "[]". Review of Systems Sleep Information Total Hours of Sleep: 8.25 Sleep Comments: HS Haldol Meal Information Percent Meal Consumed - Breakfast: 100 Percent Meal Consumed - Lunch: 100 Percent Meal Consumed - Dinner: 100 Subjective Subjective Patient was seen & assessed and interval progress reviewed with treatment team nursing and social work Overnight no acute events. As needed Ativan effective. Patient complains of inner restlessness that was present prior to hospitalization. Details this as a physical symptom and not related to anxious ruminations. Complains of numbness in his nose, difficulty feeling airflow, describes it as "low level suffocation". Complains of lack of smell and loss and taste. Otherwise slept well. Does not feel he is possessed or anyone is controlling his behaviors. Denies muscle twitching. Reports not having any compulsions or obsessions and during his teen years. Notes in the past few years he has tried to be more tidy and that provide some relief. He denies suicidal ideation. Physical Exam Mental Examination Appearance: Well Groomed Eye Contact: Maintains Eye Contact Motor Behavior: Unremarkable Speech: Normal Mood: Euthymic Affect: Anxious Thought Process: Intact Hallucinations: None Insight: Poor Judgement: Poor Vital Signs (Past 24 Hours) Last Vital Signs Temp 37.1 C 03/03/24 06:32 Pulse 94 H 03/03/24 06:33 Resp 16 03/03/24 06:32 BP 101/61 03/03/24 06:33 Pulse Ox 97 02/24/24 06:44 O2 Del Method Room Air 02/24/24 06:44 Results & Data ([facility]) Diagnostic Findings 03/02/24 Brain MRI wo/w contrast: No acute findings except for mild maxillary sinusitis. Current Inpatient Medications Current Inpatient Medications: Current Inpatient Medications Acetaminophen (Acetaminophen 325 Mg Tab) 650 mg PO Q4H PRN PRN Reason: Headache or Minor Fever Stop: 03/13/24 16:44 Al Hydrox/Mg Hydrox/Simethicone (Aluminum/Magnesium Susp 30 Ml Udc) 30 ml PO Q4H PRN PRN Reason: GI Upset Stop: 03/13/24 16:44 Benztropine Mesylate (Benztropine Mesylate 1 Mg Tab) 1 mg PO BID PRN PRN Reason: muscle stiffness Stop: 03/24/24 09:54 Last Admin: 03/01/24 17:21 Dose: 1 mg Bismuth Subsalicylate (Bismuth Subsalicylate Liqd 236 Ml) 15 ml PO PRN PRN PRN Reason: Loose Stool Stop: 03/13/24 16:44 Cetirizine HCl (Cetirizine Hcl 10 Mg Tablet) 10 mg PO QAM TAY Stop: 03/31/24 12:44 Last Admin: 03/03/24 09:16 Dose: 10 mg Chlorpromazine HCl (Chlorpromazine Hcl 25 Mg Tab) 50 mg PO BID PRN PRN Reason: Agitation Stop: 03/30/24 11:29 Last Admin: 02/29/24 17:07 Dose: 50 mg Ergocalciferol (Ergocalciferol 1250 Mcg (50,000 Units) Cap) 1,250 mcg PO Ly@0900 [facility] Stop: 03/18/24 08:59 Last Admin: 03/02/24 09:32 Dose: 1,250 mcg Fluoxetine HCl (Fluoxetine Hcl 10 Mg Cap) 30 mg PO QAM [facility] Stop: 03/24/24 08:59 Last Admin: 03/03/24 09:16 Dose: 30 mg Haloperidol (Haloperidol 5 Mg Tab) 5 mg PO BID [facility] Stop: 03/31/24 20:59 Last Admin: 03/03/24 09:16 Dose: 5 mg Lorazepam (Lorazepam 1 Mg Tab) 1 mg PO HS [facility] Stop: 04/01/24 21:59 Last Admin: 03/02/24 21:05 Dose: 1 mg Lorazepam (Lorazepam 0.5 Mg Tab) 0.5 mg PO BID PRN PRN Reason: Anxiety Stop: 03/31/24 12:36 Last Admin: 03/03/24 09:16 Dose: 0.5 mg Magnesium Hydroxide (Magnesium Hydroxide Susp 30 Ml Udc) 30 ml PO DAILY PRN PRN Reason: Constipation Stop: 03/13/24 16:44 Mupirocin (Mupirocin 2% Oint 22 Gm Tube) 1 appln EXT BID PRN PRN Reason: Nasal Dryness Stop: 03/21/24 08:59 Propranolol HCl (Propranolol Hcl 10 Mg Tab) 10 mg PO BID PRN PRN Reason: akathisia Stop: 03/25/24 20:59 Last Admin: 02/27/24 09:18 Dose: 10 mg Sodium Chloride (Sodium Chloride 0.65% Na Soln 45 Ml ([place])) 1 - 2 sprays NA QID [facility] Stop: 03/31/24 12:59 Last Admin: 03/03/24 09:15 Dose: 1 sprays Mental Health & Subst Abuse Tx Therapist Name of Therapist: None Philosophy Specialist Name of Philosophy Specialist: None Post Discharge Appointments Primary Care Physician Name Of Family Doctor/PCP: Dr Miles
[2024-03-03] MEDS: haloperidoL 5 MG TAB PO SCH (21:08)
[2024-03-04] MEDS: haloperidoL 5 MG TAB PO SCH ×2 (08:27→11:14)
[2024-03-04] MEDS: LORazepam 1 MG TAB PO PRN (11:15)
--- NOTE | 2024-03-04 12:31 | Psychiatric Progress Note ---
Date of Service March 04, 2024 Impression / Recommendations Impression 23 yo man with no formal psychiatric history admitted on a 201 voluntary commitment for psychosis, sense that he may hurt someone and SI with plan of hanging himself using rope. Diagnostically consistent with unspecified psychosis with differential including schizophrenia (seems most likely given his age, gradual onset with increased negative symptoms, ideas of reference, increased faith fixation, and now thought insertion to harm others) vs OCD vs MDD with psychotic features vs BPAD (less likely given no hx of monica) vs delusional disorder vs 2/2 medical cause (unlikely given negative head CT two months ago and no current neurological deficits or autonomic dysfunction, TSH normal, ?past Lyme panel). 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 Clarified obsessive compulsive symptoms with standardized scale and appears to show improvement since hospitalization. Pt concern for low libido including lack of nocturnal erections concerning for negative symptoms of Schizophrenia however will continue to clarify. On exam, appears to have moderate to severe dermatitis of his scalp and will initiate treatment. Overall, I spent a total of 70 minutes with this case including review of chart records, nursing report, administering psychiatric questionnaire/scale, direct evaluation of the patient at bedside, counseling the patient, and documentation in the electronic health record. (1) Unspecified psychosis not due to a substance or known physiological condition: (2) Suicidal ideations: (3) Homicidal thoughts: Plan 03/04/24: Increase lorazepam PRN to 1mg BID. Ketoconazole 2% shampoo applied 2x weekly for 4 weeks. Hydrocortisone 1% cream applied daily to scalp for 2 weeks. 03/03/24: Haldol 2.5mg QDBB, 2.5mg QDBL, 5mg HS 03/02/24: Brain MRI w/wo contrast to rule out nonpsychiatric causes. Patient continues to feel sedated during the day and will discontinue nightly Clonazepam and replace with Lorazepam 1mg HS. Lorazepam PRN dec to 0.5mg BID PRN. 03/01/24: Start daily cetirizine. Schedule nasal saline 4 times daily. Will work with social work to plan for outpatient sleep study. Concern for excess sedation on Klonopin and will reduce dose to 0.5 mg and scheduled at bedtime. Concern for ongoing EPS from haloperidol and Thorazine and will decrease teodora operidol to to 5 mg twice daily. Discontinue as needed Klonopin and start lorazepam 1 mg twice daily as needed for anxiety. 02/29/2024: Increase Klonopin to 1mg qAM and Klonopin prn. Increase Thorazine 50mg BID prn for somatic delusions/psychosis/agitation. 02/28/2024: Start Thorazine 10mg BID prn for somatic perseveration. 02/27/2024: Start Klonopin 0.5mg schedule. Plan to increase fluoxetine on 02/29/24 02/26/2024: Continue current medications and tx plan. 02/25/2024: Increase haldol 10mg BID 02/24/2024: Addition of propranolol 10mg BID prn for akathisia 02/23/2024: Discontinue olanzapine. Adjust haldol to 5mg qAM and 10mg HS. Adjust cogentin to BID prn. 02/22/24: Prozac was increased to 30 mg daily starting tomorrow. 02/21/2024 Patient's larger dose of Zyprexa was switched to the morning because he says mornings are more difficult. The plan is to decrease the Zyprexa to only have him on Haldol. Continue the Prozac. PRN Ativan should be used sparingly. The fact that he has responded to the ativan makes me think this is more obsessional and intrusive thoughts than truce psychosis. Prozac was started for anxiety and should be titrated as quickly as safe for efficacy. 02/20/24 We stopped Gabapentin, added Prozac, PRN ativan, and Zyprexa was decreased with the hope that he can only be on Haldol as it has seemed to be the most effective. 02/19/2024 We have added Gabapentin to the patient's regimen at his request. We will continue to monitor. We will also try changing the larger Zyprexa dose to the morning. : Continue with current medications at this time. We will consider adding Gabapentin for his anxiety about his breathing. 02/17/2024 Zyprexa at bedtime was increased to 7.5 mg, continue 5 mg daily 02/16/2024 Zyprexa 5 mg BID. 02/15/2024: -Increase risperidone to 1mg BID -haldol 2.5mg BID prn for agitation/paranoia/psychosis and ativan 0.5mg BID prn for agitation -discontinue ativan HS 02/14/2024: -Haldol 5mg po and ativan 2mg po at HS -Tomorow start risperidone 0.5mg BID -Fasting lipid panel, glucose and HbA1c in the morning 02/13/2024:The patient was admitted to the [facility] ([facility] health unit) on q15 min checks (behavioral with suicide precautions) for safety. The patient will participate in group, recreational, and milieu therapies and will be offered additional individual and family sessions as clinically appropriate. -Continue haldol 2.5mg qAM and 5mg HS for psychosis -Ativan 1mg qAM and 2mg HS for psychosis given high acuity of current distress and symptoms -Discontinue lamictal -Fasting lipid panel and HbA1c in 1-2 days as he can better tolerate -Suicide protocol with safe tray, safe linens, safety precautions -Homicide precautions -Elopement precautions Inventory Assets Strengths: supportive family, willing for treatment Needs: safety and stabilization, increased coping skills, medication adjustment, increased outpatient support Suicide Risk Level Suicide Risk Level: High-Moderate (q15 min suicide checks) (SI with plan prior to admission and psychosis but denies SI currently and feels safe in the hospital, he feels comfortable telling staff if he feels unsafe and likes the ability to utilize the quiet room, using quiet room appropriately ) Risk Factors Assessment Male: Yes : Yes Do You Have Access To A Gun?: No (n/a) Mental Health Diagnoses: Yes Substance Use Disorders: No Previous Attempt: No Family History of Suicide: No Previous Psychiatric Hospitalization: No Protective Factors Assessment Employed: No Stable Relationships: Yes Supportive Family: Yes Interval History Identifying Information SAMIRA ROOT is a 23-year-old man who currently lives in [place] with his parents, has a history of depression, and was admitted on 02/12/24 17:07 on a 201 voluntary commitment for SI with plan of hanging himself and ego-dystonic HI. Chief Complaint "[]". Review of Systems Sleep Information Total Hours of Sleep: 8.75 Sleep Comments: HS Haldol Meal Information Percent Meal Consumed - Breakfast: 100 Percent Meal Consumed - Lunch: 100 Percent Meal Consumed - Dinner: 100 Subjective Subjective Patient was seen & assessed and interval progress reviewed with treatment team nursing and social work Overnight no acute events. Patient said that he slept well but still does not feel rested. He denies having any nightly awakenings. Complains of continued inner restlessness that has improved with movement and activity. He reports still being focused on his nose. He reports having a poor libido for the past 2-1/2 years including the lack of nocturnal or morning erections. He reports seeing an ENT in the past who was confirmed he has had repeated bouts of nasal infections. Denies that a doctor has confirmed any damage to his nasal cartilage however he feels strongly that there is damage. Completed the [place] obsessive compulsive scale (Y-BOCS) with the patient: Target symptoms include aggressive obsessions of fear that he might harm himself, that he might harm others, that he will act on unwanted impulses, and that he will be responsible for something terrible happening. Include faith obsessions that he might go against the words of God and excess concern with morality. Include miscellaneous obsessions with the need to repeat words and lyrics and obsessions with sky numbers and symmetrical numbers. Include somatic obsessions with concern for nasal patency nasal numbness and nasal airflow; excess concern about his nose. Include compulsion to rub his nose. Reports most of these obsessions have improved or absent now however currently struggles with obsessions about fear that he might harm himself, that he might go against the word of God, concern about his nose and potential problems with compulsion to rub his nose. He presents a total score of 22 and reports multiple indicators have improved over the past month. Placed in chart for future review. Physical Exam Mental Examination Appearance: Well Groomed Eye Contact: Maintains Eye Contact Motor Behavior: Restless Speech: Normal Mood: Euthymic Affect: Anxious Thought Process: Intact Hallucinations: None Insight: Fair Judgement: Poor (to limited) Vital Signs (Past 24 Hours) Last Vital Signs Temp 36.9 C 03/04/24 06:26 Pulse 87 03/04/24 06:27 Resp 16 03/04/24 06:26 BP 113/70 03/04/24 06:27 Pulse Ox 97 02/24/24 06:44 O2 Del Method Room Air 02/24/24 06:44 Skin dermatitis and scaling present on scalp Results & Data ([facility] [[email or web address] Current Inpatient Medications Current Inpatient Medications: Current Inpatient Medications Acetaminophen (Acetaminophen 325 Mg Tab) 650 mg PO Q4H PRN PRN Reason: Headache or Minor Fever Stop: 03/13/24 16:44 Al Hydrox/Mg Hydrox/Simethicone (Aluminum/Magnesium Susp 30 Ml Udc) 30 ml PO Q4H PRN PRN Reason: GI Upset Stop: 03/13/24 16:44 Benztropine Mesylate (Benztropine Mesylate 1 Mg Tab) 1 mg PO BID PRN PRN Reason: muscle stiffness Stop: 03/24/24 09:54 Last Admin: 03/01/24 17:21 Dose: 1 mg Bismuth Subsalicylate (Bismuth Subsalicylate Liqd 236 Ml) 15 ml PO PRN PRN PRN Reason: Loose Stool Stop: 03/13/24 16:44 Cetirizine HCl (Cetirizine Hcl 10 Mg Tablet) 10 mg PO QAM [facility] Stop: 03/31/24 12:44 Last Admin: 03/04/24 08:28 Dose: 10 mg Chlorpromazine HCl (Chlorpromazine Hcl 25 Mg Tab) 50 mg PO BID PRN PRN Reason: Agitation Stop: 03/30/24 11:29 Last Admin: 02/29/24 17:07 Dose: 50 mg Ergocalciferol (Ergocalciferol 1250 Mcg (50,000 Units) Cap) 1,250 mcg PO Ly@0900 [facility] Stop: 03/18/24 08:59 Last Admin: 03/02/24 09:32 Dose: 1,250 mcg Fluoxetine HCl (Fluoxetine Hcl 10 Mg Cap) 30 mg PO QAM [facility] Stop: 03/24/24 08:59 Last Admin: 03/04/24 08:28 Dose: 30 mg Haloperidol (Haloperidol 5 Mg Tab) 2.5 mg PO DAILYBB [facility] Stop: 04/03/24 07:59 Last Admin: 03/04/24 08:27 Dose: 2.5 mg Haloperidol (Haloperidol 5 Mg Tab) 2.5 mg PO DAILYBL [facility] Stop: 04/03/24 11:59 Last Admin: 03/04/24 11:14 Dose: 2.5 mg Haloperidol (Haloperidol 5 Mg Tab) 5 mg PO HS [facility] Stop: 04/02/24 21:59 Last Admin: 03/03/24 21:08 Dose: 5 mg Lorazepam (Lorazepam 1 Mg Tab) 1 mg PO HS TAY Stop: 04/01/24 21:59 Last Admin: 03/03/24 21:08 Dose: 1 mg Lorazepam (Lorazepam 1 Mg Tab) 1 mg PO BID PRN PRN Reason: Anxiety Stop: 03/31/24 12:36 Last Admin: 03/04/24 11:15 Dose: 1 mg Magnesium Hydroxide (Magnesium Hydroxide Susp 30 Ml Udc) 30 ml PO DAILY PRN PRN Reason: Constipation Stop: 03/13/24 16:44 Mupirocin (Mupirocin 2% Oint 22 Gm Tube) 1 appln EXT BID PRN PRN Reason: Nasal Dryness Stop: 03/21/24 08:59 Propranolol HCl (Propranolol Hcl 10 Mg Tab) 10 mg PO BID PRN PRN Reason: akathisia Stop: 03/25/24 20:59 Last Admin: 02/27/24 09:18 Dose: 10 mg Sodium Chloride (Sodium Chloride 0.65% Na Soln 45 Ml ([place])) 1 - 2 sprays NA QID TAY Stop: 03/31/24 12:59 Last Admin: 03/04/24 08:28 Dose: 1 sprays Mental Health & Subst Abuse Tx Psychiatrist Time of Appointment with Psychiatrist: n/a Therapist Name of Therapist: Alis Rankin Time of Therapist Appointment: n/a Power Plant Assistant Name of Power Plant Assistant: n/a Time of Appointment with Power Plant Assistant: n/a Post Discharge Appointments Primary Care Physician Name Of Family Doctor/PCP: Dr. Miles Time of Appointment with PCP: n/a
[2024-03-04] MEDS: KETOCONAZOLE 2% CR 15 GM TUBE EXT SCH (13:39)
[2024-03-04] MEDS: HYDROCORTISONE 1% CRM 30 GM TUBE EXT SCH (13:39)
[2024-03-04] MEDS ORDERED: Nursing to Pharmacy Communication SCH (14:00)
[2024-03-04] MEDS: KETOCONAZOLE 2% SHAMPOO 120 ML BTL EXT SCH (14:28)
--- NOTE | 2024-03-05 11:02 | Psychiatric Progress Note ---
Date of Service March 05, 2024 Impression / Recommendations Impression 23 yo man with no formal psychiatric history admitted on a 201 voluntary commitment for psychosis, sense that he may hurt someone and SI with plan of hanging himself using rope. Diagnostically consistent with unspecified psychosis with differential including schizophrenia (seems most likely given his age, gradual onset with increased negative symptoms, ideas of reference, increased spiritism fixation, and now thought insertion to harm others) vs OCD vs MDD with psychotic features vs BPAD (less likely given no hx of monica) vs delusional disorder vs 2/2 medical cause (unlikely given negative head CT two months ago and no current neurological deficits or autonomic dysfunction, TSH normal, ?past Lyme panel). 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 Given ongoing inner restlessness and concern for akathisia will reduce Haldol to 2.5 mg in the morning and 5 mg at night; will monitor for recurrence of psychosis/obsessions. Given low energy complaints will draw labs for vitamin D and B12. Given sexual dysfunction and possible contribution by antipsychotic medications we will draw labs for prolactin. Overall, I spent a total of 60 minutes with this case including review of chart records, nursing report, administering psychiatric questionnaire/scale, direct evaluation of the patient at bedside, counseling the patient, and documentation in the electronic health record. (1) Unspecified psychosis not due to a substance or known physiological condition: (2) Suicidal ideations: intermittent (3) Homicidal thoughts: resolved Plan 03/05/24: Decrease Haldol to 2.5mg QAM, 5mg HS. Labs for prolactin, vitamin D, vitamin B12. 03/04/24: Increase lorazepam PRN to 1mg BID. Ketoconazole 2% shampoo applied 2x weekly for 4 weeks. Hydrocortisone 1% cream applied daily to scalp for 2 weeks. 03/03/24: Haldol 2.5mg QDBB, 2.5mg QDBL, 5mg HS 03/02/24: Brain MRI w/wo contrast to rule out nonpsychiatric causes. Patient continues to feel sedated during the day and will discontinue nightly Clonazepam and replace with Lorazepam 1mg HS. Lorazepam PRN dec to 0.5mg BID PRN. 03/01/24: Start daily cetirizine. Schedule nasal saline 4 times daily. Will work with social work to plan for outpatient sleep study. Concern for excess sedation on Klonopin and will reduce dose to 0.5 mg and scheduled at bedtime. Concern for ongoing EPS from haloperidol and Thorazine and will decrease haloperidol to to 5 mg twice daily. Discontinue as needed Klonopin and start lorazepam 1 mg twice daily as needed for anxiety. 02/29/2024: Increase Klonopin to 1mg qAM and Klonopin prn. Increase Thorazine 50mg BID prn for somatic delusions/psychosis/agitation. 02/28/2024: Start Thorazine 10mg BID prn for somatic perseveration. 02/27/2024: Start Klonopin 0.5mg schedule. Plan to increase fluoxetine on 02/29/24 02/26/2024: Continue current medications and tx plan. 02/25/2024: Increase haldol 10mg BID 02/24/2024: Addition of propranolol 10mg BID prn for akathisia 02/23/2024: Discontinue olanzapine. Adjust haldol to 5mg qAM and 10mg HS. Adjust cogentin to BID prn. 02/22/24: Prozac was increased to 30 mg daily starting tomorrow. 02/21/2024 Patient's larger dose of Zyprexa was switched to the morning because he says mornings are more difficult. The plan is to decrease the Zyprexa to only have him on Haldol. Continue the Prozac. PRN Ativan should be used sparingly. The fact that he has responded to the ativan makes me think this is more obsessional and intrusive thoughts than truce psychosis. Prozac was started for anxiety and should be titrated as quickly as safe for efficacy. 02/20/24 We stopped Gabapentin, added Prozac, PRN ativan, and Zyprexa was decreased with the hope that he can only be on Haldol as it has seemed to be the most effective. 02/19/2024 We have added Gabapentin to the patient's regimen at his request. We will continue to monitor. We will also try changing the larger Zyprexa dose to the morning. : Continue with current medications at this time. We will consider adding Gabapentin for his anxiety about his breathing. 02/17/2024 Zyprexa at bedtime was increased to 7.5 mg, continue 5 mg daily 02/16/2024 Zyprexa 5 mg BID. 02/15/2024: -Increase risperidone to 1mg BID -haldol 2.5mg BID prn for agitation/paranoia/psychosis and ativan 0.5mg BID prn for agitation -discontinue ativan HS 02/14/2024: -Haldol 5mg po and ativan 2mg po at HS -Tomorow start risperidone 0.5mg BID -Fasting lipid panel, glucose and HbA1c in the morning 02/13/2024:The patient was admitted to the [facility] ([facility] unit) on q15 min checks (behavioral with suicide precautions) for safety. The patient will participate in group, recreational, and milieu therapies and will be offered additional individual and family sessions as clinically appropriate. -Continue haldol 2.5mg qAM and 5mg HS for psychosis -Ativan 1mg qAM and 2mg HS for psychosis given high acuity of current distress and symptoms -Discontinue lamictal -Fasting lipid panel and HbA1c in 1-2 days as he can better tolerate -Suicide protocol with safe tray, safe linens, safety precautions -Homicide precautions -Elopement precautions Inventory Assets Strengths: supportive family, willing for treatment Needs: safety and stabilization, increased coping skills, medication adjustment, increased outpatient support Suicide Risk Level Suicide Risk Level: High-Moderate (q15 min suicide checks) (SI with plan prior t o admission and psychosis but denies SI currently and feels safe in the hospital, he feels comfortable telling staff if he feels unsafe and likes the ability to utilize the quiet room, using quiet room appropriately ) Risk Factors Assessment Male: Yes : Yes Do You Have Access To A Gun?: No (n/a) Mental Health Diagnoses: Yes Substance Use Disorders: No Previous Attempt: No Family History of Suicide: No Previous Psychiatric Hospitalization: No Protective Factors Assessment Employed: No Stable Relationships: Yes Supportive Family: Yes Interval History Identifying Information SAMIRA ROOT is a 23-year-old man who currently lives in [place] with his parents, has a history of depression, and was admitted on 02/12/24 17:07 on a 201 voluntary commitment for SI with plan of hanging himself and ego-dystonic HI. Chief Complaint "[]". Review of Systems Sleep Information Total Hours of Sleep: 6.5 Sleep Comments: CAMILA Cam Meal Information Percent Meal Consumed - Breakfast: 100 Percent Meal Consumed - Lunch: 100 Percent Meal Consumed - Dinner: 100 Subjective Subjective Patient was seen & assessed and interval progress reviewed with treatment team nursing and social work Overnight no acute events. Her brother visited and it went well. Has been attending groups. The patient reports sleeping through the night but not feeling rested; this has been a chronic issue. He reports not using the shampoo because he is worried about flaking; advised he could use a comb and encouraged to initiate treatment. Complains of inner restlessness that has been present even prior to admission; reports lorazepam is effective however he is feeling sleepy through the day and complains of low energy. Complains of suicidal ideation this morning due to low energy and overall frustration about resolving his problem. Continues to ruminate and touch his nose. Today we explored his childhood and youth. He reports growing up as the youngest of 3. He denies any physical sexual or verbal abuse growing up. Had a stable childhood. He was involved in multiple romantic relationships from the age of [age] with intact sexual interest and ability to achieve an erection and ability to achieve orgasm. Reports during this time had no problems with sexual contact with his partners. Reports from 20 to 21 years of age he started to notice a gradual decline in his sexual desire and later physical symptoms of sexual dysfunction. Reports that this is the same time he started to complain of low mood and was isolating. Complains of current lack of sexual desire; is not able to achieve nocturnal or morning erections. He feels safe in his surroundings. Physical Exam Mental Examination Appearance: Well Groomed Eye Contact: Maintains Eye Contact Motor Behavior: Restless Speech: Normal Mood: Euthymic Affect: Anxious Thought Process: Intact Hallucinations: None Insight: Fair Judgement: Poor (to limited) Vital Signs (Past 24 Hours) Last Vital Signs Temp 36.9 C 03/05/24 06:33 Pulse 93 H 03/05/24 06:33 Resp 16 03/05/24 06:33 BP 119/69 03/05/24 06:33 Pulse Ox 97 02/24/24 06:44 O2 Del Method Room Air 02/24/24 06:44 Results & Data ([facility]) Current Inpatient Medications Current Inpatient Medications: Current Inpatient Medications Acetaminophen (Acetaminophen 325 Mg Tab) 650 mg PO Q4H PRN PRN Reason: Headache or Minor Fever Stop: 03/13/24 16:44 Al Hydrox/Mg Hydrox/Simethicone (Aluminum/Magnesium Susp 30 Ml Udc) 30 ml PO Q4H PRN PRN Reason: GI Upset Stop: 03/13/24 16:44 Benztropine Mesylate (Benztropine Mesylate 1 Mg Tab) 1 mg PO BID PRN PRN Reason: muscle stiffness Stop: 03/24/24 09:54 Last Admin: 03/01/24 17:21 Dose: 1 mg Bismuth Subsalicylate (Bismuth Subsalicylate Liqd 236 Ml) 15 ml PO PRN PRN PRN Reason: Loose Stool Stop: 03/13/24 16:44 Cetirizine HCl (Cetirizine Hcl 10 Mg Tablet) 10 mg PO QAM TAY Stop: 03/31/24 12:44 Last Admin: 03/05/24 09:09 Dose: 10 mg Chlorpromazine HCl (Chlorpromazine Hcl 25 Mg Tab) 50 mg PO BID PRN PRN Reason: Agitation Stop: 03/30/24 11:29 Last Admin: 02/29/24 17:07 Dose: 50 mg Ergocalciferol (Ergocalciferol 1250 Mcg (50,000 Units) Cap) 1,250 mcg PO Ly@0900 TAY Stop: 03/18/24 08:59 Last Admin: 03/02/24 09:32 Dose: 1,250 mcg Fluoxetine HCl (Fluoxetine Hcl 10 Mg Cap) 30 mg PO QAM TAY Stop: 03/24/24 08:59 Last Admin: 03/05/24 09:10 Dose: 30 mg Haloperidol (Haloperidol 5 Mg Tab) 2.5 mg PO DAILYBB TAY Stop: 04/03/24 07:59 Last Admin: 03/05/24 09:09 Dose: 2.5 mg Haloperidol (Haloperidol 5 Mg Tab) 5 mg PO HS TAY Stop: 04/02/24 21:59 Last Admin: 03/04/24 20:38 Dose: 5 mg Hydrocortisone (Hydrocortisone 1% Crm 30 Gm Tube) 1 appln EXT DAILY TAY Stop: 03/18/24 12:59 Last Admin: 03/05/24 09:12 Dose: 1 appln Ketoconazole (Ketoconazole 2% Shampoo 120 Ml Btl) 1 appln EXT TuFr@0900 [facility] Stop: 04/03/24 14:14 Last Admin: 03/04/24 14:28 Dose: Not Given Lorazepam (Lorazepam 1 Mg Tab) 1 mg PO HS [facility] Stop: 04/01/24 21:59 Last Admin: 03/04/24 20:38 Dose: 1 mg Lorazepam (Lorazepam 1 Mg Tab) 1 mg PO BID PRN PRN Reason: Anxiety Stop: 03/31/24 12:36 Last Admin: 03/04/24 17:00 Dose: 1 mg Magnesium Hydroxide (Magnesium Hydroxide Susp 30 Ml Udc) 30 ml PO DAILY PRN PRN Reason: Constipation Stop: 03/13/24 16:44 Mupirocin (Mupirocin 2% Oint 22 Gm Tube) 1 appln EXT BID PRN PRN Reason: Nasal Dryness Stop: 03/21/24 08:59 Propranolol HCl (Propranolol Hcl 10 Mg Tab) 10 mg PO BID PRN PRN Reason: akathisia Stop: 03/25/24 20:59 Last Admin: 02/27/24 09:18 Dose: 10 mg Sodium Chloride (Sodium Chloride 0.65% Na Soln 45 Ml ([place])) 1 - 2 sprays NA QID [facility] Stop: 03/31/24 12:59 Last Admin: 03/05/24 09:11 Dose: 1 sprays Mental Health & Subst Abuse Tx Psychiatrist Time of Appointment with Psychiatrist: n/a Therapist Name of Therapist: Alis Rankin Time of Therapist Appointment: n/a Furniture Mover Driver Name of Furniture Mover Driver: n/a Time of Appointment with Furniture Mover Driver: n/a Post Discharge Appointments Primary Care Physician Name Of Family Doctor/PCP: Dr. Miles Time of Appointment with PCP: n/a
[2024-03-06 08:07] LABS: Prolactin 59.55 ng/ml
[2024-03-06] MEDS ORDERED: haloperidoL 0.5 MG TAB PO ONE (10:00)
[2024-03-06] MEDS: haloperidoL 5 MG TAB PO ONE (10:50)
[2024-03-06] MEDS: BENZTROPINE MESYLATE 0.5 MG TAB PO SCH (10:50)
--- NOTE | 2024-03-06 10:50 | Psychiatric Progress Note ---
Date of Service March 06, 2024 Impression / Recommendations Impression 23 yo man with no formal psychiatric history admitted on a 201 voluntary commitment for psychosis, sense that he may hurt someone and SI with plan of hanging himself using rope. Diagnostically consistent with unspecified psychosis with differential including schizophrenia (seems most likely given his age, gradual onset with increased negative symptoms, ideas of reference, increased taoism fixation, and now thought insertion to harm others) vs OCD vs MDD with psychotic features vs BPAD (less likely given no hx of monica) vs delusional disorder vs 2/2 medical cause (unlikely given negative head CT two months ago and no current neurological deficits or autonomic dysfunction, TSH normal, ?past Lyme panel). 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 Plan to provide additional as needed dosing of Haldol upon discharge for potential recurrence of symptoms. Reviewed treatments for akathisia. Will start Cogentin 0.5 twice daily for side effects. Patient is future oriented and involved in aftercare planning. Plan for family meeting prior to discharge. Social work to send referral first episode psychosis program. Patient to follow up with PCP regarding sleep study. Educated patient about long-acting injectable options for antipsychotics. Labs reviewed: Prolactin of 59.5 and elevated; unclear whether elevated prior to initation of AP. Vit B12 and Vit D within normal limits. May benefit from initiation of adjunct abilify, PDE inhibitor, or switch AP on an outpatient basis to improve sexual function. Overall, I spent a total of 50 minutes with this case including review of chart records, nursing report, review of lab work, direct evaluation of the patient at bedside, counseling the patient, and documentation in the electronic health record. (1) Unspecified psychosis not due to a substance or known physiological condition: (2) Suicidal ideations: intermittent (3) Homicidal thoughts: resolved Plan 03/06/24: Increase Haldol back to 5mg BID. Benztropine 0.5mg BID scheduled. Aftercare planning. 03/05/24: Decrease Haldol to 2.5mg QAM, 5mg HS for akathisia concerns. Labs for prolactin, vitamin D, vitamin B12. 03/04/24: Increase lorazepam PRN to 1mg BID. Ketoconazole 2% shampoo applied 2x weekly for 4 weeks. Hydrocortisone 1% cream applied daily to scalp for 2 weeks. 03/03/24: Haldol 2.5mg QDBB, 2.5mg QDBL, 5mg HS 03/02/24: Brain MRI w/wo contrast to rule out nonpsychiatric causes. Patient continues to feel sedated during the day and will discontinue nightly Clonazepam and replace with Lorazepam 1mg HS. Lorazepam PRN dec to 0.5mg BID PRN. 03/01/24: Start daily cetirizine. Schedule nasal saline 4 times daily. Will work with social work to plan for outpatient sleep study. Concern for excess sedation on Klonopin and will reduce dose to 0.5 mg and scheduled at bedtime. Concern for ongoing EPS from haloperidol and Thorazine and will decrease haloperidol to to 5 mg twice daily. Discontinue as needed Klonopin and start lorazepam 1 mg twice daily as needed for anxiety. 02/29/2024: Increase Klonopin to 1mg qAM and Klonopin prn. Increase Thorazine 50mg BID prn for somatic delusions/psychosis/agitation. 02/28/2024: Start Thorazine 10mg BID prn for somatic perseveration. 02/27/2024: Start Klonopin 0.5mg schedule. Plan to increase fluoxetine on 02/29/24 02/26/2024: Continue current medications and tx plan. 02/25/2024: Increase haldol 10mg BID 02/24/2024: Addition of propranolol 10mg BID prn for akathisia 02/23/2024: Discontinue olanzapine. Adjust haldol to 5mg qAM and 10mg HS. Adjust cogentin to BID prn. 02/22/24: Prozac was increased to 30 mg daily starting tomorrow. 02/21/2024 Patient's larger dose of Zyprexa was switched to the morning because he says mornings are more difficult. The plan is to decrease the Zyprexa to only have him on Haldol. Continue the Prozac. PRN Ativan should be used sparingly. The fact that he has responded to the ativan makes me think this is more obsessional and intrusive thoughts than truce psychosis. Prozac was started for anxiety and should be titrated as quickly as safe for efficacy. 02/20/24 We stopped Gabapentin, added Prozac, PRN ativan, and Zyprexa was decreased with the hope that he can only be on Haldol as it has seemed to be the most effective. 02/19/2024 We have added Gabapentin to the patient's regimen at his request. We will continue to monitor. We will also try changing the larger Zyprexa dose to the morning. : Continue with current medications at this time. We will consider adding Gabapentin for his anxiety about his breathing. 02/17/2024 Zyprexa at bedtime was increased to 7.5 mg, continue 5 mg daily 02/16/2024 Zyprexa 5 mg BID. 02/15/2024: -Increase risperidone to 1mg BID -haldol 2.5mg BID prn for agitation/paranoia/psychosis and ativan 0.5mg BID prn for agitation -discontinue ativan HS 02/14/2024: -Haldol 5mg po and ativan 2mg po at HS -Tomorow start risperidone 0.5mg BID -Fasting lipid panel, glucose and HbA1c in the morning 02/13/2024:The patient was admitted to the [facility] ([facility] mental health unit) on q15 min checks (behavioral with suicide precautions) for safety. The patient will participate in group, recreational, and milieu therapies and will be offered additional individual and family sessions as clinically appropriate. -Continue haldol 2.5mg qAM and 5mg HS for psychosis -Ativan 1mg qAM and 2mg HS for psychosis given high acuity of current distress and symptoms -Discontinue lamictal -Fasting lipid panel and HbA1c in 1-2 days as he can better tolerate -Suicide protocol with safe tray, safe linens, safety precautions -Homicide precautions -Elopement precautions Inventory Assets Strengths: supportive family, willing for treatment Needs: safety and stabilization, increased coping skills, medication adjustment, increased outpatient support Suicide Risk Level Suicide Risk Level: High-Moderate (q15 min suicide checks) (SI with plan prior to admission and psychosis but denies SI currently and feels safe in the hospital, he feels comfortable telling staff if he feels unsafe and likes the ability to utilize the quiet room, using quiet room appropriately ) Risk Factors Assessment Male: Yes : Yes Do You Have Access To A Gun?: No (n/a) Mental Health Diagnoses: Yes Substance Use Disorders: No Previous Attempt: No Family History of Suicide: No Previous Psychiatric Hospitalization: No Protective Factors Assessment Employed: No Stable Relationships: Yes Supportive Family: Yes Interval History Identifying Information SAMIRA ROOT is a 23-year-old man who currently lives in [place] with his parents, has a history of depression, and was admitted on 02/12/24 17:07 on a 201 voluntary commitment for SI with plan of hanging himself and ego-dystonic HI. Chief Complaint "[]". Review of Systems Sleep Information Total Hours of Sleep: 6.5 Sleep Comments: HS Haldol Meal Information Percent Meal Consumed - Breakfast: 100 Percent Meal Consumed - Lunch: 100 Percent Meal Consumed - Dinner: 100 Subjective Subjective Patient was seen & assessed and interval progress reviewed with treatment team nursing and social work Overnight no acute events. He showered and used his ketoconazole shampoo. Attending groups. The patient reports sleeping through the night but not feeling rested and this has been a chronic problem. Wants to get a sleep study. Reports itching on his head has improved with hydrocortisone cream. Reports having "thought insertion" with thoughts of harming himself. He describes this as a "fear of bad things happening". Continues to have inner restlessness and taking Ativan however complains of sedation. Feels it may be due to to pre-existing sleep issues as this has been a chronic problem. Reports propranolol was given for h is inner restlessness and was ineffective. We discussed going back up on his Haldol to 5 mg twice daily and he is agreeable. We discussed the use of as needed Haldol at home if he decompensates. He is agreeable to a family meeting prior to discharge. He spoke with his mother and has plans to live with the family in [place]. He denies suicidal and homicidal ideation at this time. When discussing potential triggers for anxiety at home he reports there is nothing physical triggering him and it is more mental. Introduced the idea of transitioning to a long-acting injectable and he appears amenable. Physical Exam Mental Examination Appearance: Well Groomed Eye Contact: Maintains Eye Contact Motor Behavior: Restless Speech: Normal Mood: Euthymic Affect: Anxious Thought Process: Intact Hallucinations: None Insight: Fair Judgement: Fair (to limited) Vital Signs (Past 24 Hours) Last Vital Signs Temp 36.8 C 03/06/24 06:31 Pulse 73 03/06/24 06:32 Resp 16 03/06/24 06:31 BP 108/73 03/06/24 06:32 Pulse Ox 97 02/24/24 06:44 O2 Del Method Room Air 02/24/24 06:44 Results & Data ([facility]) Laboratory Results Laboratory Results - last 24 hr 03/06/24 07:09 Vitamin B12 484 25-OH Vitamin D Total 44.6 Prolactin 59.55 Diagnostic Findings 03/06/24: Prolactin 59.55 (H) 03/06/24: Vit D 44.6 (normal), Vit B12 484 (normal) Current Inpatient Medications Current Inpatient Medications: Current Inpatient Medications Acetaminophen (Acetaminophen 325 Mg Tab) 650 mg PO Q4H PRN PRN Reason: Headache or Minor Fever Stop: 03/13/24 16:44 Al Hydrox/Mg Hydrox/Simethicone (Aluminum/Magnesium Susp 30 Ml Udc) 30 ml PO Q4H PRN PRN Reason: GI Upset Stop: 03/13/24 16:44 Benztropine Mesylate (Benztropine Mesylate 1 Mg Tab) 1 mg PO BID PRN PRN Reason: muscle stiffness Stop: 03/24/24 09:54 Last Admin: 03/01/24 17:21 Dose: 1 mg Benztropine Mesylate (Benztropine Mesylate 0.5 Mg Tab) 0.5 mg PO BID [facility] Stop: 04/05/24 10:14 Bismuth Subsalicylate (Bismuth Subsalicylate Liqd 236 Ml) 15 ml PO PRN PRN PRN Reason: Loose Stool Stop: 03/13/24 16:44 Cetirizine HCl (Cetirizine Hcl 10 Mg Tablet) 10 mg PO QAM [facility] Stop: 03/31/24 12:44 Last Admin: 03/06/24 08:30 Dose: 10 mg Chlorpromazine HCl (Chlorpromazine Hcl 25 Mg Tab) 50 mg PO BID PRN PRN Reason: Agitation Stop: 03/30/24 11:29 Last Admin: 02/29/24 17:07 Dose: 50 mg Ergocalciferol (Ergocalciferol 1250 Mcg (50,000 Units) Cap) 1,250 mcg PO Ly@0900 [facility] Stop: 03/18/24 08:59 Last Admin: 03/02/24 09:32 Dose: 1,250 mcg Fluoxetine HCl (Fluoxetine Hcl 10 Mg Cap) 30 mg PO QAM [facility] Stop: 03/24/24 08:59 Last Admin: 03/06/24 08:30 Dose: 30 mg Haloperidol (Haloperidol 5 Mg Tab) 5 mg PO HS [facility] Stop: 04/02/24 21:59 Last Admin: 03/05/24 20:52 Dose: 5 mg Haloperidol (Haloperidol 5 Mg Tab) 5 mg PO DAILY [facility] Stop: 04/06/24 08:59 Hydrocortisone (Hydrocortisone 1% Crm 30 Gm Tube) 1 appln EXT DAILY [facility] Stop: 03/18/24 12:59 Last Admin: 03/06/24 08:36 Dose: 1 appln Ketoconazole (Ketoconazole 2% Shampoo 120 Ml Btl) 1 appln EXT TuFr@0900 [facility] Stop: 04/03/24 14:14 Last Admin: 03/05/24 13:53 Dose: 1 appln Lorazepam (Lorazepam 1 Mg Tab) 1 mg PO [facility] Stop: 04/01/24 21:59 Last Admin: 03/05/24 20:52 Dose: 1 mg Lorazepam (Lorazepam 1 Mg Tab) 1 mg PO BID PRN PRN Reason: Anxiety Stop: 03/31/24 12:36 Last Admin: 03/05/24 16:17 Dose: 1 mg Magnesium Hydroxide (Magnesium Hydroxide Susp 30 Ml Udc) 30 ml PO DAILY PRN PRN Reason: Constipation Stop: 03/13/24 16:44 Mupirocin (Mupirocin 2% Oint 22 Gm Tube) 1 appln EXT BID PRN PRN Reason: Nasal Dryness Stop: 03/21/24 08:59 Propranolol HCl (Propranolol Hcl 10 Mg Tab) 10 mg PO BID PRN PRN Reason: akathisia Stop: 03/25/24 20:59 Last Admin: 02/27/24 09:18 Dose: 10 mg Sodium Chloride (Sodium Chloride 0.65% Na Soln 45 Ml (Mora)) 1 - 2 sprays NA QID [facility] Stop: 03/31/24 12:59 Last Admin: 03/06/24 08:36 Dose: 2 sprays Mental Health & Subst Abuse Tx Psychiatrist Time of Appointment with Psychiatrist: n/a Therapist Name of Therapist: [facility] Time of Therapist Appointment: n/a Refrigeration Plant Operator Name of Refrigeration Plant Operator: n/a Time of Appointment with Refrigeration Plant Operator: n/a Post Discharge Appointments Primary Care Physician Name Of Family Doctor/PCP: Dr. Miles Time of Appointment with PCP: n/a
[2024-03-07] MEDS: haloperidoL 5 MG TAB PO SCH (08:22)
--- NOTE | 2024-03-07 10:47 | Psychiatric Progress Note ---
Date of Service March 07, 2024 Impression / Recommendations Impression 23 yo man with no formal psychiatric history admitted on a 201 voluntary commitment for psychosis, sense that he may hurt someone and SI with plan of hanging himself using rope. Diagnostically consistent with unspecified psychosis with differential including schizophrenia (seems most likely given his age, gradual onset with increased negative symptoms, ideas of reference, increased rastafari fixation, and now thought insertion to harm others) vs OCD vs MDD with psychotic features vs BPAD (less likely given no hx of monica) vs delusional disorder vs 2/2 medical cause (unlikely given negative head CT two months ago and no current neurological deficits or autonomic dysfunction, TSH normal, ?past Lyme panel). Today: Patient's thought content improved when back on Haldol 5 mg twice daily. Scheduled Cogentin effective for akathisia. Working on coping strategies. No evidence of command hallucinations, body control, auditory or visual hallucinations. Obsessions have significantly improved since admission. Working with social work and family for aftercare planning. Overall, I spent a total of 35 minutes with this case including review of chart records, nursing report, direct evaluation of the patient at bedside, counseling the patient, and documentation in the electronic health record. 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 03/06/24: Increase Haldol back to 5mg BID. Benztropine 0.5mg BID scheduled. Aftercare planning. 03/05/24: Decrease Haldol to 2.5mg QAM, 5mg HS for akathisia concerns. Labs for prolactin, vitamin D, vitamin B12. 03/04/24: Increase lorazepam PRN to 1mg BID. Ketoconazole 2% shampoo applied 2x weekly for 4 weeks. Hydrocortisone 1% cream applied daily to scalp for 2 weeks. 03/03/24: Haldol 2.5mg QDBB, 2.5mg QDBL, 5mg HS 03/02/24: Brain MRI w/wo contrast to rule out nonpsychiatric causes. Patient continues to feel sedated during the day and will discontinue nightly Clonazepam and replace with Lorazepam 1mg HS. Lorazepam PRN dec to 0.5mg BID PRN. 03/01/24: Start daily cetirizine. Schedule nasal saline 4 times daily. Will work with social work to plan for outpatient sleep study. Concern for excess sedation on Klonopin and will reduce dose to 0.5 mg and scheduled at bedtime. Concern for ongoing EPS from haloperidol and Thorazine and will decrease haloperidol to to 5 mg twice daily. Discontinue as needed Klonopin and start lorazepam 1 mg twice daily as needed for anxiety. 02/29/2024: Increase Klonopin to 1mg qAM and Klonopin prn. Increase Thorazine 50mg BID prn for somatic delusions/psychosis/agitation. 02/28/2024: Start Thorazine 10mg BID prn for somatic perseveration. 02/27/2024: Start Klonopin 0.5mg schedule. Plan to increase fluoxetine on 02/29/24 02/26/2024: Continue current medications and tx plan. 02/25/2024: Increase haldol 10mg BID 02/24/2024: Addition of propranolol 10mg BID prn for akathisia 02/23/2024: Discontinue olanzapine. Adjust haldol to 5mg qAM and 10mg HS. Adjust cogentin to BID prn. 02/22/24: Prozac was increased to 30 mg daily starting tomorrow. 02/21/2024 Patient's larger dose of Zyprexa was switched to the morning because he says mornings are more difficult. The plan is to decrease the Zyprexa to only have him on Haldol. Continue the Prozac. PRN Ativan should be used sparingly. The fact that he has responded to the ativan makes me think this is more obsessional and intrusive thoughts than truce psychosis. Prozac was started for anxiety and should be titrated as quickly as safe for efficacy. 02/20/24 We stopped Gabapentin, added Prozac, PRN ativan, and Zyprexa was decreased with the hope that he can only be on Haldol as it has seemed to be the most effective. 02/19/2024 We have added Gabapentin to the patient's regimen at his request. We will continue to monitor. We will also try changing the larger Zyprexa dose to the morning. : Continue with current medications at this time. We will consider adding Gabapentin for his anxiety about his breathing. 02/17/2024 Zyprexa at bedtime was increased to 7.5 mg, continue 5 mg daily 02/16/2024 Zyprexa 5 mg BID. 02/15/2024: -Increase risperidone to 1mg BID -haldol 2.5mg BID prn for agitation/paranoia/psychosis and ativan 0.5mg BID prn for agitation -discontinue ativan HS 02/14/2024: -Haldol 5mg po and ativan 2mg po at HS -Tomorow start risperidone 0.5mg BID -Fasting lipid panel, glucose and HbA1c in the morning 02/13/2024:The patient was admitted to the [facility] on q15 min checks (behavioral with suicide precautions) for safety. The patient will participate in group, recreational, and milieu therapies and will be offered additional individual and family sessions as clinically appropriate. -Continue haldol 2.5mg qAM and 5mg HS for psychosis -Ativan 1mg qAM and 2mg HS for psychosis given high acuity of current distress and symptoms -Discontinue lamictal -Fasting lipid panel and HbA1c in 1-2 days as he can better tolerate -Suicide protocol with safe tray, safe linens, safety precautions -Homicide precautions -Elopement precautions Inventory Assets Strengths: supportive family, willing for treatment Needs: safety and stabilization, increased coping skills, medication adjustment, increased outpatient support Suicide Risk Level Suicide Risk Level: Moderate (q15 min suicide checks) (has been denying SI on interview, able to distract self from thoughts, stable behavior on the unit) Risk Factors Assessment Male: Yes : Yes Do You Have Access To A Gun?: No (n/a) Mental Health Diagnoses: Yes Substance Use Disorders: No Previous Attempt: No Family History of Suicide: No Previous Psychiatric Hospitalization: No Protective Factors Assessment Employed: No Stable Relationships: Yes Supportive Family: Yes Interval History Identifying Information SAMIRA ROOT is a 23-year-old man who currently lives in [place] with his parents, has a history of depression, and was admitted on 02/12/24 17:07 on a 201 voluntary commitment for SI with plan of hanging himself and ego-dystonic HI. Chief Complaint "[]". Review of Systems Sleep Information Total Hours of Sleep: 6.5 Sleep Comments: HS Haldol Meal Information Percent Meal Consumed - Breakfast: 100 Percent Meal Consumed - Lunch: 100 Percent Meal Consumed - Dinner: 100 Subjective Subjective Patient was seen & assessed and interval progress reviewed with treatment team nursing and social work Overnight no acute events. Attending groups. Reports sleeping through the night but still feels tired and this has been a chronic problem. Reports inner restlessness and pacing has improved with the initiation of benztropine. Denies having intrusive thoughts like he did yesterday after increase of Haldol back to 5 mg twice daily. He feels safe in his surroundings. Complains of intermittent suicidal ideation related to frustrations about his mental health and situation. He denies any command hallucinations or body control. Reports music is an effective distraction from his thoughts. Looking forward to spending time with family. He denies current suicidal ideation and denies current homicidal ideation. No further concerns presented. Physical Exam Mental Examination Appearance: Well Groomed Eye Contact: Maintains Eye Contact Motor Behavior: Restless Speech: Normal Mood: Euthymic Affect: Anxious Thought Process: Intact Hallucinations: None Insight: Fair Judgement: Fair (to limited) Vital Signs (Past 24 Hours) Last Vital Signs Temp 37 C 03/07/24 06:35 Pulse 80 03/07/24 06:35 Resp 16 03/07/24 06:35 BP 96/57 L 03/07/24 06:35 Pulse Ox 97 02/24/24 06:44 O2 Del Method Room Air 02/24/24 06:44 Results & Data ([facility]) Current Inpatient Medications Current Inpatient Medications: Current Inpatient Medications Acetaminophen (Acetaminophen 325 Mg Tab) 650 mg PO Q4H PRN PRN Reason: Headache or Minor Fever Stop: 03/13/24 16:44 Al Hydrox/Mg Hydrox/Simethicone (Aluminum/Magnesium Susp 30 Ml Udc) 30 ml PO Q4H PRN PRN Reason: GI Upset Stop: 03/13/24 16:44 Benztropine Mesylate (Benztropine Mesylate 1 Mg Tab) 1 mg PO BID PRN PRN Reason: muscle stiffness Stop: 03/24/24 09:54 Last Admin: 03/01/24 17:21 Dose: 1 mg Benztropine Mesylate (Benztropine Mesylate 0.5 Mg Tab) 0.5 mg PO BID TAY Stop: 04/05/24 10:14 Last Admin: 03/07/24 08:22 Dose: 0.5 mg Bismuth Subsalicylate (Bismuth Subsalicylate Liqd 236 Ml) 15 ml PO PRN PRN PRN Reason: Loose Stool Stop: 03/13/24 16:44 Cetirizine HCl (Cetirizine Hcl 10 Mg Tablet) 10 mg PO QAM [facility] Stop: 03/31/24 12:44 Last Admin: 03/07/24 08:22 Dose: 10 mg Chlorpromazine HCl (Chlorpromazine Hcl 25 Mg Tab) 50 mg PO BID PRN PRN Reason: Agitation Stop: 03/30/24 11:29 Last Admin: 02/29/24 17:07 Dose: 50 mg Ergocalciferol (Ergocalciferol 1250 Mcg (50,000 Units) Cap) 1,250 mcg PO Ly@0900 [facility] Stop: 03/18/24 08:59 Last Admin: 03/02/24 09:32 Dose: 1,250 mcg Fluoxetine HCl (Fluoxetine Hcl 10 Mg Cap) 30 mg PO QAM [facility] Stop: 03/24/24 08:59 Last Admin: 03/07/24 08:22 Dose: 30 mg Haloperidol (Haloperidol 5 Mg Tab) 5 mg PO [facility] Stop: 04/02/24 21:59 Last Admin: 03/06/24 20:53 Dose: 5 mg Haloperidol (Haloperidol 5 Mg Tab) 5 mg PO DAILY TAY Stop: 04/06/24 08:59 Last Admin: 03/07/24 08:22 Dose: 5 mg Hydrocortisone (Hydrocortisone 1% Crm 30 Gm Tube) 1 appln EXT DAILY [facility] Stop: 03/18/24 12:59 Last Admin: 03/07/24 08:23 Dose: 1 appln Ketoconazole (Ketoconazole 2% Shampoo 120 Ml Btl) 1 appln EXT TuFr@0900 [facility] Stop: 04/03/24 14:14 Last Admin: 03/07/24 08:24 Dose: Not Given Lorazepam (Lorazepam 1 Mg Tab) 1 mg PO HS [facility] Stop: 04/01/24 21:59 Last Admin: 03/06/24 20:55 Dose: 1 mg Lorazepam (Lorazepam 1 Mg Tab) 1 mg PO BID PRN PRN Reason: Anxiety Stop: 03/31/24 12:36 Last Admin: 03/07/24 09:44 Dose: 1 mg Magnesium Hydroxide (Magnesium Hydroxide Susp 30 Ml Udc) 30 ml PO DAILY PRN PRN Reason: Constipation Stop: 03/13/24 16:44 Mupirocin (Mupirocin 2% Oint 22 Gm Tube) 1 appln EXT BID PRN PRN Reason: Nasal Dryness Stop: 03/21/24 08:59 Propranolol HCl (Propranolol Hcl 10 Mg Tab) 10 mg PO BID PRN PRN Reason: akathisia Stop: 03/25/24 20:59 Last Admin: 02/27/24 09:18 Dose: 10 mg Sodium Chloride (Sodium Chloride 0.65% Na Soln 45 Ml ([place])) 1 - 2 sprays NA QID TAY Stop: 03/31/24 12:59 Last Admin: 03/07/24 08:23 Dose: 2 sprays Mental Health & Subst Abuse Tx Psychiatrist [facility] Time of Appointment with Psychiatrist: n/a Psychiatric Appointment Comment: [address] [address] Therapist Name of Therapist: [facility] Therapist's Time of Therapist Appointment: n/a Therapy Appointment Comment: [address] [address] Salesperson Furs Name of Salesperson Furs: [email or web address] [facility] [employer] Phone Number for Salesperson Furs: [phone] Time of Appointment with Salesperson Furs: n/a Case Management Appointment Comment: [address] [address] Post Discharge Appointments Primary Care Physician Name Of Family Doctor/PCP: ROBERT - Dr. Miles (will see Dr. Dickinson) Primary Care Date of Future Appointment with PCP: 03/13/24 Time of Appointment with PCP: 11:05 AM Provider Appointment Comment: [address], [place] [id number] Specialist Name of Specialist: [facility] Phone Number for Specialist: [phone] Time of Appointment with Specialist: Please ask PCP for a referral.
[2024-03-07] MEDS ORDERED: KETOCONAZOLE 2% SHAMPOO 120 ML BTL EXT SCH (14:00)
[2024-03-07] MEDS: LORazepam 0.5 MG TAB PO SCH (21:10)
--- NOTE | 2024-03-08 09:46 | Psychiatric Progress Note ---
Date of Service March 08, 2024 Impression / Recommendations Impression 23 yo man with no formal psychiatric history admitted on a 201 voluntary commitment for psychosis, sense that he may hurt someone and SI with plan of hanging himself using rope. Diagnostically consistent with unspecified psychosis with differential including schizophrenia (seems most likely given his age, gradual onset with increased negative symptoms, ideas of reference, increased congregational fixation, and now thought insertion to harm others) vs OCD vs MDD with psychotic features vs BPAD (less likely given no hx of monica) vs delusional disorder vs 2/2 medical cause (unlikely given negative head CT two months ago and no current neurological deficits or autonomic dysfunction, TSH normal). 03/08/2024: Ongoing somatic distress/sense of discomfort and unease in his body. Given symptoms started prior to hospitalization unlikely that they are due to akathisia. But in case they are will trial mirtazapine to see if this helps given cogentin is not effective for akathisia and can increase risk of TD and worsen sedation. Discontinue Zytrec as he finds no benefit and can worsen fatigue and cognitive blunting. Ongoing intermittent SI. He consents to increase of fluoxetine to further target anxiety and OCD component to likely schizophrenia. Overall, I spent a total of 55 minutes with this case including review of chart records, nursing report, direct evaluation of the patient at bedside, counseling the patient, and documentation in the electronic health record. (1) Schizophreniform disorder: (2) Obsessive-compulsive and related disorder due to another medical condition: (3) Depression: (4) Suicidal ideations: intermittent (5) Elevated prolactin level: (6) Sexual dysfunction: Plan 03/08/2024: Discontinue scheduled Cogentin (prn for acute dystonic reaction), discontinue zytrec. Start mirtazapine 7.5mg HS, increase fluoxetine to 40mg qd 03/07/24: Continue current medications and treatment plan. 03/06/24: Increase Haldol back to 5mg BID. Benztropine 0.5mg BID scheduled. Aftercare planning. 03/05/24: Decrease Haldol to 2.5mg QAM, 5mg HS for akathisia concerns. Labs for prolactin, vitamin D, vitamin B12. 03/04/24: Increase lorazepam PRN to 1mg BID. Ketoconazole 2% shampoo applied 2x weekly for 4 weeks. Hydrocortisone 1% cream applied daily to scalp for 2 weeks. 03/03/24: Haldol 2.5mg QDBB, 2.5mg QDBL, 5mg HS 03/02/24: Brain MRI w/wo contrast to rule out nonpsychiatric causes. Patient continues to feel sedated during the day and will discontinue nightly Clonazepam and replace with Lorazepam 1mg HS. Lorazepam PRN dec to 0.5mg BID PRN. 03/01/24: Start daily cetirizine. Schedule nasal saline 4 times daily. Will work with social work to plan for outpatient sleep study. Concern for excess sedation on Klonopin and will reduce dose to 0.5 mg and scheduled at bedtime. Concern for ongoing EPS from haloperidol and Thorazine and will decrease haloperidol to to 5 mg twice daily. Discontinue as needed Klonopin and start lorazepam 1 mg twice daily as needed for anxiety. 02/29/2024: Increase Klonopin to 1mg qAM and Klonopin prn. Increase Thorazine 50mg BID prn for somatic delusions/psychosis/agitation. 02/28/2024: Start Thorazine 10mg BID prn for somatic perseveration. 02/27/2024: Start Klonopin 0.5mg schedule. Plan to increase fluoxetine on 02/29/24 02/26/2024: Continue current medications and tx plan. 02/25/2024: Increase haldol 10mg BID 02/24/2024: Addition of propranolol 10mg BID prn for akathisia 02/23/2024: Discontinue olanzapine. Adjust haldol to 5mg qAM and 10mg HS. Adjust cogentin to BID prn. 02/22/24: Prozac was increased to 30 mg daily starting tomorrow. 02/21/2024 Patient's larger dose of Zyprexa was switched to the morning because he says mornings are more difficult. The plan is to decrease the Zyprexa to only have him on Haldol. Continue the Prozac. PRN Ativan should be used sparingly. The fact that he has responded to the ativan makes me think this is more obsessional and intrusive thoughts than truce psychosis. Prozac was started for anxiety and should be titrated as quickly as safe for efficacy. 02/20/24 We stopped Gabapentin, added Prozac, PRN ativan, and Zyprexa was decreased with the hope that he can only be on Haldol as it has seemed to be the most effective. 02/19/2024 We have added Gabapentin to the patient's regimen at his request. We will continue to monitor. We will also try changing the larger Zyprexa dose to the morning. : Continue with current medications at this time. We will consider adding Gabapentin for his anxiety about his breathing. 02/17/2024 Zyprexa at bedtime was increased to 7.5 mg, continue 5 mg daily 02/16/2024 Zyprexa 5 mg BID. 02/15/2024: -Increase risperidone to 1mg BID -haldol 2.5mg BID prn for agitation/paranoia/psychosis and ativan 0.5mg BID prn for agitation -discontinue ativan HS 02/14/2024: -Haldol 5mg po and ativan 2mg po at HS -Tomorow start risperidone 0.5mg BID -Fasting lipid panel, glucose and HbA1c in the morning 02/13/2024:The patient was admitted to the [facility] ([facility]) on q15 min checks (behavioral with suicide precautions) for safety. The patient will participate in group, recreational, and milieu therapies and will be offered additional individual and family sessions as clinically appropriate. -Continue haldol 2.5mg qAM and 5mg HS for psychosis -Ativan 1mg qAM and 2mg HS for psychosis given high acuity of current distress and symptoms -Discontinue lamictal -Fasting lipid panel and HbA1c in 1-2 days as he can better tolerate -Suicide protocol with safe tray, safe linens, safety precautions -Homicide precautions -Elopement precautions Inventory Assets Strengths: supportive family, willing for treatment Needs: safety and stabilization, increased coping skills, medication adjustment, increased outpatient support Suicide Risk Level Suicide Risk Level: Moderate (q15 min suicide checks) (intermittent SI but typically able to distract self from thoughts, stable behavior on the unit, denies current SI, feels safe in the hospital) Risk Factors Assessment Male: Yes : Yes Do You Have Access To A Gun?: No (n/a) Mental Health Diagnoses: Yes Substance Use Disorders: No Previous Attempt: No Family History of Suicide: No Previous Psychiatric Hospitalization: No Protective Factors Assessment Employed: No Stable Relationships: Yes Supportive Family: Yes Interval History Identifying Information SAMIRA ROOT is a 23-year-old man who currently lives in [place] with his parents, has a history of depression, and was admitted on 02/12/24 17:07 on a 201 voluntary commitment for SI with plan of hanging himself and ego-dystonic HI. Chief Complaint "I'm alright, trying to manage my anxiety". Review of Systems Sleep Information Total Hours of Sleep: 7 Sleep Comments: HS Haldol Meal Information Percent Meal Consumed - Breakfast: 100 Percent Meal Consumed - Lunch: 100 Percent Meal Consumed - Dinner: 100 Subjective Subjective Patient was seen & assessed and interval progress reviewed with treatment team nursing and social work. Continues to report anxiety which he describes in a variety of ways including cat scratching and restlessness and sense of suffocation. These symptoms were present prior to admission and prior to any antipsychotic or psychiatric medication trials. He feels the symptoms originate in his nose due to cartilage or nerve damage there but then impact his whole body with sense of restlessness/suffocation/anxiety. He worries this "may be my new reality". He doesn't feel Zytrec helped. Finds ativan helpful but doesn't like that it makes him tired. No SI today but experienced it yesterday. No plan but feels it comes into his mind when he's alone and not distracted. He is agreeable to further medication adjustments. Physical Exam Psychiatric Orientation: alert and oriented x 3 Apperance: appropriately dressed Eye Contact: + fair eye contact Motor Behavior: no abnormal motor movements; n EPS Speech: normal rate/rhythm/volume of speech Affect: + flat affect Mood: + depressed mood and + anxious mood Thought Process: goal directed thought process Thought Content: + preoccupation (somatic sensations with his nose) and + hopelessness Suicidal Thoughts: denies suicidal plan; + reports suicidal thoughts (intermittent, none today) Homicidal Thoughts: denies homicidal thoughts and denies homicidal plan Hallucinations: no auditory hallucinations and no visual hallucinations Cognition: recent memory grossly intact, remote memory grossly intact, attention grossly intact and language grossly intact Insight: + limited insight Judgment: + fair judgement Vital Signs (Past 24 Hours) Last Vital Signs Temp 36.7 C 03/08/24 06:30 Pulse 73 03/08/24 06:32 Resp 16 03/08/24 06:30 BP 101/56 L 03/08/24 06:32 Pulse Ox 96 03/08/24 06:30 O2 Del Method Room Air 03/08/24 06:30 Results & Data ([facility]) Current Inpatient Medications Current Inpatient Medications: Current Inpatient Medications Acetaminophen (Acetaminophen 325 Mg Tab) 650 mg PO Q4H PRN PRN Reason: Headache or Minor Fever Stop: 03/13/24 16:44 Al Hydrox/Mg Hydrox/Simethicone (Aluminum/Magnesium Susp 30 Ml Udc) 30 ml PO Q4H PRN PRN Reason: GI Upset Stop: 03/13/24 16:44 Benztropine Mesylate (Benztropine Mesylate 1 Mg Tab) 1 mg PO BID PRN PRN Reason: muscle stiffness Stop: 03/24/24 09:54 Last Admin: 03/01/24 17:21 Dose: 1 mg Benztropine Mesylate (Benztropine Mesylate 0.5 Mg Tab) 0.5 mg PO BID [facility] Stop: 04/05/24 10:14 Last Admin: 03/08/24 08:42 Dose: 0.5 mg Bismuth Subsalicylate (Bismuth Subsalicylate Liqd 236 Ml) 15 ml PO PRN PRN PRN Reason: Loose Stool Stop: 03/13/24 16:44 Cetirizine HCl (Cetirizine Hcl 10 Mg Tablet) 10 mg PO QAM [facility] Stop: 03/31/24 12:44 Last Admin: 03/08/24 08:42 Dose: 10 mg Chlorpromazine HCl (Chlorpromazine Hcl 25 Mg Tab) 50 mg PO BID PRN PRN Reason: Agitation Stop: 03/30/24 11:29 Last Admin: 02/29/24 17:07 Dose: 50 mg Ergocalciferol (Ergocalciferol 1250 Mcg (50,000 Units) Cap) 1,250 mcg PO Ly@0900 [facility] Stop: 03/18/24 08:59 Last Admin: 03/02/24 09:32 Dose: 1,250 mcg Fluoxetine HCl (Fluoxetine Hcl 10 Mg Cap) 30 mg PO QAM [facility] Stop: 03/24/24 08:59 Last Admin: 03/08/24 08:42 Dose: 30 mg Haloperidol (Haloperidol 5 Mg Tab) 5 mg PO HS TAY Stop: 04/02/24 21:59 Last Admin: 03/07/24 21:10 Dose: 5 mg Haloperidol (Haloperidol 5 Mg Tab) 5 mg PO DAILY TAY Stop: 04/06/24 08:59 Last Admin: 03/08/24 08:43 Dose: 5 mg Hydrocortisone (Hydrocortisone 1% Crm 30 Gm Tube) 1 appln EXT DAILY TAY Stop: 03/18/24 12:59 Last Admin: 03/08/24 08:43 Dose: 1 appln Ketoconazole (Ketoconazole 2% Shampoo 120 Ml Btl) 1 appln EXT TuFr@0900 TAY Stop: 04/03/24 14:14 Last Admin: 03/08/24 08:44 Dose: 1 appln Lorazepam (Lorazepam 0.5 Mg Tab) 0.5 mg PO BID PRN PRN Reason: Anxiety Stop: 03/31/24 12:36 Lorazepam (Lorazepam 0.5 Mg Tab) 0.5 mg PO HS TAY Stop: 04/06/24 21:59 Last Admin: 03/07/24 21:10 Dose: 0.5 mg Magnesium Hydroxide (Magnesium Hydroxide Susp 30 Ml Udc) 30 ml PO DAILY PRN PRN Reason: Constipation Stop: 03/13/24 16:44 Mupirocin (Mupirocin 2% Oint 22 Gm Tube) 1 appln EXT BID PRN PRN Reason: Nasal Dryness Stop: 03/21/24 08:59 Propranolol HCl (Propranolol Hcl 10 Mg Tab) 10 mg PO BID PRN PRN Reason: akathisia Stop: 03/25/24 20:59 Last Admin: 02/27/24 09:18 Dose: 10 mg Sodium Chloride (Sodium Chloride 0.65% Na Soln 45 Ml (Boyd)) 1 - 2 sprays NA QID TAY Stop: 03/31/24 12:59 Last Admin: 03/08/24 08:45 Dose: Not Given Mental Health & Subst Abuse Tx [facility]iat[facility] Time of Appointment with Psychiatrist: n/a Psychiatric Appointment Comment: [address] [facility] [id number] Therapist Name of Therapist: Barbara [facility] Therapist's Time of Therapist Appointment: n/a Therapy Appointment Comment: [address] [place] [address] Wireless Technician Name of Wireless Technician: Barbara Calderon - [facility] Phone Number for Wireless Technician: [phone] Time of Appointment with Wireless Technician: n/a Case Management Appointment Comment: [address] [place] [address] Post Discharge Appointments Primary Care Physician Name Of Family Doctor/PCP: ROBERT - Dr. Miles (will see Dr. Dickinson) Primary Care Date of Future Appointment with PCP: 03/13/24 Time of Appointment with PCP: 11:05 AM Provider Appointment Comment: [address], [place] [address] Specialist Name of Specialist: [facility] Phone Number for Specialist: [phone] Time of Appointment with Specialist: Please ask PCP for a referral.
[2024-03-08] MEDS: LORazepam 0.5 MG TAB PO PRN (12:00)
[2024-03-08] MEDS: MIRTAZAPINE TAB 15 MG TAB PO SCH (21:15)
[2024-03-08] MEDS ORDERED: MIRTAZAPINE TAB 15 MG TAB PO SCH (22:00)
[2024-03-09] MEDS: FLUoxetine HCL 20 MG CAP PO SCH (08:49)
--- NOTE | 2024-03-09 08:50 | Psychiatric Progress Note ---
Date of Service March 09, 2024 Impression / Recommendations Impression 23 yo man with no formal psychiatric history admitted on a 201 voluntary commitment for psychosis, sense that he may hurt someone and SI with plan of hanging himself using rope. Diagnostically consistent with unspecified psychosis with differential including schizophrenia (seems most likely given his age, gradual onset with increased negative symptoms, ideas of reference, increased cheondoism fixation, and now thought insertion to harm others) vs OCD vs MDD with psychotic features vs BPAD (less likely given no hx of monica) vs delusional disorder vs 2/2 medical cause (unlikely given negative head CT two months ago and no current neurological deficits or autonomic dysfunction, TSH normal). A: Less focused on somatic sensations/delusions. Mood improving. Still with chronic fatigue and lack of restful sleep. Still with periods of anxiety but less this morning than in the past. He consents to discontinuation of lorazepam at HS in attempt to reduce fatigue and allow for prn use to be more effective. Tolerating initiation of mirtazapine and seems to have lessened some of his morning anxiety/discomfort. Overall, I spent a total of 25 minutes with this case including review of chart records, nursing report, direct evaluation of the patient at bedside, counseling the patient, and documentation in the electronic health record. 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 03/08/2024: Discontinue scheduled Cogentin (prn for acute dystonic reaction), discontinue zytrec. Start mirtazapine 7.5mg HS, increase fluoxetine to 40mg qd 03/07/24: Continue current medications and treatment plan. 03/06/24: Increase Haldol back to 5mg BID. Benztropine 0.5mg BID scheduled. Aftercare planning. 03/05/24: Decrease Haldol to 2.5mg QAM, 5mg HS for akathisia concerns. Labs for prolactin, vitamin D, vitamin B12. 03/04/24: Increase lorazepam PRN to 1mg BID. Ketoconazole 2% shampoo applied 2x weekly for 4 weeks. Hydrocortisone 1% cream applied daily to scalp for 2 weeks. 03/03/24: Haldol 2.5mg QDBB, 2.5mg QDBL, 5mg HS 03/02/24: Brain MRI w/wo contrast to rule out nonpsychiatric causes. Patient continues to feel sedated during the day and will discontinue nightly Clonazepam and replace with Lorazepam 1mg HS. Lorazepam PRN dec to 0.5mg BID PRN. 03/01/24: Start daily cetirizine. Schedule nasal saline 4 times daily. Will work with social work to plan for outpatient sleep study. Concern for excess sedation on Klonopin and will reduce dose to 0.5 mg and scheduled at bedtime. Concern for ongoing EPS from haloperidol and Thorazine and will decrease teodora operidol to to 5 mg twice daily. Discontinue as needed Klonopin and start lorazepam 1 mg twice daily as needed for anxiety. 02/29/2024: Increase Klonopin to 1mg qAM and Klonopin prn. Increase Thorazine 50mg BID prn for somatic delusions/psychosis/agitation. 02/28/2024: Start Thorazine 10mg BID prn for somatic perseveration. 02/27/2024: Start Klonopin 0.5mg schedule. Plan to increase fluoxetine on 02/29/24 02/26/2024: Continue current medications and tx plan. 02/25/2024: Increase haldol 10mg BID 02/24/2024: Addition of propranolol 10mg BID prn for akathisia 02/23/2024: Discontinue olanzapine. Adjust haldol to 5mg qAM and 10mg HS. Adjust cogentin to BID prn. 02/22/24: Prozac was increased to 30 mg daily starting tomorrow. 02/21/2024 Patient's larger dose of Zyprexa was switched to the morning because he says mornings are more difficult. The plan is to decrease the Zyprexa to only have him on Haldol. Continue the Prozac. PRN Ativan should be used sparingly. The fact that he has responded to the ativan makes me think this is more obsessional and intrusive thoughts than truce psychosis. Prozac was started for anxiety and should be titrated as quickly as safe for efficacy. 02/20/24 We stopped Gabapentin, added Prozac, PRN ativan, and Zyprexa was decreased with the hope that he can only be on Haldol as it has seemed to be the most effective. 02/19/2024 We have added Gabapentin to the patient's regimen at his request. We will continue to monitor. We will also try changing the larger Zyprexa dose to the morning. : Continue with current medications at this time. We will consider adding Gabapentin for his anxiety about his breathing. 02/17/2024 Zyprexa at bedtime was increased to 7.5 mg, continue 5 mg daily 02/16/2024 Zyprexa 5 mg BID. 02/15/2024: -Increase risperidone to 1mg BID -haldol 2.5mg BID prn for agitation/paranoia/psychosis and ativan 0.5mg BID prn for agitation -discontinue ativan HS 02/14/2024: -Haldol 5mg po and ativan 2mg po at HS -Tomorow start risperidone 0.5mg BID -Fasting lipid panel, glucose and HbA1c in the morning 02/13/2024:The patient was admitted to the [facility] ([facility] unit) on q15 min checks (behavioral with suicide precautions) for safety. The patient will participate in group, recreational, and milieu therapies and will be offered additional individual and family sessions as clinically appropriate. -Continue haldol 2.5mg qAM and 5mg HS for psychosis -Ativan 1mg qAM and 2mg HS for psychosis given high acuity of current distress and symptoms -Discontinue lamictal -Fasting lipid panel and HbA1c in 1-2 days as he can better tolerate -Suicide protocol with safe tray, safe linens, safety precautions -Homicide precautions -Elopement precautions Inventory Assets Strengths: supportive family, willing for treatment Needs: safety and stabilization, increased coping skills, medication adjustment, increased outpatient support Suicide Risk Level Suicide Risk Level: Moderate (q15 min suicide checks) (intermittent SI but typically able to distract self from thoughts, stable behavior on the unit, denies current SI, feels safe in the hospital) Risk Factors Assessment Male: Yes : Yes Do You Have Access To A Gun?: No (n/a) Mental Health Diagnoses: Yes Substance Use Disorders: No Previous Attempt: No Family History of Suicide: No Previous Psychiatric Hospitalization: No Protective Factors Assessment Employed: No Stable Relationships: Yes Supportive Family: Yes Interval History Identifying Information SAMIRA ROOT is a 23-year-old man who currently lives in [place] with his parents, has a history of depression, and was admitted on 02/12/24 17:07 on a 201 voluntary commitment for SI with plan of hanging himself and ego-dystonic HI. Chief Complaint "Waking up exhausted, not the best". Review of Systems Sleep Information Total Hours of Sleep: 7 Sleep Comments: Required HS Haldol, Ativan and Remeron Meal Information Percent Meal Consumed - Breakfast: 100 Percent Meal Consumed - Lunch: 75 Percent Meal Consumed - Dinner: 100 Subjective Subjective Patient was seen & assessed and interval progress reviewed with treatment team nursing and social work. Got a prn ativan dose and later prn Thorazine dose for anxiety/delusions. He remained out of his room all evening and watched a movie with peers. Reported his mood as "unsure" last evening. He thinks the Thorazine yesterday "might have been helpful" and "didn't make me as tired as the ativan". Feels his mood is "alright". No SI today or yesterday afternoon. Still wakes feeling tired which has been the case for many years. He is agreeable to stopping the ativan at HS to see if this helps reduce any daytime fatigue. Physical Exam Psychiatric Orientation: alert and oriented x 3 Apperance: appropriately dressed Eye Contact: + fair eye contact Motor Behavior: no abnormal motor movements; n EPS Speech: normal rate/rhythm/volume of speech Affect: + flat affect Mood: + depressed mood and + anxious mood Thought Process: goal directed thought process Thought Content: reality based without delusions Suicidal Thoughts: denies suicidal thoughts and denies suicidal plan Homicidal Thoughts: denies homicidal thoughts and denies homicidal plan Hallucinations: no auditory hallucinations and no visual hallucinations Cognition: recent memory grossly intact, remote memory grossly intact, attention grossly intact and language grossly intact Insight: + limited insight Judgment: + fair judgement Vital Signs (Past 24 Hours) Last Vital Signs Temp 36.7 C 03/09/24 06:36 Pulse 66 03/09/24 06:36 Resp 16 03/09/24 06:36 BP 102/48 L 03/09/24 06:41 Pulse Ox 99 03/09/24 06:36 O2 Del Method Room Air 03/09/24 06:36 Results & Data ([facility]) Current Inpatient Medications Current Inpatient Medications: Current Inpatient Medications Acetaminophen (Acetaminophen 325 Mg Tab) 650 mg PO Q4H PRN PRN Reason: Headache or Minor Fever Stop: 03/13/24 16:44 Al Hydrox/Mg Hydrox/Simethicone (Aluminum/Magnesium Susp 30 Ml Udc) 30 ml PO Q4H PRN PRN Reason: GI Upset Stop: 03/13/24 16:44 Benztropine Mesylate (Benztropine Mesylate 1 Mg Tab) 1 mg PO BID PRN PRN Reason: muscle stiffness Stop: 03/24/24 09:54 Last Admin: 03/01/24 17:21 Dose: 1 mg Bismuth Subsalicylate (Bismuth Subsalicylate Liqd 236 Ml) 15 ml PO PRN PRN PRN Reason: Loose Stool Stop: 03/13/24 16:44 Chlorpromazine HCl (Chlorpromazine Hcl 25 Mg Tab) 50 mg PO BID PRN PRN Reason: Agitation Stop: 03/30/24 11:29 Last Admin: 03/08/24 16:14 Dose: 50 mg Ergocalciferol (Ergocalciferol 1250 Mcg (50,000 Units) Cap) 1,250 mcg PO Ly@0900 [facility] Stop: 03/18/24 08:59 Last Admin: 03/02/24 09:32 Dose: 1,250 mcg Fluoxetine HCl (Fluoxetine Hcl 20 Mg Cap) 40 mg PO QAM [facility] Stop: 04/08/24 08:59 Haloperidol (Haloperidol 5 Mg Tab) 5 mg PO HS [facility] Stop: 04/02/24 21:59 Last Admin: 03/08/24 21:15 Dose: 5 mg Haloperidol (Haloperidol 5 Mg Tab) 5 mg PO DAILY [facility] Stop: 04/06/24 08:59 Last Admin: 03/08/24 08:43 Dose: 5 mg Hydrocortisone (Hydrocortisone 1% Crm 30 Gm Tube) 1 appln EXT DAILY [facility] Stop: 03/18/24 12:59 Last Admin: 03/08/24 08:43 Dose: 1 appln Ketoconazole (Ketoconazole 2% Shampoo 120 Ml Btl) 1 appln EXT TuFr@0900 [facility] Stop: 04/03/24 14:14 Last Admin: 03/08/24 08:44 Dose: 1 appln Lorazepam (Lorazepam 0.5 Mg Tab) 0.5 mg PO BID PRN PRN Reason: Anxiety Stop: 03/31/24 12:36 Last Admin: 03/08/24 12:00 Dose: 0.5 mg Lorazepam (Lorazepam 0.5 Mg Tab) 0.5 mg PO HS [facility]AY Stop: 04/06/24 21:59 Last Admin: 03/08/24 21:15 Dose: 0.5 mg Magnesium Hydroxide (Magnesium Hydroxide Susp 30 Ml Udc) 30 ml PO DAILY PRN PRN Reason: Constipation Stop: 03/13/24 16:44 Mirtazapine (Mirtazapine Tab 15 Mg Tab) 7.5 mg PO HS [facility]AY Stop: 04/07/24 21:59 Last Admin: 03/08/24 21:15 Dose: 7.5 mg Mupirocin (Mupirocin 2% Oint 22 Gm Tube) 1 appln EXT BID PRN PRN Reason: Nasal Dryness Stop: 03/21/24 08:59 Propranolol HCl (Propranolol Hcl 10 Mg Tab) 10 mg PO BID PRN PRN Reason: akathisia Stop: 03/25/24 20:59 Last Admin: 02/27/24 09:18 Dose: 10 mg Sodium Chloride (Sodium Chloride 0.65% Na Soln 45 Ml ([place])) 1 - 2 sprays NA QID [facility] Stop: 03/31/24 12:59 Last Admin: 03/08/24 21:21 Dose: Not Given Mental Health & Subst Abuse Tx Psychiatrist Name of Psychiatrist: [facility] Psychiatrist's Time of Appointment with Psychiatrist: n/a Psychiatric Appointment Comment: [address] [facility] [id number] Therapist Name of Therapist: [facility] Therapist's Time of Therapist Appointment: n/a Therapy Appointment Comment: [address] [facility] [id number] Premium Note Interest Calculator Clerk Name of Premium Note Interest Calculator Clerk: [facility] Phone Number for Premium Note Interest Calculator Clerk: [phone] Time of Appointment with Premium Note Interest Calculator Clerk: n/a Case Management Appointment Comment: [address] [facility] [address] Post Discharge Appointments Primary Care Physician Name Of Family Doctor/PCP: ROBERT - Dr. Miles (will see Dr. Dickinson) Primary Care Date of Future Appointment with PCP: 03/13/24 Time of Appointment with PCP: 11:05 AM Provider Appointment Comment: [address], [place] [address] Specialist Name of Specialist: [facility] Phone Number for Specialist: [phone] Time of Appointment with Specialist: Please ask PCP for a referral.
--- NOTE | 2024-03-10 09:04 | Psychiatric Progress Note ---
Date of Service March 10, 2024 Impression / Recommendations Impression 23 yo man with no formal psychiatric history admitted on a 201 voluntary commitment for psychosis, sense that he may hurt someone and SI with plan of hanging himself using rope. Diagnostically consistent with unspecified psychosis with differential including schizophrenia (seems most likely given his age, gradual onset with increased negative symptoms, ideas of reference, increased anabaptism fixation, and now thought insertion to harm others) vs OCD vs MDD with psychotic features vs BPAD (less likely given no hx of monica) vs delusional disorder vs 2/2 medical cause (unlikely given negative head CT two months ago and no current neurological deficits or autonomic dysfunction, TSH normal). A: Less sedated this morning after discontinuing HS ativan. Still with somatic delusions but tolerating distress better today. PRN thorazine seems to be helpful for this. Tolerating his medications. Ongoing safety planning and disposition planning, working on getting outpatient psychiatry and first episode psychosis appointments. Overall, I spent a total of 25 minutes with this case including review of chart records, nursing report, direct evaluation of the patient at bedside, counseling the patient, and documentation in the electronic health record. 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 03/09/2024: Discontinue ativan 0.5mg HS. 03/08/2024: Discontinue scheduled Cogentin (prn for acute dystonic reaction), discontinue zytrec. Start mirtazapine 7.5mg HS, increase fluoxetine to 40mg qd 03/07/24: Continue current medications and treatment plan. 03/06/24: Increase Haldol back to 5mg BID. Benztropine 0.5mg BID scheduled. Aftercare planning. 03/05/24: Decrease Haldol to 2.5mg QAM, 5mg HS for akathisia concerns. Labs for prolactin, vitamin D, vitamin B12. 03/04/24: Increase lorazepam PRN to 1mg BID. Ketoconazole 2% shampoo applied 2x weekly for 4 weeks. Hydrocortisone 1% cream applied daily to scalp for 2 weeks. 03/03/24: Haldol 2.5mg QDBB, 2.5mg QDBL, 5mg HS 03/02/24: Brain MRI w/wo contrast to rule out nonpsychiatric causes. Patient continues to feel sedated during the day and will discontinue nightly Clonazepam and replace with Lorazepam 1mg HS. Lorazepam PRN dec to 0.5mg BID PRN. 03/01/24: Start daily cetirizine. Schedule nasal saline 4 times daily. Will work with social work to plan for outpatient sleep study. Concern for excess sedation on Klonopin and will reduce dose to 0.5 mg and scheduled at bedtime. Concern for ongoing EPS from haloperidol and Thorazine and will decrease haloperidol to to 5 mg twice daily. Discontinue as needed Klonopin and start lorazepam 1 mg twice daily as needed for anxiety. 02/29/2024: Increase Klonopin to 1mg qAM and Klonopin prn. Increase Thorazine 50mg BID prn for somatic delusions/psychosis/agitation. 02/28/2024: Start Thorazine 10mg BID prn for somatic perseveration. 02/27/2024: Start Klonopin 0.5mg schedule. Plan to increase fluoxetine on 02/29/24 02/26/2024: Continue current medications and tx plan. 02/25/2024: Increase haldol 10mg BID 02/24/2024: Addition of propranolol 10mg BID prn for akathisia 02/23/2024: Discontinue olanzapine. Adjust haldol to 5mg qAM and 10mg HS. Adjust cogentin to BID prn. 02/22/24: Prozac was increased to 30 mg daily starting tomorrow. 02/21/2024 Patient's larger dose of Zyprexa was switched to the morning because he says mornings are more difficult. The plan is to decrease the Zyprexa to only have him on Haldol. Continue the Prozac. PRN Ativan should be used sparingly. The fact that he has responded to the ativan makes me think this is more obsessional and intrusive thoughts than truce psychosis. Prozac was started for anxiety and should be titrated as quickly as safe for efficacy. 02/20/24 We stopped Gabapentin, added Prozac, PRN ativan, and Zyprexa was decreased with the hope that he can only be on Haldol as it has seemed to be the most effective. 02/19/2024 We have added Gabapentin to the patient's regimen at his request. We will continue to monitor. We will also try changing the larger Zyprexa dose to the morning. : Continue with current medications at this time. We will consider adding Gabapentin for his anxiety about his breathing. 02/17/2024 Zyprexa at bedtime was increased to 7.5 mg, continue 5 mg daily 02/16/2024 Zyprexa 5 mg BID. 02/15/2024: -Increase risperidone to 1mg BID -haldol 2.5mg BID prn for agitation/paranoia/psychosis and ativan 0.5mg BID prn for agitation -discontinue ativan HS 02/14/2024: -Haldol 5mg po and ativan 2mg po at HS -Tomorow start risperidone 0.5mg BID -Fasting lipid panel, glucose and HbA1c in the morning 02/13/2024:The patient was admitted to the [facility] ([facility] mental health unit) on q15 min checks (behavioral with suicide precautions) for safety. The patient will participate in group, recreational, and milieu therapies and will be offered additional individual and family sessions as clinically appropriate. -Continue haldol 2.5mg qAM and 5mg HS for psychosis -Ativan 1mg qAM and 2mg HS for psychosis given high acuity of current distress and symptoms -Discontinue lamictal -Fasting lipid panel and HbA1c in 1-2 days as he can better tolerate -Suicide protocol with safe tray, safe linens, safety precautions -Homicide precautions -Elopement precautions Inventory Assets Strengths: supportive family, willing for treatment Needs: safety and stabilization, increased coping skills, medication adjustment, increased outpatient support Suicide Risk Level Suicide Risk Level: Moderate (q15 min suicide checks) (intermittent SI but typ ically able to distract self from thoughts, stable behavior on the unit, denies current SI, feels safe in the hospital) Risk Factors Assessment Male: Yes : Yes Do You Have Access To A Gun?: No (n/a) Mental Health Diagnoses: Yes Substance Use Disorders: No Previous Attempt: No Family History of Suicide: No Previous Psychiatric Hospitalization: No Protective Factors Assessment Employed: No Stable Relationships: Yes Supportive Family: Yes Interval History Identifying Information SAMIRA ROOT is a 23-year-old man who currently lives in [place] with his parents, has a history of depression, and was admitted on 02/12/24 17:07 on a 201 voluntary commitment for SI with plan of hanging himself and ego-dystonic HI. Chief Complaint "I'm alright". Review of Systems Sleep Information Total Hours of Sleep: 7 Sleep Comments: HS Haldol and Remeron Meal Information Percent Meal Consumed - Breakfast: 75 Percent Meal Consumed - Lunch: 100 Percent Meal Consumed - Dinner: 50 Subjective Subjective Patient was seen & assessed and interval progress reviewed with treatment team nursing and social work. Isolative to his room at times but other times interacting with peers and attending groups. Reports some increased difficulty falling asleep last night without ativan but did sleep well overall. Woke up a little earlier but still with sense of fatigue, non restorative sleep. Denies any medication side effects. Took prn Thorazine today for sense of anxiety/unease/restlessness/suffocation and felt that this helped and doesn't make him as tired as the prn ativan. No SI today. Feels that when he sits cross- legged and leans forward this helps with sense of nasal breathing/suffocation/anxiety/unease/restlessness so has been doing this some today. Discussed option to try yoga and meditation to help with some of these symptoms as well. Physical Exam Psychiatric Orientation: alert and oriented x 3 Apperance: appropriately dressed Eye Contact: + fair eye contact Motor Behavior: no abnormal motor movements; n EPS Speech: normal rate/rhythm/volume of speech Affect: + flat affect Mood: + depressed mood (but more future-oriented, thinking about returning home) and + anxious mood Thought Process: goal directed thought process Thought Content: reality based without delusions Suicidal Thoughts: denies suicidal thoughts and denies suicidal plan Homicidal Thoughts: denies homicidal thoughts and denies homicidal plan Hallucinations: no auditory hallucinations and no visual hallucinations Cognition: recent memory grossly intact, remote memory grossly intact, attention grossly intact and language grossly intact Insight: + limited insight Judgment: + fair judgement Vital Signs (Past 24 Hours) Last Vital Signs Temp 36.9 C 03/10/24 06:51 Pulse 68 03/10/24 06:51 Resp 16 03/10/24 06:51 BP 110/66 03/10/24 06:52 Pulse Ox 96 03/10/24 06:51 O2 Del Method Room Air 03/10/24 06:51 Results & Data ([facility]) Current Inpatient Medications Current Inpatient Medications: Current Inpatient Medications Acetaminophen (Acetaminophen 325 Mg Tab) 650 mg PO Q4H PRN PRN Reason: Headache or Minor Fever Stop: 03/13/24 16:44 Al Hydrox/Mg Hydrox/Simethicone (Aluminum/Magnesium Susp 30 Ml Udc) 30 ml PO Q4H PRN PRN Reason: GI Upset Stop: 03/13/24 16:44 Benztropine Mesylate (Benztropine Mesylate 1 Mg Tab) 1 mg PO BID PRN PRN Reason: muscle stiffness Stop: 03/24/24 09:54 Last Admin: 03/01/24 17:21 Dose: 1 mg Bismuth Subsalicylate (Bismuth Subsalicylate Liqd 236 Ml) 15 ml PO PRN PRN PRN Reason: Loose Stool Stop: 03/13/24 16:44 Chlorpromazine HCl (Chlorpromazine Hcl 25 Mg Tab) 50 mg PO BID PRN PRN Reason: Agitation Stop: 03/30/24 11:29 Last Admin: 03/08/24 16:14 Dose: 50 mg Ergocalciferol (Ergocalciferol 1250 Mcg (50,000 Units) Cap) 1,250 mcg PO Ly@0900 TAY Stop: 03/18/24 08:59 Last Admin: 03/09/24 08:48 Dose: 1,250 mcg Fluoxetine HCl (Fluoxetine Hcl 20 Mg Cap) 40 mg PO QAM TAY Stop: 04/08/24 08:59 Last Admin: 03/10/24 08:50 Dose: 40 mg Haloperidol (Haloperidol 5 Mg Tab) 5 mg PO HS TAY Stop: 04/02/24 21:59 Last Admin: 03/09/24 22:04 Dose: 5 mg Haloperidol (Haloperidol 5 Mg Tab) 5 mg PO DAILY TAY Stop: 04/06/24 08:59 Last Admin: 03/10/24 08:50 Dose: 5 mg Hydrocortisone (Hydrocortisone 1% Crm 30 Gm Tube) 1 appln EXT DAILY TAY Stop: 03/18/24 12:59 Last Admin: 03/10/24 08:51 Dose: 1 appln Ketoconazole (Ketoconazole 2% Shampoo 120 Ml Btl) 1 appln EXT TuFr@0900 TAY Stop: 04/03/24 14:14 Last Admin: 03/08/24 08:44 Dose: 1 appln Lorazepam (Lorazepam 0.5 Mg Tab) 0.5 mg PO BID PRN PRN Reason: Anxiety Stop: 03/31/24 12:36 Last Admin: 03/09/24 17:16 Dose: 0.5 mg Magnesium Hydroxide (Magnesium Hydroxide Susp 30 Ml Udc) 30 ml PO DAILY PRN PRN Reason: Constipation Stop: 03/13/24 16:44 Mirtazapine (Mirtazapine Tab 15 Mg Tab) 7.5 mg PO HS TYA Stop: 04/07/24 21:59 Last Admin: 03/09/24 22:04 Dose: 7.5 mg Mupirocin (Mupirocin 2% Oint 22 Gm Tube) 1 appln EXT BID PRN PRN Reason: Nasal Dryness Stop: 03/21/24 08:59 Propranolol HCl (Propranolol Hcl 10 Mg Tab) 10 mg PO BID PRN PRN Reason: akathisia Stop: 03/25/24 20:59 Last Admin: 02/27/24 09:18 Dose: 10 mg Sodium Chloride (Sodium Chloride 0.65% Na Soln 45 Ml ([place])) 1 - 2 sprays NA QID TAY Stop: 03/31/24 12:59 Last Admin: 03/10/24 08:51 Dose: 2 sprays Mental Health & Subst Abuse Tx [facility]iat[facility] Time of Appointment with Psychiatrist: n/a Psychiatric Appointment Comment: [address] [facility] [id number] [facility]rap[facility] Time of Therapist Appointment: n/a Therapy Appointment Comment: [address] [facility] [id number] Manager [employer] Name of Manager [employer]: Barbara Calderon - [facility] Phone Number for Manager [employer]: [phone] Time of Appointment with Manager [employer]: n/a Case Management Appointment Comment: [address] [facility] [address] Post Discharge Appointments Primary Care Physician Name Of Family Doctor/PCP: ROBERT - Dr. Miles (will see Dr. Dickinson) Primary Care Date of Future Appointment with PCP: 03/13/24 Time of Appointment with PCP: 11:05 AM Provider Appointment Comment: [address], [place] [address] Specialist Name of Specialist: [facility] Phone Number for Specialist: [phone] Time of Appointment with Specialist: Please ask PCP for a referral.
--- NOTE | 2024-03-11 09:12 | Psychiatric Progress Note ---
Date of Service March 11, 2024 Impression / Recommendations Impression 23 yo man with no formal psychiatric history admitted on a 201 voluntary commitment for psychosis, sense that he may hurt someone and SI with plan of hanging himself using rope. Diagnostically consistent with unspecified psychosis with differential including schizophrenia (seems most likely given his age, gradual onset with increased negative symptoms, ideas of reference, increased anglican fixation, and now thought insertion to harm others) vs OCD vs MDD with psychotic features vs BPAD (less likely given no hx of monica) vs delusional disorder vs 2/2 medical cause (unlikely given negative head CT two months ago and no current neurological deficits or autonomic dysfunction, TSH normal). A: Significant worsening of delusions today and reporting ego-dystonic HI which he had not experienced in a few weeks. Unclear if this is due to anxiety about discussions of discharge vs disruptive behavior of a peer on the unit yesterday demonstrating what a loss of control of emotions/behavioral dysregulation could look like vs worsening psychosis from haldol dose reduction last week. He found little to no benefit from ativan prn, thorazine prn and Cogentin prn today. No evidence for akathisia. Given previous positive response to haldol will increase HS dose. Will also increase ativan prn as previously this brought him relief. Prior brief trial of risperidone offered no benefit, olanzapine up to 10mg with no benefit. Suspect he may be more rapid metabolizer given he seems to require [id number] doses of haldol. Overall, I spent a total of 50 minutes with this case including review of chart records, nursing report, direct evaluation of the patient at bedside, counseling the patient, and documentation in the electronic health record. 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 03/09/2024: Discontinue ativan 0.5mg HS. 03/08/2024: Discontinue scheduled Cogentin (prn for acute dystonic reaction), discontinue zytrec. Start mirtazapine 7.5mg HS, increase fluoxetine to 40mg qd 03/07/24: Continue current medications and treatment plan. 03/06/24: Increase Haldol back to 5mg BID. Benztropine 0.5mg BID scheduled. Aftercare planning. 03/05/24: Decrease Haldol to 2.5mg QAM, 5mg HS for akathisia concerns. Labs for prolactin, vitamin D, vitamin B12. 03/04/24: Increase lorazepam PRN to 1mg BID. Ketoconazole 2% shampoo applied 2x weekly for 4 weeks. Hydrocortisone 1% cream applied daily to scalp for 2 weeks. 03/03/24: Haldol 2.5mg QDBB, 2.5mg QDBL, 5mg HS 03/02/24: Brain MRI w/wo contrast to rule out nonpsychiatric causes. Patient continues to feel sedated during the day and will discontinue nightly Clonazepam and replace with Lorazepam 1mg HS. Lorazepam PRN dec to 0.5mg BID PRN. 03/01/24: Start daily cetirizine. Schedule nasal saline 4 times daily. Will work with social work to plan for outpatient sleep study. Concern for excess sedation on Klonopin and will reduce dose to 0.5 mg and scheduled at bedtime. Concern for ongoing EPS from haloperidol and Thorazine and will decrease haloperidol to to 5 mg twice daily. Discontinue as needed Klonopin and start l orazepam 1 mg twice daily as needed for anxiety. 02/29/2024: Increase Klonopin to 1mg qAM and Klonopin prn. Increase Thorazine 50mg BID prn for somatic delusions/psychosis/agitation. 02/28/2024: Start Thorazine 10mg BID prn for somatic perseveration. 02/27/2024: Start Klonopin 0.5mg schedule. Plan to increase fluoxetine on 02/29/24 02/26/2024: Continue current medications and tx plan. 02/25/2024: Increase haldol 10mg BID 02/24/2024: Addition of propranolol 10mg BID prn for akathisia 02/23/2024: Discontinue olanzapine. Adjust haldol to 5mg qAM and 10mg HS. Adjust cogentin to BID prn. 02/22/24: Prozac was increased to 30 mg daily starting tomorrow. 02/21/2024 Patient's larger dose of Zyprexa was switched to the morning because he says mornings are more difficult. The plan is to decrease the Zyprexa to only have him on Haldol. Continue the Prozac. PRN Ativan should be used sparingly. The fact that he has responded to the ativan makes me think this is more obsessional and intrusive thoughts than truce psychosis. Prozac was started for anxiety and should be titrated as quickly as safe for efficacy. 02/20/24 We stopped Gabapentin, added Prozac, PRN ativan, and Zyprexa was decr eased with the hope that he can only be on Haldol as it has seemed to be the most effective. 02/19/2024 We have added Gabapentin to the patient's regimen at his request. We will continue to monitor. We will also try changing the larger Zyprexa dose to the morning. : Continue with current medications at this time. We will consider adding Gabapentin for his anxiety about his breathing. 02/17/2024 Zyprexa at bedtime was increased to 7.5 mg, continue 5 mg daily 02/16/2024 Zyprexa 5 mg BID. 02/15/2024: -Increase risperidone to 1mg BID -haldol 2.5mg BID prn for agitation/paranoia/psychosis and ativan 0.5mg BID prn for agitation -discontinue ativan HS 02/14/2024: -Haldol 5mg po and ativan 2mg po at HS -Tomorow start risperidone 0.5mg BID -Fasting lipid panel, glucose and HbA1c in the morning 02/13/2024:The patient was admitted to the [facility] ([facility] unit) on q15 min checks (behavioral with suicide precautions) for safety. The patient will participate in group, recreational, and milieu therapies and will be offered additional individual and family sessions as clinically appropriate. -Continue haldol 2.5mg qAM and 5mg HS for psychosis -Ativan 1mg qAM and 2mg HS for psychosis given high acuity of current distress and symptoms -Discontinue lamictal -Fasting lipid panel and HbA1c in 1-2 days as he can better tolerate -Suicide protocol with safe tray, safe linens, safety precautions -Homicide precautions -Elopement precautions Inventory Assets Strengths: supportive family, willing for treatment Needs: safety and stabilization, increased coping skills, medication adjustment, increased outpatient support Suicide Risk Level Suicide Risk Level: Moderate (q15 min suicide checks) (intermittent SI but typically able to distract self from thoughts, stable behavior on the unit, denies current SI, feels safe in the hospital) Risk Factors Assessment Male: Yes : Yes Do You Have Access To A Gun?: No (n/a) Mental Health Diagnoses: Yes Substance Use Disorders: No Previous Attempt: No Family History of Suicide: No Previous Psychiatric Hospitalization: No Protective Factors Assessment Employed: No Stable Relationships: Yes Supportive Family: Yes Interval History Identifying Information SAMIRA ROOT is a 23-year-old man who currently lives in [place] with his parents, has a history of depression, and was admitted on 02/12/24 17:07 on a 201 voluntary commitment for SI with plan of hanging himself and ego-dystonic HI. Chief Complaint "I feel like I'm possessed". Review of Systems Sleep Information Total Hours of Sleep: 6.75 Sleep Comments: HS Tutu and Reena Meal Information Percent Meal Consumed - Breakfast: 75 Percent Meal Consumed - Lunch: 90 Percent Meal Consumed - Dinner: 100 Subjective Subjective Patient was seen & assessed and interval progress reviewed with treatment team nursing and social work. Increased distress yesterday after a peer had a behavioral dysregulation episode. Stated "I feel like I need to be restrained". He noted this was due to feeling continued restlessness/unease and worrying about losing control. He was offered a weighted blanket and found it very helpful. Today he was doing "ok" in the morning but by mid-day requested to use the quiet room due to concerns about "losing control". Throughout the afternoon remained in the quiet room. Multiple prns given without any relief. He tells me he feels he is possessed and is concerned "I'm going to hurt people". He thinks discussions about discharge may have lead to some of these concerns as he thinks about what it would be like to be outside of the hospital. He continues to find the weighted blanket somewhat helpful. Appears to be responding to some internal stimuli vs thought blocking, he denies hearing any voices nor thought insertion. Physical Exam Psychiatric Orientation: alert and oriented x 3 Apperance: appropriately dressed Eye Contact: + fair eye contact Motor Behavior: + psychomotor agitation; n EPS Speech: normal rate/rhythm/volume of speech Affect: + flat affect Mood: + depressed mood and + anxious mood Thought Process: + thought blocking and + perseveration Thought Content: + delusions (possession) Suicidal Thoughts: denies suicidal plan; + reports suicidal thoughts Homicidal Thoughts: denies homicidal plan; + reports homicidal thoughts (ego- dystonic, fears of "losing control and hurting people") Hallucinations: no auditory hallucinations and no visual hallucinations Cognition: recent memory grossly intact, remote memory grossly intact, attention grossly intact and language grossly intact Insight: + limited insight Judgment: + limited judgement Vital Signs (Past 24 Hours) Last Vital Signs Temp 36.8 C 03/11/24 06:00 Pulse 97 H 03/11/24 06:33 Resp 18 03/11/24 06:00 BP 116/72 03/11/24 06:33 Pulse Ox 96 03/10/24 06:51 O2 Del Method Room Air 03/10/24 06:51 Results & Data ([facility]) Current Inpatient Medications Current Inpatient Medications: Current Inpatient Medications Acetaminophen (Acetaminophen 325 Mg Tab) 650 mg PO Q4H PRN PRN Reason: Headache or Minor Fever Stop: 03/13/24 16:44 Al Hydrox/Mg Hydrox/Simethicone (Aluminum/Magnesium Susp 30 Ml Udc) 30 ml PO Q4H PRN PRN Reason: GI Upset Stop: 03/13/24 16:44 Benztropine Mesylate (Benztropine Mesylate 1 Mg Tab) 1 mg PO BID PRN PRN Reason: muscle stiffness Stop: 03/24/24 09:54 Last Admin: 03/01/24 17:21 Dose: 1 mg Bismuth Subsalicylate (Bismuth Subsalicylate Liqd 236 Ml) 15 ml PO PRN PRN PRN Reason: Loose Stool Stop: 03/13/24 16:44 Chlorpromazine HCl (Chlorpromazine Hcl 25 Mg Tab) 50 mg PO BID PRN PRN Reason: Agitation Stop: 03/30/24 11:29 Last Admin: 03/10/24 15:29 Dose: 50 mg Ergocalciferol (Ergocalciferol 1250 Mcg (50,000 Units) Cap) 1,250 mcg PO Ly@0900 [facility] Stop: 03/18/24 08:59 Last Admin: 03/09/24 08:48 Dose: 1,250 mcg Fluoxetine HCl (Fluoxetine Hcl 20 Mg Cap) 40 mg PO QAM [facility] Stop: 04/08/24 08:59 Last Admin: 03/10/24 08:50 Dose: 40 mg Haloperidol (Haloperidol 5 Mg Tab) 5 mg PO HS [facility] Stop: 04/02/24 21:59 Last Admin: 03/10/24 21:15 Dose: 5 mg Haloperidol (Haloperidol 5 Mg Tab) 5 mg PO DAILY TAY Stop: 04/06/24 08:59 Last Admin: 03/10/24 08:50 Dose: 5 mg Hydrocortisone (Hydrocortisone 1% Crm 30 Gm Tube) 1 appln EXT DAILY [facility] Stop: 03/18/24 12:59 Last Admin: 03/10/24 08:51 Dose: 1 appln Ketoconazole (Ketoconazole 2% Shampoo 120 Ml Btl) 1 appln EXT TuFr@0900 [facility] Stop: 04/03/24 14:14 Last Admin: 03/08/24 08:44 Dose: 1 appln Lorazepam (Lorazepam 0.5 Mg Tab) 0.5 mg PO BID PRN PRN Reason: Anxiety Stop: 03/31/24 12:36 Last Admin: 03/09/24 17:16 Dose: 0.5 mg Magnesium Hydroxide (Magnesium Hydroxide Susp 30 Ml Udc) 30 ml PO DAILY PRN PRN Reason: Constipation Stop: 03/13/24 16:44 Mirtazapine (Mirtazapine Tab 15 Mg Tab) 7.5 mg PO [facility] Stop: 04/07/24 21:59 Last Admin: 03/10/24 21:14 Dose: 7.5 mg Mupirocin (Mupirocin 2% Oint 22 Gm Tube) 1 appln EXT BID PRN PRN Reason: Nasal Dryness Stop: 03/21/24 08:59 Propranolol HCl (Propranolol Hcl 10 Mg Tab) 10 mg PO BID PRN PRN Reason: akathisia Stop: 03/25/24 20:59 Last Admin: 03/10/24 17:41 Dose: 10 mg Sodium Chloride (Sodium Chloride 0.65% Na Soln 45 Ml (Farrell)) 1 - 2 sprays NA QID [facility] Stop: 03/31/24 12:59 Last Admin: 03/10/24 21:17 Dose: 1 sprays Mental Health & Subst Abuse Tx Psychiatrist Name of Psychiatrist: Barbara [facility] - [facility] Psychiatrist's Date Of Appointment With Psychiatric Provider: 03/13/24 Time of Appointment with Psychiatrist: 3:00pm Psychiatric Appointment Comment: [address] [facility] [id number] (intake evaluation for [facility]) Therapist Name of Therapist: [facility] Therapist's Time of Therapist Appointment: n/a Therapy Appointment Comment: [address] [id number] Reservations Sales Supervisor Name of Reservations Sales Supervisor: [facility] - [facility] Phone Number for Reservations Sales Supervisor: [phone] Time of Appointment with Reservations Sales Supervisor: n/a Case Management Appointment Comment: [address] [facility] [id number] Post Discharge Appointments Primary Care Physician Name Of Family Doctor/PCP: ROBERT - Dr. Miles (will see Dr. Dickinson) Primary Care Date of Future Appointment with PCP: 03/13/24 Time of Appointment with PCP: 11:05 AM Provider Appointment Comment: [address], [place] [address] Specialist Name of Specialist: [facility] Phone Number for Specialist: [phone] Time of Appointment with Specialist: Please ask PCP for a referral.
[2024-03-11] MEDS: LORazepam 1 MG TAB PO ONE (15:33)
[2024-03-11] MEDS: haloperidoL 5 MG TAB PO SCH (21:21)
[2024-03-12] MEDS: LORazepam 1 MG TAB PO PRN (13:42)
--- NOTE | 2024-03-12 16:10 | Psychiatric Progress Note ---
Date of Service March 12, 2024 Impression / Recommendations Impression 23 yo man with no formal psychiatric history admitted on a 201 voluntary commitment for psychosis, sense that he may hurt someone and SI with plan of hanging himself using rope. Diagnostically consistent with unspecified psychosis with differential including schizophrenia (seems most likely given his age, gradual onset with increased negative symptoms, ideas of reference, increased rastafari fixation, and now thought insertion to harm others) vs OCD vs MDD with psychotic features vs BPAD (less likely given no hx of monica) vs delusional disorder vs 2/2 medical cause (unlikely given negative head CT two months ago and no current neurological deficits or autonomic dysfunction, TSH normal). A: Ongoing significant psychosis. Unclear if worsening is due to his fear of being outside of the hospital due to paranoia/delusions of persecution or due to fear of losing control or due to worsening from reduced haldol dose last week. Regardless it seems the haldol is not providing enough benefit at this time and family meeting helped to show that delusions and symptoms of psychosis continue to persist even if he is not speaking about them at times. He consents to re- trial of olanzapine tonight at higher dose in case some of flattened affect and increased cognitive blunting is from haldol side effects, felt to be unlikely but his anxiety and psychosis may respond better to a more sedating antipsychotic. Previously responded without benefit to low dose olanzapine so he consents to trial of higher dose. Benefits of attempting to provide him with some subjective relief outweigh potential risks at this point. Reviewed side effects including but not limited to sedation, increased appetite, metabolic, movement, cardiac. Overall, I spent a total of 120 minutes with this case including review of chart records, nursing report, direct evaluation of the patient at bedside, counseling the patient, participation in 50 minute family meeting and documentation in the electronic health record. 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 Start olanzapine 20mg HS. 03/11/2024: Increase haldol to 5mg qAM and 10mg HS 03/10/2024: Continue current medications and tx plan. 03/09/2024: Discontinue ativan 0.5mg HS. 03/08/2024: Discontinue scheduled Cogentin (prn for acute dystonic reaction), discontinue zytrec. Start mirtazapine 7.5mg HS, increase fluoxetine to 40mg qd 03/07/24: Continue current medications and treatment plan. 03/06/24: Increase Haldol back to 5mg BID. Benztropine 0.5mg BID scheduled. Aftercare planning. 03/05/24: Decrease Haldol to 2.5mg QAM, 5mg HS for akathisia concerns. Labs for prolactin, vitamin D, vitamin B12. 03/04/24: Increase lorazepam PRN to 1mg BID. Ketoconazole 2% shampoo applied 2x weekly for 4 weeks. Hydrocortisone 1% cream applied daily to scalp for 2 weeks. 03/03/24: Haldol 2.5mg QDBB, 2.5mg QDBL, 5mg HS 03/02/24: Brain MRI w/wo contrast to rule out nonpsychiatric causes. Patient continues to feel sedated during the day and will discontinue nightly Clonazepam and replace with Lorazepam 1mg HS. Lorazepam PRN dec to 0.5mg BID PRN. 03/01/24: Start daily cetirizine. Schedule nasal saline 4 times daily. Will work with social work to plan for outpatient sleep study. Concern for excess sedation on Klonopin and will reduce dose to 0.5 mg and scheduled at bedtime. Concern for ongoing EPS from haloperidol and Thorazine and will decrease haloperidol to to 5 mg twice daily. Discontinue as needed Klonopin and start lorazepam 1 mg twice daily as needed for anxiety. 02/29/2024: Increase Klonopin to 1mg qAM and Klonopin prn. Increase Thorazine 50mg BID prn for somatic delusions/psychosis/agitation. 02/28/2024: Start Thorazine 10mg BID prn for somatic perseveration. 02/27/2024: Start Klonopin 0.5mg schedule. Plan to increase fluoxetine on 02/29/24 02/26/2024: Continue current medications and tx plan. 02/25/2024: Increase haldol 10mg BID 02/24/2024: Addition of propranolol 10mg BID prn for akathisia 02/23/2024: Discontinue olanzapine. Adjust haldol to 5mg qAM and 10mg HS. Adjust cogentin to BID prn. 02/22/24: Prozac was increased to 30 mg daily starting tomorrow. 02/21/2024 Patient's larger dose of Zyprexa was switched to the morning because he says mornings are more difficult. The plan is to decrease the Zyprexa to only have him on Haldol. Continue the Prozac. PRN Ativan should be used sparingly. The fact that he has responded to the ativan makes me think this is more obsessional and intrusive thoughts than truce psychosis. Prozac was started for anxiety and should be titrated as quickly as safe for efficacy. 02/20/24 We stopped Gabapentin, added Prozac, PRN ativan, and Zyprexa was decreased with the hope that he can only be on Haldol as it has seemed to be the most effective. 02/19/2024 We have added Gabapentin to the patient's regimen at his request. We will continue to monitor. We will also try changing the larger Zyprexa dose to the morning. : Continue with current medications at this time. We will consider adding Gabapentin for his anxiety about his breathing. 02/17/2024 Zyprexa at bedtime was increased to 7.5 mg, continue 5 mg daily 02/16/2024 Zyprexa 5 mg BID. 02/15/2024: -Increase risperidone to 1mg BID -haldol 2.5mg BID prn for agitation/paranoia/psychosis and ativan 0.5mg BID prn for agitation -discontinue ativan HS 02/14/2024: -Haldol 5mg po and ativan 2mg po at HS -Tomorow start risperidone 0.5mg BID -Fasting lipid panel, glucose and HbA1c in the morning 02/13/2024:The patient was admitted to the [facility] ([facility] unit) on q15 min checks (behavioral with suicide precautions) for safety. The patient will participate in group, recreational, and milieu therapies and will be offered additional individual and family sessions as clinically appropriate. -Continue haldol 2.5mg qAM and 5mg HS for psychosis -Ativan 1mg qAM and 2mg HS for psychosis given high acuity of current distress and symptoms -Discontinue lamictal -Fasting lipid panel and HbA1c in 1-2 days as he can better tolerate -Suicide protocol with safe tray, safe linens, safety precautions -Homicide precautions -Elopement precautions Inventory Assets Strengths: supportive family, willing for treatment Needs: safety and stabilization, increased coping skills, medication adjustment, increased outpatient support Suicide Risk Level Suicide Risk Level: High-Moderate (q15 min suicide checks) (increased psychosis with intermittent SI, able to alert staff when desires additional support, feels safe in the hospital) Risk Factors Assessment Male: Yes : Yes Do You Have Access To A Gun?: No (n/a) Mental Health Diagnoses: Yes Substance Use Disorders: No Previous Attempt: No Family History of Suicide: No Previous Psychiatric Hospitalization: No Protective Factors Assessment Employed: No Stable Relationships: Yes Supportive Family: Yes Interval History Identifying Information SAMIRA ROOT is a 23-year-old man who currently lives in [place] with his parents, has a history of depression, and was admitted on 02/12/24 17:07 on a 201 voluntary commitment for SI with plan of hanging himself and ego-dystonic HI. Chief Complaint "I don't know if my thoughts about the medication being too high were right". Review of Systems Sleep Information Total Hours of Sleep: 6 Sleep Comments: HS Haldol and Remeron Meal Information Percent Meal Consumed - Breakfast: 100 Percent Meal Consumed - Lunch: 100 Percent Meal Consumed - Dinner: 100 Subjective Subjective Patient was seen & assessed and interval progress reviewed with treatment team nursing and social work. Mid-morning reported his mood as "alright". Denied thoughts of self-harm or concern for loss of control. States when he has loss of control thoughts he worries he could hurt others but has never thought of who or even what he would do. Denies ever thinking he would shoot anyone or harm them physically. Rather seems much of his loss of control is concern he would demonstrate signs of anger by yelling and then wouldn't be able to stop himself from getting more angry. He felt higher dose of ativan was helpful. Then joined for family meeting at which point Samira reported ongoing sense of losing himself and difficulty speaking at times and finding his thoughts and worried if maybe this was due to the medication and that the dose should be reduced. During this time demonstrated symptoms of psychosis including moving his eyes about, seemed to be possibly experiencing internal stimuli. After the meeting he told his mother he feels he is possessed and worries he may loose control and hurt others or himself and felt like he was being pushed out of the hospital. Provided reassurance that we do not want him to leave until he is ready. He does not feel ready for discharge. Reviewed options to try a different antipsychotic medication which he would like to do. Physical Exam Psychiatric Orientation: alert and oriented x 3 Apperance: appropriately dressed Eye Contact: + fair eye contact (eyes darting when anxious) Motor Behavior: no abnormal motor movements; n EPS Speech: normal rate/rhythm/volume of speech Affect: + flat affect Mood: + depressed mood and + anxious mood Thought Process: + thought blocking and + perseveration Thought Content: + delusions (possession) Suicidal Thoughts: denies suicidal plan; + reports suicidal thoughts Homicidal Thoughts: denies homicidal plan; + reports homicidal thoughts (ego- dystonic, fears of "losing control and hurting people") Hallucinations: no auditory hallucinations and no visual hallucinations Cognition: recent memory grossly intact, remote memory grossly intact, attention grossly intact and language grossly intact Insight: + limited insight Judgment: + limited judgement Vital Signs (Past 24 Hours) Last Vital Signs Temp 36.4 C L 03/12/24 06:00 Pulse 106 H 03/12/24 06:21 Resp 16 03/12/24 06:00 BP 109/58 L 03/12/24 06:21 Pulse Ox 96 03/10/24 06:51 O2 Del Method Room Air 03/10/24 06:51 Results & Data ([facility]) Current Inpatient Medications Current Inpatient Medications: Current Inpatient Medications Acetaminophen (Acetaminophen 325 Mg Tab) 650 mg PO Q4H PRN PRN Reason: Headache or Minor Fever Stop: 03/13/24 16:44 Al Hydrox/Mg Hydrox/Simethicone (Aluminum/Magnesium Susp 30 Ml Udc) 30 ml PO Q4H PRN PRN Reason: GI Upset Stop: 03/13/24 16:44 Benztropine Mesylate (Benztropine Mesylate 1 Mg Tab) 1 mg PO BID PRN PRN Reason: muscle stiffness Stop: 03/24/24 09:54 Last Admin: 03/11/24 14:46 Dose: 1 mg Bismuth Subsalicylate (Bismuth Subsalicylate Liqd 236 Ml) 15 ml PO PRN PRN PRN Reason: Loose Stool Stop: 03/13/24 16:44 Ergocalciferol (Ergocalciferol 1250 Mcg (50,000 Units) Cap) 1,250 mcg PO Ly@0900 [facility] Stop: 03/18/24 08:59 Last Admin: 03/09/24 08:48 Dose: 1,250 mcg Fluoxetine HCl (Fluoxetine Hcl 20 Mg Cap) 40 mg PO QAM [facility] Stop: 04/08/24 08:59 Last Admin: 03/12/24 08:12 Dose: 40 mg Haloperidol (Haloperidol 5 Mg Tab) 5 mg PO DAILY [facility] Stop: 04/06/24 08:59 Last Admin: 03/12/24 08:12 Dose: 5 mg Haloperidol (Haloperidol 5 Mg Tab) 10 mg PO HS [facility] Stop: 04/10/24 21:59 Last Admin: 03/11/24 21:21 Dose: 10 mg Hydrocortisone (Hydrocortisone 1% Crm 30 Gm Tube) 1 appln EXT DAILY [facility] Stop: 03/18/24 12:59 Last Admin: 03/12/24 08:13 Dose: Not Given Ketoconazole (Ketoconazole 2% Shampoo 120 Ml Btl) 1 appln EXT TuFr@0900 [facility] Stop: 04/03/24 14:14 Last Admin: 03/11/24 09:18 Dose: Not Given Lorazepam (Lorazepam 1 Mg Tab) 1 mg PO BID PRN PRN Reason: Anxiety Stop: 03/31/24 12:36 Last Admin: 03/12/24 13:42 Dose: 1 mg Magnesium Hydroxide (Magnesium Hydroxide Susp 30 Ml Udc) 30 ml PO DAILY PRN PRN Reason: Constipation Stop: 03/13/24 16:44 Mupirocin (Mupirocin 2% Oint 22 Gm Tube) 1 appln EXT BID PRN PRN Reason: Nasal Dryness Stop: 03/21/24 08:59 Propranolol HCl (Propranolol Hcl 10 Mg Tab) 10 mg PO BID PRN PRN Reason: akathisia Stop: 03/25/24 20:59 Last Admin: 03/10/24 17:41 Dose: 10 mg Sodium Chloride (Sodium Chloride 0.65% Na Soln 45 Ml ([place])) 1 - 2 sprays NA QID TAY Stop: 03/31/24 12:59 Last Admin: 03/12/24 14:30 Dose: Not Given Mental Health & Subst Abuse Tx Psychiatrist Name of Psychiatrist: Barbara Calderon - [facility] Psychiatrist's Date Of Appointment With Psychiatric Provider: 03/20/24 Time of Appointment with Psychiatrist: 2:00 PM Psychiatric Appointment Comment: [address] [facility] [id number] (intake evaluation for FEP) Therapist Name of Therapist: Barbara Calderon - FEP Therapist's Time of Therapist Appointment: n/a Therapy Appointment Comment: [address] [facility] [id number] Commercial Title Examiner Name of Commercial Title Examiner: Barbara Calderon - KIRSTEN Phone Number for Commercial Title Examiner: [phone] Time of Appointment with Commercial Title Examiner: n/a Case Management Appointment Comment: [address] [facility] [id number] Post Discharge Appointments Primary Care Physician Name Of Family Doctor/PCP: ALEJANDRO [facility] Date of Future Appointment with PCP: 03/21/24 Time of Appointment with PCP: 10:45 AM arrival Provider Appointment Comment: [address], [place] [address] Specialist Name of Specialist: [facility] Phone Number for Specialist: [phone] Time of Appointment with Specialist: Please ask PCP for a referral.
[2024-03-12] MEDS: OLANZapine 20 MG TABLET PO SCH (21:25)
--- NOTE | 2024-03-13 08:40 | Psychiatric Progress Note ---
Date of Service March 13, 2024 Impression / Recommendations Impression 23 yo man with no formal psychiatric history admitted on a 201 voluntary commitment for psychosis, sense that he may hurt someone and SI with plan of hanging himself using rope. Diagnostically consistent with unspecified psychosis with differential including schizophrenia (seems most likely given his age, gradual onset with increased negative symptoms, ideas of reference, increased islam fixation, and now thought insertion to harm others) vs OCD vs MDD with psychotic features vs BPAD (less likely given no hx of monica) vs delusional disorder vs 2/2 medical cause (unlikely given negative head CT two months ago and no current neurological deficits or autonomic dysfunction, TSH normal). A: Some lessening of psychosis today, overall less anxious and distressed, seems to be less internally preoccupied. Tolerating olanzapine so far. He consents to addition of morning dose and will have olanzapine prn available. He understands this is over the FDA recommended maximum dose of 20mg however there are studies and clinical evidence suggesting that some individuals benefit from higher doses of olanzapine (up to 40mg per day) and this tends to be very well tolerated. Overall, I spent a total of 30 minutes with this case including review of chart records, nursing report, direct evaluation of the patient at bedside, counseling the patient, orders, and documentation in the electronic health record. 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 Olanzapine 2.5mg BID prn for agitation. 03/12/2024: Discontinue haldol. Start olanzapine 20mg HS. 03/11/2024: Increase haldol to 5mg qAM and 10mg HS 03/10/2024: Continue current medications and tx plan. 03/09/2024: Discontinue ativan 0.5mg HS. 03/08/2024: Discontinue scheduled Cogentin (prn for acute dystonic reaction), discontinue zytrec. Start mirtazapine 7.5mg HS, increase fluoxetine to 40mg qd 03/07/24: Continue current medications and treatment plan. 03/06/24: Increase Haldol back to 5mg BID. Benztropine 0.5mg BID scheduled. Aftercare planning. 03/05/24: Decrease Haldol to 2.5mg QAM, 5mg HS for akathisia concerns. Labs for prolactin, vitamin D, vitamin B12. 03/04/24: Increase lorazepam PRN to 1mg BID. Ketoconazole 2% shampoo applied 2x weekly for 4 weeks. Hydrocortisone 1% cream applied daily to scalp for 2 weeks. 03/03/24: Haldol 2.5mg QDBB, 2.5mg QDBL, 5mg HS 03/02/24: Brain MRI w/wo contrast to rule out nonpsychiatric causes. Patient continues to feel sedated during the day and will discontinue nightly Clonazepam and replace with Lorazepam 1mg HS. Lorazepam PRN dec to 0.5mg BID PRN. 03/01/24: Start daily cetirizine. Schedule nasal saline 4 times daily. Will work with social work to plan for outpatient sleep study. Concern for excess sedation on Klonopin and will reduce dose to 0.5 mg and scheduled at bedtime. Concern for ongoing EPS from haloperidol and Thorazine and will decrease haloperidol to to 5 mg twice daily. Discontinue as needed Klonopin and start lorazepam 1 mg twice daily as needed for anxiety. 02/29/2024: Increase Klonopin to 1mg qAM and Klonopin prn. Increase Thorazine 50mg BID prn for somatic delusions/psychosis/agitation. 02/28/2024: Start Thorazine 10mg BID prn for somatic perseveration. 02/27/2024: Start Klonopin 0.5mg schedule. Plan to increase fluoxetine on 02/29/24 02/26/2024: Continue current medications and tx plan. 02/25/2024: Increase haldol 10mg BID 02/24/2024: Addition of propranolol 10mg BID prn for akathisia 02/23/2024: Discontinue olanzapine. Adjust haldol to 5mg qAM and 10mg HS. Adjust cogentin to BID prn. 02/22/24: Prozac was increased to 30 mg daily starting tomorrow. 02/21/2024 Patient's larger dose of Zyprexa was switched to the morning because he says mornings are more difficult. The plan is to decrease the Zyprexa to only have him on Haldol. Continue the Prozac. PRN Ativan should be used sparingly. The fact that he has responded to the ativan makes me think this is more obsessional and intrusive thoughts than truce psychosis. Prozac was started for anxiety and should be titrated as quickly as safe for efficacy. 02/20/24 We stopped Gabapentin, added Prozac, PRN ativan, and Zyprexa was dec reased with the hope that he can only be on Haldol as it has seemed to be the most effective. 02/19/2024 We have added Gabapentin to the patient's regimen at his request. We will continue to monitor. We will also try changing the larger Zyprexa dose to the morning. : Continue with current medications at this time. We will consider adding Gabapentin for his anxiety about his breathing. 02/17/2024 Zyprexa at bedtime was increased to 7.5 mg, continue 5 mg daily 02/16/2024 Zyprexa 5 mg BID. 02/15/2024: -Increase risperidone to 1mg BID -haldol 2.5mg BID prn for agitation/paranoia/psychosis and ativan 0.5mg BID prn for agitation -discontinue ativan HS 02/14/2024: -Haldol 5mg po and ativan 2mg po at HS -Tomorow start risperidone 0.5mg BID -Fasting lipid panel, glucose and HbA1c in the morning 02/13/2024:The patient was admitted to the [facility] ([facility] unit) on q15 min checks (behavioral with suicide precautions) for safety. The patient will participate in group, recreational, and milieu therapies and will be offered additional individual and family sessions as clinically appropriate. -Continue haldol 2.5mg qAM and 5mg HS for psychosis -Ativan 1mg qAM and 2mg HS for psychosis given high acuity of current distress and symptoms -Discontinue lamictal -Fasting lipid panel and HbA1c in 1-2 days as he can better tolerate -Suicide protocol with safe tray, safe linens, safety precautions -Homicide precautions -Elopement precautions Inventory Assets Strengths: supportive family, willing for treatment Needs: safety and stabilization, increased coping skills, medication adjustment, increased outpatient support Suicide Risk Level Suicide Risk Level: High-Moderate (q15 min suicide checks) (increased psychosis with intermittent SI, able to alert staff when desires additional support, feels safe in the hospital) Risk Factors Assessment Male: Yes : Yes Do You Have Access To A Gun?: No (n/a) Mental Health Diagnoses: Yes Substance Use Disorders: No Previous Attempt: No Family History of Suicide: No Previous Psychiatric Hospitalization: No Protective Factors Assessment Employed: No Stable Relationships: Yes Supportive Family: Yes Interval History Identifying Information SAMIRA ROOT is a 23-year-old man who currently lives in [place] with his parents, has a history of depression, and was admitted on 02/12/24 17:07 on a 201 voluntary commitment for SI with plan of hanging himself and ego-dystonic HI. Chief Complaint "I'm alright". Review of Systems Sleep Information Total Hours of Sleep: 7.5 Sleep Comments: HS Haldol and Remeron Meal Information Percent Meal Consumed - Breakfast: 100 Percent Meal Consumed - Lunch: 100 Percent Meal Consumed - Dinner: 100 Subjective Subjective Patient was seen & assessed and interval progress reviewed with treatment team nursing and social work. More isolative last evening but did attend community group. Took olanzapine at HS. Today reports he feels "alright". Thinks his inner sense of unease and restlessness is "a little less than normal". He thinks he feels a little better than he did on the haldol. Still has sense of "a little bit of possession". Denies any medication side effects, he would like to try adding a morning dose of olanzapine. Physical Exam Psychiatric Orientation: alert and oriented x 3 Apperance: appropriately dressed Eye Contact: + fair eye contact (eyes darting when anxious) Motor Behavior: no abnormal motor movements; n EPS Speech: normal rate/rhythm/volume of speech Affect: + flat affect Mood: + depressed mood and + anxious mood (little less today) Thought Process: + concrete thought process Thought Content: + delusions (possession) Suicidal Thoughts: denies suicidal plan; + reports suicidal thoughts (intermittent) Homicidal Thoughts: denies homicidal thoughts and denies homicidal plan Hallucinations: no auditory hallucinations and no visual hallucinations Cognition: recent memory grossly intact, remote memory grossly intact, attention grossly intact and language grossly intact Insight: + limited insight Judgment: + limited judgement Vital Signs (Past 24 Hours) Last Vital Signs Temp 35.8 C L 03/13/24 06:00 Pulse 101 H 03/13/24 06:09 Resp 16 03/13/24 06:00 BP 129/70 03/13/24 06:09 Pulse Ox 96 03/10/24 06:51 O2 Del Method Room Air 03/10/24 06:51 Results & Data ([facility]) Current Inpatient Medications Current Inpatient Medications: Current Inpatient Medications Acetaminophen (Acetaminophen 325 Mg Tab) 650 mg PO Q4H PRN PRN Reason: Headache or Minor Fever Stop: 03/13/24 16:44 Al Hydrox/Mg Hydrox/Simethicone (Aluminum/Magnesium Susp 30 Ml Udc) 30 ml PO Q4H PRN PRN Reason: GI Upset Stop: 03/13/24 16:44 Benztropine Mesylate (Benztropine Mesylate 1 Mg Tab) 1 mg PO BID PRN PRN Reason: muscle stiffness Stop: 03/24/24 09:54 Last Admin: 03/11/24 14:46 Dose: 1 mg Bismuth Subsalicylate (Bismuth Subsalicylate Liqd 236 Ml) 15 ml PO PRN PRN PRN Reason: Loose Stool Stop: 03/13/24 16:44 Ergocalciferol (Ergocalciferol 1250 Mcg (50,000 Units) Cap) 1,250 mcg PO Ly@0900 [facility] Stop: 03/18/24 08:59 Last Admin: 03/09/24 08:48 Dose: 1,250 mcg Fluoxetine HCl (Fluoxetine Hcl 20 Mg Cap) 40 mg PO QAM [facility] Stop: 04/08/24 08:59 Last Admin: 03/12/24 08:12 Dose: 40 mg Hydrocortisone (Hydrocortisone 1% Crm 30 Gm Tube) 1 appln EXT DAILY [facility] Stop: 03/18/24 12:59 Last Admin: 03/12/24 08:13 Dose: Not Given Ketoconazole (Ketoconazole 2% Shampoo 120 Ml Btl) 1 appln EXT TuFr@0900 [facility] Stop: 04/03/24 14:14 Last Admin: 03/11/24 09:18 Dose: Not Given Lorazepam (Lorazepam 1 Mg Tab) 1 mg PO BID PRN PRN Reason: Anxiety Stop: 03/31/24 12:36 Last Admin: 03/12/24 13:42 Dose: 1 mg Magnesium Hydroxide (Magnesium Hydroxide Susp 30 Ml Udc) 30 ml PO DAILY PRN PRN Reason: Constipation Stop: 03/13/24 16:44 Mupirocin (Mupirocin 2% Oint 22 Gm Tube) 1 appln EXT BID PRN PRN Reason: Nasal Dryness Stop: 03/21/24 08:59 Olanzapine (Olanzapine 20 Mg Tablet) 20 mg PO HS TAY Stop: 04/11/24 21:59 Last Admin: 03/12/24 21:25 Dose: 20 mg Propranolol HCl (Propranolol Hcl 10 Mg Tab) 10 mg PO BID PRN PRN Reason: akathisia Stop: 03/25/24 20:59 Last Admin: 03/10/24 17:41 Dose: 10 mg Sodium Chloride (Sodium Chloride 0.65% Na Soln 45 Ml ([place])) 1 - 2 sprays NA QID TAY Stop: 03/31/24 12:59 Last Admin: 03/12/24 21:27 Dose: Not Given Mental Health & Subst Abuse Tx Psychiatrist Name of Psychiatrist: [facility] Psych[facility]rist's Date Of Appointment With Psychiatric Provider: 03/20/24 Time of Appointment with Psychiatrist: 2:00 PM Psychiatric Appointment Comment: [address] [facility] [id number] (intake evaluation for [facility]) Therapist Name of Therapist: [facility] The[facility]ist's Time of Therapist Appointment: n/a Therapy Appointment Comment: [address] [facility] [id number] Instructional Manager Name of Instructional Manager: [facility] Phone Number for Instructional Manager: [phone] Time of Appointment with Instructional Manager: n/a Case Management Appointment Comment: [address] [facility] [id number] Post Discharge Appointments Primary Care Physician Name Of Family Doctor/PCP: [facility] Date of Future Appointment with PCP: 03/21/24 Time of Appointment with PCP: 10:45 AM arrival Provider Appointment Comment: [address], [place] [address] Specialist Name of Specialist: [facility] Phone Number for Specialist: [phone] Time of Appointment with Specialist: Please ask PCP for a referral.
[2024-03-13] MEDS ORDERED: OLANZAPINE 2.5 MG TAB PO PRN (10:45)
[2024-03-13] MEDS: OLANZapine 5 MG TABLET PO SCH (11:10)
[2024-03-13] MEDS ORDERED: BISMUTH SUBSALICYLATE LIQD 236 ML PO PRN (17:06)
[2024-03-13] MEDS ORDERED: ACETAMINOPHEN 325 MG TAB PO PRN (17:06)
[2024-03-13] MEDS ORDERED: ALUMINUM/MAGNESIUM SUSP 30 ML UDC PO PRN (17:06)
[2024-03-13] MEDS ORDERED: MAGNESIUM HYDROXIDE SUSP 30 ML UDC PO PRN (17:06)
--- NOTE | 2024-03-14 08:57 | Psychiatric Progress Note ---
Date of Service March 14, 2024 Impression / Recommendations Impression 23 yo man with no formal psychiatric history admitted on a 201 voluntary commitment for psychosis, sense that he may hurt someone and SI with plan of hanging himself using rope. Diagnostically consistent with unspecified psychosis with differential including schizophrenia (seems most likely given his age, gradual onset with increased negative symptoms, ideas of reference, increased christianity fixation, and now thought insertion to harm others) vs OCD vs MDD with psychotic features vs BPAD (less likely given no hx of monica) vs delusional disorder vs 2/2 medical cause (unlikely given negative head CT two months ago and no current neurological deficits or autonomic dysfunction, TSH normal). A: Less anxiety and no prominent symptoms of psychosis today, still very flat and tired. Seems to be tolerating olanzapine so far, and less psychosis than in previous days. He was offered option to go outside today and declined which suggests there is likely still ongoing distress about his fears of "loss of control" and possible possession internally but he's not speaking about them today as he does when symptoms become more intense. Overall, I spent a total of 25 minutes with this case including review of chart records, nursing report, direct evaluation of the patient at bedside, counseling the patient, orders, and documentation in the electronic health record. (1) Schizophreniform disorder: (2) Obsessive-compulsive and related disorder due to another medical condition: (3) Depression: (4) Suicidal ideations: (5) Elevated prolactin level: (6) Sexual dysfunction: Plan 03/14/2024: Continue current medications and tx plan. 03/13/2024: Add olanzapine 5mg qAM and 20mg HS. Olanzapine 2.5mg BID prn for agitation. 03/12/2024: Discontinue haldol. Start olanzapine 20mg HS. 03/11/2024: Increase haldol to 5mg qAM and 10mg HS 03/10/2024: Continue current medications and tx plan. 03/09/2024: Discontinue ativan 0.5mg HS. 03/08/2024: Discontinue scheduled Cogentin (prn for acute dystonic reaction), discontinue zytrec. Start mirtazapine 7.5mg HS, increase fluoxetine to 40mg qd 03/07/24: Continue current medications and treatment plan. 03/06/24: Increase Haldol back to 5mg BID. Benztropine 0.5mg BID scheduled. Aftercare planning. 03/05/24: Decrease Haldol to 2.5mg QAM, 5mg HS for akathisia concerns. Labs for prolactin, vitamin D, vitamin B12. 03/04/24: Increase lorazepam PRN to 1mg BID. Ketoconazole 2% shampoo applied 2x weekly for 4 weeks. Hydrocortisone 1% cream applied daily to scalp for 2 weeks. 03/03/24: Haldol 2.5mg QDBB, 2.5mg QDBL, 5mg HS 03/02/24: Brain MRI w/wo contrast to rule out nonpsychiatric causes. Patient continues to feel sedated during the day and will discontinue nightly Clonazepam and replace with Lorazepam 1mg HS. Lorazepam PRN dec to 0.5mg BID PRN. 03/01/24: Start daily cetirizine. Schedule nasal saline 4 times daily. Will work with social work to plan for outpatient sleep study. Concern for excess sedation on Klonopin and will reduce dose to 0.5 mg and scheduled at bedtime. Concern for ongoing EPS from haloperidol and Thorazine and will decrease haloperidol to to 5 mg twice daily. Discontinue as needed Klonopin and start lorazepam 1 mg twice daily as needed for anxiety. 02/29/2024: Increase Klonopin to 1mg qAM and Klonopin prn. Increase Thorazine 50mg BID prn for somatic delusions/psychosis/agitation. 02/28/2024: Start Thorazine 10mg BID prn for somatic perseveration. 02/27/2024: Start Klonopin 0.5mg schedule. Plan to increase fluoxetine on 02/29/24 02/26/2024: Continue current medications and tx plan. 02/25/2024: Increase haldol 10mg BID 02/24/2024: Addition of propranolol 10mg BID prn for akathisia 02/23/2024: Discontinue olanzapine. Adjust haldol to 5mg qAM and 10mg HS. Adjust cogentin to BID prn. 02/22/24: Prozac was increased to 30 mg daily starting tomorrow. 02/21/2024 Patient's larger dose of Zyprexa was switched to the morning because he says mornings are more difficult. The plan is to decrease the Zyprexa to only have him on Haldol. Continue the Prozac. PRN Ativan should be used sparingly. The fact that he has responded to the ativan makes me think this is more obsessional and intrusive thoughts than truce psychosis. Prozac was started for anxiety and should be titrated as quickly as safe for efficacy. 02/20/24 We stopped Gabapentin, added Prozac, PRN ativan, and Zyprexa was decreased with the hope that he can only be on Haldol as it has seemed to be the most effective. 02/19/2024 We have added Gabapentin to the patient's regimen at his request. We will continue to monitor. We will also try changing the larger Zyprexa dose to the morning. : Continue with current medications at this time. We will consider adding Gabapentin for his anxiety about his breathing. 02/17/2024 Zyprexa at bedtime was increased to 7.5 mg, continue 5 mg daily 02/16/2024 Zyprexa 5 mg BID. 02/15/2024: -Increase risperidone to 1mg BID -haldol 2.5mg BID prn for agitation/paranoia/psychosis and ativan 0.5mg BID prn for agitation -discontinue ativan HS 02/14/2024: -Haldol 5mg po and ativan 2mg po at HS -Tomorow start risperidone 0.5mg BID -Fasting lipid panel, glucose and HbA1c in the morning 02/13/2024:The patient was admitted to the [facility] ([facility]) on q15 min checks (behavioral with suicide precautions) for safety. The patient will participate in group, recreational, and milieu therapies and will be offered additional individual and family sessions as clinically appropriate. -Continue haldol 2.5mg qAM and 5mg HS for psychosis -Ativan 1mg qAM and 2mg HS for psychosis given high acuity of current distress and symptoms -Discontinue lamictal -Fasting lipid panel and HbA1c in 1-2 days as he can better tolerate -Suicide protocol with safe tray, safe linens, safety precautions -Homicide precautions -Elopement precautions Inventory Assets Strengths: supportive family, willing for treatment Needs: safety and stabilization, increased coping skills, medication adjustment, increased outpatient support Suicide Risk Level Suicide Risk Level: High-Moderate (q15 min suicide checks) (increased psychosis with intermittent SI, able to alert staff when desires additional support, feels safe in the hospital) Risk Factors Assessment Male: Yes : Yes Do You Have Access To A Gun?: No (n/a) Mental Health Diagnoses: Yes Substance Use Disorders: No Previous Attempt: No Family History of Suicide: No Previous Psychiatric Hospitalization: No Protective Factors Assessment Employed: No Stable Relationships: Yes Supportive Family: Yes Interval History Identifying Information SAMIRA ROOT is a 23-year-old man who currently lives in [place] with his parents, has a history of depression, and was admitted on 02/12/24 17:07 on a 201 voluntary commitment for SI with plan of hanging himself and ego-dystonic HI. Chief Complaint "Alright". Review of Systems Sleep Information Total Hours of Sleep: 6.5 Sleep Comments: Meal Information Percent Meal Consumed - Breakfast: 100 Percent Meal Consumed - Lunch: 80 Percent Meal Consumed - Dinner: 75 Subjective Subjective Patient was seen & assessed and interval progress reviewed with treatment team nursing and social work. Remained out of his room most of the day and attended groups but still with blunted affect. His dad visited last evening and they played chess. Today reports ongoing fatigue but doesn't feel this is due to olanzapine but rather "my sleep is never restorative". Thinks the olanzapine is helping noting "I have less of that unease". Feels that today is "better than yesterday". Physical Exam Psychiatric Orientation: alert and oriented x 3 Apperance: appropriately dressed Eye Contact: + fair eye contact Motor Behavior: no abnormal motor movements; n EPS Speech: normal rate/rhythm/volume of speech Affect: + flat affect Mood: + depressed mood and + anxious mood ( less today) Thought Process: + concrete thought process Thought Content: reality based without delusions Suicidal Thoughts: denies suicidal plan; + reports suicidal thoughts (intermittent) Homicidal Thoughts: denies homicidal thoughts and denies homicidal plan Hallucinations: no auditory hallucinations and no visual hallucinations Cognition: recent memory grossly intact, remote memory grossly intact, attention grossly intact and language grossly intact Insight: + limited insight Judgment: + limited judgement Vital Signs (Past 24 Hours) Last Vital Signs Temp 36.9 C 03/14/24 06:39 Pulse 75 03/14/24 06:40 Resp 16 03/14/24 06:39 BP 128/82 03/14/24 06:40 Pulse Ox 96 03/10/24 06:51 O2 Del Method Room Air 03/10/24 06:51 Results & Data ([facility]) Current Inpatient Medications Current Inpatient Medications: Current Inpatient Medications Acetaminophen (Acetaminophen 325 Mg Tab) 650 mg PO Q4H PRN PRN Reason: Headache or Minor Fever Stop: 04/12/24 17:05 Al Hydrox/Mg Hydrox/Simethicone (Aluminum/Magnesium Susp 30 Ml Udc) 30 ml PO Q4H PRN PRN Reason: GI Upset Stop: 04/12/24 17:05 Benztropine Mesylate (Benztropine Mesylate 1 Mg Tab) 1 mg PO BID PRN PRN Reason: muscle stiffness Stop: 03/24/24 09:54 Last Admin: 03/11/24 14:46 Dose: 1 mg Bismuth Subsalicylate (Bismuth Subsalicylate Liqd 236 Ml) 15 ml PO PRN PRN PRN Reason: Loose Stool Stop: 04/12/24 17:05 Ergocalciferol (Ergocalciferol 1250 Mcg (50,000 Units) Cap) 1,250 mcg PO Ly@0900 [facility] Stop: 03/18/24 08:59 Last Admin: 03/09/24 08:48 Dose: 1,250 mcg Fluoxetine HCl (Fluoxetine Hcl 20 Mg Cap) 40 mg PO QAM [facility] Stop: 04/08/24 08:59 Last Admin: 03/13/24 09:11 Dose: 40 mg Hydrocortisone (Hydrocortisone 1% Crm 30 Gm Tube) 1 appln EXT DAILY [facility] Stop: 03/18/24 12:59 Last Admin: 03/13/24 09:13 Dose: Not Given Ketoconazole (Ketoconazole 2% Shampoo 120 Ml Btl) 1 appln EXT TuFr@0900 [facility] Stop: 04/03/24 14:14 Last Admin: 03/11/24 09:18 Dose: Not Given Lorazepam (Lorazepam 1 Mg Tab) 1 mg PO BID PRN PRN Reason: Anxiety Stop: 03/31/24 12:36 Last Admin: 03/12/24 13:42 Dose: 1 mg Magnesium Hydroxide (Magnesium Hydroxide Susp 30 Ml Udc) 30 ml PO DAILY PRN PRN Reason: Constipation Stop: 04/12/24 17:05 Mupirocin (Mupirocin 2% Oint 22 Gm Tube) 1 appln EXT BID PRN PRN Reason: Nasal Dryness Stop: 03/21/24 08:59 Olanzapine (Olanzapine 20 Mg Tablet) 20 mg PO HS TAY Stop: 04/11/24 21:59 Last Admin: 03/13/24 21:39 Dose: 20 mg Olanzapine (Olanzapine 5 Mg Tablet) 5 mg PO QAM TAY Stop: 04/12/24 10:59 Last Admin: 03/13/24 11:10 Dose: 5 mg Olanzapine (Olanzapine 2.5 Mg Tab) 2.5 mg PO BID PRN PRN Reason: Agitation/Psychosis Stop: 04/12/24 20:59 Propranolol HCl (Propranolol Hcl 10 Mg Tab) 10 mg PO BID PRN PRN Reason: akathisia Stop: 03/25/24 20:59 Last Admin: 03/10/24 17:41 Dose: 10 mg Sodium Chloride (Sodium Chloride 0.65% Na Soln 45 Ml (Cochise)) 1 - 2 sprays NA QID TAY Stop: 03/31/24 12:59 Last Admin: 03/13/24 21:39 Dose: Not Given Mental Health & Subst Abuse Tx Psychiatrist Name of Psychiatrist: Barbara [facility] - [facility] Psychiatrist's Date Of Appointment With Psychiatric Provider: 03/20/24 Time of Appointment with Psychiatrist: 2:00 PM Psychiatric Appointment Comment: [address] [address] (intake evaluation for [facility]) Therapist Name of Therapist: [facility] Therapist's Time of Therapist Appointment: n/a Therapy Appointment Comment: [address] [facility] [id number] Statistical Developer Name of Statistical Developer: [facility] - [facility] Phone Number for Statistical Developer: [phone] Time of Appointment with Statistical Developer: n/a Case Management Appointment Comment: [address] [address] Post Discharge Appointments Primary Care Physician Name Of Family Doctor/PCP: [facility] Date of Future Appointment with PCP: 03/21/24 Time of Appointment with PCP: 10:45 AM arrival Provider Appointment Comment: [address], [place] [address] Specialist Name of Specialist: [facility] Phone Number for Specialist: [phone] Time of Appointment with Specialist: Please ask PCP for a referral.
[2024-03-15] MEDS ORDERED: SODIUM CHLORIDE 0.65% NA SOLN 45 ML (OCEAN) PRN (11:20)
[2024-03-15] MEDS ORDERED: HYDROCORTISONE 1% CRM 30 GM TUBE EXT PRN (12:28)
[2024-03-15] MEDS: GABAPENTIN 100 MG CAP PO PRN (13:00)
--- NOTE | 2024-03-15 15:00 | Psychiatric Progress Note ---
Date of Service March 15, 2024 Impression / Recommendations Impression 23 yo man with no formal psychiatric history admitted on a 201 voluntary commitment for psychosis, sense that he may hurt someone and SI with plan of hanging himself using rope. Diagnostically consistent with unspecified psychosis with differential including schizophrenia (seems most likely given his age, gradual onset with increased negative symptoms, ideas of reference, increased shinto fixation, and now thought insertion to harm others) vs OCD vs MDD with psychotic features vs BPAD (less likely given no hx of monica) vs delusional disorder vs 2/2 medical cause (unlikely given negative head CT two months ago and no current neurological deficits or autonomic dysfunction, TSH normal). A: Patient presents a stable mental status and previous ego-dystonic thoughts and obsessions appear to be in remission. He is tolerating the medications well. He expressed interest in trying a neuropathic agent to relieve anxiety related to his nose. Does not want to continue treatment for scalp and would like to address it on an outpatient basis. Overall, I spent a total of 35 minutes with this case including review of chart records, nursing report, direct evaluation of the patient at bedside, counseling the patient, orders, and documentation in the electronic health record. 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 Start gabapentin 100 mg twice daily as needed for anxiety. Daily hydrocortisone as needed. Discontinue ketoconazole shampoo. Continue other medications and treatment plan. 03/14/2024: Continue current medications and tx plan. 03/13/2024: Add olanzapine 5mg qAM and 20mg HS. Olanzapine 2.5mg BID prn for agitation. 03/12/2024: Discontinue haldol. Start olanzapine 20mg HS. 03/11/2024: Increase haldol to 5mg qAM and 10mg HS 03/10/2024: Continue current medications and tx plan. 03/09/2024: Discontinue ativan 0.5mg HS. 03/08/2024: Discontinue scheduled Cogentin (prn for acute dystonic reaction), discontinue zytrec. Start mirtazapine 7.5mg HS, increase fluoxetine to 40mg qd 03/07/24: Continue current medications and treatment plan. 03/06/24: Increase Haldol back to 5mg BID. Benztropine 0.5mg BID scheduled. Afterc are planning. 03/05/24: Decrease Haldol to 2.5mg QAM, 5mg HS for akathisia concerns. Labs for prolactin, vitamin D, vitamin B12. 03/04/24: Increase lorazepam PRN to 1mg BID. Ketoconazole 2% shampoo applied 2x weekly for 4 weeks. Hydrocortisone 1% cream applied daily to scalp for 2 weeks. 03/03/24: Haldol 2.5mg QDBB, 2.5mg QDBL, 5mg HS 03/02/24: Brain MRI w/wo contrast to rule out nonpsychiatric causes. Patient continues to feel sedated during the day and will discontinue nightly Clonazepam and replace with Lorazepam 1mg HS. Lorazepam PRN dec to 0.5mg BID PRN. 03/01/24: Start daily cetirizine. Schedule nasal saline 4 times daily. Will work with social work to plan for outpatient sleep study. Concern for excess sedation on Klonopin and will reduce dose to 0.5 mg and scheduled at bedtime. Concern for ongoing EPS from haloperidol and Thorazine and will decrease haloperidol to to 5 mg twice daily. Discontinue as needed Klonopin and start lorazepam 1 mg twice daily as needed for anxiety. 02/29/2024: Increase Klonopin to 1mg qAM and Klonopin prn. Increase Thorazine 50mg BID prn for somatic delusions/psychosis/agitation. 02/28/2024: Start Thorazine 10mg BID prn for somatic perseveration. 02/27/2024: Start Klonopin 0.5mg schedule. Plan to increase fluoxetine on 02/29/24 02/26/2024: Continue current medications and tx plan. 02/25/2024: Increase haldol 10mg BID 02/24/2024: Addition of propranolol 10mg BID prn for akathisia 02/23/2024: Discontinue olanzapine. Adjust haldol to 5mg qAM and 10mg HS. Adjust cogentin to BID prn. 02/22/24: Prozac was increased to 30 mg daily starting tomorrow. 02/21/2024 Patient's larger dose of Zyprexa was switched to the morning because he says mornings are more difficult. The plan is to decrease the Zyprexa to only have him on Haldol. Continue the Prozac. PRN Ativan should be used sparingly. The fact that he has responded to the ativan makes me think this is more obsessional and intrusive thoughts than truce psychosis. Prozac was star schuyler for anxiety and should be titrated as quickly as safe for efficacy. 02/20/24 We stopped Gabapentin, added Prozac, PRN ativan, and Zyprexa was decreased with the hope that he can only be on Haldol as it has seemed to be the most effective. 02/19/2024 We have added Gabapentin to the patient's regimen at his request. We will continue to monitor. We will also try changing the larger Zyprexa dose to the morning. : Continue with current medications at this time. We will consider adding Gabapentin for his anxiety about his breathing. 02/17/2024 Zyprexa at bedtime was increased to 7.5 mg, continue 5 mg daily 02/16/2024 Zyprexa 5 mg BID. 02/15/2024: -Increase risperidone to 1mg BID -haldol 2.5mg BID prn for agitation/paranoia/psychosis and ativan 0.5mg BID prn for agitation -discontinue ativan HS 02/14/2024: -Haldol 5mg po and ativan 2mg po at HS -Tomorow start risperidone 0.5mg BID -Fasting lipid panel, glucose and HbA1c in the morning 02/13/2024:The patient was admitted to the [facility] on q15 min checks (behavioral with suicide precautions) for safety. The patient will participate in group, recreational, and milieu therapies and will be offered additional individual and family sessions as clinically appropriate. -Continue haldol 2.5mg qAM and 5mg HS for psychosis -Ativan 1mg qAM and 2mg HS for psychosis given high acuity of current distress and symptoms -Discontinue lamictal -Fasting lipid panel and HbA1c in 1-2 days as he can better tolerate -Suicide protocol with safe tray, safe linens, safety precautions -Homicide precautions -Elopement precautions Inventory Assets Strengths: supportive family, willing for treatment Needs: safety and stabilization, increased coping skills, medication adjustment, increased outpatient support Suicide Risk Level Suicide Risk Level: High-Moderate (q15 min suicide checks) (increased psychosis with intermittent SI, able to alert staff when desires additional support, feels safe in the hospital) Risk Factors Assessment Male: Yes : Yes Do You Have Access To A Gun?: No (n/a) Mental Health Diagnoses: Yes Substance Use Disorders: No Previous Attempt: No Family History of Suicide: No Previous Psychiatric Hospitalization: No Protective Factors Assessment Employed: No Stable Relationships: Yes Supportive Family: Yes Interval History Identifying Information SAMIRA ROOT is a 23-year-old man who currently lives in [place] with his parents, has a history of depression, and was admitted on 02/12/24 17:07 on a 201 voluntary commitment for SI with plan of hanging himself and ego-dystonic HI. Chief Complaint "[]". Review of Systems Sleep Information Total Hours of Sleep: 10.25 Meal Information Percent Meal Consumed - Breakfast: 100 Percent Meal Consumed - Lunch: 100 Percent Meal Consumed - Dinner: 100 Subjective Subjective Patient was seen & assessed and interval progress reviewed with nursing and social work Overnight no acute events. Patient presents a bright and reactive affect. He reports this week being anxious about discharge and reported an increase in feeling "possessed". He f elt the loss of control with thoughts of harming others though he did not want to. Reported an increase in suicidal thoughts and had fears that he would be unstable at home. Reports that after switching to Zyprexa these thoughts improved and he currently denies suicidal ideation. Upon discharge has plans to live with mother in [place]. Reports a decrease in inner restlessness and pacing on Zyprexa. Has not required Ativan recently. Reports ongoing feelings of not feeling rested however did sleep well last night. Currently does not want to continue further treatment for his scalp and asking to change to as needed basis. Denies feeling sleepy through the day. Feels safe in his surroundings. Continues to ruminate about his nose; ruminations unchanged since admission. Physical Exam Mental Examination Appearance: Well Groomed Eye Contact: Maintains Eye Contact Motor Behavior: Unremarkable Speech: Normal Mood: Euthymic Affect: Appropriate and Constricted Thought Process: Intact Hallucinations: None Insight: Fair Judgement: Fair (to limited) Vital Signs (Past 24 Hours) Last Vital Signs Temp 37 C 03/15/24 06:32 Pulse 116 H 03/15/24 06:33 Resp 16 03/15/24 06:32 BP 136/88 03/15/24 06:33 Pulse Ox 96 03/10/24 06:51 O2 Del Method Room Air 03/10/24 06:51 Results & Data ([facility]) Current Inpatient Medications Current Inpatient Medications: Current Inpatient Medications Acetaminophen (Acetaminophen 325 Mg Tab) 650 mg PO Q4H PRN PRN Reason: Headache or Minor Fever Stop: 04/12/24 17:05 Al Hydrox/Mg Hydrox/Simethicone (Aluminum/Magnesium Susp 30 Ml Udc) 30 ml PO Q4H PRN PRN Reason: GI Upset Stop: 04/12/24 17:05 Benztropine Mesylate (Benztropine Mesylate 1 Mg Tab) 1 mg PO BID PRN PRN Reason: muscle stiffness Stop: 03/24/24 09:54 Last Admin: 03/11/24 14:46 Dose: 1 mg Bismuth Subsalicylate (Bismuth Subsalicylate Liqd 236 Ml) 15 ml PO PRN PRN PRN Reason: Loose Stool Stop: 04/12/24 17:05 Ergocalciferol (Ergocalciferol 1250 Mcg (50,000 Units) Cap) 1,250 mcg PO Ly@0900 [facility] Stop: 03/18/24 08:59 Last Admin: 03/09/24 08:48 Dose: 1,250 mcg Fluoxetine HCl (Fluoxetine Hcl 20 Mg Cap) 40 mg PO QAM [facility] Stop: 04/08/24 08:59 Last Admin: 03/15/24 08:54 Dose: 40 mg Gabapentin (Gabapentin 100 Mg Cap) 100 mg PO BID PRN PRN Reason: Anxiety Stop: 04/14/24 20:59 Last Admin: 03/15/24 13:00 Dose: 100 mg Hydrocortisone (Hydrocortisone 1% Crm 30 Gm Tube) 1 appln EXT DAILY PRN PRN Reason: scalp inflammation Stop: 03/18/24 12:59 Lorazepam (Lorazepam 1 Mg Tab) 1 mg PO BID PRN PRN Reason: Anxiety Stop: 03/31/24 12:36 Last Admin: 03/12/24 13:42 Dose: 1 mg Magnesium Hydroxide (Magnesium Hydroxide Susp 30 Ml Udc) 30 ml PO DAILY PRN PRN Reason: Constipation Stop: 04/12/24 17:05 Mupirocin (Mupirocin 2% Oint 22 Gm Tube) 1 appln EXT BID PRN PRN Reason: Nasal Dryness Stop: 03/21/24 08:59 Olanzapine (Olanzapine 20 Mg Tablet) 20 mg PO HS TAY Stop: 04/11/24 21:59 Last Admin: 03/14/24 21:14 Dose: 20 mg Olanzapine (Olanzapine 5 Mg Tablet) 5 mg PO QAM TAY Stop: 04/12/24 10:59 Last Admin: 03/15/24 08:54 Dose: 5 mg Olanzapine (Olanzapine 2.5 Mg Tab) 2.5 mg PO BID PRN PRN Reason: Agitation/Psychosis Stop: 04/12/24 20:59 Sodium Chloride (Sodium Chloride 0.65% Na Soln 45 Ml ([place])) 1 - 2 sprays NA QID PRN PRN Reason: Nasal Congestion Stop: 03/31/24 12:59 Mental Health & Subst Abuse Tx Psychiatrist Name of Psychiatrist: [facility] Psych[facility]rist's Date Of Appointment With Psychiatric Provider: 03/20/24 Time of Appointment with Psychiatrist: 2:00 PM Psychiatric Appointment Comment: [address] [facility] [id number] (intake evaluation for [facility]) Therapist Name of Therapist: [facility] Therapist's Time of Therapist Appointment: n/a Therapy Appointment Comment: [address] [facility] [id number] Loan Inspector Name of Loan Inspector: [facility] Phone Number for Loan Inspector: [phone] Time of Appointment with Loan Inspector: n/a Case Management Appointment Comment: [address] [facility] [address] Post Discharge Appointments Primary Care Physician Name Of Family Doctor/PCP: ALEJANDRO [facility] Date of Future Appointment with PCP: 03/21/24 Time of Appointment with PCP: 10:45 AM arrival Provider Appointment Comment: [address], [place] [address] Specialist Name of Specialist: [facility] Phone Number for Specialist: [phone] Time of Appointment with Specialist: Please ask PCP for a referral.
--- NOTE | 2024-03-16 13:20 | Psychiatric Progress Note ---
Date of Service March 16, 2024 Impression / Recommendations Impression 23 yo man with no formal psychiatric history admitted on a 201 voluntary commitment for psychosis, sense that he may hurt someone and SI with plan of hanging himself using rope. Diagnostically consistent with unspecified psychosis with differential including schizophrenia (seems most likely given his age, gradual onset with increased negative symptoms, ideas of reference, increased voodoo fixation, and now thought insertion to harm others) vs OCD vs MDD with psychotic features vs BPAD (less likely given no hx of monica) vs delusional disorder vs 2/2 medical cause (unlikely given negative head CT two months ago and no current neurological deficits or autonomic dysfunction, TSH normal). A: Patient presents stable thought process. No endorsement of psychotic symptoms, suicidal ideation, or homicidal ideation. He presents anticipatory anxiety about discharge and was counseled. Overall, I spent a total of 35 minutes with this case including review of chart records, nursing report, direct evaluation of the patient at bedside, counseling the patient, orders, and documentation in the electronic health record. 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 03/15/2024: Nasal saline switch to as needed. Start gabapentin 100 mg twice daily as needed for anxiety. Daily hydrocortisone as needed. Discontinue ketoconazole shampoo. Continue other medications and treatment plan. 03/14/2024: Continue current medications and tx plan. 03/13/2024: Add olanzapine 5mg qAM and 20mg HS. Olanzapine 2.5mg BID prn for agitation. 03/12/2024: Discontinue haldol. Start olanzapine 20mg HS. 03/11/2024: Increase haldol to 5mg qAM and 10mg HS 03/10/2024: Continue current medications and tx plan. 03/09/2024: Discontinue ativan 0.5mg HS. 03/08/2024: Discontinue scheduled Cogentin (prn for acute dystonic reaction), discontinue zytrec. Start mirtazapine 7.5mg HS, increase fluoxetine to 40mg qd 03/07/24: Continue current medications and treatment plan. 03/06/24: Increase Haldol back to 5mg BID. Benztropine 0.5mg BID scheduled. Aftercare planning. 03/05/24: Decrease Haldol to 2.5mg QAM, 5mg HS for akathisia concerns. Labs for prolactin, vitamin D, vitamin B12. 03/04/24: Increase lorazepam PRN to 1mg BID. Ketoconazole 2% shampoo applied 2x weekly for 4 weeks. Hydrocortisone 1% cream applied daily to scalp for 2 weeks. 03/03/24: Haldol 2.5mg QDBB, 2.5mg QDBL, 5mg HS 03/02/24: Brain MRI w/wo contrast to rule out nonpsychiatric causes. Patient continues to feel sedated during the day and will discontinue nightly Clonazepam and replace with Lorazepam 1mg HS. Lorazepam PRN dec to 0.5mg BID PRN. 03/01/24: Start daily cetirizine. Schedule nasal saline 4 times daily. Will work with social work to plan for outpatient sleep study. Concern for excess sedation on Klonopin and will reduce dose to 0.5 mg and scheduled at bedtime. Concern for ongoing EPS from haloperidol and Thorazine and will decrease haloperidol to to 5 mg twice daily. Discontinue as needed Klonopin and start lorazepam 1 mg twice daily as needed for anxiety. 02/29/2024: Increase Klonopin to 1mg qAM and Klonopin prn. Increase Thorazine 50mg BID prn for somatic delusions/psychosis/agitation. 02/28/2024: Start Thorazine 10mg BID prn for somatic perseveration. 02/27/2024: Start Klonopin 0.5mg schedule. Plan to increase fluoxetine on 02/29/24 02/26/2024: Continue current medications and tx plan. 02/25/2024: Increase haldol 10mg BID 02/24/2024: Addition of propranolol 10mg BID prn for akathisia 02/23/2024: Discontinue olanzapine. Adjust haldol to 5mg qAM and 10mg HS. Adjust cogentin to BID prn. 02/22/24: Prozac was increased to 30 mg daily starting tomorrow. 02/21/2024 Patient's larger dose of Zyprexa was switched to the morning because he says mornings are more difficult. The plan is to decrease the Zyprexa to only have him on Haldol. Continue the Prozac. PRN Ativan should be used sparingly. The fact that he has responded to the ativan makes me think this is more obsessional and intrusive thoughts than truce psychosis. Prozac was started for anxiety and should be titrated as quickly as safe for efficacy. 02/20/24 We stopped Gabapentin, added Prozac, PRN ativan, and Zyprexa was decreased with the hope that he can only be on Haldol as it has seemed to be the most effective. 02/19/2024 We have added Gabapentin to the patient's regimen at his request. We will continue to monitor. We will also try changing the larger Zyprexa dose to the morning. : Continue with current medications at this time. We will consider add ing Gabapentin for his anxiety about his breathing. 02/17/2024 Zyprexa at bedtime was increased to 7.5 mg, continue 5 mg daily 02/16/2024 Zyprexa 5 mg BID. 02/15/2024: -Increase risperidone to 1mg BID -haldol 2.5mg BID prn for agitation/paranoia/psychosis and ativan 0.5mg BID prn for agitation -discontinue ativan HS 02/14/2024: -Haldol 5mg po and ativan 2mg po at HS -Tomorow start risperidone 0.5mg BID -Fasting lipid panel, glucose and HbA1c in the morning 02/13/2024:The patient was admitted to the [facility] ([facility]) on q15 min checks (behavioral with suicide precautions) for safety. The patient will participate in group, recreational, and milieu therapies and will be offered additional individual and family sessions as clinically appropriate. -Continue haldol 2.5mg qAM and 5mg HS for psychosis -Ativan 1mg qAM and 2mg HS for psychosis given high acuity of current distress and symptoms -Discontinue lamictal -Fasting lipid panel and HbA1c in 1-2 days as he can better tolerate -Suicide protocol with safe tray, safe linens, safety precautions -Homicide precautions -Elopement precautions Inventory Assets Strengths: supportive family, willing for treatment Needs: safety and stabilization, increased coping skills, medication adjustment, increased outpatient support Suicide Risk Level Suicide Risk Level: High-Moderate (q15 min suicide checks) (increased psychosis with intermittent SI, able to alert staff when desires additional support, feels safe in the hospital) Risk Factors Assessment Male: Yes : Yes Do You Have Access To A Gun?: No (n/a) Mental Health Diagnoses: Yes Substance Use Disorders: No Previous Attempt: No Family History of Suicide: No Previous Psychiatric Hospitalization: No Protective Factors Assessment Employed: No Stable Relationships: Yes Supportive Family: Yes Interval History Identifying Information SAMIRA ROOT is a 23-year-old man who currently lives in [place] with his parents, has a history of depression, and was admitted on 02/12/24 17:07 on a 201 voluntary commitment for SI with plan of hanging himself and ego-dystonic HI. Chief Complaint "[]". Review of Systems Sleep Information Total Hours of Sleep: 7.25 Meal Information Percent Meal Consumed - Breakfast: 100 Percent Meal Consumed - Lunch: 100 Percent Meal Consumed - Dinner: 100 Subjective Subjective Patient was seen & assessed and interval progress reviewed with nursing and social work Overnight no acute events. Patient reports not feeling rested and this has been a chronic issue. Pending outpatient sleep study. Reports having a good day yesterday and this morning. Has been in touch with his mother. Denies having intrusive thoughts or body control. Denies suicidal ideation. Denies fear of potentially bad things happening. We discussed potential anxieties about discharge and barriers. Discussed his vitamin D status. Reports gabapentin was not effective. No other concerns presented. Physical Exam Mental Examination Appearance: Well Groomed Eye Contact: Maintains Eye Contact Motor Behavior: Unremarkable Speech: Normal Mood: Euthymic Affect: Appropriate and Constricted Thought Process: Intact Hallucinations: None Insight: Fair Judgement: Fair (to limited) Vital Signs (Past 24 Hours) Last Vital Signs Temp 36.8 C 03/16/24 06:34 Pulse 83 03/16/24 06:35 Resp 16 03/16/24 06:34 BP 126/82 03/16/24 06:35 Pulse Ox 96 03/10/24 06:51 O2 Del Method Room Air 03/10/24 06:51 Results & Data ([facility]) Current Inpatient Medications Current Inpatient Medications: Current Inpatient Medications Acetaminophen (Acetaminophen 325 Mg Tab) 650 mg PO Q4H PRN PRN Reason: Headache or Minor Fever Stop: 04/12/24 17:05 Al Hydrox/Mg Hydrox/Simethicone (Aluminum/Magnesium Susp 30 Ml Udc) 30 ml PO Q4H PRN PRN Reason: GI Upset Stop: 04/12/24 17:05 Benztropine Mesylate (Benztropine Mesylate 1 Mg Tab) 1 mg PO BID PRN PRN Reason: muscle stiffness Stop: 03/24/24 09:54 Last Admin: 03/11/24 14:46 Dose: 1 mg Bismuth Subsalicylate (Bismuth Subsalicylate Liqd 236 Ml) 15 ml PO PRN PRN PRN Reason: Loose Stool Stop: 04/12/24 17:05 Ergocalciferol (Ergocalciferol 1250 Mcg (50,000 Units) Cap) 1,250 mcg PO S u@0900 TAY Stop: 03/18/24 08:59 Last Admin: 03/16/24 09:05 Dose: 1,250 mcg Fluoxetine HCl (Fluoxetine Hcl 20 Mg Cap) 40 mg PO QAM TAY Stop: 04/08/24 08:59 Last Admin: 03/16/24 09:06 Dose: 40 mg Gabapentin (Gabapentin 100 Mg Cap) 100 mg PO BID PRN PRN Reason: Anxiety Stop: 04/14/24 20:59 Last Admin: 03/15/24 13:00 Dose: 100 mg Hydrocortisone (Hydrocortisone 1% Crm 30 Gm Tube) 1 appln EXT DAILY PRN PRN Reason: scalp inflammation Stop: 03/18/24 12:59 Lorazepam (Lorazepam 1 Mg Tab) 1 mg PO BID PRN PRN Reason: Anxiety Stop: 03/31/24 12:36 Last Admin: 03/12/24 13:42 Dose: 1 mg Magnesium Hydroxide (Magnesium Hydroxide Susp 30 Ml Udc) 30 ml PO DAILY PRN PRN Reason: Constipation Stop: 04/12/24 17:05 Mupirocin (Mupirocin 2% Oint 22 Gm Tube) 1 appln EXT BID PRN PRN Reason: Nasal Dryness Stop: 03/21/24 08:59 Olanzapine (Olanzapine 20 Mg Tablet) 20 mg PO HS TAY Stop: 04/11/24 21:59 Last Admin: 03/15/24 21:09 Dose: 20 mg Olanzapine (Olanzapine 5 Mg Tablet) 5 mg PO QAM [facility] Stop: 04/12/24 10:59 Last Admin: 03/16/24 09:06 Dose: 5 mg Olanzapine (Olanzapine 2.5 Mg Tab) 2.5 mg PO BID PRN PRN Reason: Agitation/Psychosis Stop: 04/12/24 20:59 Sodium Chloride (Sodium Chloride 0.65% Na Soln 45 Ml ([place])) 1 - 2 sprays NA QID PRN PRN Reason: Nasal Congestion Stop: 03/31/24 12:59 Mental Health & Subst Abuse Tx Psychiatrist Name of Psychiatrist: [facility] Psychiatrist's Date Of Appointment With Psychiatric Provider: 03/20/24 Time of Appointment with Psychiatrist: 2:00 PM Psychiatric Appointment Comment: [address] [facility] [id number] (intake evaluation for [facility]) Therapist Name of Therapist: [facility] Therapist's Time of Therapist Appointment: n/a Therapy Appointment Comment: [address] [facility] [address] Machine Shop Repair Technician Name of Machine Shop Repair Technician: [facility] Phone Number for Machine Shop Repair Technician: [phone] Time of Appointment with Machine Shop Repair Technician: n/a Case Management Appointment Comment: [address] [facility] [id number] Post Discharge Appointments Primary Care Physician Name Of Family Doctor/PCP: ALEJANDRO [facility] Date of Future Appointment with PCP: 03/21/24 Time of Appointment with PCP: 10:45 AM arrival Provider Appointment Comment: [address], [place] [address] Specialist Name of Specialist: [facility] Phone Number for Specialist: [phone] Time of Appointment with Specialist: Please ask PCP for a referral.
--- NOTE | 2024-03-17 18:37 | Psychiatric Progress Note ---
Date of Service March 17, 2024 Impression / Recommendations Impression 23 yo man with no formal psychiatric history admitted on a 201 voluntary commitment for psychosis, sense that he may hurt someone and SI with plan of hanging himself using rope. Diagnostically consistent with unspecified psychosis with differential including schizophrenia (seems most likely given his age, gradual onset with increased negative symptoms, ideas of reference, increased tenriism fixation, and now thought insertion to harm others) vs OCD vs MDD with psychotic features vs BPAD (less likely given no hx of monica) vs delusional disorder vs 2/2 medical cause (unlikely given negative head CT two months ago and no current neurological deficits or autonomic dysfunction, TSH normal). A: Samira presents stable behavior and mood. Continues to have sleep complaints and recommended outpatient sleep evaluation. He presents anticipatory anxiety about discharge and fear of symptom recurrence and was counseled. Planning for discharge for outpatient intake and to return home with his mother. Overall, I spent a total of 35 minutes with this case including review of chart records, nursing report, direct evaluation of the patient at bedside, counseling the patient, orders, and documentation in the electronic health record. 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 03/16/2024: Continue current medications and treatment plan. 03/15/2024: Nasal saline switch to as needed. Start gabapentin 100 mg twice daily as needed for anxiety. Daily hydrocortisone as needed. Discontinue ketoconazole shampoo. Continue other medications and treatment plan. 03/14/2024: Continue current medications and tx plan. 03/13/2024: Add olanzapine 5mg qAM and 20mg HS. Olanzapine 2.5mg BID prn for agitation. 03/12/2024: Discontinue haldol. Start olanzapine 20mg HS. 03/11/2024: Increase haldol to 5mg qAM and 10mg HS 03/10/2024: Continue current medications and tx plan. 03/09/2024: Discontinue ativan 0.5mg HS. 03/08/2024: Discontinue scheduled Cogentin (prn for acute dystonic reaction), discontinue zytrec. Start mirtazapine 7.5mg HS, increase fluoxetine to 40mg qd 03/07/24: Continue current medications and treatment plan. 03/06/24: Increase Haldol back to 5mg BID. Benztropine 0.5mg BID scheduled. Aftercare planning. 03/05/24: Decrease Haldol to 2.5mg QAM, 5mg HS for akathisia concerns. Labs for prolactin, vitamin D, vitamin B12. 03/04/24: Increase lorazepam PRN to 1mg BID. Ketoconazole 2% shampoo applied 2x weekly for 4 weeks. Hydrocortisone 1% cream applied daily to scalp for 2 weeks. 03/03/24: Haldol 2.5mg QDBB, 2.5mg QDBL, 5mg HS 03/02/24: Brain MRI w/wo contrast to rule out nonpsychiatric causes. Patient continues to feel sedated during the day and will discontinue nightly Clonazepam and replace with Lorazepam 1mg HS. Lorazepam PRN dec to 0.5mg BID PRN. 03/01/24: Start daily cetirizine. Schedule nasal saline 4 times daily. Will work with social work to plan for outpatient sleep study. Concern for excess rian tion on Klonopin and will reduce dose to 0.5 mg and scheduled at bedtime. Concern for ongoing EPS from haloperidol and Thorazine and will decrease haloperidol to to 5 mg twice daily. Discontinue as needed Klonopin and start lorazepam 1 mg twice daily as needed for anxiety. 02/29/2024: Increase Klonopin to 1mg qAM and Klonopin prn. Increase Thorazine 50mg BID prn for somatic delusions/psychosis/agitation. 02/28/2024: Start Thorazine 10mg BID prn for somatic perseveration. 02/27/2024: Start Klonopin 0.5mg schedule. Plan to increase fluoxetine on 02/29/24 02/26/2024: Continue current medications and tx plan. 02/25/2024: Increase haldol 10mg BID 02/24/2024: Addition of propranolol 10mg BID prn for akathisia 02/23/2024: Discontinue olanzapine. Adjust haldol to 5mg qAM and 10mg HS. Adjust cogentin to BID prn. 02/22/24: Prozac was increased to 30 mg daily starting tomorrow. 02/21/2024 Patient's larger dose of Zyprexa was switched to the morning because he says mornings are more difficult. The plan is to decrease the Zyprexa to only have him on Haldol. Continue the Prozac. PRN Ativan should be used sparingly. The fact that he has responded to the ativan makes me think this is more obsessional and intrusive thoughts than truce psychosis. Prozac was started for anxiety and should be titrated as quickly as safe for efficacy. 02/20/24 We stopped Gabapentin, added Prozac, PRN ativan, and Zyprexa was decreased with the hope that he can only be on Haldol as it has seemed to be the most effective. 02/19/2024 We have added Gabapentin to the patient's regimen at his request. We will continue to monitor. We will also try changing the larger Zyprexa dose to the morning. : Continue with current medications at this time. We will consider adding Gabapentin for his anxiety about his breathing. 02/17/2024 Zyprexa at bedtime was increased to 7.5 mg, continue 5 mg daily 02/16/2024 Zyprexa 5 mg BID. 02/15/2024: -Increase risperidone to 1mg BID -haldol 2.5mg BID prn for agitation/paranoia/psychosis and ativan 0.5mg BID prn for agitation -discontinue ativan HS 02/14/2024: -Haldol 5mg po and ativan 2mg po at HS -Tomorow start risperidone 0.5mg BID -Fasting lipid panel, glucose and HbA1c in the morning 02/13/2024:The patient was admitted to the [facility] ([facility] mental health unit) on q15 min checks (behavioral with suicide precautions) for safety. The patient will participate in group, recreational, and milieu therapies and will be offered additional individual and family sessions as clinically appropriate. -Continue haldol 2.5mg qAM and 5mg HS for psychosis -Ativan 1mg qAM and 2mg HS for psychosis given high acuity of current distress and symptoms -Discontinue lamictal -Fasting lipid panel and HbA1c in 1-2 days as he can better tolerate -Suicide protocol with safe tray, safe linens, safety precautions -Homicide precautions -Elopement precautions Inventory Assets Strengths: supportive family, willing for treatment Needs: safety and stabilization, increased coping skills, medication adjustment, increased outpatient support Suicide Risk Level Suicide Risk Level: High-Moderate (q15 min suicide checks) (increased psychosis with intermittent SI, able to alert staff when desires additional support, feels safe in the hospital) Risk Factors Assessment Male: Yes : Yes Do You Have Access To A Gun?: No (n/a) Mental Health Diagnoses: Yes Substance Use Disorders: No Previous Attempt: No Family History of Suicide: No Previous Psychiatric Hospitalization: No Protective Factors Assessment Employed: No Stable Relationships: Yes Supportive Family: Yes Interval History Identifying Information SAMIRA ROOT is a 23-year-old man who currently lives in [place] with his parents, has a history of depression, and was admitted on 02/12/24 17:07 on a 201 voluntary commitment for SI with plan of hanging himself and ego-dystonic HI. Chief Complaint Intrusive thoughts Review of Systems Sleep Information Total Hours of Sleep: 9.25 Meal Information Percent Meal Consumed - Breakfast: 110 Percent Meal Consumed - Lunch: 100 Percent Meal Consumed - Dinner: 100 Subjective Subjective Patient was seen & assessed and interval progress reviewed with treatment team nursing and social work Overnight no acute events. He slept through the night however still feels tir ed. Anxious about discharge; worried how interactions with family and peers may go. Presents fear that he may do something to his family or to himself. Reassured. Denies having intrusive thoughts today. Worried about finding a job and what he will do at home. Counseled and encouraged to work on self-care. Denies SI and HI. Denies AVH. Physical Exam Mental Examination Appearance: Well Groomed Eye Contact: Maintains Eye Contact Motor Behavior: Unremarkable Speech: Normal Mood: Euthymic Affect: Appropriate and Constricted Thought Process: Intact Hallucinations: None Insight: Fair Judgement: Fair (to limited) Vital Signs (Past 24 Hours) Last Vital Signs Temp 37.1 C 03/17/24 06:43 Pulse 82 03/17/24 06:44 Resp 16 03/17/24 06:43 BP 134/81 03/17/24 06:44 Pulse Ox 96 03/10/24 06:51 O2 Del Method Room Air 03/10/24 06:51 Results & Data ([facility]) Current Inpatient Medications Current Inpatient Medications: Current Inpatient Medications Acetaminophen (Acetaminophen 325 Mg Tab) 650 mg PO Q4H PRN PRN Reason: Headache or Minor Fever Stop: 04/12/24 17:05 Al Hydrox/Mg Hydrox/Simethicone (Aluminum/Magnesium Susp 30 Ml Udc) 30 ml PO Q4H PRN PRN Reason: GI Upset Stop: 04/12/24 17:05 Benztropine Mesylate (Benztropine Mesylate 1 Mg Tab) 1 mg PO BID PRN PRN Reason: muscle stiffness Stop: 03/24/24 09:54 Last Admin: 03/11/24 14:46 Dose: 1 mg Bismuth Subsalicylate (Bismuth Subsalicylate Liqd 236 Ml) 15 ml PO PRN PRN PRN Reason: Loose Stool Stop: 04/12/24 17:05 Ergocalciferol (Ergocalciferol 1250 Mcg (50,000 Units) Cap) 1,250 mcg PO Ly@0900 TAY Stop: 03/18/24 08:59 Last Admin: 03/16/24 09:05 Dose: 1,250 mcg Fluoxetine HCl (Fluoxetine Hcl 20 Mg Cap) 40 mg PO QAM TAY Stop: 04/08/24 08:59 Last Admin: 03/17/24 08:34 Dose: 40 mg Gabapentin (Gabapentin 100 Mg Cap) 100 mg PO BID PRN PRN Reason: Anxiety Stop: 04/14/24 20:59 Last Admin: 03/15/24 13:00 Dose: 100 mg Hydrocortisone (Hydrocortisone 1% Crm 30 Gm Tube) 1 appln EXT DAILY PRN PRN Reason: scalp inflammation Stop: 03/18/24 12:59 Lorazepam (Lorazepam 1 Mg Tab) 1 mg PO BID PRN PRN Reason: Anxiety Stop: 03/31/24 12:36 Last Admin: 03/12/24 13:42 Dose: 1 mg Magnesium Hydroxide (Magnesium Hydroxide Susp 30 Ml Udc) 30 ml PO DAILY PRN PRN Reason: Constipation Stop: 04/12/24 17:05 Mupirocin (Mupirocin 2% Oint 22 Gm Tube) 1 appln EXT BID PRN PRN Reason: Nasal Dryness Stop: 03/21/24 08:59 Olanzapine (Olanzapine 20 Mg Tablet) 20 mg PO HS TAY Stop: 04/11/24 21:59 Last Admin: 03/16/24 21:17 Dose: 20 mg Olanzapine (Olanzapine 5 Mg Tablet) 5 mg PO QAM TAY Stop: 04/12/24 10:59 Last Admin: 03/17/24 08:34 Dose: 5 mg Olanzapine (Olanzapine 2.5 Mg Tab) 2.5 mg PO BID PRN PRN Reason: Agitation/Psychosis Stop: 04/12/24 20:59 Sodium Chloride (Sodium Chloride 0.65% Na Soln 45 Ml ([place])) 1 - 2 sprays NA QID PRN PRN Reason: Nasal Congestion Stop: 03/31/24 12:59 Mental Health & Subst Abuse Tx Psychiatrist Name of Psychiatrist: [facility] Psychiatrist's Date Of Appointment With Psychiatric Provider: 03/20/24 Time of Appointment with Psychiatrist: 2:00 PM Psychiatric Appointment Comment: [address] [facility] [id number] (intake evaluation for FEP) Therapist Name of Therapist: [facility] Therapist's Time of Therapist Appointment: n/a Therapy Appointment Comment: [address] [facility] [address] Clinical Pharmacologist Name of Clinical Pharmacologist: [facility] Phone Number for Clinical Pharmacologist: [phone] Time of Appointment with Clinical Pharmacologist: n/a Case Management Appointment Comment: [address] [facility] [id number] Post Discharge Appointments Primary Care Physician Name Of Family Doctor/PCP: ALEJANDRO [facility] Date of Future Appointment with PCP: 03/21/24 Time of Appointment with PCP: 10:45 AM arrival Provider Appointment Comment: [address], [place] [address] Specialist Name of Specialist: [facility] Phone Number for Specialist: [phone] Time of Appointment with Specialist: Please ask PCP for a referral.
--- NOTE | 2024-03-18 12:51 | Psychiatric Progress Note ---
Date of Service March 18, 2024 Impression / Recommendations Impression 23 yo man with no formal psychiatric history admitted on a 201 voluntary commitment for psychosis, sense that he may hurt someone and SI with plan of hanging himself using rope. Diagnostically consistent with unspecified psychosis with differential including schizophrenia (seems most likely given his age, gradual onset with increased negative symptoms, ideas of reference, increased shinto fixation, and now thought insertion to harm others) vs OCD vs MDD with psychotic features vs BPAD (less likely given no hx of monica) vs delusional disorder vs 2/2 medical cause (unlikely given negative head CT two months ago and no current neurological deficits or autonomic dysfunction, TSH normal). A: Patient presents a more bright and reactive mental state. He presents some anticipatory anxiety about discharge. Denies having intrusive thoughts, body control wanting to harm others or himself, auditory or visual hallucinations. Counseled on discharge planning and what to expect. Overall, I spent a total of 35 minutes with this case including review of chart records, nursing report, direct evaluation of the patient at bedside, counseling the patient, orders, and documentation in the electronic health record. (1) Schizophreniform disorder: (2) Obsessive-compulsive and related disorder due to another medical condition: (3) Depression: (4) Suicidal ideations: (5) Elevated prolactin level: (6) Sexual dysfunction: Plan 03/18/2024: Continue medications. MNPR no longer needed and patient may have roommate. 03/17/2024: Continue medications and treatment plan. 03/16/2024: Continue current medications and treatment plan. 03/15/2024: Nasal saline switch to as needed. Start gabapentin 100 mg twice daily as needed for anxiety. Daily hydrocortisone as needed. Discontinue ketoconazole shampoo. Continue other medications and treatment plan. 03/14/2024: Continue current medications and tx plan. 03/13/2024: Add olanzapine 5mg qAM and 20mg HS. Olanzapine 2.5mg BID prn for agitation. 03/12/2024: Discontinue haldol. Start olanzapine 20mg HS. 03/11/2024: Increase haldol to 5mg qAM and 10mg HS 03/10/2024: Continue current medications and tx plan. 03/09/2024: Discontinue ativan 0.5mg HS. 03/08/2024: Discontinue scheduled Cogentin (prn for acute dystonic reaction), discontinue zytrec. Start mirtazapine 7.5mg HS, increase fluoxetine to 40mg qd 03/07/24: Continue current medications and treatment plan. 03/06/24: Increase Haldol back to 5mg BID. Benztropine 0.5mg BID scheduled. Aftercare planning. 03/05/24: Decrease Haldol to 2.5mg QAM, 5mg HS for akathisia concerns. Labs for prolactin, vitamin D, vitamin B12. 03/04/24: Increase lorazepam PRN to 1mg BID. Ketoconazole 2% shampoo applied 2x weekly for 4 weeks. Hydrocortisone 1% cream applied daily to scalp for 2 weeks. 03/03/24: Haldol 2.5mg QDBB, 2.5mg QDBL, 5mg HS 03/02/24: Brain MRI w/wo contrast to rule out nonpsychiatric causes. Patient continues to feel sedated during the day and will discontinue nightly Clonazepam and replace with Lorazepam 1mg HS. Lorazepam PRN dec to 0.5mg BID PRN. 03/01/24: Start daily cetirizine. Schedule nasal saline 4 times daily. Will work with social work to plan for outpatient sleep study. Concern for excess sedation on Klonopin and will reduce dose to 0.5 mg and scheduled at bedtime. Concern for ongoing EPS from haloperidol and Thorazine and will decrease haloperidol to to 5 mg twice daily. Discontinue as needed Klonopin and start lorazepam 1 mg twice daily as needed for anxiety. 02/29/2024: Increase Klonopin to 1mg qAM and Klonopin prn. Increase Thorazine 50mg BID prn for somatic delusions/psychosis/agitation. 02/28/2024: Start Thorazine 10mg BID prn for somatic perseveration. 02/27/2024: Start Klonopin 0.5mg schedule. Plan to increase fluoxetine on 02/29/24 02/26/2024: Continue current medications and tx plan. 02/25/2024: Increase haldol 10mg BID 02/24/2024: Addition of propranolol 10mg BID prn for akathisia 02/23/2024: Discontinue olanzapine. Adjust haldol to 5mg qAM and 10mg HS. Adjust cogentin to BID prn. 02/22/24: Prozac was increased to 30 mg daily starting tomorrow. 02/21/2024 Patient's larger dose of Zyprexa was switched to the morning because he says mornings are more difficult. The plan is to decrease the Zyprexa to only have him on Haldol. Continue the Prozac. PRN Ativan should be used sparingly. The fact that he has responded to the ativan makes me think this is more obsessional and intrusive thoughts than truce psychosis. Prozac was started for anxiety and should be titrated as quickly as safe for efficacy. 02/20/24 We stopped Gabapentin, added Prozac, PRN ativan, and Zyprexa was decreased with the hope that he can only be on Haldol as it has seemed to be the most effective. 02/19/2024 We have added Gabapentin to the patient's regimen at his request. We will continue to monitor. We will also try changing the larger Zyprexa dose to the morning. : Continue with current medications at this time. We will consider adding Gabapentin for his anxiety about his breathing. 02/17/2024 Zyprexa at bedtime was increased to 7.5 mg, continue 5 mg daily 02/16/2024 Zyprexa 5 mg BID. 02/15/2024: -Increase risperidone to 1mg BID -haldol 2.5mg BID prn for agitation/paranoia/psychosis and ativan 0.5mg BID prn for agitation -discontinue ativan HS 02/14/2024: -Haldol 5mg po and ativan 2mg po at HS -Tomorow start risperidone 0.5mg BID -Fasting lipid panel, glucose and HbA1c in the morning 02/13/2024:The patient was admitted to the [facility] ([facility]) on q15 min checks (behavioral with suicide precautions) for safety. The patient will participate in group, recreational, and milieu therapies and will be offered additional individual and family sessions as clinically appropriate. -Continue haldol 2.5mg qAM and 5mg HS for psychosis -Ativan 1mg qAM and 2mg HS for psychosis given high acuity of current distress and symptoms -Discontinue lamictal -Fasting lipid panel and HbA1c in 1-2 days as he can better tolerate -Suicide protocol with safe tray, safe linens, safety precautions -Homicide precautions -Elopement precautions Inventory Assets Strengths: supportive family, willing for treatment Needs: safety and stabilization, increased coping skills, medication adjustment, increased outpatient support Suicide Risk Level Suicide Risk Level: Moderate (q15 min suicide checks) (increased psychosis with intermittent SI, able to alert staff when desires additional support, feels safe in the hospital) Risk Factors Assessment Male: Yes : Yes Do You Have Access To A Gun?: No (n/a) Mental Health Diagnoses: Yes Substance Use Disorders: No Previous Attempt: No Family History of Suicide: No Previous Psychiatric Hospitalization: No Protective Factors Assessment Employed: No Stable Relationships: Yes Supportive Family: Yes Interval History Identifying Information SAMIRA ROOT is a 23-year-old man who currently lives in [place] with his parents, has a history of depression, and was admitted on 02/12/24 17:07 on a 201 voluntary commitment for SI with plan of hanging himself and ego-dystonic HI. Chief Complaint Intrusive thoughts, psychosis Review of Systems Sleep Information Total Hours of Sleep: 7.75 Meal Information Percent Meal Consumed - Breakfast: 100 Percent Meal Consumed - Lunch: 100 Percent Meal Consumed - Dinner: 100 Subjective Subjective Patient was seen & assessed and interval progress reviewed with nursing and social work Nursing reported patient has been smiling and is more reactive. On interview patient reports anxiety about discharge and what the situation may be like at home. No specific worries. Denies SI and HI. Denies having fears of harming self or others. We discuss strategies to deal with anxiety including distractions such as completing chores, going on a hike or a walk, talking to family. Encouraged patient to engage in self-care activities that he can do spontaneously if distressed. Reports having good rapport with family and can talk to parents freely. No other concerns reported. Physical Exam Mental Examination Appearance: Well Groomed Eye Contact: Maintains Eye Contact Motor Behavior: Unremarkable Speech: Normal Mood: Euthymic Affect: Appropriate and Constricted Thought Process: Intact Hallucinations: None Insight: Fair Judgement: Fair (to limited) Vital Signs (Past 24 Hours) Last Vital Signs Temp 37 C 03/18/24 06:41 Pulse 87 03/18/24 06:42 Resp 16 03/18/24 06:41 BP 130/80 03/18/24 06:42 Pulse Ox 96 03/10/24 06:51 O2 Del Method Room Air 03/10/24 06:51 Results & Data ([facility]) Current Inpatient Medications Current Inpatient Medications: Current Inpatient Medications Acetaminophen (Acetaminophen 325 Mg Tab) 650 mg PO Q4H PRN PRN Reason: Headache or Minor Fever Stop: 04/12/24 17:05 Al Hydrox/Mg Hydrox/Simethicone (Aluminum/Magnesium Susp 30 Ml Udc) 30 ml PO Q4H PRN PRN Reason: GI Upset Stop: 04/12/24 17:05 Benztropine Mesylate (Benztropine Mesylate 1 Mg Tab) 1 mg PO BID PRN PRN Reason: muscle stiffness Stop: 03/24/24 09:54 Last Admin: 03/11/24 14:46 Dose: 1 mg Bismuth Subsalicylate (Bismuth Subsalicylate Liqd 236 Ml) 15 ml PO PRN PRN PRN Reason: Loose Stool Stop: 04/12/24 17:05 Fluoxetine HCl (Fluoxetine Hcl 20 Mg Cap) 40 mg PO QAM TAY Stop: 04/08/24 08:59 Last Admin: 03/18/24 08:52 Dose: 40 mg Gabapentin (Gabapentin 100 Mg Cap) 100 mg PO BID PRN PRN Reason: Anxiety Stop: 04/14/24 20:59 Last Admin: 03/15/24 13:00 Dose: 100 mg Hydrocortisone (Hydrocortisone 1% Crm 30 Gm Tube) 1 appln EXT DAILY PRN PRN Reason: scalp inflammation Stop: 03/18/24 12:59 Lorazepam (Lorazepam 1 Mg Tab) 1 mg PO BID PRN PRN Reason: Anxiety Stop: 03/31/24 12:36 Last Admin: 03/12/24 13:42 Dose: 1 mg Magnesium Hydroxide (Magnesium Hydroxide Susp 30 Ml Udc) 30 ml PO DAILY PRN PRN Reason: Constipation Stop: 04/12/24 17:05 Mupirocin (Mupirocin 2% Oint 22 Gm Tube) 1 appln EXT BID PRN PRN Reason: Nasal Dryness Stop: 03/21/24 08:59 Olanzapine (Olanzapine 20 Mg Tablet) 20 mg PO HS TAY Stop: 04/11/24 21:59 Last Admin: 03/17/24 21:21 Dose: 20 mg Olanzapine (Olanzapine 5 Mg Tablet) 5 mg PO QAM TAY Stop: 04/12/24 10:59 Last Admin: 03/18/24 08:53 Dose: 5 mg Olanzapine (Olanzapine 2.5 Mg Tab) 2.5 mg PO BID PRN PRN Reason: Agitation/Psychosis Stop: 04/12/24 20:59 Sodium Chloride (Sodium Chloride 0.65% Na Soln 45 Ml ([place])) 1 - 2 sprays NA QID PRN PRN Reason: Nasal Congestion Stop: 03/31/24 12:59 Mental Health & Subst Abuse Tx Psychiatrist Name of Psychiatrist: [facility] Psychiatrist's Date Of Appointment With Psychiatric Provider: 03/20/24 Time of Appointment with Psychiatrist: 2:00 PM Psychiatric Appointment Comment: [address] [address] (intake evaluation for FEP) Therapist Name of Therapist: [facility] Therapist's Time of Therapist Appointment: n/a Therapy Appointment Comment: [address] [address] Earth Moving Machine Operator Name of Earth Moving Machine Operator: [facility] Phone Number for Earth Moving Machine Operator: [phone] Time of Appointment with Earth Moving Machine Operator: n/a Case Management Appointment Comment: [address] [facility] [address] Post Discharge Appointments Primary Care Physician Name Of Family Doctor/PCP: ALEJANDRO [facility] Date of Future Appointment with PCP: 03/21/24 Time of Appointment with PCP: 10:45 AM arrival Provider Appointment Comment: [address], [place] [address] Specialist Name of Specialist: [facility] Phone Number for Specialist: [phone] Time of Appointment with Specialist: Please ask PCP for a referral.
--- NOTE | 2024-03-18 13:21 | Communication Note ---
Date of Service: March 18, 2024 Called Mother (ANISHA ROOT -[phone]): Updated about care plan, recent progress, discharge expectations. Mother and pt will stay in [place] for 1 night before going to [place]. Mother worried home in [place] is loud and "chaotic" because of babies there. Provided recommendation to be close to mother for support and ear plugs at night. Updated about appointments.
--- NOTE | 2024-03-19 15:23 | Psychiatric Progress Note ---
Date of Service March 19, 2024 Impression / Recommendations Impression 23 yo man with no formal psychiatric history admitted on a 201 voluntary commitment for psychosis, sense that he may hurt someone and SI with plan of hanging himself using rope. Diagnostically consistent with unspecified psychosis with differential including schizophrenia (seems most likely given his age, gradual onset with increased negative symptoms, ideas of reference, increased methodist fixation, and now thought insertion to harm others) vs OCD vs MDD with psychotic features vs BPAD (less likely given no hx of monica) vs delusional disorder vs 2/2 medical cause (unlikely given negative head CT two months ago and no current neurological deficits or autonomic dysfunction, TSH normal). A: Patient's behavior is stable with no signs of recurrence of psychosis. He presents anticipatory anxiety about discharge and was counseled. He was educated about his conditions and need for long-term adherence to medications. Plan to discharge for tomorrow. Overall, I spent a total of 35 minutes with this case including review of chart records, nursing report, direct evaluation of the patient at bedside, counseling the patient, orders, and documentation in the electronic health record. 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 03/18/2024: Continue medications. MNPR no longer needed and patient may have roommate. 03/17/2024: Continue medications and treatment plan. 03/16/2024: Continue current medications and treatment plan. 03/15/2024: Nasal saline switch to as needed. Start gabapentin 100 mg twice daily as needed for anxiety. Daily hydrocortisone as needed. Discontinue ketoconazole shampoo. Continue other medications and treatment plan. 03/14/2024: Continue current medications and tx plan. 03/13/2024: Add olanzapine 5mg qAM and 20mg HS. Olanzapine 2.5mg BID prn for agitation. 03/12/2024: Discontinue haldol. Start olanzapine 20mg HS. 03/11/2024: Increase haldol to 5mg qAM and 10mg HS 03/10/2024: Continue current medications and tx plan. 03/09/2024: Discontinue ativan 0.5mg HS. 03/08/2024: Discontinue scheduled Cogentin (prn for acute dystonic reaction), discontinue zytrec. Start mirtazapine 7.5mg HS, increase fluoxetine to 40mg qd 03/07/24: Continue current medications and treatment plan. 03/06/24: Increase Haldol back to 5mg BID. Benztropine 0.5mg BID scheduled. Aftercare planning. 03/05/24: Decrease Haldol to 2.5mg QAM, 5mg HS for akathisia concerns. Labs for prolactin, vitamin D, vitamin B12. 03/04/24: Increase lorazepam PRN to 1mg BID. Ketoconazole 2% shampoo applied 2x weekly for 4 weeks. Hydrocortisone 1% cream applied daily to scalp for 2 weeks. 03/03/24: Haldol 2.5mg QDBB, 2.5mg QDBL, 5mg HS 03/02/24: Brain MRI w/wo contrast to rule out nonpsychiatric causes. Patient continues to feel sedated during the day and will discontinue nightly Clonazepam and replace with Lorazepam 1mg HS. Lorazepam PRN dec to 0.5mg BID PRN. 03/01/24: Start daily cetirizine. Schedule nasal saline 4 times daily. Will work with social work to plan for outpatient sleep study. Concern for excess sedation on Klonopin and will reduce dose to 0.5 mg and scheduled at bedtime. Concern for ongoing EPS from haloperidol and Thorazine and will decrease haloperidol to to 5 mg twice daily. Discontinue as needed Klonopin and start lorazepam 1 mg twice daily as needed for anxiety. 02/29/2024: Increase Klonopin to 1mg qAM and Klonopin prn. Increase Thorazine 50mg BID prn for somatic delusions/psychosis/agitation. 02/28/2024: Start Thorazine 10mg BID prn for somatic perseveration. 02/27/2024: Start Klonopin 0.5mg schedule. Plan to increase fluoxetine on 02/29/24 02/26/2024: Continue current medications and tx plan. 02/25/2024: Increase haldol 10mg BID 02/24/2024: Addition of propranolol 10mg BID prn for akathisia 02/23/2024: Discontinue olanzapine. Adjust haldol to 5mg qAM and 10mg HS. Adjust cogentin to BID prn. 02/22/24: Prozac was increased to 30 mg daily starting tomorrow. 02/21/2024 Patient's larger dose of Zyprexa was switched to the morning because he says mornings are more difficult. The plan is to decrease the Zyprexa to only have him on Haldol. Continue the Prozac. PRN Ativan should be used sparingly. The fact that he has responded to the ativan makes me think this is more obsessional and intrusive thoughts than truce psychosis. Prozac was started for anxiety and should be titrated as quickly as safe for efficacy. 02/20/24 We stopped Gabapentin, added Prozac, PRN ativan, and Zyprexa was decreased with the hope that he can only be on Haldol as it has seemed to be the most effective. 02/19/2024 We have added Gabapentin to the patient's regimen at his request. We will continue to monitor. We will also try changing the larger Zyprexa dose to the morning. : Continue with current medications at this time. We will consider adding Gabapentin for his anxiety about his breathing. 02/17/2024 Zyprexa at bedtime was increased to 7.5 mg, continue 5 mg daily 02/16/2024 Zyprexa 5 mg BID. 02/15/2024: -Increase risperidone to 1mg BID -haldol 2.5mg BID prn for agitation/paranoia/psychosis and ativan 0.5mg BID prn for agitation -discontinue ativan HS 02/14/2024: -Haldol 5mg po and ativan 2mg po at HS -Tomorow start risperidone 0.5mg BID -Fasting lipid panel, glucose and HbA1c in the morning 02/13/2024:The patient was admitted to the [facility] ([facility] unit) on q15 min checks (behavioral with suicide precautions) for safety. The patient will participate in group, recreational, and milieu therapies and will be offered additional individual and family sessions as clinically appropriate. -Continue haldol 2.5mg qAM and 5mg HS for psychosis -Ativan 1mg qAM and 2mg HS for psychosis given high acuity of current distress and symptoms -Discontinue lamictal -Fasting lipid panel and HbA1c in 1-2 days as he can better tolerate -Suicide protocol with safe tray, safe linens, safety precautions -Homicide precautions -Elopement precautions Inventory Assets Strengths: supportive family, willing for treatment Needs: safety and stabilization, increased coping skills, medication adjustment, increased outpatient support Suicide Risk Level Suicide Risk Level: Moderate (q15 min suicide checks) (increased psychosis with intermittent SI, able to alert staff when desires additional support, feels safe in the hospital) Risk Factors Assessment Male: Yes : Yes Do You Have Access To A Gun?: No (n/a) Mental Health Diagnoses: Yes Substance Use Disorders: No Previous Attempt: No Family History of Suicide: No Previous Psychiatric Hospitalization: No Protective Factors Assessment Employed: No Stable Relationships: Yes Supportive Family: Yes Interval History Identifying Information SAMIRA ROOT is a 23-year-old man who currently lives in [place] with his parents, has a history of depression, and was admitted on 02/12/24 17:07 on a 201 voluntary commitment for SI with plan of hanging himself and ego-dystonic HI. Chief Complaint Anxiety, psychosis Review of Systems Sleep Information Total Hours of Sleep: 7 Meal Information Percent Meal Consumed - Breakfast: 100 Percent Meal Consumed - Lunch: 100 Percent Meal Consumed - Dinner: 100 Subjective Subjective Patient was seen & assessed and interval progress reviewed with treatment team nursing and social work Nursing reports patient presents a bright and reactive affect. Patient appears hopeful about the future. He reports anxiety about what to tell family once he goes home and what his plan for the day will be. He was counseled on preparing a schedule for himself to keep him structured and oriented. He denies suicidal and homicidal ideation. He denies having intrusive thoughts of harm to others or fear that he may harm others. He asked questions about potential medication reduction and need to be medication adherent in the long-term and was educated about his conditions and treatment. No further concerns reported. Updated him of the disposition plan. Physical Exam Mental Examination Appearance: Well Groomed Eye Contact: Maintains Eye Contact Motor Behavior: Unremarkable Speech: Normal Mood: Euthymic Affect: Appropriate and Constricted Thought Process: Intact Hallucinations: None Insight: Fair Judgement: Fair (to limited) Vital Signs (Past 24 Hours) Last Vital Signs Temp 36.9 C 03/19/24 06:43 Pulse 76 03/19/24 06:44 Resp 16 03/19/24 06:43 BP 119/79 03/19/24 06:44 Pulse Ox 96 03/10/24 06:51 O2 Del Method Room Air 03/10/24 06:51 Results & Data ([facility]) Current Inpatient Medications Current Inpatient Medications: Current Inpatient Medications Acetaminophen (Acetaminophen 325 Mg Tab) 650 mg PO Q4H PRN PRN Reason: Headache or Minor Fever Stop: 04/12/24 17:05 Al Hydrox/Mg Hydrox/Simethicone (Aluminum/Magnesium Susp 30 Ml Udc) 30 ml PO Q4H PRN PRN Reason: GI Upset Stop: 04/12/24 17:05 Benztropine Mesylate (Benztropine Mesylate 1 Mg Tab) 1 mg PO BID PRN PRN Reason: muscle stiffness Stop: 03/24/24 09:54 Last Admin: 03/11/24 14:46 Dose: 1 mg Bismuth Subsalicylate (Bismuth Subsalicylate Liqd 236 Ml) 15 ml PO PRN PRN PRN Reason: Loose Stool Stop: 04/12/24 17:05 Fluoxetine HCl (Fluoxetine Hcl 20 Mg Cap) 40 mg PO QAM TAY Stop: 04/08/24 08:59 Last Admin: 03/19/24 10:06 Dose: 40 mg Gabapentin (Gabapentin 100 Mg Cap) 100 mg PO BID PRN PRN Reason: Anxiety Stop: 04/14/24 20:59 Last Admin: 03/15/24 13:00 Dose: 100 mg Lorazepam (Lorazepam 1 Mg Tab) 1 mg PO BID PRN PRN Reason: Anxiety Stop: 03/31/24 12:36 Last Admin: 03/12/24 13:42 Dose: 1 mg Magnesium Hydroxide (Magnesium Hydroxide Susp 30 Ml Udc) 30 ml PO DAILY PRN PRN Reason: Constipation Stop: 04/12/24 17:05 Mupirocin (Mupirocin 2% Oint 22 Gm Tube) 1 appln EXT BID PRN PRN Reason: Nasal Dryness Stop: 03/21/24 08:59 Olanzapine (Olanzapine 20 Mg Tablet) 20 mg PO HS TAY Stop: 04/11/24 21:59 Last Admin: 03/18/24 20:48 Dose: 20 mg Olanzapine (Olanzapine 5 Mg Tablet) 5 mg PO QAM TAY Stop: 04/12/24 10:59 Last Admin: 03/19/24 10:06 Dose: 5 mg Olanzapine (Olanzapine 2.5 Mg Tab) 2.5 mg PO BID PRN PRN Reason: Agitation/Psychosis Stop: 04/12/24 20:59 Sodium Chloride (Sodium Chloride 0.65% Na Soln 45 Ml ([place])) 1 - 2 sprays NA QID PRN PRN Reason: Nasal Congestion Stop: 03/31/24 12:59 Mental Health & Subst Abuse Tx Psychiatrist [facility] of Psychiatrist: [facility] Psych[facility]rist's Date Of Appointment With Psychiatric Provider: 03/20/24 Time of Appointment with Psychiatrist: 2:00 PM Psychiatric Appointment Comment: [address] [facility] [id number] (intake evaluation for [facility]) Therapist Name of Therapist: [facility] Therapist's Time of Therapist Appointment: n/a Therapy Appointment Comment: [address] [place] [id number] Stranner Name of Stranner: [facility] Phone Number for Stranner: [phone] Time of Appointment with Stranner: n/a Case Management Appointment Comment: [address] [facility] [id number] Post Discharge Appointments Primary Care Physician Name Of Family Doctor/PCP: [facility] Date of Future Appointment with PCP: 03/21/24 Time of Appointment with PCP: 10:45 AM arrival Provider Appointment Comment: [address], [place] [address] Specialist Name of Specialist: [facility] Phone Number for Specialist: [phone] Time of Appointment with Specialist: Please ask PCP for a referral.
--- NOTE | 2024-03-20 09:26 | Discharge Summary ---
Date of Service March 20, 2024 History of Present Illness Mikhail presented to the emergency room with his father for worsening depression and SI with plan of hanging himself and could not identify any particular recent stressors. However, on admission to the behavioral health unit he revealed to the nurse that he was having the sense of getting a message that he needed to hurt others and due to this felt like he should kill himself before this could happen. Last evening he attempted to self-harm using an item on his sink and then agreed to utilize the quiet room and accepted medication and remained safe overnight. Today reports a significant improvement in some of his symptoms, denying current HI and SI, which he feels is due to the benefits from getting some sleep and possibly from the medication. He reports recent poor sleep, only 2-3 hours per night, for the two nights prior to admission and within the last three days developed a strong sense of needing to harm himself or others, which is a new and alarming development for him. He expresses a strong internal resistance against these thoughts and has no history of acting on them and is disturbed by the thought of hurting anyone but feels powerless at times when these thoughts seem to take over. He has been having thoughts of suicide with various plans but has thought most about hanging; he denies any rehearsal behaviors related to this. He describes a gradual decline in function with increased isolation and depression starting in 2021 and progressively worsening. In 2022, after his family moved to [place] his sense of isolation intensified, contributing to the onset of depression. He sought help through therapy, meditation, and exercise, which provided some relief. However, he was unable to continue his [employer] business and began to have an unintentional withdrawal from social interactions and a deepening interest in spirituality and self- reflection. He notes that he will sometimes spend hours a day meditating, writing and thinking about other religions and recently was going for long periods of time fasting which had significantly concerned his family. He now wonders if this period of time could be called "psychosis". Two months ago his parents took him to the ER at [facility] due to severe isolation and poor communication, which was worrying to his family. He recalls having a head CT and labwork for medical evaluation to explore potential physical health contributions to his symptoms, including chronic issues like psoriasis, seborrheic dermatitis, nasal problems, and fatigue which was non-remarkable and he was discharged from the ED. Within the last two weeks he started to develop thoughts of suicide and only within the last few days did he start to have a sense of harming others. He denies any auditory hallucinations but does have the sense that his mind is being controlled at times and confirms multipe incidents of ideas of reference over the last year including feeling that movies are directly speaking to him, getting fixated on certain numbers appearing in books or online or the clock such as "11:11 and 333" and on arrival to the [facility] found a passage in a book very distressing as he felt it directly applied to him. He denies any history of monica nor hypomania except poor sleep over the two days prior to admission. Denies any history of self-harm nor eating disorder. Was started on lamictal 3 weeks ago but feels this is making his symptoms worse. Physical Exam Mental Examination Appearance: Well Groomed Eye Contact: Maintains Eye Contact Motor Behavior: Unremarkable Speech: Normal Mood: Euthymic Affect: Appropriate and Constricted Thought Process: Intact Hallucinations: None Insight: Fair Judgement: Fair (to limited) Vital Signs (Past 24 Hours) Last Vital Signs Temp 36.9 C 03/20/24 06:35 Pulse 82 03/20/24 06:35 Resp 16 03/20/24 06:35 BP 120/77 03/20/24 06:35 Pulse Ox 96 03/10/24 06:51 O2 Del Method Room Air 03/10/24 06:51 Principal Diagnosis Schizophreniform Disorder (OCD traits) Psychiatric Data See daily stay summary. In short, safety was maintained and the patient was cooperative with care. Medication changes included initiating Fluoxetine 40mg daily and Olanzapine 5mg QAM and 20mg HS and they tolerated this well. Initially patient was tried on multiple 2nd gen antipsychotics including risperidone and failed to improve promptly. Was then transitioned to Haloperidol, initially effective however patient was experiencing akathisia and dose reduction occurred and pt decompensated close to expected discharge. AP was changed to Olanzapine and he tolerated this well with resolution of most compulsions, intrusive thoughts. A family session was held and safety plan was completed prior to discharge. Pt to f/u PCP and sleep medicine. Day of Discharge Assessment Today the patient voices readiness for discharge. They note improvement in mood and deny thoughts to harm self or others. Thoughts remain organized and they are improved from admission. There is no evidence of psychosis. They agree to take mediations as prescribed and keep follow-up appointments. They are stable for discharge to outpatient level of care. Transition of Care Transition Of Care Record: was reviewed with the patient Advance Directives Advance Directives Information Provided: No Advance Directives: No Mental Health Advance Directive: No Advance Directives on File: No Living Will: No Power of Sales Team Manager: No Advance Directives Reason:: Declines as Mental Health Visit. Suicide Risk Level Suicide Risk Level: Low (q15 min observation checks) Risk Factors Assessment Male: Yes : Yes Do You Have Access To A Gun?: No (n/a) Mental Health Diagnoses: Yes Substance Use Disorders: No Previous Attempt: No Family History of Suicide: No Previous Psychiatric Hospitalization: No Protective Factors Assessment Employed: No Stable Relationships: Yes Supportive Family: Yes Discharge Data Lab Results 02/12/24 02/12/24 02/12/24 13:00 13:04 13:07 WBC 8.29 RBC 4.93 Hgb 15.4 Hct 44.1 MCV 89.5 MCH 31.2 MCHC 34.9 RDW Std Deviation 40.6 RDW Coeff of Adryan 12.4 Plt Count 265 MPV 9.8 Immature Gran % (Auto) 0.4 Neut % (Auto) 75.8 Lymph % (Auto) 15.9 Mccone % (Auto) 7.5 Eos % (Auto) 0.2 Baso % (Auto) 0.2 Neut # (Auto) 6.28 Lymph # (Auto) 1.32 Mccone # (Auto) 0.62 H Eos # (Auto) 0.02 Baso # (Auto) 0.02 Immature Gran # (Auto) 0.03 Sodium 141 Potassium 4.1 Chloride 102 Carbon Dioxide 29 Anion Gap 10 BUN 15 Creatinine 0.87 Est Cr Clr Drug Dosing 137.9 Est GFR ( Amer) 142.0 Est GFR (Non-Af Amer) 122.5 BUN/Creatinine Ratio 17.2 Glucose 115 H Fasting Glucose Estimat Average Glucose Hemoglobin A1c Calcium 10.0 Total Bilirubin 0.5 AST 16 ALT 14 Alkaline Phosphatase 52 Total Protein 8.2 Albumin 5.2 H Globulin 3.0 Albumin/Globulin Ratio 1.7 Triglycerides Cholesterol LDL Cholesterol, Calc VLDL Cholesterol, Calc HDL Cholesterol Cholesterol/HDL Ratio Vitamin B12 25-OH Vitamin D Total TSH 1.804 Prolactin Urine Color Yellow Urine Appearance Turbid A Urine pH 8.5 H Ur Specific Dazey 1.022 Urine Protein Negative Urine Glucose (UA) Negative Urine Ketones Negative Urine Blood Negative Urine Nitrite Negative Urine Bilirubin Negative Urine Urobilinogen Negative Ur Leukocyte Esterase Negative Urine WBC (Auto) 0-5 Urine RBC (Auto) 0-2 U Hyaline Cast (Auto) 0-2 U Epithel Cells (Auto) 0-2 Urine Bacteria (Auto) None Seen Salicylates < 3.0 L Urine Opiates Screen Neg Ur Methadone, Qual Neg Acetaminophen < 3 L Urine Barbiturates Neg Ur Phencyclidine (PCP) Neg U Amphetamin/Meth Scrn Neg MDMA (Ecstasy) Screen Neg U Benzodiazepines Scrn Neg Ur Cocaine Metabolite Neg U Marijuana (THC) Screen Neg Ethyl Alcohol mg/dL < 10.0 SARS-CoV-2, RNA, NAAT NEGATIVE 02/15/24 03/06/24 07:52 07:09 WBC RBC Hgb Hct MCV MCH MCHC RDW Std Deviation RDW Coeff of Adryan Plt Count MPV Immature Gran % (Auto) Neut % (Auto) Lymph % (Auto) Mccone % (Auto) Eos % (Auto) Baso % (Auto) Neut # (Auto) Lymph # (Auto) Mccone # (Auto) Eos # (Auto) Baso # (Auto) Immature Gran # (Auto) Sodium Potassium Chloride Carbon Dioxide Anion Gap BUN Creatinine Est Cr Clr Drug Dosing Est GFR ( Amer) Est GFR (Non-Af Amer) BUN/Creatinine Ratio Glucose Fasting Glucose 102 H Estimat Average Glucose 100 Hemoglobin A1c 5.1 Calcium Total Bilirubin AST ALT Alkaline Phosphatase Total Protein Albumin Globulin Albumin/Globulin Ratio Triglycerides 56 Cholesterol 117 LDL Cholesterol, Calc 58 VLDL Cholesterol, Calc 11 HDL Cholesterol 48 Cholesterol/HDL Ratio 2.4 Vitamin B12 484 25-OH Vitamin D Total 44.6 TSH Prolactin 59.55 Urine Color Urine Appearance Urine pH Ur Specific Dazey Urine Protein Urine Glucose (UA) Urine Ketones Urine Blood Urine Nitrite Urine Bilirubin Urine Urobilinogen Ur Leukocyte Esterase Urine WBC (Auto) Urine RBC (Auto) U Hyaline Cast (Auto) U Epithel Cells (Auto) Urine Bacteria (Auto) Salicylates Urine Opiates Screen Ur Methadone, Qual Acetaminophen Urine Barbiturates Ur Phencyclidine (PCP) U Amphetamin/Meth Scrn MDMA (Ecstasy) Screen U Benzodiazepines Scrn Ur Cocaine Metabolite U Marijuana (THC) Screen Ethyl Alcohol mg/dL SARS-CoV-2, RNA, NAAT Hospital Course (1) Schizophreniform disorder: (2) 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 03/18/2024: Continue medications. MNPR no longer needed and patient may have roommate. 03/17/2024: Continue medications and treatment plan. 03/16/2024: Continue current medications and treatment plan. 03/15/2024: Nasal saline switch to as needed. Start gabapentin 100 mg twice daily as needed for anxiety. Daily hydrocortisone as needed. Discontinue ketoconazole shampoo. Continue other medications and treatment plan. 03/14/2024: Continue current medications and tx plan. 03/13/2024: Add olanzapine 5mg qAM and 20mg HS. Olanzapine 2.5mg BID prn for agitation. 03/12/2024: Discontinue haldol. Start olanzapine 20mg HS. 03/11/2024: Increase haldol to 5mg qAM and 10mg HS 03/10/2024: Continue current medications and tx plan. 03/09/2024: Discontinue ativan 0.5mg HS. 03/08/2024: Discontinue scheduled Cogentin (prn for acute dystonic reaction), discontinue zytrec. Start mirtazapine 7.5mg HS, increase fluoxetine to 40mg qd 03/07/24: Continue current medications and treatment plan. 03/06/24: Increase Haldol back to 5mg BID. Benztropine 0.5mg BID scheduled. Aftercare planning. 03/05/24: Decrease Haldol to 2.5mg QAM, 5mg HS for akathisia concerns. Labs for prolactin, vitamin D, vitamin B12. 03/04/24: Increase lorazepam PRN to 1mg BID. Ketoconazole 2% shampoo applied 2x weekly for 4 weeks. Hydrocortisone 1% cream applied daily to scalp for 2 weeks. 03/03/24: Haldol 2.5mg QDBB, 2.5mg QDBL, 5mg HS 03/02/24: Brain MRI w/wo contrast to rule out nonpsychiatric causes. Patient continues to feel sedated during the day and will discontinue nightly Clonazepam and replace with Lorazepam 1mg HS. Lorazepam PRN dec to 0.5mg BID PRN. 03/01/24: Start daily cetirizine. Schedule nasal saline 4 times daily. Will work with social work to plan for outpatient sleep study. Concern for excess sedation on Klonopin and will reduce dose to 0.5 mg and scheduled at bedtime. Concern for ongoing EPS from haloperidol and Thorazine and will decrease haloperidol to to 5 mg twice daily. Discontinue as needed Klonopin and start lo razepam 1 mg twice daily as needed for anxiety. 02/29/2024: Increase Klonopin to 1mg qAM and Klonopin prn. Increase Thorazine 50mg BID prn for somatic delusions/psychosis/agitation. 02/28/2024: Start Thorazine 10mg BID prn for somatic perseveration. 02/27/2024: Start Klonopin 0.5mg schedule. Plan to increase fluoxetine on 02/29/24 02/26/2024: Continue current medications and tx plan. 02/25/2024: Increase haldol 10mg BID 02/24/2024: Addition of propranolol 10mg BID prn for akathisia 02/23/2024: Discontinue olanzapine. Adjust haldol to 5mg qAM and 10mg HS. Adjust cogentin to BID prn. 02/22/24: Prozac was increased to 30 mg daily starting tomorrow. 02/21/2024 Patient's larger dose of Zyprexa was switched to the morning because he says mornings are more difficult. The plan is to decrease the Zyprexa to only have him on Haldol. Continue the Prozac. PRN Ativan should be used sparingly. The fact that he has responded to the ativan makes me think this is more obsessional and intrusive thoughts than truce psychosis. Prozac was started for anxiety and should be titrated as quickly as safe for efficacy. 02/20/24 We stopped Gabapentin, added Prozac, PRN ativan, and Zyprexa was decre ased with the hope that he can only be on Haldol as it has seemed to be the most effective. 02/19/2024 We have added Gabapentin to the patient's regimen at his request. We will continue to monitor. We will also try changing the larger Zyprexa dose to the morning. : Continue with current medications at this time. We will consider adding Gabapentin for his anxiety about his breathing. 02/17/2024 Zyprexa at bedtime was increased to 7.5 mg, continue 5 mg daily 02/16/2024 Zyprexa 5 mg BID. 02/15/2024: -Increase risperidone to 1mg BID -haldol 2.5mg BID prn for agitation/paranoia/psychosis and ativan 0.5mg BID prn for agitation -discontinue ativan HS 02/14/2024: -Haldol 5mg po and ativan 2mg po at HS -Tomorow start risperidone 0.5mg BID -Fasting lipid panel, glucose and HbA1c in the morning 02/13/2024:The patient was admitted to the [facility] ([facility] unit) on q15 min checks (behavioral with suicide precautions) for safety. The patient will participate in group, recreational, and milieu therapies and will be offered additional individual and family sessions as clinically appropriate. -Continue haldol 2.5mg qAM and 5mg HS for psychosis -Ativan 1mg qAM and 2mg HS for psychosis given high acuity of current distress and symptoms -Discontinue lamictal -Fasting lipid panel and HbA1c in 1-2 days as he can better tolerate -Suicide protocol with safe tray, safe linens, safety precautions -Homicide precautions -Elopement precautions Mental Health & Subst Abuse Tx Psychiatrist Name of Psychiatrist: Barbara Mathews FEP Psychiatrist's Date Of Appointment With Psychiatric Provider: 03/20/24 Time of Appointment with Psychiatrist: 2:00 PM Psychiatric Appointment Comment: [address] [facility] [id number] (intake evaluation for FEP) Therapist Name of Therapist: Barbara CURTIS Therapist's Time of Therapist Appointment: n/a Therapy Appointment Comment: [address] [facility] [id number] Fire Pot Operator Name of Fire Pot Operator: Barbara CURTIS Phone Number for Fire Pot Operator: [phone] Time of Appointment with Fire Pot Operator: n/a Case Management Appointment Comment: [address] [facility] [id number] Post Discharge Appointments Primary Care Physician Name Of Family Doctor/PCP: ALEJANDRO [facility] Date of Future Appointment with PCP: 03/21/24 Time of Appointment with PCP: 10:45 AM arrival Provider Appointment Comment: [address], [place] [address] Specialist Name of Specialist: [facility] Phone Number for Specialist: [phone] Time of Appointment with Specialist: Please ask PCP for a referral. 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: (3) Elevated prolactin level: (4) Sexual dysfunction: Activity: Resume your previous activity Non-emergency contact: Primary Care Provider and Psychiatrist Call non-emergency contact if: you have any medication questions and your symptoms worsen Follow-up/Referrals: Eduardo Miles MD [Primary Care Provider] - Diet: Regular Addtl Attending Provider Instructions: -Continue Olanzapine 5mg in the morning, 20mg at bedtime -Continue Fluoxetine 40mg daily -Take Lorazepam 1mg NEEDED for anxiety -F/u with sleep medicine for study Pending Studies at Discharge: No Stand-Alone Forms: [employer], Smoking Cessation Medications and DC Order Prescriptions: New olanzapine 5 mg Tablet 5 mg PO QAM Qty: 30 1RF lorazepam 1 mg Tablet 1 mg PO DAILY PRN (Reason: Anxiety) Qty: 15 0RF fluoxetine 40 mg capsule 40 mg PO QAM Qty: 30 1RF olanzapine 20 mg tablet 20 mg PO HS Qty: 30 1RF Continued cholecalciferol (vitamin D3) 1,250 mcg (50,000 unit) capsule 50,000 unit PO WK Rx Instructions: Weekly on Sundays Discontinued lamotrigine 25 mg tablet 25 mg PO DAILY Discharge Orders: Discharge Order (Routine); Ordered 03/20/24 Ordered By: Nilton Burgess Admission Data Admit Date/Time: 02/12/24 17:07 Attending Provider: Nilton Burgess Admit Provider: Stacy Rojas Primary Care Provider: Eduardo Miles Other Providers: Nilton Burgess C[place] [address] D/C day mgmt > 30 min Patient Type Established History Comprehensive Exam Comprehensive Medical Decision Making High Complexity Diagnoses Schizophreniform disorder F20.81 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
== END 2024-03-20 11:05 | disposition home or self-care (01) | DRG 885 ==
LOC: ED 12:38 → SUATTDRO 17:07 → 3S 17:07
DX: R37 Sexual dysfunction, unspecified; R45.851 Suicidal ideations; R73.9 Hyperglycemia, unspecified; R79.89 Other specified abnormal findings of blood chemistry; R45.850 Homicidal ideations; F29 Unspecified psychosis not due to a substance or known physiological condition; F42.8 Other obsessive-compulsive disorder; F20.81 Schizophreniform disorder; F32.A Depression, unspecified; T43.4X5A Adverse effect of butyrophenone and thiothixene neuroleptics, initial encounter; G25.71 Drug induced akathisia; Y92.230 Patient room in hospital as the place of occurrence of the external cause